=== PATIENT | male | born 1955 | race Caucasian/White ===

== ENCOUNTER 2020-09-02 14:02 | Inpatient (IN) | payer MEDICAID, SELFPAY ==
[2020-09-02] VITALS (15 sets, daily range): BP systolic 118–162; BP diastolic 76–95; PULSE 82–151; RESP 12–31; TEMP 36.9–43; O2SAT 93–97; BMI 33.3; BMI 33.5
--- NOTE | 2020-09-02 14:14 | ECG_ITS ---
APPROVED REPORT Exam: Resting ECG HR:151 bpm ECG Measurements Heart Rate 151 AXES QRSd 88 QRS 42 QT 288 T -1 QTc 456 Conclusion Atrial fibrillation with rapid ventricular response Abnormal ECG Electronically signed by : Saad Barraza, 09/02/2020 21:01:09
--- NOTE | 2020-09-02 14:19 | CT_ITS ---
Procedure: CT ANGIO ABDOMEN PELVIS CLINICAL HISTORY: abdominal pain, new afib COMPARISON: No exams were available for comparison TECHNIQUE: IV Contrast: 100ml Isovue 370 Axial images obtained with sagittal and coronal reformats. All CT scans at the facility use one or more dose reduction, viz: automated exposure control, ma/kV adjustment per patient size (including targeted exams where dose is matched to indication, i.e. head), or iterative reconstruction technique. FINDINGS: No evidence of aortic aneurysm. There is a single renal artery to each kidney. No evidence of renal artery stenosis. There is mild narrowing of the proximal aspect of the celiac artery of approximately 40-50 percent. The SMA has an unremarkable appearance. The WONG is patent. The iliacs have an unremarkable appearance. The liver, gallbladder, and adrenal glands and pancreas have an unremarkable appearance. There is mild splenomegaly at 14 cm. No renal or ureteral calculi. There is a small umbilical hernia containing fat. Degenerative changes are present in the lumbar spine. No evidence of appendicitis. There is a moderate amount of gas density present within the right upper quadrant. This is within the mesenteric fat in the epigastric region and in the right upper quadrant at the region of the hepatic flexure. There is a somewhat irregular area of enhancement involving the hepatic flexure of the colon which could represent a neoplastic process. Fluid is present within nondistended large and small bowel. Small amount of gas is noted anterior to the right anterior pararenal fascia. There is some thickening of the transverse portion of the duodenum with some stranding of the Alondra duodenal fat.. There are fluid-filled loops of large and small bowel suspicious for an ileus There are few colonic diverticula but no convincing evidence of diverticulitis. No portal venous gas. IMPRESSION: 1. There is free air within the mesenteric fat centrally and in the right upper quadrant. This is greatest in the hepatic flexure region consistent with ruptured viscus.. There is some irregular enhancement of the wall of the colon at this area. Neoplasm is a consideration. This does not appear to represent an apple-core lesion. This is not a typical appearance for diverticulitis although that etiology is not completely excluded. 2. There is mild focal thickening of the transverse portion of the duodenum suggesting underlying inflammatory changes. A penetrating ulcer in the transverse portion of the duodenum with perforation would also be included in the differential diagnosis. The duodenal bulb and descending portion of the duodenum are unremarkable.. 3. Suspect ileus 4. Dr. Arteaga was notified of these findings by telephone 09/02/2020 at 3:15 p.m. Dictated by: Luisito Nolan MD 09/02/2020 15:32 Luisito Nolan MD in [place] 09/02/2020 15:32
[2020-09-02 14:33] LABS: Basophils % 0.2 % (0.1-2.0); Eosinophils # 0.1 K/mm3 (0.0-0.4); Eosinophils % 0.4 % (0.1-12.0); Hematocrit 41.2 % (42.0-52.0); Lymphocytes # 0.9 K/mm3 (0.7-4.5); Mean Corpuscular Hemoglobin 29.9 pg (27.0-31.2); Mean Corpuscular Volume 87.8 fl (80-94); Mean Platelet Volume 10.1 fl (7.4-10.4); Monocytes # 0.5 K/mm3 (0.1-1.0); Monocytes % 2.7 % (1.7-9.3); Neutrophils % 91.8 % (37.0-80.0); Platelet Count 198 K/mm3 (142-424); Red Blood Count 4.68 M/mm3 (4.60-6.20); Red Cell Distribution Width 14.3 % (11.5-17.5); White Blood Count 17.4 K/mm3 (4.8-10.8)
[2020-09-02 14:36] LABS: MANUAL DIFFERENTIAL MANUAL DIFFERENTIAL (MANUAL DIFF)
[2020-09-02 14:37] LABS: Chloride 98 mmol/L (98-107); Sodium 137 mmol/L (136-145)
--- NOTE | 2020-09-02 14:37 | HMH.EDGENADL ---
ED Disposition Clinical Impression: Acute abdomen, Intra-abdominal free air of unknown etiology, Atrial fibrillation with RVR Disposition: Still a Patient Condition on Discharge: Serious Time of Disposition: 15:40 - Critical Care Critical Care Time: No Attestation: On 09/02/20, the high probability of a clinically significant, sudden or life threatening deterioration of the following system(s) required my full and direct attention, intervention and personal management. The time I documented below is in addition to time spent performing reported procedures but includes the following listed in this critical care notation. Medical Decision Making - Medical Records Medical records reviewed: Yes: I reviewed the patient's medical records. - Rene Inquiry Pt receiving controlled substance: No Vital Signs: 09/02/20 14:03 09/02/20 14:20 09/02/20 16:57 Temperature 99.4 F Temperature Source Oral Pulse Rate 145 H 149 H Pulse Rate [Left Radial] 151 H Respiratory Rate 20 20 20 Blood Pressure 118/76 135/90 Blood Pressure [Right Arm] 121/77 Blood Pressure Mean [Right Arm] 91 Blood Pressure Source Automatic Cuff Automatic Cuff Blood Pressure Source [Right Arm] Automatic Cuff Blood Pressure Position Sitting Sitting Blood Pressure Position [Right Arm] Sitting 02 Sat by Pulse Oximetry 97 93 L 97 Oxygen Delivery Method Room Air Room Air 09/02/20 18:36 Temperature 99.4 F Temperature Source Oral Pulse Rate 82 Pulse Rate [Left Radial] Respiratory Rate 20 Blood Pressure 129/82 Blood Pressure [Right Arm] Blood Pressure Mean [Right Arm] Blood Pressure Source Automatic Cuff Blood Pressure Source [Right Arm] Blood Pressure Position Sitting Blood Pressure Position [Right Arm] 02 Sat by Pulse Oximetry Oxygen Delivery Method Room Air - Lab Data Lab Results 09/02/20 14:20: WBC 17.4 H, RBC 4.68, Hgb 14.0 L, Hct 41.2 L, MCV 87.8, MCH 29.9, MCHC 34.0, RDW 14.3, Plt Count 198, MPV 10.1, Neut % (Auto) 91.8 H, Lymph % (Auto) 5.0 L, [place] % (Auto) 2.7, Eos % (Auto) 0.4, Baso % (Auto) 0.2, Neut # (Auto) 16.0 H, Lymph # (Auto) 0.9, [place] # (Auto) 0.5, Eos # (Auto) 0.1, Baso # (Auto) 0.0, Total Counted 100, Neutrophils % (Manual) 89 H, Lymphocytes % (Manual) 7 L, Monocytes % (Manual) 4, Platelet Estimate Normal 09/02/20 14:20: Sodium 137, Potassium 4.0, Chloride 98, Carbon Dioxide 28, Anion Gap 15.0, BUN 34 H, Creatinine 1.50 H, Estimated Creat Clear 72, Estimated GFR 47 L, Est GFR ( Amer) 57 L, Glucose 132 H, Calcium 9.0, Total Bilirubin 1.2, AST 32, ALT 28, Alkaline Phosphatase 62, Troponin I < 0.01, Total Protein 8.2, Albumin 4.5, Globulin 3.7 H, Albumin/Globulin Ratio 1.2, Lipase 49 09/02/20 14:20: Magnesium 1.7 09/02/20 14:20: Phosphorus 2.5, TSH 1.92 09/02/20 14:40: Lactate 1.6 09/02/20 16:55: SARS-CoV-2 (PCR) Not detected, Influenza A Untype (PCR) Not detected, Influenza Type B (PCR) Not detected Result diagrams: 09/02/20 14:20 09/02/20 14:20 Orders (Tests/Meds): ED MEDICATIONS Generic Name Dose Route Start Last Admin Trade Name Freq PRN Reason Stop Dose Admin Piperacillin Sod/Tazobactam 100 mls @ 200 mls/hr 09/02/20 15:15 09/02/20 16:18 Sod 4.5 gm/ Sodium Chloride IV 09/16/20 15:14 200 mls/hr Q8H BRIANNA Administration Protocol Ertapenem 1 gm/ Sodium 50 mls @ 100 mls/hr 09/03/20 17:00 Chloride IV 09/16/20 16:59 Q24H BRIANNA Protocol Discontinued Medications Generic Name Dose Route Start Last Admin Trade Name Freq PRN Reason Stop Dose Admin Sodium Chloride 1,000 mls @ 999 mls/hr 09/02/20 14:15 09/02/20 14:27 Sod Chlor 0.9% 1000ml Bag IV 09/02/20 15:15 999 mls/hr .Q1H1M BRIANNA Administration Sodium Chloride 1,000 mls @ 999 mls/hr 09/02/20 15:45 09/02/20 16:22 Sod Chlor 0.9% 1000ml Bag IV 09/02/20 16:45 999 mls/hr .Q1H1M BRIANNA Administration Ertapenem 1 gm/ Sodium 50 mls @ 100 mls/hr 09/02/20 17:00 Chloride IV 09/16/20 16:59 Q24H BRIANNA
[2020-09-02 14:40] LABS: Alanine Aminotransferase 28 U/L (12-78); Alkaline Phosphatase 62 U/L (38-126); Aspartate Amino Transferase 32 U/L (17-59); Bilirubin,Total 1.2 mg/dl (0.2-1.3); Blood Urea Nitrogen 34 mg/dl (9-20); Carbon Dioxide 28 mmol/L (22.0-30.0); Creatinine Clearance Estimated 72 mL/min (50-200); Estimated Glomerular Filt Rate 47 ml/min (>60); GFR (African American) 57 ML/MIN (>60); Glucose 132 mg/dl (74-100); Lipase 49 U/L (23-300); Phosphorous 2.5 mg/dl (2.5-4.5)
[2020-09-02 14:41] LABS: Albumin Level 4.5 g/dl (3.5-5.0); Albumin/Globulin Ratio 1.2 (1.1-1.8); Globulin 3.7 g/dL (1.3-3.2); Magnesium 1.7 mg/dl (1.6-2.3); Total Protein,Serum 8.2 g/dl (6.3-8.2)
[2020-09-02 14:57] LABS: Lactic Acid 1.6 mmol/L (0.7-2.1)
[2020-09-02 14:59] LABS: Troponin I < 0.01 ng/ml (0.00-0.034)
[2020-09-02 15:12] LABS: Thyroid Stimulating Hormone 1.92 uIU/mL (0.465-4.68)
[2020-09-02 15:19] LABS: Lymphocytes % 7 % (10-50); Monocytes % 4 % (2-9); Neutrophils % 89 % (42-76); Platelet Estimate Normal; Total Cells Counted 100
--- NOTE | 2020-09-02 15:32 | PC.NURSE ---
DR JAMES PAGED
--- NOTE | 2020-09-02 16:33 | PC.NURSE ---
DR JAMES HERE AND WANTS TO TAKE PT TO SURGERY
--- NOTE | 2020-09-02 16:47 | HMH.GSHP ---
HPI HPI: Contacted by the emergency department to evaluate patient with free air and abdominal pain. Patient is a 64-year-old male from [place] with reportedly no chronic medical conditions. He does state that for about 2 months he has had some occasional abdominal pain and looser stools with relief of abdominal pain with passage of gas. However, for the past 2 days he has had progressively quite severe abdominal pain with it becoming quite severe yesterday. He presented to his primary care provider's office today and was sent to the emergency department where he was seen and evaluated. Upon presentation patient was noted to be tachycardic. Work-up was initiated. EKG revealed evidence of atrial fibrillation with rapid ventricular response. He was found to have a leukocytosis. He describes the pain as in the mid upper abdomen characterized as intense and sharp. He has no prior history of similar symptoms. He has never had previous colonoscopy. No history of ulcer disease. He underwent CT scan of the abdomen and pelvis in the emergency department which revealed findings most notable for free air within the mesenteric fat near the hepatic flexure with some irregular enhancement of the colon wall. This is consistent with perforated colon possibly secondary to neoplasm or inflammatory process. [facility] History I have reviewed the patient's past medical history: Yes *Have you ever received a pneumonia vaccine?: No *Have you received a flu vaccine this season?: No - *Social History Smoking Status: Never smoker Alcohol Intake: never *Occupational Status:: other *Travel in the last 8 weeks: None Family Hx:: No significant family history Review of Systems - Review of Systems Review of systems:: pertinent systems reviewed and negative unless documented below - *Neurologic Denies headache(s), Denies numbness Meds Home Medications Medication Instructions Recorded Confirmed Type No Known Home Medications 09/02/20 09/02/20 History Allergies Allergy/AdvReac Type Severity Reaction Status Date / Time No Known Allergies Allergy Unverified 01/24/17 15:06 Exam Vital signs and Labs for Last 24 Hours: Temp Pulse Resp BP Pulse Ox 99.4 F 151 H 20 121/77 97 09/02/20 14:03 09/02/20 14:03 09/02/20 14:03 09/02/20 14:03 09/02/20 14:03 Laboratory Results - last 24 hr 09/02/20 14:20: WBC 17.4 H, RBC 4.68, Hgb 14.0 L, Hct 41.2 L, MCV 87.8, MCH 29.9, MCHC 34.0, RDW 14.3, Plt Count 198, MPV 10.1, Neut % (Auto) 91.8 H, Lymph % (Auto) 5.0 L, [place] % (Auto) 2.7, Eos % (Auto) 0.4, Baso % (Auto) 0.2, Neut # (Auto) 16.0 H, Lymph # (Auto) 0.9, [place] # (Auto) 0.5, Eos # (Auto) 0.1, Baso # (Auto) 0.0, Total Counted 100, Neutrophils % (Manual) 89 H, Lymphocytes % (Manual) 7 L, Monocytes % (Manual) 4, Platelet Estimate Normal 09/02/20 14:20: Sodium 137, Potassium 4.0, Chloride 98, Carbon Dioxide 28, Anion Gap 15.0, BUN 34 H, Creatinine 1.50 H, Estimated Creat Clear 72, Estimated GFR 47 L, Est GFR ( Amer) 57 L, Glucose 132 H, Calcium 9.0, Total Bilirubin 1.2, AST 32, ALT 28, Alkaline Phosphatase 62, Troponin I < 0.01, Total Protein 8.2, Albumin 4.5, Globulin 3.7 H, Albumin/Globulin Ratio 1.2, Lipase 49 09/02/20 14:20: Magnesium 1.7 09/02/20 14:20: Phosphorus 2.5, TSH 1.92 09/02/20 14:40: Lactate 1.6 I & O for Last 24 hours: Intake & Output 08/31/20 09/01/20 09/02/20 09/03/20 11:59 11:59 11:59 11:59 Weight 226 lb - Constitutional no acute distress - *Routine HEENT Exam Head: Present: normocephalic Eye: Present: EOMI, PERRL ENT: Present: mucous membranes moist - *Routine Neck Exam Present: supple. Absent: lymphadenopathy - *Routine Respiratory Exam Present: CTA bilaterally - *Routine Cardiovascular Exam Present: RRR - *Routine Abdominal Exam Present: soft, normoactive bowel sounds, tenderness, distended, guarding Comments: Abdomen is slightly distended. He has diffuse tenderness. There is guar
[2020-09-02 17:04] LABS: Coronavirus 19, PCR Not Detected (NotDetected); Influenza A, PCR Not Detected (NotDetected); Influenza B, PCR Not Detected (NotDetected)
--- NOTE | 2020-09-02 20:08 | P.PN_ITS ---
[facility] Anesthesia Checklist - Structural Data Admitted From: Emergency Dept Planned Operative Procedure/s: expl laparotomy Consent for Planned Operative Procedure(s) Verified: Yes - Airway Assessment C-Spine Mobility Assessed: Yes TMJ Mobility Assessed: Yes Dentition: Dentures-good fit - Neurological Assessment Level of Consciousness: Awake, Alert, Appropriate - Anesthesia Plan Anesthesia Risk discussed: Yes Anesthesia Plan: Verified ASA Class: III Anesthesia Type: General [facility] History I have reviewed the patient's past medical history: Yes *Have you ever received a pneumonia vaccine?: No *Have you received a flu vaccine this season?: No Anesthesia experience/problems:: none - *Social History Smoking Status: Never smoker Alcohol Intake: never Substance Use Type: denies use *Occupational Status:: other *Travel in the last 8 weeks: None Family Hx:: No significant family history
--- NOTE | 2020-09-02 21:38 | HMH.OPNOTE ---
Date of procedure: 09/02/20 Pre-op Diagnosis:: Acute abdomen, free air Post-op Diagnosis:: Same Procedure performed:: Laparotomy, right hemicolectomy with ileocolic anastomosis Surgeon:: Jacky Cr MD SPECIALTY DEPARTMENT SUPERVISOR:: Volodymyr Dominguez Anesthesia: GETA Estimated blood loss (mL): 50 Clinical Note:: Patient is a 64-year-old male from [place] with reportedly no chronic medical conditions. He does state that for about 2 months he has had some occasional abdominal pain and looser stools with relief of abdominal pain with passage of gas. However, for the past 2 days he has had progressively quite severe abdominal pain with it becoming quite severe yesterday. He presented to his primary care provider's office today and was sent to the emergency department where he was seen and evaluated. Upon presentation patient was noted to be tachycardic. Work-up was initiated. EKG revealed evidence of atrial fibrillation with rapid ventricular response. He was found to have a leukocytosis. He describes the pain as in the mid upper abdomen characterized as intense and sharp. He has no prior history of similar symptoms. He has never had previous colonoscopy. No history of ulcer disease. He underwent CT scan of the abdomen and pelvis in the emergency department which revealed findings most notable for free air within the mesenteric fat near the hepatic flexure with some irregular enhancement of the colon wall. This is consistent with perforated colon possibly secondary to neoplasm or inflammatory process. Surgical consultation was obtained. Patient was seen and examined in the emergency department. Given the findings and clinical presentation plan was made for emergent laparotomy. Operative findings:: Patient had large perforation of the colon near the hepatic flexure with walled off feculent abscess. There was no obvious mass noted. There was some significant inflammatory changes lateral to the duodenum and the retroperitoneum but no evidence of any perforation of the duodenum. Operative note:: Patient was taken to the operating room. He was positioned in a supine position. General anesthesia was induced via endotracheal tube. Madrigal catheter was placed. Please note the patient had findings of significant phimosis which made Madrigal catheter placement difficult. Minor hemostat dilatation Madrigal catheter was placed. His abdomen was prepped and draped in the standard surgical fashion. Midline laparotomy was performed. Dissection was carried down through subcutaneous tissues and fascia using electrocautery. Peritoneum was entered. Please note that patient did have a small umbilical hernia and extraneous peritoneum at the hernia sac was excised and sent off as hernia sac . Exposure was achieved. Exploration revealed indurated inflammatory change in the right upper abdomen. Omentum was adherent and this was able to be dissected free. This appeared to be a significant perforation with large feculent abscess of the hepatic flexure. Decision was made to perform performance of right hemicolectomy. The peritoneum was incised lateral to the colon along the white line of Toldt. The colon was mobilized. Careful inspection was performed of the retroperitoneum. There was inflammatory changes of the duodenum but it appeared viable. Most inflammatory changes from the walled off retroperitoneal abscess was lateral to the duodenum. There was some minor oozing from pancreaticoduodenal vessel branch. Hemostasis was temporarily achieved with Surgicel and Gelfoam. Ultimately a couple hemoclips were placed for good hemostasis. There is a very large perforation in the colon at the hepatic flexure. Transverse colon was divided distal to this with MICKEY linear cutting stapling device. Terminal ileum was divided just proximal to the ileocecal valve with MICKEY linear cutting stapling device. Colonic mesentery was then scored with electrocautery. Colonic mesentery was divided with the
--- NOTE | 2020-09-02 21:51 | P.PN_ITS ---
[facility] Anesthesia Record Part I Intake, IV Amount: 2,500 Estimated blood loss (mL): 250 Urine output (mL): 300 Blood Pressure: 155/95 SaO2: 93 Pulse Rate: 120 Respiratory Rate: 12 Temperature: 99.9 F Patient is:: Awake, Stable Stable to PACU at:: 21:45
[2020-09-02 23:47] LABS: Microscopic,Cath URINE MICROSCOPIC (MICROSCOPIC)
[2020-09-02 23:48] LABS: Appearance,Urine/Cath SL CLOUDY (Clear); Bilirubin,Cath Negative (Negative); Blood, Urine/Cath 1+ (Negative); Color,Urine/Cath YELLOW (Yellow); Glucose,Urine/Cath (UA) Negative (Negative); Ketones,Urine/Cath Negative (Negative); Leukocyte Esterase,Cath Negative (Negative); Nitrate,Cath Negative (Negative); Protein,Urine/Cath 1+ (Negative); Specific Gravity, Urine/Cath 1.025 (1.005-1.030); Urobilinogen,Cath 0.2 EU/dl (0.2)
[2020-09-02 23:54] LABS: Bacteria,Urine/Cath 4+ /lpf; Squamous Epithelial Ur./Cath Occasional #/hpf (0-5)
[2020-09-03] VITALS (24 sets, daily range): BP systolic 116–157; BP diastolic 68–90; PULSE 64–127; RESP 14–21; TEMP 36.4–37.7; O2SAT 88–98
--- NOTE | 2020-09-03 00:29 | PC.NURSE ---
Addendum entered by Samaria Sears RN 09/03/20 00:36: 0012: SPOKE WITH [facility], AND VERIFIED THAT INVANZ IS COMPATIBLE WITH MORPHINE. Original Note: 2330: SPOKE WITH DR. JAMES AND INFORMED HIM THAT PATIENT'S PAIN WASN'T BEING CONTROLLED. DR. JAMES STATED TO START PARTS SALESMAN. 1MG Q10MIN WITH A LOCKOUT OF 20MG IN 4 HOURS. ORDER REPEATED AND VERIFIED. INFORMED Ernie MEYER RN OF NEW ORDER. MORPHINE PARTS SALESMAN SET UP AND STARTED AT 2350. PARTS SALESMAN VERIFIED BY MYSELF AND Ernie MEYER RN. ZOSYN NOTED TO BE COMPATIBLE WITH MORPHINE PARTS SALESMAN PER COMPATIBILITY CHART. 1212: SPOKE WITH [facility], AND VERIFIED THAT INVANZ IS COMPATIBLE WITH MORPHINE.
--- NOTE | 2020-09-03 02:13 | PC.NURSE ---
0200 patietn converted to sr with rate 60s to 70s dr. powell notified, order received to continue drip since patientnpo
--- NOTE | 2020-09-03 02:46 | PC.NURSE ---
0001 cardizem drip decreased to 5
[2020-09-03 04:59] LABS: Chloride 103 mmol/L (98-107); Potassium 4.3 mmoL/L (3.5-5.1); Sodium 137 mmol/L (136-145)
[2020-09-03 05:02] LABS: Basophils % 0.1 % (0.1-2.0); Blood Urea Nitrogen 23 mg/dl (9-20); Creatinine Clearance Estimated 90 mL/min (50-200); Eosinophils # 0.1 K/mm3 (0.0-0.4); Eosinophils % 0.5 % (0.1-12.0); Estimated Glomerular Filt Rate 61 ml/min (>60); GFR (African American) 74 ML/MIN (>60); Hematocrit 37.9 % (42.0-52.0); Hemoglobin 12.8 g/dL (14.1-18.0); Lymphocytes # 0.4 K/mm3 (0.7-4.5); Lymphocytes % 2.6 % (10-50); Mean Corpuscular HGB Conc 33.7 g/dL (31.8-35.4); Mean Corpuscular Hemoglobin 30.1 pg (27.0-31.2); Mean Corpuscular Volume 89.4 fl (80-94); Mean Platelet Volume 9.8 fl (7.4-10.4); Monocytes # 0.4 K/mm3 (0.1-1.0); Monocytes % 2.8 % (1.7-9.3); Neutrophils # 13.2 K/mm3 (1.8-7.8); Platelet Count 176 K/mm3 (142-424); Red Blood Count 4.25 M/mm3 (4.60-6.20); Red Cell Distribution Width 14.3 % (11.5-17.5)
[2020-09-03 05:03] LABS: Anion Gap 9.3 mEq/L (5-15); Carbon Dioxide 29 mmol/L (22.0-30.0); Glucose 185 mg/dl (74-100)
[2020-09-03 05:04] LABS: MANUAL DIFFERENTIAL MANUAL DIFFERENTIAL (MANUAL DIFF)
[2020-09-03 05:24] LABS: Calcium 7.9 mg/dl (8.4-10.2)
[2020-09-03 05:28] LABS: Lymphocytes % 3 % (10-50); Neutrophils % 97 % (42-76); Total Cells Counted 100
[2020-09-03 05:29] LABS: Platelet Estimate Normal; RBC Morphology Normal
--- NOTE | 2020-09-03 05:52 | PC.NURSE ---
supervising editor trailer 25 doses administered. 1 partial dose administered and 62 doses denied. 25.8 mg total dose given
--- NOTE | 2020-09-03 07:00 | XR_ITS ---
PROCEDURE INFORMATION: Exam: XR Chest Exam date and time: 09/03/2020 7:00 AM Age: 64 years old Clinical indication: Other: Post op; Additional info: Post-op TECHNIQUE: Imaging protocol: XR of the chest. Views: 1 view. COMPARISON: CT ANGIO ABDOMEN PELVIS 09/02/2020 2:52 PM FINDINGS: Lungs: There is crowding of the bronchovascular bundles and mild atelectasis. Pleural spaces: No pleural effusion or pneumothorax is seen. Heart/Mediastinum: There is hypoinflation with crowding of the mediastinal structures and bronchovascular bundles. There is mild multichamber cardiomegaly but no overt failure. Bones/joints: The bones are demineralized. IMPRESSION: Hypoinflation with mild cardiomegaly and bilateral atelectasis.
--- NOTE | 2020-09-03 07:26 | HMH.GSPN ---
Subjective Narrative: This patient responds well to questions this morning and states that he feels okay . Progress Note: A&P (1) Colon perforation Status: Acute Assessment and plan: Overall, doing well status post exploratory laparotomy with ileocolic anastomosis. Continue nasogastric decompression Await return of bowel function Ambulate (2) Atrial fibrillation with RVR Status: Acute Assessment and plan: Cardiology consultation pending (3) Phimosis Status: Acute Assessment and plan: Keep Madrigal catheter in place for now. May require urologic evaluation. Exam Vital signs and Labs for Last 24 Hours: Temp Pulse Resp BP Pulse Ox 98.6 F 70 14 120/72 96 09/03/20 05:31 09/03/20 05:31 09/03/20 05:31 09/03/20 05:09/03/20 05:31 Laboratory Results - last 24 hr 09/02/20 14:20: WBC 17.4 H, RBC 4.68, Hgb 14.0 L, Hct 41.2 L, MCV 87.8, MCH 29.9, MCHC 34.0, RDW 14.3, Plt Count 198, MPV 10.1, Neut % (Auto) 91.8 H, Lymph % (Auto) 5.0 L, [place] % (Auto) 2.7, Eos % (Auto) 0.4, Baso % (Auto) 0.2, Neut # (Auto) 16.0 H, Lymph # (Auto) 0.9, [place] # (Auto) 0.5, Eos # (Auto) 0.1, Baso # (Auto) 0.0, Total Counted 100, Neutrophils % (Manual) 89 H, Lymphocytes % (Manual) 7 L, Monocytes % (Manual) 4, Platelet Estimate Normal 09/02/20 14:20: Sodium 137, Potassium 4.0, Chloride 98, Carbon Dioxide 28, Anion Gap 15.0, BUN 34 H, Creatinine 1.50 H, Estimated Creat Clear 72, Estimated GFR 47 L, Est GFR ( Amer) 57 L, Glucose 132 H, Calcium 9.0, Total Bilirubin 1.2, AST 32, ALT 28, Alkaline Phosphatase 62, Troponin I < 0.01, Total Protein 8.2, Albumin 4.5, Globulin 3.7 H, Albumin/Globulin Ratio 1.2, Lipase 49 09/02/20 14:20: Magnesium 1.7 09/02/20 14:20: Phosphorus 2.5, TSH 1.92 09/02/20 14:40: Lactate 1.6 09/02/20 16:55: SARS-CoV-2 (PCR) Not detected, Influenza A Untype (PCR) Not detected, Influenza Type B (PCR) Not detected 09/02/20 19:48: Urine Color Yellow, Urine Appearance Sl cloudy, Urine pH 5.0, Ur Specific [place] 1.025, Urine Protein 1+, Urine Glucose (UA) Negative, Urine Ketones Negative, Urine Blood 1+, Urine Nitrate Negative, Urine Bilirubin Negative, Urine Urobilinogen 0.2, Ur Leukocyte Esterase Negative, Urine RBC 5-10, Urine WBC 3-5, Ur Squamous Epith Cells Occasional, Urine Bacteria 4+ A 09/03/20 04:45: WBC 14.0 H, RBC 4.25 L, Hgb 12.8 L, Hct 37.9 L, MCV 89.4, MCH 30.1, MCHC 33.7, RDW 14.3, Plt Count 176, MPV 9.8, Neut % (Auto) 94.0 H, Lymph % (Auto) 2.6 L, [place] % (Auto) 2.8, Eos % (Auto) 0.5, Baso % (Auto) 0.1, Neut # (Auto) 13.2 H, Lymph # (Auto) 0.4 L, [place] # (Auto) 0.4, Eos # (Auto) 0.1, Baso # (Auto) 0.0, Total Counted 100, Neutrophils % (Manual) 97 H, Lymphocytes % (Manual) 3 L, Platelet Estimate Normal, RBC Morphology Normal 09/03/20 04:45: Sodium 137, Potassium 4.3, Chloride 103, Carbon Dioxide 29, Anion Gap 9.3, BUN 23 H D, Creatinine 1.20, Estimated Creat Clear 90, Estimated GFR 61, Est GFR ( Amer) 74 D, Glucose 185 H D, Calcium 7.9 L D I & O for Last 24 hours: Intake & Output 08/31/20 09/01/20 09/02/20 09/03/20 11:59 11:59 11:59 11:59 Intake Total 3724 / 3724 Output Total 1100 / 1100 Balance 2624 / 2624 Weight 225 lb 15.581 oz - Constitutional no acute distress - *Routine Respiratory Exam Absent: respiratory distress - *Routine Cardiovascular Exam Absent: tachycardia - *Routine Abdominal Exam Comments: Dressings intact.
--- NOTE | 2020-09-03 08:01 | HMH.PHAVTE ---
[facility] Pharmacy VTE Monitoring - Patient Demographics Admission date: 09/03/20 Report Date: 09/03/20 Time: 08:01 Allergies/Adverse Reactions: Patient Allergies No Known Allergies Allergy (Unverified 01/24/17 15:06) Height: 1.75 m Weight: 102.5 kg Patient Problems: Current Active Problems Acute abdomen (Acute) Intra-abdominal free air of unknown etiology (Acute) Atrial fibrillation with RVR (Acute) Colon perforation (Acute) Phimosis (Acute) - VTE Risk Labs: VTE Related Lab Results Hgb 12.8 g/dL (14.1-18.0) L 09/03/20 04:45 Hct 37.9 % (42.0-52.0) L 09/03/20 04:45 Plt Count 176 K/mm3 (142-424) 09/03/20 04:45 BUN 23 mg/dl (9-20) H D 09/03/20 04:45 Creatinine 1.20 mg/dl (0.66-1.25) 09/03/20 04:45 Estimated Creat Clear 90 mL/min (50-200) 09/03/20 04:45 Was VTE Risk Assessment Performed: Yes VTE Score: 3 VTE Risk Level: Low Risk Clinical Trial Participant: No - Prophylaxis VTE Prophylaxis Ordered?: Yes Types of VTE Prophylaxis: TEDS Knee High
--- NOTE | 2020-09-03 08:23 | CA_ITS ---
APPROVED REPORT EXAM: Comprehensive 2D, Doppler, and color-flow Echocardiogram Generation Engineer: Soraida Rick RT(R) Ht: 6 ft 9 in Wt: 225lbs BSA: 2.44 BP: 120/72 mmHg Indications: AFIB with RVR, abdominal pain with nausea, possible perforated colon 2D Dimensions LVOT 2.08 cm (M/F) 1.5-2.5 LA Volume 42.10 mL LA Volume Index 17.25 mL/m2 (M/F) 16-34 M-Mode Dimensions RVDd 3.17 cm (0.9-2.6) LA Diam 4.13 cm (1.9-4.0) LVDd 5.45 cm (3.5-5.7) Ao Diam 2.91 cm (2.0-3.7) LVDs 4.02 cm (3.5-5.7) IVSd 0.76 cm (0.6-1.1) PWd 0.76 cm (0.6-1.1) EF (Teich) 51.00% FS 26.20% EDV (Teich) 144.40 mL ESV (Teich) 70.80 mL LV Diastology E Decel Time 197.00 (160-240 msec) E/A Ratio 0.9 MED E' 11.60 (< 7 cm/sec) E'/MED E' Ratio 5.73 (>14) LAT E' 7.90 (<10 cm/sec) E/LAT E' Ratio 8.42 (>14) Mitral Valve MV E Max Yaya. 66.00 (40-130 cm/s) MV A Velocity 75.00 (40-130 cm/s) E/A Ratio 0.89 MV Decel. Time 197.00 (160-240 ms) MV PHT 58.00 ms Left Ventricle Atrium is mildly enlarged, left ventricle is normal size, visually estimated ejection fraction 55% with no regional wall motion abnormality, diastolic parameters are inconclusive. Right Ventricle Right atrium and right ventricle are mildly enlarged with normal contractility. Aortic Valve Aortic valve is minimally thickened and fibrosed, there is no aortic stenosis or aortic insufficiency. Mitral Valve Mitral valve is minimally thickened, there is mild mitral regurgitation. Tricuspid Valve Tricuspid valve is grossly normal, there is mild tricuspid regurgitation, tricuspid regurgitation jet velocity is inadequate for calculation of the right ventricular systolic pressure. Pulmonic Valve Pulmonic valve is poorly visualized. Great Vessels Aortic root is normal size. Pericardium No significant pericardial effusion noted. Conclusion 1. Biatrial enlargement, normal left ventricular size, visually estimated ejection fraction 55% with no regional wall motion abnormality, diastolic parameters are inconclusive. 2. Mildly enlarged right ventricle with normal contractility. 3. Mild mitral and tricuspid regurgitation. 4. No significant pericardial effusion noted. Electronically signed by : Dwayne Raya, 09/03/2020 16:03:25
--- NOTE | 2020-09-03 08:36 | HMH.CNCARD ---
<Saima Powell - Last Filed: 09/03/20 10:00> History of Present Illness Consult date: 09/03/20 Requesting physician: Gurmeet Lopez Consult reason: atrial fibrillation Chief complaint: Atrial fibrillation with RVR, abdominal pain History of present illness: 64-year-old male admitted to facility due to abdominal pain yesterday afternoon.. Patient is alert and oriented x3. Patient stated he had been having increased lower abdominal pain for the past few days prior to arrival to the ED. Patient stated he felt nauseated but no vomiting. Abdominal CT was performed which suspected an ileus. Patient did undergo exploratory laboratory with ileocolic anastomosis early this a.m. During surgery, patient went into atrial fibrillation with RVR. Dr. Jones was notified and patient was placed on a Cardizem drip. Patient did convert into sinus rhythm around 2 AM this morning. Patient remains in sinus rhythm at this time with a heart rate of 68 bpm. Patient continues to be on Cardizem drip at 5 mg/h. Blood pressure is stable. Patient currently does have NG to wall suction for nasogastric decompression. Patient noted to be on a morphine TEA PLANTATION WORKER pump. Patient does have bilateral stents placed. Patient does have abdominal dressing dry and intact. Patient denies chest pain, tightness or pressure. Patient states no known history of atrial fibrillation. Patient denies any history of coronary artery disease. Patient denies history of hypertension or hyperlipidemia. Patient states he rarely goes to the doctor. Patient states unsure last time he was seen by family doctor. No swelling noted of the lower extremities. Abd CT:IMPRESSION: 1. There is free air within the mesenteric fat centrally and in the right upper quadrant. This is greatest in the hepatic flexure region consistent with ruptured viscus.. There is some irregular enhancement of the wall of the colon at this area. Neoplasm is a consideration. This does not appear to represent an apple-core lesion. This is not a typical appearance for diverticulitis although that etiology is not completely excluded. 2. There is mild focal thickening of the transverse portion of the duodenum suggesting underlying inflammatory changes. A penetrating ulcer in the transverse portion of the duodenum with perforation would also be included in the differential diagnosis. The duodenal bulb and descending portion of the duodenum are unremarkable.. 3. Suspect ileus 4. Dr. Arteaga was notified of these findings by telephone 09/02/2020 at 3:15 p.m. Discussed plan of care with Dr. Jones. Orders were received from Dr. Jones. Patient is postop surgery for exploratory laboratory with ileocolic anastomsis yesterday. Patient is noted to have NG to wall suction for nasogastric impression. This is being managed by surgery. Patient remains n.p.o. at this time. During surgery, patient did go into atrial fibrillation with RVR. Patient was started on a Cardizem drip at that time. Patient remains on Cardizem drip at 5 mg/h. Patient will remain the Cardizem drip until he is able to tolerate p.o. Once patient is able to tolerate p.o. medications, we will stop the Cardizem drip and put him on Cardizem CD 180 mg once daily. Echocardiogram was ordered to assess LV function and valve status. Preliminary echocardiogram reveals EF 50%. Officially waiting echo results. Vital signs are stable. Patient is currently in sinus rhythm with no ectopy with a heart rate of 68 bpm. Please notify cardiology of any changes in patient status. Per surgery, patient is to begin ambulation today to help promote bowel function. Thank you for allowing cardiology to participate in the care of this patient. [facility] History I have reviewed the patient's past medical history: Yes Medical History: Denies:: Cancer, Diabetes Mellitus Type 1, Diabetes Mellitus Type 2, MRSA *Have you ever received a pneumonia vaccine?: No
--- NOTE | 2020-09-03 09:26 | PC.NURSE ---
Per cardiology, pt is to remain on Cardizem gtt while he is NPO status. Cardizem gtt currently @ 5mg/hr.
--- NOTE | 2020-09-03 11:05 | PC.NURSE ---
pt ambulated 3 laps around the unit. He did well without experiencing any issues. RA O2 sat 85%. Reapplied 2L NC and O2 sat increased to 92%.
--- NOTE | 2020-09-03 11:09 | P.PN_ITS ---
[facility] Anesthesia Record Part II Discharge Time: 22:30 Destination: Medical Surgical Department PACU nurse assessment reviewed?: Yes Patient Condition:: Good Anesthesia Complications:: None Swallowing reflex intact?: Yes Cyanosis?: No Blood Pressure: 157/87 Pulse Rate: 117 Temperature: 99.9 F Mental Status: Alert & Oriented Pain level:: 0 Nausea and/or vomitting:: None Intake, IV Amount: 0
--- NOTE | 2020-09-03 11:36 | PC.NURSE ---
Dr. Lopez gave the order for chewing gum prn.
--- NOTE | 2020-09-03 13:45 | HMH.CONS ---
*Admission Date: 09/03/20 *Reason for consult:: Medical management *History of present illness: Contacted by the emergency department to evaluate patient with free air and abdominal pain. Patient is a 64-year-old male from [place] with reportedly no chronic medical conditions. He does state that for about 2 months he has had some occasional abdominal pain and looser stools with relief of abdominal pain with passage of gas. However, for the past 2 days he has had progressively quite severe abdominal pain with it becoming quite severe yesterday. He presented to his primary care provider's office today and was sent to the emergency department where he was seen and evaluated. Upon presentation patient was noted to be tachycardic. Work-up was initiated. EKG revealed evidence of atrial fibrillation with rapid ventricular response. He was found to have a leukocytosis. He describes the pain as in the mid upper abdomen characterized as intense and sharp. He has no prior history of similar symptoms. He has never had previous colonoscopy. No history of ulcer disease. He underwent CT scan of the abdomen and pelvis in the emergency department which revealed findings most notable for free air within the mesenteric fat near the hepatic flexure with some irregular enhancement of the colon wall. This is consistent with perforated colon possibly secondary to neoplasm or inflammatory process. Above note per surgery H&P. Patient has undergone exploratory laparotomy and ileocolonic anastomosis and evacuation of retroperitoneal feculent feculent abscess. He has been in the stepdown unit. Cardiology has seen him for atrial fibrillation with RVR, he is currently in sinus rhythm and cardiology is following. We are asked to follow patient for general medical issues. Patient notes that he has had on and off abdominal pain for a couple of months but otherwise denies medical problems. 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 Denies cardiac or pulmonary problems, denies previous history of abdominal complaints. Lives alone, has never been , has no children, has sisters in [place] with whom he is close. Never smoker, denies significant alcohol use. [facility] History I have reviewed the patient's past medical history: Yes Medical History: Denies:: Cancer, Diabetes Mellitus Type 1, Diabetes Mellitus Type 2, MRSA *Have you ever received a pneumonia vaccine?: No *Have you received a flu vaccine this season?: No Anesthesia experience/problems:: none Amputation: No - *Social History Smoking Status: Never smoker Alcohol Intake: never Substance Use Type: denies use *Occupational Status:: retired Housing: house Household Members: spouse *Travel in the last 8 weeks: None Family Hx:: No significant family history Review of Systems - Review of Systems Review of systems:: pertinent systems reviewed and negative unless documented below Minimal pain in his abdomen. States is controlled with current analgesia. Denies respiratory or cardiac issues. Otherwise review of systems negative except for GI issues recently. - *Neurologic Reports weakness, Denies headache(s), Denies numbness Meds Home Medications Medication Instructions Recorded Confirmed Type No Known Home Medications 09/02/20 09/02/20 History Allergies Allergy/AdvReac Type Severity Reaction Status Date / Time No Known Allergies Allergy Unverified 01/24/17 15:06 Exam Vital signs and Labs for Last 24 Hours: Temp Pulse Resp BP Pulse Ox 97.9 F 67 18 125/83 92 L 09/03/20 11:32 09/03/20 12:00 09/03/20 12:00 09/03/20 12:00 09/03/20 12:00 Laboratory Results - last 24 hr 09/02/20 14:20: WBC 17.4 H, RBC 4.68, Hgb 14.0 L, Hct 41.2 L, MCV 87.8, MCH 29.9, MCHC 34.0, RDW 14.3, Plt Count 198, MPV 10.1, Neut % (Auto) 91.8 H, Lymph % (Auto) 5.0 L, Dillon % (Auto) 2.7, Eos % (Auto) 0.4, Baso % (Auto) 0.2, Neut # (Auto) 16.0 H, Lymph # (Auto) 0.9, Dillon # (Auto) 0
--- NOTE | 2020-09-03 18:38 | PC.NURSE ---
pt ambulated 2 laps around unit
--- NOTE | 2020-09-03 22:53 | PC.NURSE ---
His sats have decreased to the low 80s frequently. He occasionally rebounds to the mid to higher 80s. Continues on vapotherm at 40LPM 100% FiO2. He reports a productive cough. He continues in uncontrolled afib. He has received PRN medications for pain and nausea.
--- NOTE | 2020-09-03 23:08 | PC.NURSE ---
He is A&Ox3. He has ambulated twice on this shift. He continues with NG to CLWS with drainage. DSG on midline incision is intact with no new drainage. EVERARDO drain with serosanguineous drainage. He continues on 2LPM n/c. F/ C patent with cloudy, yellow urine with sediment. He continues with TECHNICAL INSTRUCTOR COURSE DEVELOPER for pain.
[2020-09-04] VITALS (14 sets, daily range): BP systolic 109–147; BP diastolic 62–82; PULSE 50–75; RESP 17–18; TEMP 36.6–36.9; O2SAT 83–97; BMI 33.7
--- NOTE | 2020-09-04 07:12 | HMH.GSPN ---
Subjective Patient reports: feels better Narrative: Patient without complaints. Not passing appreciable flatus. NG in place functioning. EVERARDO serosanguineous. Progress Note: A&P (1) Colon perforation Status: Acute (2) Atrial fibrillation with RVR Status: Acute (3) Phimosis Status: Acute Assessment and Plan for All Diagnoses:: DC NG. DC Madrigal. Exam Vital signs and Labs for Last 24 Hours: Temp Pulse Resp BP Pulse Ox 97.9 F 52 L 17 124/76 93 L 09/03/20 19:59 09/04/20 05:58 09/04/20 04:00 09/04/20 05:58 09/04/20 05:58 I & O for Last 24 hours: Intake & Output 09/01/20 09/02/20 09/03/20 09/04/20 11:59 11:59 11:59 11:59 Intake Total 3724 / 3724 3630 / 3630 Output Total 1100 / 1100 2770 / 2770 Balance 2624 / 2624 860 / 860 Weight 225 lb 15.581 oz 228 lb Microbiology Reports for the Last 24 Hours: Microbiology 09/02/20 19:48 Urine,Catheterized Urine Culture - Preliminary NO GROWTH AFTER 24 HOURS - *Routine Abdominal Exam Comments: Incision clean and dry. EVERARDO serosanguineous.
--- NOTE | 2020-09-04 09:25 | HMH.PNCARD ---
Subjective Date: 08/28/20 Time: 09:00 Principal diagnosis: Exploratory and atrial fib Interval history: 64-year-old male admitted to facility due to abdominal pain and underwent exploratory laparoscopic surgery due to Patient did undergo exploratory with ileocolic anastomosis yesterday. During surgery, patient went into atrial fibrillation with RVR. Dr. Jones was notified and patient was placed on a Cardizem drip. Patient did convert into sinus rhythm and remains in sinus rhythm at this time. Patient continues to be on Cardizem drip due to not being able to take oral medications. Now the patient is tolerating ice chips and p.o. medications, Cardizem drip can be stopped and it is recommended that patient start on oral dose of Cardizem CD. NG has been removed per surgery. Patient noted to be on a morphine MANAGEMENT LEAD pump. Patient does have Scud boots on for DVT prophylaxis. Patient does have abdominal dressing dry and intact. This is managed by surgery. Patient denies chest pain, tightness or pressure. Denies shortness of breath. Patient is on supplemental oxygen at this time. Physical therapy is working with patient on ambulation. Vital signs are stable. Patient denies dizziness or palpitations. No swelling noted of the lower extremities. Echocardiogram was obtained which revealed EF 55% with no regional wall motion abnormality, mild mitral and tricuspid valve regurgitation. Overall patient states he is doing well and is feeling much better. Echo:Conclusion 1. Biatrial enlargement, normal left ventricular size, visually estimated ejection fraction 55% with no regional wall motion abnormality, diastolic parameters are inconclusive. 2. Mildly enlarged right ventricle with normal contractility. 3. Mild mitral and tricuspid regurgitation. 4. No significant pericardial effusion noted. Discussed plan of care with Dr. Jones. Orders were received from Dr. Jones. Overall patient is doing much better. NG has been removed. Patient is able to tolerate ice chips and p.o. medications at this time. It has been recommended Cardizem drip be stopped and and started on oral Cardizem CD per PCP. From a cardiac standpoint, no further cardiac testing is needed at this time. Please notify cardiology of any changes in patient status. Thank you for allowing cardiology to participate in the care of this patient. Exam Vital signs and Labs for Last 24 Hours: Temp Pulse Resp BP Pulse Ox 97.9 F 57 L 18 109/77 L 95 09/03/20 19:59 09/04/20 08:10 09/04/20 08:10 09/04/20 08:10 09/04/20 08:10 I & O for Last 24 hours: Intake & Output 09/01/20 09/02/20 09/03/20 09/04/20 23:59 23:59 23:59 23:59 Intake Total 2500 / 2500 3014 / 3014 1840 / 1840 Output Total 2840 / 2840 1430 / 1430 Balance 2500 / 2500 174 / 174 410 / 410 Weight 225 lb 15.581 oz 228 lb Microbiology Reports for the Last 24 Hours: Microbiology 09/02/20 19:48 Urine,Catheterized Urine Culture - Preliminary NO GROWTH AFTER 24 HOURS - Constitutional mild distress, obese, cooperative - *Routine HEENT Exam Head: Present: normocephalic ENT: Present: mucous membranes moist - *Routine Neck Exam Present: supple, full ROM, normal carotid upstroke. Absent: JVD, carotid bruit, lymphadenopathy - *Routine Respiratory Exam Present: accessory muscle use, CTA bilaterally. Absent: wheezes - *Routine Cardiovascular Exam Present: RRR, Normal S1, Normal S2, bradycardia. Absent: murmur, click, irregular rhythm, JVD - *Routine Abdominal Exam Present: soft, normoactive bowel sounds, distended, wound Comments: Dressing dry and intact. Postop exploratory surgery - *Routine Extremities Exam Present: full ROM, pulses intact, normal capillary refill. Absent: edema - *Routine Skin Exam Present: intact, dry, warm - *Routine Neurological Exam Present: alert, oriented X3, CN II-XII intact, moving all extremities, n
--- NOTE | 2020-09-04 09:58 | HMH.ACPN2 ---
Internal Medicine - PN: Subj *Date: 09/04/20 *Time: 09:58 Interval history: 64-year-old male status post exploratory laparotomy and partial bowel resection. Overall doing well. A. fib well controlled on diltiazem drip, is in sinus rhythm overnight. Heart rate in the 50s to 60s. Complains of some mild abdominal discomfort but overall doing well. No fevers overnight. Advance to ice chips this morning. Denies nausea or vomiting. Exam Vital signs and Labs for Last 24 Hours: Temp Pulse Resp BP Pulse Ox 97.9 F 57 L 18 109/77 L 95 09/03/20 19:59 09/04/20 08:10 09/04/20 08:10 09/04/20 08:10 09/04/20 08:10 I & O for Last 24 hours: Intake & Output 09/01/20 09/02/20 09/03/20 09/04/20 23:59 23:59 23:59 23:59 Intake Total 2500 / 2500 3014 / 3014 1840 / 1840 Output Total 2840 / 2840 1430 / 1430 Balance 2500 / 2500 174 / 174 410 / 410 Weight 102.5 kg 103.419 kg Microbiology Reports for the Last 24 Hours: Microbiology 09/02/20 19:48 Urine,Catheterized Urine Culture - Preliminary NO GROWTH AFTER 24 HOURS Narrative: - Constitutional no acute distress - *Routine HEENT Exam Head: Present: normocephalic Eye: Present: EOMI, PERRL ENT: Present: mucous membranes moist - *Routine Neck Exam Present: supple. Absent: lymphadenopathy - *Routine Respiratory Exam Present: CTA bilaterally - *Routine Cardiovascular Exam Present: RRR - *Routine Abdominal Exam Absent: tenderness; Soft abdomen, surgical sites look good. Expected tenderness, slow but present bowel sounds - *Routine Extremities Exam Absent: cyanosis, clubbing, edema - *Routine Skin Exam Present: warm. Absent: rash - *Routine Neurological Exam Present: alert, oriented X3 Assessment and Plan (1) Colon perforation Status: Acute Category: Medical Code(s): K63.1 - Perforation of intestine (nontraumatic) (2) Atrial fibrillation with RVR Status: Acute Category: Medical Code(s): I48.91 - Unspecified atrial fibrillation (3) Phimosis Status: Acute Category: Medical Code(s): N47.1 - Phimosis - Assessment and plan all Dx Assessment and Plan for all problems:: 64-year-old male on no previous medications who presented with bowel perforation. Status post bowel resection with development of A. fib with RVR due to stress of surgery. Continue with antibiotics at this time, defer to surgery for this choice, agree with choice. Has converted to sinus rhythm. Will transition to oral diltiazem today. Stop diltiazem drip Anticoagulation contraindicated given abdominal surgery and conversion to sinus rhythm. Wearing Scud boots for DVT prophylaxis. PPI for peptic ulcer prophylaxis. Otherwise will follow along during stepdown stay.
--- NOTE | 2020-09-04 14:40 | PC.NURSE ---
report given to david asher at [id number]
--- NOTE | 2020-09-04 18:26 | PC.NURSE ---
verbal order from Dr Rutledge, ok to take pt out of sd
--- NOTE | 2020-09-04 18:53 | PC.NURSE ---
20 mg cleared from cnc operator programmer pump
[2020-09-05] VITALS (13 sets, daily range): BP systolic 127–173; BP diastolic 70–83; PULSE 54–69; RESP 17–20; TEMP 36.6–37.2; O2SAT 92–98
--- NOTE | 2020-09-05 06:38 | PC.NURSE ---
cleared 7.5mg from licensed social worker pump verified with Alexx Isaacs RN
--- NOTE | 2020-09-05 07:49 | HMH.ACPN2 ---
Internal Medicine - PN: Subj *Date: 09/05/20 *Time: 07:49 Interval history: Patient slept well overnight, has some abdominal pain but seems to be dealing well with this with his ACUTE DIALYSIS REGISTERED NURSE pump. No vomiting, tolerated ice chips. No complaints of chest pain or shortness of air. Has had regular pulse rates through the night. Exam Vital signs and Labs for Last 24 Hours: Temp Pulse Resp BP Pulse Ox 98.3 F 63 20 127/83 96 09/05/20 03:24 09/05/20 03:24 09/05/20 03:24 09/05/20 03:24 09/05/20 03:24 I & O for Last 24 hours: Intake & Output 09/02/20 09/03/20 09/04/20 09/05/20 11:59 11:59 11:59 11:59 Intake Total 3724 / 3724 3630 / 3630 0 / 0 Output Total 1100 / 1100 3170 / 3170 Balance 2624 / 2624 460 / 460 0 / 0 Weight 225 lb 15.581 oz 228 lb Microbiology Reports for the Last 24 Hours: Microbiology 09/02/20 19:48 Urine,Catheterized Urine Culture - Final NO GROWTH AFTER 48 HOURS Narrative: Alert, pleasant. Oriented. Lungs have good air movement, heart rate regular. Abdomen is soft, tender. Minimal bowel sounds. No extremity clubbing or edema. ENT exam clear, no JVD Assessment and Plan (1) Colon perforation Status: Acute Category: Medical Code(s): K63.1 - Perforation of intestine (nontraumatic) (2) Atrial fibrillation with RVR Status: Acute Category: Medical Code(s): I48.91 - Unspecified atrial fibrillation (3) Phimosis Status: Acute Category: Medical Code(s): N47.1 - Phimosis - Assessment and plan all Dx Assessment and Plan for all problems:: Atrial fibrillation has not occurred since OR. Continue Cardizem. Blood pressure and pulse under good control.
--- NOTE | 2020-09-05 09:31 | HMH.GSPN ---
Subjective Narrative: No nausea. Past liquid bowel movement this morning. Progress Note: A&P (1) Colon perforation Status: Acute (2) Atrial fibrillation with RVR Status: Acute (3) Phimosis Status: Acute Assessment and Plan for All Diagnoses:: Clear liquid diet. DC EVERARDO drain Exam Vital signs and Labs for Last 24 Hours: Temp Pulse Resp BP Pulse Ox 98.6 F 54 L 17 173/70 H 95 09/05/20 08:00 09/05/20 08:00 09/05/20 08:00 09/05/20 08:00 09/05/20 08:00 I & O for Last 24 hours: Intake & Output 09/02/20 09/03/20 09/04/20 09/05/20 11:59 11:59 11:59 11:59 Intake Total 3724 / 3724 3630 / 3630 0 / 0 Output Total 1100 / 1100 3170 / 3170 Balance 2624 / 2624 460 / 460 0 / 0 Weight 225 lb 15.581 oz 228 lb Microbiology Reports for the Last 24 Hours: Microbiology 09/02/20 19:48 Urine,Catheterized Urine Culture - Final NO GROWTH AFTER 48 HOURS - *Routine Abdominal Exam Present: soft
--- NOTE | 2020-09-05 17:32 | PC.NURSE ---
1 mg cleared from camouflage specialist
--- NOTE | 2020-09-05 18:32 | PC.NURSE ---
NO ACUTE CHANGES. HE IS AOX4, ABLE TO MAKE NEEDS KNOWN TO STAFF, HE HAS BEEN UP TO CHAIR AND AMBULATES IN ROOM. HE HAS NOT C/O PAIN THIS SHIFT, STILL REQUIRES 2LNC FOR O2 SUPPORT, PT HAS PASSED GAS THIS SHIFT, VSS T/O SHIFT, NO NEEDS VOICED.
[2020-09-06] VITALS (12 sets, daily range): BP systolic 113–147; BP diastolic 70–87; PULSE 52–64; RESP 16–20; TEMP 36.6–37.2; O2SAT 95–99; BMI 34.0
--- NOTE | 2020-09-06 06:51 | PC.NURSE ---
pt used 0mg out of his rn dialysis pump.
[2020-09-06 07:10] LABS: Basophils # 0.1 K/mm3 (0-0.2); Basophils % 0.9 % (0.1-2.0); Eosinophils # 0.1 K/mm3 (0.0-0.4); Eosinophils % 0.9 % (0.1-12.0); Hematocrit 35.8 % (42.0-52.0); Hemoglobin 11.7 g/dL (14.1-18.0); Lymphocytes # 1.2 K/mm3 (0.7-4.5); Mean Corpuscular HGB Conc 32.7 g/dL (31.8-35.4); Mean Corpuscular Hemoglobin 30.1 pg (27.0-31.2); Mean Corpuscular Volume 92.1 fl (80-94); Mean Platelet Volume 9.8 fl (7.4-10.4); Monocytes # 0.7 K/mm3 (0.1-1.0); Monocytes % 5.9 % (1.7-9.3); Neutrophils % 81.3 % (37.0-80.0); Platelet Count 192 K/mm3 (142-424); Red Blood Count 3.89 M/mm3 (4.60-6.20); Red Cell Distribution Width 14.2 % (11.5-17.5)
[2020-09-06 07:17] LABS: Chloride 108 mmol/L (98-107); Potassium 3.7 mmoL/L (3.5-5.1); Sodium 142 mmol/L (136-145)
[2020-09-06 07:20] LABS: Blood Urea Nitrogen 19 mg/dl (9-20); Creatinine Clearance Estimated 100 mL/min (50-200); Estimated Glomerular Filt Rate 67 ml/min (>60); GFR (African American) 82 ML/MIN (>60)
[2020-09-06 07:21] LABS: Anion Gap 8.7 mEq/L (5-15); Calcium 7.7 mg/dl (8.4-10.2); Carbon Dioxide 29 mmol/L (22.0-30.0); Glucose 106 mg/dl (74-100)
--- NOTE | 2020-09-06 08:07 | P.PN_ITS ---
Internal Medicine - PN: Subj *Date: 09/06/20 *Time: 08:07 Interval history: Internal medicine follow-up consult note: Patient feels well, surgery has advanced him to clear liquids. He denies chest pain, palpitations, edema or dyspnea. Exam Vital signs and Labs for Last 24 Hours: Temp Pulse Resp BP Pulse Ox 98 F 62 20 140/74 97 09/06/20 06:00 09/06/20 06:00 09/06/20 06:00 09/06/20 06:00 09/06/20 06:00 Laboratory Results - last 24 hr 09/06/20 06:49: WBC 11.0 H, RBC 3.89 L, Hgb 11.7 L, Hct 35.8 L, MCV 92.1, MCH 30.1, MCHC 32.7, RDW 14.2, Plt Count 192, MPV 9.8, Neut % (Auto) 81.3 H, Lymph % (Auto) 11.0, [place] % (Auto) 5.9, Eos % (Auto) 0.9, Baso % (Auto) 0.9, Neut # (Auto) 9.0 H, Lymph # (Auto) 1.2, [place] # (Auto) 0.7, Eos # (Auto) 0.1, Baso # (Auto) 0.1 09/06/20 06:49: Sodium 142, Potassium 3.7, Chloride 108 H, Carbon Dioxide 29, Anion Gap 8.7, BUN 19, Creatinine 1.10, Estimated Creat Clear 100, Estimated GFR 67, Est GFR ( Amer) 82, Glucose 106 H, Calcium 7.7 L I & O for Last 24 hours: Intake & Output 09/03/20 09/04/20 09/05/20 09/06/20 11:59 11:59 11:59 11:59 Intake Total 3724 / 3724 3630 / 3630 0 / 0 1905 / 1905 Output Total 1100 / 1100 3170 / 3170 450 / 450 Balance 2624 / 2624 460 / 460 0 / 0 1455 / 1455 Weight 225 lb 15.581 oz 228 lb 230 lb 1 oz - Constitutional no acute distress, obese - *Routine HEENT Exam Head: Present: normocephalic Eye: Present: EOMI, PERRL ENT: Present: mucous membranes moist - *Routine Neck Exam Present: supple. Absent: lymphadenopathy - *Routine Respiratory Exam Present: CTA bilaterally - *Routine Cardiovascular Exam Present: RRR - *Routine Abdominal Exam Present: soft. Absent: tenderness - *Routine Extremities Exam Absent: cyanosis, clubbing, edema - *Routine Skin Exam Present: warm. Absent: rash - *Routine Neurological Exam Present: alert, oriented X3 Assessment and Plan (1) Colon perforation Status: Acute Category: Medical Code(s): K63.1 - Perforation of intestine (nontraumatic) (2) Atrial fibrillation with RVR Status: Acute Category: Medical Code(s): I48.91 - Unspecified atrial fibrillation (3) Phimosis Status: Acute Category: Medical Code(s): N47.1 - Phimosis - Assessment and plan all Dx Assessment and Plan for all problems:: Atrial fibrillation has been under control. No indication for blood thinning at this point. Continue diltiazem, will continue to follow.
--- NOTE | 2020-09-06 09:43 | HMH.GSPN ---
Subjective Narrative: Patient has tolerated clear liquids without issue. He has had multiple bowel movements. No nausea. No complaints of pain. Progress Note: A&P (1) Colon perforation Status: Acute (2) Atrial fibrillation with RVR Status: Acute (3) Phimosis Status: Acute Assessment and Plan for All Diagnoses:: Advance to full liquid diet. Decrease IV fluids. DC SEWING LINE BALER. Oral pain medication as needed. Continue Invanz for now. Exam Vital signs and Labs for Last 24 Hours: Temp Pulse Resp BP Pulse Ox 98.7 F 54 L 18 147/73 H 97 09/06/20 08:00 09/06/20 08:00 09/06/20 08:00 09/06/20 08:00 09/06/20 08:00 Laboratory Results - last 24 hr 09/06/20 06:49: WBC 11.0 H, RBC 3.89 L, Hgb 11.7 L, Hct 35.8 L, MCV 92.1, MCH 30.1, MCHC 32.7, RDW 14.2, Plt Count 192, MPV 9.8, Neut % (Auto) 81.3 H, Lymph % (Auto) 11.0, [place] % (Auto) 5.9, Eos % (Auto) 0.9, Baso % (Auto) 0.9, Neut # (Auto) 9.0 H, Lymph # (Auto) 1.2, [place] # (Auto) 0.7, Eos # (Auto) 0.1, Baso # (Auto) 0.1 09/06/20 06:49: Sodium 142, Potassium 3.7, Chloride 108 H, Carbon Dioxide 29, Anion Gap 8.7, BUN 19, Creatinine 1.10, Estimated Creat Clear 100, Estimated GFR 67, Est GFR ( Amer) 82, Glucose 106 H, Calcium 7.7 L I & O for Last 24 hours: Intake & Output 09/03/20 09/04/20 09/05/20 09/06/20 11:59 11:59 11:59 11:59 Intake Total 3724 / 3724 3630 / 3630 0 / 0 2625 / 2625 Output Total 1100 / 1100 3170 / 3170 450 / 450 Balance 2624 / 2624 460 / 460 0 / 0 2175 / 2175 Weight 225 lb 15.581 oz 228 lb 230 lb 1 oz - *Routine Abdominal Exam Present: soft
--- NOTE | 2020-09-06 12:01 | P.PN_ITS ---
Internal Medicine - PN: Subj *Date: 09/06/20 *Time: 12:01 Exam Vital signs and Labs for Last 24 Hours: Temp Pulse Resp BP Pulse Ox 98.0 F 57 L 20 126/73 97 09/06/20 10:00 09/06/20 10:00 09/06/20 10:00 09/06/20 10:00 09/06/20 10:00 Laboratory Results - last 24 hr 09/06/20 06:49: WBC 11.0 H, RBC 3.89 L, Hgb 11.7 L, Hct 35.8 L, MCV 92.1, MCH 30.1, MCHC 32.7, RDW 14.2, Plt Count 192, MPV 9.8, Neut % (Auto) 81.3 H, Lymph % (Auto) 11.0, [place] % (Auto) 5.9, Eos % (Auto) 0.9, Baso % (Auto) 0.9, Neut # (Auto) 9.0 H, Lymph # (Auto) 1.2, [place] # (Auto) 0.7, Eos # (Auto) 0.1, Baso # (Auto) 0.1 09/06/20 06:49: Sodium 142, Potassium 3.7, Chloride 108 H, Carbon Dioxide 29, Anion Gap 8.7, BUN 19, Creatinine 1.10, Estimated Creat Clear 100, Estimated GFR 67, Est GFR ( Amer) 82, Glucose 106 H, Calcium 7.7 L I & O for Last 24 hours: Intake & Output 09/03/20 09/04/20 09/05/20 09/06/20 23:59 23:59 23:59 23:59 Intake Total 3014 / 3014 1840 / 1840 190 / 1905 720 / 720 Output Total 2840 / 2840 1430 / 1430 450 / 450 Balance 174 / 174 410 / 410 190 / 190 270 / 270 Weight 103.419 kg 104.355 kg Assessment and Plan (1) Colon perforation Status: Acute Category: Medical Code(s): K63.1 - Perforation of intestine (nontraumatic) (2) Atrial fibrillation with RVR Status: Acute Category: Medical Code(s): I48.91 - Unspecified atrial fibrillation (3) Phimosis Status: Acute Category: Medical Code(s): N47.1 - Phimosis The patient's infection will respond to the chosen ABx?: Yes Is the patient receiving the right drug, dose, and route?: Yes Could a more targeted ABx be ordered?: No
--- NOTE | 2020-09-06 19:41 | PC.NURSE ---
he is aox4, able to make needs known to staff, he has been up t chair this shift and is able to ambulate with minimal assistance, director toxicology in place but pt has not used this shift, shower and linen change this shift, vss, no needs voiced.
[2020-09-07] VITALS: BP 139/84; PULSE 57; RESP 18; TEMP 36.7; O2SAT 96
[2020-09-07 02:00] VITALS: BP 135/77; PULSE 53; RESP 18; TEMP 36.6; O2SAT 97
--- NOTE | 2020-09-07 03:10 | PC.NURSE ---
Patient is A&Ox4. No complaints of pain voiced to RN. VSS. Patient had good urine output throughout shift. Patient voiced no further concerns to RN.
[2020-09-07 04:00] VITALS: BP 144/79; PULSE 53; RESP 20; TEMP 36.6; O2SAT 98
[2020-09-07 05:00] VITALS: BMI 34.0
[2020-09-07 06:00] VITALS: BP 134/72; PULSE 56; RESP 18; TEMP 36.9; O2SAT 95
[2020-09-07 06:20] LABS: Basophils # 0.1 K/mm3 (0-0.2); Basophils % 0.5 % (0.1-2.0); Eosinophils # 0.3 K/mm3 (0.0-0.4); Eosinophils % 2.5 % (0.1-12.0); Hematocrit 35.2 % (42.0-52.0); Hemoglobin 11.7 g/dL (14.1-18.0); Lymphocytes # 1.3 K/mm3 (0.7-4.5); Lymphocytes % 12.7 % (10-50); Mean Corpuscular HGB Conc 33.2 g/dL (31.8-35.4); Mean Corpuscular Volume 90.2 fl (80-94); Mean Platelet Volume 9.8 fl (7.4-10.4); Monocytes # 0.6 K/mm3 (0.1-1.0); Monocytes % 5.9 % (1.7-9.3); Neutrophils # 7.8 K/mm3 (1.8-7.8); Neutrophils % 78.4 % (37.0-80.0); Platelet Count 191 K/mm3 (142-424); Red Cell Distribution Width 14.3 % (11.5-17.5)
--- NOTE | 2020-09-07 07:07 | PC.NURSE ---
Patient used 0mg out of his DYE BLENDER pump.
[2020-09-07 08:00] VITALS: BP 128/50; PULSE 55; RESP 18; TEMP 37.2; O2SAT 96
--- NOTE | 2020-09-07 08:40 | HMH.ACPN2 ---
Internal Medicine - PN: Subj *Date: 09/07/20 *Time: 08:40 Interval history: Internal medicine consult follow-up note: Patient overall feels good, tolerated liquid diet yesterday. Has had several bowel movements. No dizziness or orthostasis symptoms when he sits up in bed or on the chair. Exam Vital signs and Labs for Last 24 Hours: Temp Pulse Resp BP Pulse Ox 99.0 F 55 L 18 128/50 L 96 09/07/20 08:00 09/07/20 08:00 09/07/20 08:00 09/07/20 08:00 09/07/20 08:00 Laboratory Results - last 24 hr 09/07/20 06:05: WBC 10.0, RBC 3.90 L, Hgb 11.7 L, Hct 35.2 L, MCV 90.2, MCH 30.0, MCHC 33.2, RDW 14.3, Plt Count 191, MPV 9.8, Neut % (Auto) 78.4, Lymph % (Auto) 12.7, [place] % (Auto) 5.9, Eos % (Auto) 2.5, Baso % (Auto) 0.5, Neut # (Auto) 7.8, Lymph # (Auto) 1.3, [place] # (Auto) 0.6, Eos # (Auto) 0.3, Baso # (Auto) 0.1 I & O for Last 24 hours: Intake & Output 09/04/20 09/05/20 09/06/20 09/07/20 11:59 11:59 11:59 11:59 Intake Total 3630 / 3630 0 / 0 2625 / 2625 5876 / 5876 Output Total 3170 / 3170 450 / 450 850 / 850 Balance 460 / 460 0 / 0 2175 / 2175 5026 / 5026 Weight 228 lb 230 lb 1 oz 230 lb 1 oz Narrative: Heart rate regular in the 60s. Good air movement, apical pulse also regular. Abdominal scar looks great. No distal edema. Assessment and Plan (1) Colon perforation Status: Acute Category: Medical Code(s): K63.1 - Perforation of intestine (nontraumatic) (2) Atrial fibrillation with RVR Status: Acute Category: Medical Code(s): I48.91 - Unspecified atrial fibrillation (3) Phimosis Status: Acute Category: Medical Code(s): N47.1 - Phimosis - Assessment and plan all Dx Assessment and Plan for all problems:: Patient progressing well, no recurrence of A. fib, continue calcium channel julieth. We will follow in our office for blood pressure and heart rate issues once patient is discharged.
--- NOTE | 2020-09-07 08:54 | P.PN_ITS ---
Subjective Narrative: Tolerating full liquids with bowel movements. Progress Note: A&P (1) Colon perforation Status: Acute (2) Atrial fibrillation with RVR Status: Acute (3) Phimosis Status: Acute Assessment and Plan for All Diagnoses:: Possible discharge home later today Exam Vital signs and Labs for Last 24 Hours: Temp Pulse Resp BP Pulse Ox 99.0 F 55 L 18 128/50 L 96 09/07/20 08:00 09/07/20 08:00 09/07/20 08:00 09/07/20 08:00 09/07/20 08:00 Laboratory Results - last 24 hr 09/07/20 06:05: WBC 10.0, RBC 3.90 L, Hgb 11.7 L, Hct 35.2 L, MCV 90.2, MCH 30.0, MCHC 33.2, RDW 14.3, Plt Count 191, MPV 9.8, Neut % (Auto) 78.4, Lymph % (Auto) 12.7, [place] % (Auto) 5.9, Eos % (Auto) 2.5, Baso % (Auto) 0.5, Neut # (Auto) 7.8, Lymph # (Auto) 1.3, [place] # (Auto) 0.6, Eos # (Auto) 0.3, Baso # (Auto) 0.1 I & O for Last 24 hours: Intake & Output 09/04/20 09/05/20 09/06/20 09/07/20 11:59 11:59 11:59 11:59 Intake Total 3630 / 3630 0 / 0 2625 / 2625 5876 / 5876 Output Total 3170 / 3170 450 / 450 850 / 850 Balance 460 / 460 0 / 0 2175 / 2175 5026 / 5026 Weight 228 lb 230 lb 1 oz 230 lb 1 oz - *Routine Abdominal Exam Present: soft - *Routine Rectal Exam Comments: Incision clean
--- NOTE | 2020-09-07 11:18 | HMH.DCSUM ---
General - General Admission date:: 09/02/20 Discharge date: 09/07/20 HPI HPI: Patient is a 64-year-old male from [place] with reportedly no chronic medical conditions. He does state that for about 2 months he has had some occasional abdominal pain and looser stools with relief of abdominal pain with passage of gas. However, for the past 2 days he has had progressively quite severe abdominal pain with it becoming quite severe yesterday. He presented to his primary care provider's office today and was sent to the emergency department where he was seen and evaluated. Upon presentation patient was noted to be tachycardic. Work-up was initiated. EKG revealed evidence of atrial fibrillation with rapid ventricular response. He was found to have a leukocytosis. He describes the pain as in the mid upper abdomen characterized as intense and sharp. He has no prior history of similar symptoms. He has never had previous colonoscopy. No history of ulcer disease. He underwent CT scan of the abdomen and pelvis in the emergency department which revealed findings most notable for free air within the mesenteric fat near the hepatic flexure with some irregular enhancement of the colon wall. This is consistent with perforated colon possibly secondary to neoplasm or inflammatory process. Hospital Course Hospital Course: Patient was seen and evaluated in the emergency department. He was taken relatively emergently to the operating room for laparotomy. He was found to have necrotic perforated colon with established peritonitis and feculent abscess near the hepatic flexure. He underwent right hemicolectomy. He was admitted for inpatient management. Patient was started on Zosyn to the emergency department and this was actually continued. He had Invanz continued postoperatively from surgery as well. Please note that in the preoperative time patient had developed rapid atrial fibrillation. Patient was noted to have significant phimosis which made placement of Madrigal catheter difficult at the time of surgery. Nasogastric tube and Madrigal catheter were continued until postoperative day #2 at which time they were removed. He did have a EVERARDO drain placed intraoperatively in the right upper quadrant. This continued to drain merely serosanguineous drainage. Patient began moving his bowels. Due to the patient's perioperative atrial fibrillation he was started on Cardizem drip and was ultimately switched to oral diltiazem. He remained in sinus rhythm. EVERARDO drain was removed. Diet was advanced from clear liquids to full liquids which she continues to tolerate well and was having bowel movements. Arrangements were made for discharge home. He will be discharged on oral pain medication, diltiazem, and several additional days of Augmentin. Objective Vital signs: Temp Pulse Resp BP Pulse Ox 99.0 F 55 L 18 128/50 L 96 09/07/20 08:00 09/07/20 08:00 09/07/20 08:00 09/07/20 08:00 09/07/20 08:00 Results Labs on day of discharge: Labs from last 24 hours 09/07/20 06:05 WBC 10.0 RBC 3.90 L Hgb 11.7 L Hct 35.2 L MCV 90.2 MCH 30.0 MCHC 33.2 RDW 14.3 Plt Count 191 MPV 9.8 Neut % (Auto) 78.4 Lymph % (Auto) 12.7 [place] % (Auto) 5.9 Eos % (Auto) 2.5 Baso % (Auto) 0.5 Neut # (Auto) 7.8 Lymph # (Auto) 1.3 [place] # (Auto) 0.6 Eos # (Auto) 0.3 Baso # (Auto) 0.1 DS: Diagnosis - Discharge Diagnosis (1) Colon perforation Status: Acute (2) Atrial fibrillation with RVR Status: Acute (3) Phimosis Status: Acute Discharge Plan - Patient Discharge Instructions ACTIVITY: No heavy lifting DIET: advance to your usual diet Patient Instructions: Atrial Fibrillation, DI for Atrial Fibrillation, DI for Surgical Site Infection, Surgical Site Infection, DI for Colon Perforation - Follow up Plan Follow up with: Jacky Cr MD [Staff Physician] - Saad Barraza MD [Staff Physician] - 1 week Dispos
== END 2020-09-07 13:39 | disposition home or self-care (01) | DRG 329 ==
LOC: ER 18:41 → OR 19:31 → ICU 21:59 → 2ND 09-04 14:45
PROVIDERS: Internal Medicine Adolescent Medicine; Admitting Provider Surgery; Emergency Provider Emergency Medicine; PCP Nurse Practitioner Family; Visit Provider Surgery
PROC: 0DTF0ZZ Resection of Right Large Intestine, Open Approach (ICD-10-PCS; principal; 2020-09-02 16:30)
DX: C18.2 Malignant neoplasm of ascending colon (principal); K63.1 Perforation of intestine (nontraumatic); K65.9 Peritonitis, unspecified; K63.0 Abscess of intestine; C77.2 Secondary and unspecified malignant neoplasm of intra-abdominal lymph nodes; I48.91 Unspecified atrial fibrillation; Z20.822 Contact with and (suspected) exposure to COVID-19; N47.1 Phimosis
CPT/HCPCS: 44140; 36415; 71045; 74174; 80048; 80053; 81001; 83605; 83690; 83735; 84100; 84443; 84484; 85007; 85025; 87086; 88309; 88342; 93005; 93306; 96365; 96366; 96367; 96375; 99284; J1335; J2405; J2543; J2710; Q9967; U0003

== ENCOUNTER → 2020-10-03 09:09 | Outpatient (CLI) | payer MEDICAID, SELFPAY ==
[2020-10-03 10:46] LABS: Basophils # 0.1 K/mm3 (0-0.2); Basophils % 0.7 % (0.1-2.0); Eosinophils # 0.1 K/mm3 (0.0-0.4); Eosinophils % 1.4 % (0.1-12.0); Hematocrit 41.9 % (42.0-52.0); Hemoglobin 12.9 g/dL (14.1-18.0); Lymphocytes # 1.4 K/mm3 (0.7-4.5); Lymphocytes % 19.7 % (10-50); Mean Corpuscular HGB Conc 30.9 g/dL (31.8-35.4); Mean Corpuscular Hemoglobin 29.2 pg (27.0-31.2); Mean Corpuscular Volume 94.5 fl (80-94); Monocytes # 0.5 K/mm3 (0.1-1.0); Monocytes % 6.9 % (1.7-9.3); Neutrophils % 71.4 % (37.0-80.0); Platelet Count 247 K/mm3 (142-424); Red Blood Count 4.43 M/mm3 (4.60-6.20); Red Cell Distribution Width 14.2 % (11.5-17.5); White Blood Count 6.9 K/mm3 (4.8-10.8)
[2020-10-03 11:58] LABS: Chloride 105 mmol/L (98-107); Potassium 5.2 mmoL/L (3.5-5.1); Sodium 142 mmol/L (136-145)
[2020-10-03 12:01] LABS: Blood Urea Nitrogen 12 mg/dl (9-20); Estimated Glomerular Filt Rate 75 ml/min (>60); GFR (African American) 91 ML/MIN (>60)
[2020-10-03 12:02] LABS: Anion Gap 14.2 mEq/L (5-15); Carbon Dioxide 28 mmol/L (22.0-30.0); Glucose 98 mg/dl (74-100)
== END ==
PROVIDERS: Visit Provider Surgery
DX: Z01.812 Encounter for preprocedural laboratory examination (principal); Z11.52 Encounter for screening for COVID-19; K63.1 Perforation of intestine (nontraumatic)
CPT/HCPCS: 36415; 80048; 85025; U0003

== ENCOUNTER 2020-10-06 08:24 | Day surgery (SDC) | payer MEDICAID, SELFPAY ==
[2020-09-30 12:28] VITALS: BMI 32.8
[2020-10-06] VITALS (11 sets, daily range): BP systolic 110–146; BP diastolic 66–80; PULSE 54–63; RESP 14–18; TEMP 36.2–37.1; O2SAT 95–99
--- NOTE | 2020-10-06 08:50 | HMH.ANESCL ---
[facility] Anesthesia Checklist - Patient Identification Patient Identification: Arm Band, Verbal (Name & ) - Structural Data Admitted From: Home Planned Operative Procedure/s: pac Consent for Planned Operative Procedure(s) Verified: Yes Verified Documents: History and Physical - NPO Status Verified Time NPO: 00:00 - Chart Verification Results Verified: CBC - Additional verifications Patient : No Anesthesia Reactions: No Hx Blood Transfusions: No Blood Transfusion Reaction: No Cephalosporin Allergy: No Previous Colonoscopy: No - Cardiovascular Assessment Heart Sounds: S1 & S2 Pulse Strength: Baseline Pulse Rhythm: Regular Peripheral Edema: No - Airway Assessment C-Spine Mobility Assessed: Yes TMJ Mobility Assessed: Yes Dentition: Edentulous - Neurological Assessment Level of Consciousness: Awake, Alert, Appropriate Hx Seizures: No Numbness or tingling in extremities: No - Anesthesia Plan Anesthesia Risk discussed: Yes Anesthesia Plan: Verified ASA Class: III Anesthesia Type: General [facility] History I have reviewed the patient's past medical history: Yes Medical History: Reports:: Cancer Denies:: Diabetes Mellitus Type 1, Diabetes Mellitus Type 2, Internal Pacemaker, MRSA, Seizures *Have you ever received a pneumonia vaccine?: No *Have you received a flu vaccine this season?: No Other Medical History: Denies: Blood Transfusion Reaction Anesthesia experience/problems:: none Other Surgeries: Yes: Colonoscopy. No: Pacemaker Amputation: No Fractures: No - *Social History Smoking Status: Former smoker Alcohol Intake: never Substance Use Type: denies use *Occupational Status:: employed Housing: house Household Members: spouse *Travel in the last 8 weeks: None Family Hx:: No significant family history
--- NOTE | 2020-10-06 10:14 | XR_ITS ---
PROCEDURE: XR CHEST AP CLINICAL HISTORY: PORT A CATH IN OR COMPARISON: CR XR CHEST PORTABLE from 09/03/2020 FINDINGS: Fluoroscopy time: 38 seconds Single image submitted with the C-arm shows Port-A-Cath present from left subclavian approach with the tip in the region of the SVC. No acute bony abnormalities. IMPRESSION: Status post fluoroscopic assisted Port-A-Cath placement. Dictated by: Luisito Nolan MD 10/06/2020 12:35 Luisito Nolan MD in [place] 10/06/2020 12:35
--- NOTE | 2020-10-06 10:51 | HMH.ANESI ---
[facility] Anesthesia Record Part I Intake, IV Amount: 800 Estimated blood loss (mL): 2 Urine output (mL): 0 Blood Pressure: 110/77 SaO2: 97 Pulse Rate: 59 Respiratory Rate: 15 Temperature: 98.2 F Patient is:: Drowsy, Oral/Nasal airway Stable to PACU at:: 10:45
--- NOTE | 2020-10-06 11:00 | XR_ITS ---
PROCEDURE: XR CHEST PORTABLE CLINICAL HISTORY: s/p port a cath placement COMPARISON: CR XR CHEST PORTABLE from 09/03/2020 CR XR CHEST AP from 10/06/2020 FINDINGS: Left subclavian Port-A-Cath has been placed. The tip is in the region the SVC. No evidence of pneumothorax. Unremarkable heart size. The lungs are clear without infiltrates, suspicious nodules, or pleural effusions. No acute bony abnormalities. IMPRESSION: Status post left subclavian Port-A-Cath placement with good position and no evidence of pneumothorax Dictated by: Luisito Nolan MD 10/06/2020 11:16 Luisito Nolan MD in [facility] 10/06/2020 11:16
--- NOTE | 2020-10-06 11:16 | PC.NURSE ---
1052-radiology at bedside at this time
--- NOTE | 2020-10-06 11:36 | PC.NURSE ---
1124-detailed report called to JAZMIN Salmeron 1126-pt transported to post op via stretcher w/delisa rails up and left in care of JAZMIN Salmeron with bed locked in lowest position, vss, pt stable
--- NOTE | 2020-10-06 11:45 | P.PN_ITS ---
[facility] Anesthesia Record Part II Discharge Time: 11:25 Destination: Surgical Day Care (OP Surgery) PACU nurse assessment reviewed?: Yes Patient Condition:: Good Anesthesia Complications:: None Swallowing reflex intact?: Yes Cyanosis?: No Blood Pressure: 113/71 Pulse Rate: 60 Temperature: 97.9 F Mental Status: Alert & Oriented Pain level:: 0 Nausea and/or vomitting:: None Intake, IV Amount: 0
--- NOTE | 2020-10-06 12:02 | P.OP_ITS ---
Date of procedure: 10/06/20 Pre-op Diagnosis:: Colon cancer Post-op Diagnosis:: Same Procedure performed:: Placement of 8 [place] open-ended single-lumen catheter and left subclavian vein (PowerPort) Surgeon:: Jacky Cr MD HAT BLOCKING MACHINE OPERATOR:: Bob Rivera Anesthesia: LMA Estimated blood loss (mL): 10 Clinical Note:: Patient presents for venous access port placement for chemotherapy. He presented to the emergency department with free air and regional peritonitis on 09/02/2020.. He was taken emergently to the operating room at which time he was found to have perforated colon near the hepatic flexure. He was found to have full-thickness liquefied necrosis with retroperitoneal abscess. He underwent right hemicolectomy with anastomosis. Pathology finally returned as invasive moderately differentiated adenocarcinoma with a discontinuous tumor nodule. Distal margin was 2.8 cm. He had 4 out of 27 lymph nodes positive. This makes this a stage T4N2a (at least a IIIC). He had seen oncology and plan is for 6 months of chemotherapy. He was referred back for port placement. Operative findings:: Normal anatomy Operative note:: Patient was taken to the operating room. He was given preoperative intravenous antibiotics. In the operating room he was placed in a supine position. General anesthesia was induced via LMA. Upper chest and neck were prepped and draped in the standard surgical fashion. Patient was positioned in Trendelenburg position. Local anesthetic was infiltrated inferior to the left clavicle near the deltopectoral groove. 18-gauge catheter was inserted and the left subclavian vein was cannulated. There was good return of venous blood. Guidewire was inserted. Fluoroscopy was used to confirm position of the guidewire. The guidewire was actually traversing into the internal jugular vein. Using fluoroscopy it was able to be withdrawn and manipulated into the appropriate location in the superior vena cava. Small incision was made at the insertion site. Dilator with breakaway sheath was inserted over the guidewire using Seldinger technique. Guidewire and dilator were removed. Single-lumen open-ended catheter was threaded through the breakaway sheath. Breakaway sheath was then removed. Fluoroscopy was used to position the tip of the catheter near the atriocaval junction. Skin was marked with a skin marker for planned subcutaneous tunneling and subcutaneous pocket creation. Local anesthetic was infiltrated. Incision was made at the site of subcutaneous pocket. Dissection was carried out inferiorly using electrocautery to dissect out the subcutaneous pocket. Catheter was then tunneled subcutaneously. Once again fluoroscopy was used to confirm appropriate positioning. Catheter was cut to the appropriate length. It was secured to the reservoir port. Michie port was secured into the subcutaneous pocket with 2-0 PDS suture. Port was aspirated with saline and flushed. It was then aspirated with heparinized saline and flushed. There appeared to be good hemostasis. The incision was closed with running 2-0 Vicryl subdermal suture. Skin incision was closed with 3-0 Stratafix in a subcuticular fashion. Steri-Strips and dressing were applied. Port was then accessed with the Garcia needle infusion tubing. It was flushed and aspirated with additional saline followed by heparinized saline. Dressing was applied and the port remained accessed for chemotherapy tomorrow. Condition: stable Disposition: PACU Complications:: None immediately apparent
== END 2020-10-06 12:00 | disposition home or self-care (01) ==
LOC: OR 08:25
PROVIDERS: PCP Nurse Practitioner Family; Visit Provider Surgery
PROC: (CPT 36561; principal; 2020-10-06 10:00)
DX: C18.9 Malignant neoplasm of colon, unspecified (principal); Z79.899 Other long term (current) drug therapy; I48.91 Unspecified atrial fibrillation
CPT/HCPCS: 36561; 77001; 71045; 76000; 96374; C1788; J1642

== ENCOUNTER 2020-10-07 08:27 | Outpatient (CLI) | payer MEDICAID, SELFPAY ==
[2020-10-07] VITALS (23 sets, daily range): BP systolic 124–155; BP diastolic 66–92; PULSE 56–67; RESP 17; TEMP 36.6–36.7; O2SAT 97–98
--- NOTE | 2020-10-09 15:54 | DIET.NUTRFU ---
Pt contacted for nutrition counseling dt receiving first dose chemotherapy. Pt states he is eating adequately but does have nausea. He states his nausea medication is helping but he is limiting how much he takes, encouraged taking this as needed and educated on importance managing nausea for adequate nutrition. Diet edu/counseling provided for nausea management and pt encouraged to reach out via telehealth and/or ask to speak to RD at infusion appt at any time.
== END 2020-10-07 15:33 | disposition home or self-care (01) ==
LOC: INF 08:28
PROVIDERS: PCP Nurse Practitioner Family; Visit Provider Internal Medicine Hematology & Oncology
DX: Z51.11 Encounter for antineoplastic chemotherapy (principal)
CPT/HCPCS: 96411; 96413; 96415; 96417; J0640; J2469; J7060; J9190; J9263; Q0166

== ENCOUNTER 2020-10-21 08:21 | Outpatient (CLI) | payer MEDICAID, SELFPAY ==
[2020-10-21] VITALS (9 sets, daily range): BP systolic 129–147; BP diastolic 71–83; PULSE 45–63; RESP 18; TEMP 36.4; O2SAT 97–98; BMI 73.5
[2020-10-21 08:56] LABS: Basophils % 0.8 % (0.1-2.0); Eosinophils # 0.1 K/mm3 (0.0-0.4); Eosinophils % 2.1 % (0.1-12.0); Hematocrit 38.7 % (42.0-52.0); Hemoglobin 12.7 g/dL (14.1-18.0); Lymphocytes # 0.9 K/mm3 (0.7-4.5); Lymphocytes % 21.4 % (10-50); Mean Corpuscular HGB Conc 32.9 g/dL (31.8-35.4); Mean Corpuscular Hemoglobin 30.5 pg (27.0-31.2); Mean Corpuscular Volume 92.8 fl (80-94); Mean Platelet Volume 10.2 fl (7.4-10.4); Monocytes # 0.3 K/mm3 (0.1-1.0); Monocytes % 6.7 % (1.7-9.3); Neutrophils # 2.9 K/mm3 (1.8-7.8); Neutrophils % 69.1 % (37.0-80.0); Platelet Count 176 K/mm3 (142-424); Red Blood Count 4.17 M/mm3 (4.60-6.20); Red Cell Distribution Width 14.2 % (11.5-17.5); White Blood Count 4.2 K/mm3 (4.8-10.8)
[2020-10-21 08:57] LABS: Alanine Aminotransferase 29 U/L (12-78); Albumin Level 3.9 g/dl (3.5-5.0); Albumin/Globulin Ratio 1.1 (1.1-1.8); Alkaline Phosphatase 59 U/L (38-126); Aspartate Amino Transferase 28 U/L (17-59); Bilirubin,Total 0.2 mg/dl (0.2-1.3); Blood Urea Nitrogen 15 mg/dl (9-20); Calcium 8.6 mg/dl (8.4-10.2); Carbon Dioxide 26 mmol/L (22.0-30.0); Chloride 104 mmol/L (98-107); Creatinine Clearance Estimated 75 mL/min (50-200); Estimated Glomerular Filt Rate 85 ml/min (>60); GFR (African American) 103 ML/MIN (>60); Globulin 3.4 g/dL (1.3-3.2); Glucose 169 mg/dl (74-100); Sodium 142 mmol/L (136-145); Total Protein,Serum 7.3 g/dl (6.3-8.2)
== END 2020-10-21 13:10 | disposition home or self-care (01) ==
LOC: INF 08:22
PROVIDERS: PCP Nurse Practitioner Family; Visit Provider Internal Medicine Medical Oncology
DX: Z51.11 Encounter for antineoplastic chemotherapy (principal); C18.9 Malignant neoplasm of colon, unspecified
CPT/HCPCS: 80053; 85025; 96411; 96413; 96415; 96417; J0640; J1642; J2469; J7060; J9190; J9263; Q0166

== ENCOUNTER 2020-11-04 08:18 | Outpatient (CLI) | payer MEDICAID, SELFPAY ==
[2020-11-04] VITALS (15 sets, daily range): BP systolic 128–167; BP diastolic 66–88; PULSE 49–62; RESP 16–18; TEMP 36.3; O2SAT 97–98; BMI 34.1
[2020-11-04 08:45] LABS: Basophils % 0.6 % (0.1-2.0); Eosinophils # 0.1 K/mm3 (0.0-0.4); Eosinophils % 1.3 % (0.1-12.0); Hematocrit 39.8 % (42.0-52.0); Hemoglobin 13.3 g/dL (14.1-18.0); Lymphocytes % 22.3 % (10-50); Mean Corpuscular HGB Conc 33.3 g/dL (31.8-35.4); Mean Corpuscular Hemoglobin 31.2 pg (27.0-31.2); Mean Corpuscular Volume 93.6 fl (80-94); Mean Platelet Volume 9.8 fl (7.4-10.4); Monocytes # 0.4 K/mm3 (0.1-1.0); Monocytes % 8.7 % (1.7-9.3); Neutrophils # 2.9 K/mm3 (1.8-7.8); Neutrophils % 67.1 % (37.0-80.0); Platelet Count 142 K/mm3 (142-424); Red Blood Count 4.25 M/mm3 (4.60-6.20); Red Cell Distribution Width 15.4 % (11.5-17.5); White Blood Count 4.3 K/mm3 (4.8-10.8)
[2020-11-04 08:55] LABS: Alanine Aminotransferase 42 U/L (12-78); Albumin/Globulin Ratio 1.1 (1.1-1.8); Alkaline Phosphatase 56 U/L (38-126); Anion Gap 9.2 mEq/L (5-15); Aspartate Amino Transferase 41 U/L (17-59); Bilirubin,Total 0.6 mg/dl (0.2-1.3); Blood Urea Nitrogen 13 mg/dl (9-20); Carbon Dioxide 30 mmol/L (22.0-30.0); Chloride 108 mmol/L (98-107); Creatinine Clearance Estimated 111 mL/min (50-200); Estimated Glomerular Filt Rate 75 ml/min (>60); GFR (African American) 91 ML/MIN (>60); Globulin 3.6 g/dL (1.3-3.2); Glucose 117 mg/dl (74-100); Potassium 4.2 mmoL/L (3.5-5.1); Sodium 143 mmol/L (136-145); Total Protein,Serum 7.6 g/dl (6.3-8.2)
--- NOTE | 2020-11-04 15:52 | PC.NURSE ---
1345 - 5FU 3900MG DELIVERED FROM [facility]. DOSE VERIFIED WITH PENNY FLORSE RN AND HOOKED TO PT VIA PORT A CATH FOR 46 HR CONTINUOUS INFUSION AT HOME.
== END 2020-11-04 13:48 | disposition home or self-care (01) ==
LOC: INF 08:19
PROVIDERS: PCP Nurse Practitioner Family; Visit Provider Internal Medicine Medical Oncology
DX: Z51.11 Encounter for antineoplastic chemotherapy (principal); C18.9 Malignant neoplasm of colon, unspecified
CPT/HCPCS: 80053; 85025; 96413; 96415; 96417; J0640; J2469; J7060; J9190; J9263; Q0166

== ENCOUNTER 2020-11-18 08:23 | Outpatient (CLI) | payer MEDICAID, SELFPAY ==
[2020-11-18] VITALS (11 sets, daily range): BP systolic 144–171; BP diastolic 72–94; PULSE 53–59; RESP 18; O2SAT 100; BMI 33.7
[2020-11-18 08:51] LABS: Eosinophils # 0.1 K/mm3 (0.0-0.4); Eosinophils % 1.7 % (0.1-12.0); Hematocrit 40.3 % (42.0-52.0); Hemoglobin 13.3 g/dL (14.1-18.0); Lymphocytes # 0.9 K/mm3 (0.7-4.5); Lymphocytes % 21.8 % (10-50); Mean Corpuscular HGB Conc 32.9 g/dL (31.8-35.4); Mean Corpuscular Hemoglobin 30.7 pg (27.0-31.2); Mean Corpuscular Volume 93.3 fl (80-94); Mean Platelet Volume 11.4 fl (7.4-10.4); Monocytes # 0.3 K/mm3 (0.1-1.0); Monocytes % 7.5 % (1.7-9.3); Neutrophils # 2.8 K/mm3 (1.8-7.8); Platelet Count 142 K/mm3 (142-424); Red Blood Count 4.32 M/mm3 (4.60-6.20); Red Cell Distribution Width 16.6 % (11.5-17.5); White Blood Count 4.1 K/mm3 (4.8-10.8)
[2020-11-18 09:05] LABS: Chloride 105 mmol/L (98-107); Potassium 4.1 mmoL/L (3.5-5.1); Sodium 140 mmol/L (136-145)
[2020-11-18 09:07] LABS: Blood Urea Nitrogen 13 mg/dl (9-20); Creatinine Clearance Estimated 110 mL/min (50-200); Estimated Glomerular Filt Rate 75 ml/min (>60); GFR (African American) 91 ML/MIN (>60)
[2020-11-18 09:08] LABS: Alanine Aminotransferase 37 U/L (12-78); Albumin/Globulin Ratio 1.2 (1.1-1.8); Alkaline Phosphatase 70 U/L (38-126); Anion Gap 11.1 mEq/L (5-15); Aspartate Amino Transferase 39 U/L (17-59); Bilirubin,Total 0.4 mg/dl (0.2-1.3); Calcium 8.7 mg/dl (8.4-10.2); Carbon Dioxide 28 mmol/L (22.0-30.0); Globulin 3.3 g/dL (1.3-3.2); Glucose 132 mg/dl (74-100); Total Protein,Serum 7.3 g/dl (6.3-8.2)
== END 2020-11-18 13:22 | disposition home or self-care (01) ==
LOC: INF 08:24
PROVIDERS: PCP Nurse Practitioner Family; Visit Provider Internal Medicine Medical Oncology
DX: Z51.11 Encounter for antineoplastic chemotherapy (principal); C18.9 Malignant neoplasm of colon, unspecified
CPT/HCPCS: 80053; 85025; 96375; 96413; 96415; 96417; J0640; J2469; J7060; J9190; J9263; Q0166

== ENCOUNTER 2020-12-02 08:22 | Outpatient (CLI) | payer MEDICAID, SELFPAY ==
[2020-12-02] VITALS (12 sets, daily range): BP systolic 141–169; BP diastolic 73–105; PULSE 51–72; RESP 18; O2SAT 98; BMI 34.1
[2020-12-02 08:46] LABS: Basophils % 0.9 % (0.1-2.0); Eosinophils # 0.1 K/mm3 (0.0-0.4); Eosinophils % 1.4 % (0.1-12.0); Hematocrit 41.7 % (42.0-52.0); Hemoglobin 13.7 g/dL (14.1-18.0); Lymphocytes # 0.9 K/mm3 (0.7-4.5); Lymphocytes % 21.5 % (10-50); Mean Corpuscular HGB Conc 32.8 g/dL (31.8-35.4); Mean Corpuscular Volume 94.4 fl (80-94); Mean Platelet Volume 11.3 fl (7.4-10.4); Monocytes # 0.3 K/mm3 (0.1-1.0); Neutrophils # 2.9 K/mm3 (1.8-7.8); Neutrophils % 69.2 % (37.0-80.0); Platelet Count 153 K/mm3 (142-424); Red Blood Count 4.41 M/mm3 (4.60-6.20); Red Cell Distribution Width 17.2 % (11.5-17.5); White Blood Count 4.2 K/mm3 (4.8-10.8)
[2020-12-02 08:59] LABS: Chloride 103 mmol/L (98-107)
[2020-12-02 09:00] LABS: Potassium 4.3 mmoL/L (3.5-5.1); Sodium 138 mmol/L (136-145)
[2020-12-02 09:02] LABS: Alanine Aminotransferase 35 U/L (12-78); Alkaline Phosphatase 69 U/L (38-126); Aspartate Amino Transferase 37 U/L (17-59); Bilirubin,Total 0.4 mg/dl (0.2-1.3); Blood Urea Nitrogen 12 mg/dl (9-20); Creatinine Clearance Estimated 111 mL/min (50-200); Estimated Glomerular Filt Rate 85 ml/min (>60); GFR (African American) 103 ML/MIN (>60)
[2020-12-02 09:03] LABS: Albumin Level 3.8 g/dl (3.5-5.0); Albumin/Globulin Ratio 1.1 (1.1-1.8); Anion Gap 12.3 mEq/L (5-15); Calcium 8.9 mg/dl (8.4-10.2); Carbon Dioxide 27 mmol/L (22.0-30.0); Globulin 3.5 g/dL (1.3-3.2); Glucose 182 mg/dl (74-100); Total Protein,Serum 7.3 g/dl (6.3-8.2)
== END 2020-12-02 13:49 | disposition home or self-care (01) ==
LOC: INF 08:23
PROVIDERS: PCP Nurse Practitioner Family; Visit Provider Internal Medicine Medical Oncology
DX: Z51.11 Encounter for antineoplastic chemotherapy (principal); C18.9 Malignant neoplasm of colon, unspecified
CPT/HCPCS: 80053; 85025; 96411; 96413; 96415; 96417; J0640; J2469; J7060; J9190; J9263; Q0166

== ENCOUNTER 2020-12-16 08:27 | Outpatient (CLI) | payer MEDICARE, MEDICAID, SELFPAY ==
[2020-12-16] VITALS (14 sets, daily range): BP systolic 121–166; BP diastolic 69–81; PULSE 51–59; RESP 16–18; TEMP 36.3; O2SAT 96; BMI 35.0
[2020-12-16 08:52] LABS: Basophils # 0.1 K/mm3 (0-0.2); Basophils % 1.3 % (0.1-2.0); Eosinophils # 0.1 K/mm3 (0.0-0.4); Eosinophils % 1.1 % (0.1-12.0); Hematocrit 41.6 % (42.0-52.0); Hemoglobin 13.8 g/dL (14.1-18.0); Lymphocytes # 1.3 K/mm3 (0.7-4.5); Lymphocytes % 25.3 % (10-50); Mean Corpuscular HGB Conc 33.2 g/dL (31.8-35.4); Mean Corpuscular Hemoglobin 31.3 pg (27.0-31.2); Mean Corpuscular Volume 94.2 fl (80-94); Mean Platelet Volume 10.1 fl (7.4-10.4); Monocytes # 0.4 K/mm3 (0.1-1.0); Monocytes % 8.3 % (1.7-9.3); Neutrophils # 3.4 K/mm3 (1.8-7.8); Neutrophils % 63.9 % (37.0-80.0); Platelet Count 163 K/mm3 (142-424); Red Blood Count 4.41 M/mm3 (4.60-6.20); Red Cell Distribution Width 17.7 % (11.5-17.5); White Blood Count 5.3 K/mm3 (4.8-10.8)
[2020-12-16 09:12] LABS: Alanine Aminotransferase 34 U/L (12-78); Albumin/Globulin Ratio 1.2 (1.1-1.8); Alkaline Phosphatase 68 U/L (38-126); Anion Gap 11.3 mEq/L (5-15); Aspartate Amino Transferase 39 U/L (17-59); Bilirubin,Total 0.6 mg/dl (0.2-1.3); Blood Urea Nitrogen 14 mg/dl (9-20); Calcium 9.2 mg/dl (8.4-10.2); Carbon Dioxide 29 mmol/L (22.0-30.0); Chloride 105 mmol/L (98-107); Creatinine Clearance Estimated 114 mL/min (50-200); Estimated Glomerular Filt Rate 75 ml/min (>60); GFR (African American) 91 ML/MIN (>60); Globulin 3.3 g/dL (1.3-3.2); Glucose 117 mg/dl (74-100); Potassium 4.3 mmoL/L (3.5-5.1); Sodium 141 mmol/L (136-145); Total Protein,Serum 7.3 g/dl (6.3-8.2)
== END 2020-12-16 13:45 | disposition home or self-care (01) ==
LOC: INF 08:27
PROVIDERS: PCP Internal Medicine Adolescent Medicine; Visit Provider Internal Medicine Medical Oncology
DX: Z51.11 Encounter for antineoplastic chemotherapy (principal); C18.9 Malignant neoplasm of colon, unspecified
CPT/HCPCS: 80053; 85025; 96411; 96413; 96415; 96417; J0640; J2469; J7060; J9190; J9263; Q0166

== ENCOUNTER 2020-12-28 08:19 | Outpatient (CLI) | payer MEDICARE, MEDICAID, SELFPAY ==
[2020-12-28] VITALS (16 sets, daily range): BP systolic 129–164; BP diastolic 71–86; PULSE 56–69; RESP 16; TEMP 36.6; O2SAT 95; BMI 34.9
[2020-12-28 08:50] LABS: Basophils % 0.7 % (0.1-2.0); Eosinophils # 0.1 K/mm3 (0.0-0.4); Eosinophils % 1.1 % (0.1-12.0); Hematocrit 40.4 % (42.0-52.0); Hemoglobin 13.4 g/dL (14.1-18.0); Lymphocytes % 16.8 % (10-50); Mean Corpuscular HGB Conc 33.1 g/dL (31.8-35.4); Mean Corpuscular Hemoglobin 30.6 pg (27.0-31.2); Mean Corpuscular Volume 92.5 fl (80-94); Monocytes # 0.4 K/mm3 (0.1-1.0); Monocytes % 6.8 % (1.7-9.3); Neutrophils # 4.6 K/mm3 (1.8-7.8); Neutrophils % 74.7 % (37.0-80.0); Platelet Count 159 K/mm3 (142-424); Red Blood Count 4.37 M/mm3 (4.60-6.20); Red Cell Distribution Width 17.6 % (11.5-17.5); White Blood Count 6.1 K/mm3 (4.8-10.8)
[2020-12-28 08:51] LABS: Chloride 106 mmol/L (98-107); Sodium 141 mmol/L (136-145)
[2020-12-28 08:52] LABS: Potassium 4.1 mmoL/L (3.5-5.1)
[2020-12-28 08:54] LABS: Alanine Aminotransferase 36 U/L (12-78); Albumin/Globulin Ratio 1.3 (1.1-1.8); Alkaline Phosphatase 76 U/L (38-126); Anion Gap 11.1 mEq/L (5-15); Aspartate Amino Transferase 40 U/L (17-59); Bilirubin,Total 0.3 mg/dl (0.2-1.3); Blood Urea Nitrogen 12 mg/dl (9-20); Calcium 8.9 mg/dl (8.4-10.2); Carbon Dioxide 28 mmol/L (22.0-30.0); Creatinine Clearance Estimated 112 mL/min (50-200); Estimated Glomerular Filt Rate 75 ml/min (>60); GFR (African American) 91 ML/MIN (>60); Glucose 158 mg/dl (74-100)
--- NOTE | 2020-12-28 14:38 | PC.NURSE ---
1400 - [facility] DELIVERED 5 FU FOR HOME INFUSION X46HRS. MED AND DOSE VERIFIED WITH KEMAL DAVIES RN. ATTACHED TO PORT TO INFUSE OVER 46 HRS. HOME HEALTH TO BE NOTIFIED TO STOP AND DEACCESS PORT ON 12/30/20 AT 1200.
== END 2020-12-28 14:10 | disposition home or self-care (01) ==
LOC: INF 08:19
PROVIDERS: PCP Internal Medicine Adolescent Medicine; Visit Provider Internal Medicine Medical Oncology
DX: Z51.11 Encounter for antineoplastic chemotherapy (principal); C18.9 Malignant neoplasm of colon, unspecified
CPT/HCPCS: 80053; 85025; 96411; 96413; 96415; 96417; J0640; J2469; J7060; J9190; J9263; Q0166

== ENCOUNTER → 2021-01-06 09:49 | Outpatient (CLI) | payer MEDICARE, MEDICAID, SELFPAY ==
--- NOTE | 2021-01-06 09:53 | CT_ITS ---
PROCEDURE: CT ABDOMEN PELVIS W CON CLINICAL INDICATION: COLON CANCER COMPARISON: CT CT ANGIO ABDOMEN PELVIS from 09/02/2020 TECHNIQUE: IV Contrast: 75ML Isovue 370 Oral Contrast 450ml Redicat Axial images obtained with sagittal and coronal reformats. All CT scans at the facility use one or more dose reduction, viz: automated exposure control, ma/kV adjustment per patient size (including targeted exams where dose is matched to indication, i.e. head), or iterative reconstruction technique. FINDINGS: LOWER THORAX: 3 mm nodule right lower upper lobe inferiorly not significantly changed. ABDOMEN & PELVIS: No focal liver lesion apparent. Continue splenomegaly at 15 cm. The adrenal glands and pancreas are unremarkable. No renal mass or renal calculi. There are a few small perigastric and periportal nodes. One particular node is present along the lesser curvature of the stomach measuring approximately 1.5 x 1 cm slightly more prominent from the previous exam. There are postsurgical changes of the anterior abdominal wall. There has been an interval right hemicolectomy. No intestinal obstruction or free air. There is mild thickening of the right lateral conal fascia. No pelvic mass or abnormal fluid collection. Degenerative changes of the thoracic and lumbar spine. IMPRESSION: Status post right hemicolectomy. Patent ileocolic anastomosis. There are few small perigastric and periportal nodes which may be slightly more prominent in the perigastric region. Continued follow-up suggested. No evidence of hepatic metastasis Dictated by: Luisito Nolan MD 01/07/2021 09:29 Luisito Nolan MD in [facility] 01/07/2021 09:29
== END ==
PROVIDERS: PCP Internal Medicine Adolescent Medicine; Visit Provider Internal Medicine Medical Oncology
DX: C18.9 Malignant neoplasm of colon, unspecified (principal)
CPT/HCPCS: 74177; Q9967

== ENCOUNTER 2021-01-13 08:20 | Outpatient (CLI) | payer MEDICARE, MEDICAID, SELFPAY ==
[2021-01-13] VITALS (14 sets, daily range): BP systolic 125–161; BP diastolic 68–86; PULSE 55–66; RESP 16–18; O2SAT 97; BMI 35.5
[2021-01-13 08:53] LABS: Basophils % 0.9 % (0.1-2.0); Eosinophils # 0.1 K/mm3 (0.0-0.4); Eosinophils % 1.9 % (0.1-12.0); Hematocrit 38.8 % (42.0-52.0); Hemoglobin 13.1 g/dL (14.1-18.0); Lymphocytes # 1.2 K/mm3 (0.7-4.5); Lymphocytes % 33.1 % (10-50); Mean Corpuscular HGB Conc 33.7 g/dL (31.8-35.4); Mean Corpuscular Hemoglobin 31.5 pg (27.0-31.2); Mean Corpuscular Volume 93.4 fl (80-94); Mean Platelet Volume 9.6 fl (7.4-10.4); Monocytes # 0.4 K/mm3 (0.1-1.0); Monocytes % 10.9 % (1.7-9.3); Neutrophils # 1.9 K/mm3 (1.8-7.8); Neutrophils % 53.2 % (37.0-80.0); Platelet Count 142 K/mm3 (142-424); Red Blood Count 4.16 M/mm3 (4.60-6.20); Red Cell Distribution Width 17.6 % (11.5-17.5); White Blood Count 3.6 K/mm3 (4.8-10.8)
[2021-01-13 09:08] LABS: Alanine Aminotransferase 40 U/L (12-78); Albumin Level 4.1 g/dl (3.5-5.0); Albumin/Globulin Ratio 1.3 (1.1-1.8); Alkaline Phosphatase 66 U/L (38-126); Aspartate Amino Transferase 48 U/L (17-59); Bilirubin,Total 0.4 mg/dl (0.2-1.3); Blood Urea Nitrogen 14 mg/dl (9-20); Calcium 9.1 mg/dl (8.4-10.2); Carbon Dioxide 28 mmol/L (22.0-30.0); Chloride 106 mmol/L (98-107); Creatinine Clearance Estimated 114 mL/min (50-200); Estimated Glomerular Filt Rate 75 ml/min (>60); GFR (African American) 91 ML/MIN (>60); Globulin 3.1 g/dL (1.3-3.2); Glucose 168 mg/dl (74-100); Sodium 138 mmol/L (136-145); Total Protein,Serum 7.2 g/dl (6.3-8.2)
--- NOTE | 2021-01-13 13:56 | PC.NURSE ---
1322 - 5FU 650MG GIVEN IVP AT THIS TIME FOLLOWED BY 10 ML NS FLUSH. 1330 - 5FU 3900MG DELIVERED BY [facility]. RN HOOKED TO PT'S PORT FOR INFUSION OVER NEXT 46 HRS. VERIFIED PT, DOSE, AND MEDICINE WITH KEMAL DAVIES RN. [facility] NOTIFIED OF TIME TO DISCONTINUE AND DEACCESS PORT ON 01/15/21.
== END 2021-01-13 13:35 | disposition home or self-care (01) ==
LOC: INF 08:21
PROVIDERS: PCP Internal Medicine Adolescent Medicine; Visit Provider Internal Medicine Medical Oncology
DX: Z51.11 Encounter for antineoplastic chemotherapy (principal); C18.9 Malignant neoplasm of colon, unspecified
CPT/HCPCS: 80053; 85025; 96411; 96413; 96415; 96417; J0640; J2469; J7060; J9190; J9263; Q0166

== ENCOUNTER 2021-01-25 08:19 | Outpatient (CLI) | payer MEDICARE, MEDICAID, SELFPAY ==
[2021-01-25] VITALS (9 sets, daily range): BP systolic 129–169; BP diastolic 72–86; PULSE 61–72; RESP 18; TEMP 36.4; O2SAT 95–96; BMI 34.9
[2021-01-25 08:51] LABS: Basophils % 0.8 % (0.1-2.0); Eosinophils # 0.1 K/mm3 (0.0-0.4); Eosinophils % 1.5 % (0.1-12.0); Hematocrit 39.2 % (42.0-52.0); Hemoglobin 13.4 g/dL (14.1-18.0); Lymphocytes # 1.1 K/mm3 (0.7-4.5); Lymphocytes % 20.7 % (10-50); Mean Corpuscular HGB Conc 34.3 g/dL (31.8-35.4); Mean Corpuscular Hemoglobin 31.9 pg (27.0-31.2); Mean Corpuscular Volume 93.1 fl (80-94); Monocytes # 0.4 K/mm3 (0.1-1.0); Neutrophils # 3.5 K/mm3 (1.8-7.8); Platelet Count 145 K/mm3 (142-424); Red Blood Count 4.21 M/mm3 (4.60-6.20); Red Cell Distribution Width 17.6 % (11.5-17.5); White Blood Count 5.1 K/mm3 (4.8-10.8)
[2021-01-25 08:54] LABS: Chloride 105 mmol/L (98-107); Potassium 4.1 mmoL/L (3.5-5.1); Sodium 139 mmol/L (136-145)
[2021-01-25 08:57] LABS: Alanine Aminotransferase 49 U/L (12-78); Albumin Level 4.1 g/dl (3.5-5.0); Albumin/Globulin Ratio 1.2 (1.1-1.8); Alkaline Phosphatase 70 U/L (38-126); Anion Gap 9.1 mEq/L (5-15); Aspartate Amino Transferase 50 U/L (17-59); Bilirubin,Total 0.6 mg/dl (0.2-1.3); Blood Urea Nitrogen 13 mg/dl (9-20); Carbon Dioxide 29 mmol/L (22.0-30.0); Creatinine Clearance Estimated 102 mL/min (50-200); Estimated Glomerular Filt Rate 67 ml/min (>60); GFR (African American) 81 ML/MIN (>60); Globulin 3.4 g/dL (1.3-3.2); Total Protein,Serum 7.5 g/dl (6.3-8.2)
[2021-01-25 08:58] LABS: Calcium 8.8 mg/dl (8.4-10.2); Glucose 152 mg/dl (74-100)
== END 2021-01-25 13:50 | disposition home or self-care (01) ==
LOC: INF 08:20
PROVIDERS: PCP Internal Medicine Adolescent Medicine; Visit Provider Internal Medicine Medical Oncology
DX: C18.9 Malignant neoplasm of colon, unspecified (principal); Z51.11 Encounter for antineoplastic chemotherapy
CPT/HCPCS: 80053; 85025; 96411; 96413; 96415; 96417; J0640; J2469; J7060; J9190; J9263; Q0166

== ENCOUNTER 2021-02-08 08:19 | Outpatient (CLI) | payer MEDICARE, MEDICAID, SELFPAY ==
[2021-02-08 08:27] VITALS: BMI 34.9
[2021-02-08 08:46] LABS: Basophils # 0.1 K/mm3 (0-0.2); Basophils % 0.8 % (0.1-2.0); Eosinophils # 0.1 K/mm3 (0.0-0.4); Hemoglobin 11.3 g/dL (14.1-18.0); Lymphocytes # 0.6 K/mm3 (0.7-4.5); Mean Corpuscular HGB Conc 32.2 g/dL (31.8-35.4); Mean Corpuscular Hemoglobin 32.5 pg (27.0-31.2); Mean Corpuscular Volume 100.9 fl (80-94); Mean Platelet Volume 9.3 fl (7.4-10.4); Monocytes # 0.4 K/mm3 (0.1-1.0); Monocytes % 6.4 % (1.7-9.3); Neutrophils # 5.1 K/mm3 (1.8-7.8); Neutrophils % 82.7 % (37.0-80.0); Platelet Count 125 K/mm3 (142-424); Red Blood Count 3.47 M/mm3 (4.60-6.20); Red Cell Distribution Width 17.7 % (11.5-17.5); White Blood Count 6.1 K/mm3 (4.8-10.8)
[2021-02-08 08:56] LABS: Alanine Aminotransferase 49 U/L (12-78); Albumin Level 4.1 g/dl (3.5-5.0); Albumin/Globulin Ratio 1.2 (1.1-1.8); Alkaline Phosphatase 74 U/L (38-126); Aspartate Amino Transferase 49 U/L (17-59); Bilirubin,Total 0.6 mg/dl (0.2-1.3); Blood Urea Nitrogen 16 mg/dl (9-20); Carbon Dioxide 27 mmol/L (22.0-30.0); Chloride 104 mmol/L (98-107); Creatinine Clearance Estimated 102 mL/min (50-200); Estimated Glomerular Filt Rate 67 ml/min (>60); GFR (African American) 81 ML/MIN (>60); Globulin 3.4 g/dL (1.3-3.2); Glucose 212 mg/dl (74-100); Sodium 137 mmol/L (136-145); Total Protein,Serum 7.5 g/dl (6.3-8.2)
--- NOTE | 2021-02-08 11:47 | PC.NURSE ---
02/08/21 1118 called in prescription for medrol dose pk to [facility] pharmacy. contacted pt and informed him of md order to hold tx this week and take medrol dose pk. instructed pt to come back to [facility] for pac deaccess when he picks up prescription at the pharmacy.
== END 2021-02-08 10:25 | disposition home or self-care (01) ==
LOC: INF 08:22
PROVIDERS: PCP Internal Medicine Adolescent Medicine; Visit Provider Internal Medicine Medical Oncology
DX: C18.9 Malignant neoplasm of colon, unspecified (principal)
CPT/HCPCS: 80053; 85025; J1642

== ENCOUNTER 2021-02-15 08:14 | Outpatient (CLI) | payer MEDICARE, MEDICAID, SELFPAY ==
[2021-02-15] VITALS (9 sets, daily range): BP systolic 125–163; BP diastolic 56–87; PULSE 66–85; RESP 18–20; TEMP 36.6; O2SAT 95–96
== END 2021-02-15 13:01 | disposition home or self-care (01) ==
LOC: INF 08:15
PROVIDERS: PCP Internal Medicine Adolescent Medicine; Visit Provider Internal Medicine Medical Oncology
DX: Z51.11 Encounter for antineoplastic chemotherapy (principal); C18.9 Malignant neoplasm of colon, unspecified
CPT/HCPCS: 96411; 96413; 96415; 96417; J0640; J2469; J7060; J9190; J9263; Q0166

== ENCOUNTER 2021-03-01 07:51 | Outpatient (CLI) | payer MEDICARE, MEDICAID, SELFPAY ==
[2021-03-01] VITALS (8 sets, daily range): BP systolic 127–171; BP diastolic 50–79; PULSE 60–84; RESP 18; TEMP 35.9; O2SAT 96; BMI 36.0
[2021-03-01 08:31] LABS: Basophils # 0.1 K/mm3 (0-0.2); Eosinophils # 0.1 K/mm3 (0.0-0.4); Eosinophils % 1.7 % (0.1-12.0); Hematocrit 39.8 % (42.0-52.0); Lymphocytes # 0.7 K/mm3 (0.7-4.5); Lymphocytes % 13.8 % (10-50); Mean Corpuscular HGB Conc 32.7 g/dL (31.8-35.4); Mean Corpuscular Hemoglobin 32.8 pg (27.0-31.2); Mean Corpuscular Volume 100.2 fl (80-94); Monocytes # 0.3 K/mm3 (0.1-1.0); Monocytes % 5.9 % (1.7-9.3); Neutrophils % 76.7 % (37.0-80.0); Platelet Count 137 K/mm3 (142-424); Red Blood Count 3.97 M/mm3 (4.60-6.20); Red Cell Distribution Width 16.7 % (11.5-17.5); White Blood Count 5.2 K/mm3 (4.8-10.8)
[2021-03-01 08:37] LABS: Chloride 106 mmol/L (98-107); Sodium 141 mmol/L (136-145)
[2021-03-01 08:40] LABS: Alanine Aminotransferase 57 U/L (12-78); Alkaline Phosphatase 65 U/L (38-126); Aspartate Amino Transferase 48 U/L (17-59); Bilirubin,Total 0.6 mg/dl (0.2-1.3); Blood Urea Nitrogen 14 mg/dl (9-20); Carbon Dioxide 28 mmol/L (22.0-30.0); Creatinine Clearance Estimated 105 mL/min (50-200); Estimated Glomerular Filt Rate 67 ml/min (>60); GFR (African American) 81 ML/MIN (>60); Glucose 175 mg/dl (74-100)
[2021-03-01 08:42] LABS: Albumin Level 4.2 g/dl (3.5-5.0); Albumin/Globulin Ratio 1.3 (1.1-1.8); Globulin 3.2 g/dL (1.3-3.2); Total Protein,Serum 7.4 g/dl (6.3-8.2)
== END 2021-03-01 13:50 | disposition home or self-care (01) ==
LOC: INF 07:52
PROVIDERS: PCP Internal Medicine Adolescent Medicine; Visit Provider Internal Medicine Medical Oncology
DX: Z51.11 Encounter for antineoplastic chemotherapy (principal); C18.9 Malignant neoplasm of colon, unspecified
CPT/HCPCS: 80053; 85025; 96411; 96413; 96415; 96417; J0640; J2469; J7060; J9190; J9263; Q0166

== ENCOUNTER 2021-03-18 08:38 | Outpatient (CLI) | payer MEDICARE, MEDICAID, SELFPAY ==
[2021-03-18 08:44] VITALS: BMI 36.6
[2021-03-18 09:09] LABS: Basophils # 0.1 K/mm3 (0-0.2); Basophils % 3.1 % (0.1-2.0); Eosinophils # 0.1 K/mm3 (0.0-0.4); Eosinophils % 1.8 % (0.1-12.0); Hematocrit 39.7 % (42.0-52.0); Hemoglobin 13.2 g/dL (14.1-18.0); Lymphocytes # 1.1 K/mm3 (0.7-4.5); Mean Corpuscular HGB Conc 33.3 g/dL (31.8-35.4); Mean Corpuscular Hemoglobin 33.5 pg (27.0-31.2); Mean Corpuscular Volume 100.6 fl (80-94); Mean Platelet Volume 10.1 fl (7.4-10.4); Monocytes # 0.4 K/mm3 (0.1-1.0); Monocytes % 11.4 % (1.7-9.3); Neutrophils # 2.1 K/mm3 (1.8-7.8); Neutrophils % 55.6 % (37.0-80.0); Platelet Count 152 K/mm3 (142-424); Red Blood Count 3.95 M/mm3 (4.60-6.20); Red Cell Distribution Width 16.8 % (11.5-17.5); White Blood Count 3.8 K/mm3 (4.8-10.8)
[2021-03-18 09:12] LABS: Chloride 106 mmol/L (98-107); Potassium 3.8 mmoL/L (3.5-5.1); Sodium 137 mmol/L (136-145)
[2021-03-18 09:15] LABS: Alanine Aminotransferase 51 U/L (12-78); Albumin Level 4.3 g/dl (3.5-5.0); Albumin/Globulin Ratio 1.3 (1.1-1.8); Alkaline Phosphatase 74 U/L (38-126); Anion Gap 7.8 mEq/L (5-15); Aspartate Amino Transferase 53 U/L (17-59); Bilirubin,Total 0.8 mg/dl (0.2-1.3); Blood Urea Nitrogen 12 mg/dl (9-20); Carbon Dioxide 27 mmol/L (22.0-30.0); Creatinine Clearance Estimated 117 mL/min (50-200); Estimated Glomerular Filt Rate 75 ml/min (>60); GFR (African American) 91 ML/MIN (>60); Globulin 3.3 g/dL (1.3-3.2); Total Protein,Serum 7.6 g/dl (6.3-8.2)
[2021-03-18 09:16] LABS: Calcium 8.3 mg/dl (8.4-10.2); Glucose 144 mg/dl (74-100)
[2021-03-18 10:55] VITALS: BP 145/76; PULSE 60; RESP 18; TEMP 36.3; O2SAT 95
[2021-03-18 11:30] VITALS: BP 134/65; PULSE 63; RESP 18
[2021-03-18 12:00] VITALS: BP 148/73; PULSE 66; RESP 18
[2021-03-18 12:30] VITALS: BP 149/72; PULSE 71; RESP 18
[2021-03-18 13:00] VITALS: BP 133/78; PULSE 69; RESP 18
[2021-03-18 13:25] VITALS: BP 149/76; PULSE 74; RESP 18
== END 2021-03-18 13:25 | disposition home or self-care (01) ==
LOC: INF 08:39
PROVIDERS: PCP Internal Medicine Adolescent Medicine; Visit Provider Internal Medicine Medical Oncology
DX: Z51.11 Encounter for antineoplastic chemotherapy (principal); C18.9 Malignant neoplasm of colon, unspecified
CPT/HCPCS: 80053; 85025; 96411; 96413; 96415; J0640; J2469; J9190; Q0166

== ENCOUNTER 2021-04-13 07:38 | Outpatient (CLI) | payer MEDICARE, MEDICAID, SELFPAY ==
[2021-04-13 08:10] VITALS: BMI 36.6
[2021-04-13 08:47] LABS: Blood Urea Nitrogen 12 mg/dl (9-20); Creatinine Clearance Estimated 117 mL/min (50-200); Estimated Glomerular Filt Rate 75 ml/min (>60); GFR (African American) 91 ML/MIN (>60)
--- NOTE | 2021-04-13 09:11 | CT_ITS ---
FINAL REPORT CLINICAL HISTORY: COLON CA COMPARISON: January 06, 2021 FINDINGS: CT OF THE ABDOMEN AND PELVIS WITH CONTRAST Axial CT images of the abdomen and pelvis were obtained after the administration of oral and iv contrast. Coronal reformatted images were also obtained and reviewed.This study was performed with techniques to keep radiation doses as low as reasonably achievable (ALARA). Individualized dose reduction techniques using automated exposure control or adjustment of mA and/or kV according to the patient's size were employed. Abdomen: The heart is normal in size. There are postoperative changes from partial colonic resection. There is a 14 mm gastrohepatic ligament lymph node that previously measured 15 mm and is reactive or neoplastic. There also several other mildly enlarged upper abdomen lymph nodes which are stable. There is no new mass or adenopathy. The liver has an unremarkable appearance, without evidence of mass or biliary ductal dilatation. The gallbladder is present. The spleen is unremarkable. No adrenal mass is present. The pancreas has an unremarkable appearance. The kidneys are normal, without evidence of mass or hydronephrosis. The aorta is normal in caliber. Pelvis: The appendix is absent. The urinary bladder is unremarkable. There is no evidence of mass or adenopathy. There is no evidence of bowel obstruction. There is chronic deformity of the right pubic bone which is stable. There are degenerative changes in the spine and SI joints. There is a right L5 pars defect. IMPRESSION: Stable, mildly enlarged upper abdomen lymph nodes may be reactive or neoplastic. No new mass or adenopathy. Reviewed, Interpreted and Dictated by Jacky Farr III, MD Transcribed by Jess Wolfe Authenticated by Jacky Farr III, MD on 04/13/2021 12:59:21 PM [facility]
--- NOTE | 2021-04-13 09:11 | CT_ITS ---
FINAL REPORT CLINICAL HISTORY: COLON CA FINDINGS: Axial CT images of the chest were obtained with contrast. Coronal reformatted images were also obtained. This study was performed with techniques to keep radiation doses as low as reasonably achievable, (ALARA). Individualized dose reduction techniques using automated exposure control or adjustment of mA and/or KV according to the patient's size were employed. There is no evidence of mediastinal or hilar mass or adenopathy.No axillary mass or adenopathy is identified. No localized pulmonary inflammatory process is identified. The lung window images reveal multiple small noncalcified pulmonary nodules. A 5 mm nodule in the lateral right upper lobe is seen on image 22. There are other smaller bilateral nodules, nonspecific. There is a calcified granuloma in the right lower lobe. IMPRESSION: Granulomas versus mets. Recommend follow-up CT in 3-6 months. Reviewed, Interpreted and Dictated by Jacky Farr III, MD Transcribed by Jess Wolfe Authenticated by Jacky Farr III, MD on 04/13/2021 12:48:[address] [facility]
== END 2021-04-13 09:45 | disposition home or self-care (01) ==
LOC: RAD 07:38 → INF 08:08
PROVIDERS: PCP Internal Medicine Adolescent Medicine; Visit Provider Internal Medicine Medical Oncology
DX: C18.2 Malignant neoplasm of ascending colon (principal); Z45.2 Encounter for adjustment and management of vascular access device
CPT/HCPCS: 71260; 74177; 82565; 84520; J1642; Q9967

== ENCOUNTER 2021-04-29 10:36 | Outpatient (CLI) | payer MEDICARE, MEDICAID, SELFPAY ==
[2021-04-29 10:42] VITALS: BMI 36.6
[2021-04-29 11:16] LABS: Basophils # 0.1 K/mm3 (0-0.2); Basophils % 1.4 % (0.1-2.0); Chloride 107 mmol/L (98-107); Eosinophils # 0.1 K/mm3 (0.0-0.4); Hematocrit 42.7 % (42.0-52.0); Hemoglobin 14.1 g/dL (14.1-18.0); Lymphocytes # 1.2 K/mm3 (0.7-4.5); Lymphocytes % 19.1 % (10-50); Mean Corpuscular HGB Conc 33.1 g/dL (31.8-35.4); Mean Corpuscular Hemoglobin 33.4 pg (27.0-31.2); Mean Corpuscular Volume 100.9 fl (80-94); Mean Platelet Volume 10.2 fl (7.4-10.4); Monocytes # 0.5 K/mm3 (0.1-1.0); Monocytes % 6.9 % (1.7-9.3); Neutrophils # 4.6 K/mm3 (1.8-7.8); Neutrophils % 70.7 % (37.0-80.0); Platelet Count 173 K/mm3 (142-424); Potassium 4.2 mmoL/L (3.5-5.1); Red Blood Count 4.23 M/mm3 (4.60-6.20); Red Cell Distribution Width 14.6 % (11.5-17.5); Sodium 142 mmol/L (136-145); White Blood Count 6.5 K/mm3 (4.8-10.8)
[2021-04-29 11:18] LABS: Blood Urea Nitrogen 17 mg/dl (9-20); Creatinine Clearance Estimated 117 mL/min (50-200); Estimated Glomerular Filt Rate 75 ml/min (>60); GFR (African American) 91 ML/MIN (>60)
[2021-04-29 11:19] LABS: Alanine Aminotransferase 66 U/L (12-78); Albumin Level 4.2 g/dl (3.5-5.0); Albumin/Globulin Ratio 1.3 (1.1-1.8); Alkaline Phosphatase 74 U/L (38-126); Anion Gap 9.2 mEq/L (5-15); Aspartate Amino Transferase 64 U/L (17-59); Bilirubin,Total 0.6 mg/dl (0.2-1.3); Calcium 8.6 mg/dl (8.4-10.2); Carbon Dioxide 30 mmol/L (22.0-30.0); Globulin 3.2 g/dL (1.3-3.2); Glucose 106 mg/dl (74-100); Total Protein,Serum 7.4 g/dl (6.3-8.2)
[2021-04-30 08:35] LABS: CEA 3.3 ng/mL (0.0-4.7)
== END 2021-04-29 12:46 | disposition home or self-care (01) ==
LOC: INF 10:38
PROVIDERS: PCP Internal Medicine Adolescent Medicine; Visit Provider Internal Medicine Medical Oncology
DX: C18.9 Malignant neoplasm of colon, unspecified (principal)
CPT/HCPCS: 80053; 82378; 85025; J1642

== ENCOUNTER → 2021-05-19 10:04 | Outpatient (CLI) | payer MEDICARE, MEDICAID, SELFPAY | PROVIDERS: Visit Provider Surgery | DX: Z01.812 Encounter for preprocedural laboratory examination (principal); Z11.52 Encounter for screening for COVID-19; Z12.11 Encounter for screening for malignant neoplasm of colon; Z85.038 Personal history of other malignant neoplasm of large intestine | CPT/HCPCS: C9803; U0003; U0005 ==

== ENCOUNTER 2021-05-21 11:15 | Day surgery (SDC) | payer MEDICARE, MEDICAID, SELFPAY ==
[2021-05-19 09:46] VITALS: BMI 36.3
[2021-05-21 11:28] VITALS: BP 156/84; PULSE 66; RESP 18; TEMP 36.3; O2SAT 98
--- NOTE | 2021-05-21 12:36 | HMH.GSHP ---
HPI HPI: Patient presents for initial colonoscopy after he had emergent colon resection.. He is a 65-year-old male who had presented to the emergency department on 09/02/2020 with somewhat loculated intra-abdominal air and regional peritonitis. He was taken emergently to the operating room at which time he was found to have perforated colon near the hepatic flexure with full-thickness liquefied necrosis and retroperitoneal abscess. He did undergo right hemicolectomy with anastomosis. 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 He had 4 of 27 positive lymph nodes. He had a PowerPort placed. He has now completed chemotherapy. He has been followed by Dr. Murphy. Patient has never had prior colonoscopy. [facility] History Medical History: Reports:: Arrhythmia, Atrial Fibrillation, Cancer (colon) Denies:: Diabetes Mellitus Type 1, Diabetes Mellitus Type 2, Internal Pacemaker, MRSA, Seizures *Have you ever received a pneumonia vaccine?: Yes *Have you received a flu vaccine this season?: Yes Other Medical History: Reports: Arthritis, Chemotherapy. Denies: Blood Transfusion Reaction Other Surgeries: Yes: Cancer Surgery (colon resection with right hemicolectomy w/ anastamosis), Colonoscopy, Colon Resection (hemicoloectomy with anastamosis), Other (pac). No: Pacemaker Amputation: No Fractures: No - *Social History Last grade of school completed: High school graduate Smoking Status: Never smoker Alcohol Intake: never Substance Use Type: denies use *Occupational Status:: retired Housing: house Household Members: none *Travel in the last 8 weeks: None Family Hx:: No significant family history Review of Systems - Review of Systems Review of systems:: pertinent systems reviewed and negative unless documented below Meds Home Medications Medication Instructions Recorded Confirmed Type diltiazem HCl 180 mg 180 mg PO DAILY #30 cap 11/04/20 05/21/21 Rx capsule,extended release 24 hr Allergies Allergy/AdvReac Type Severity Reaction Status Date / Time No Known Allergies Allergy Verified 05/21/21 11:24 Exam Vital signs and Labs for Last 24 Hours: Temp Pulse Resp BP Pulse Ox 97.4 F L 66 18 156/84 H 98 05/21/21 11:28 05/21/21 11:28 05/21/21 11:28 05/21/21 11:28 05/21/21 11:28 I & O for Last 24 hours: Intake & Output 05/19/21 05/20/21 05/21/21 05/22/21 11:59 11:59 11:59 11:59 Weight 246 lb - Constitutional no acute distress - *Routine HEENT Exam Head: Present: normocephalic Eye: Present: EOMI, PERRL ENT: Present: mucous membranes moist - *Routine Neck Exam Present: supple. Absent: lymphadenopathy - *Routine Respiratory Exam Present: CTA bilaterally - *Routine Cardiovascular Exam Present: RRR - *Routine Abdominal Exam Present: soft, normoactive bowel sounds. Absent: tenderness - *Routine Rectal Exam Rectal:: deferred - *Routine Genitalia Exam Genitalia:: deferred - *Routine Extremities Exam Absent: cyanosis, clubbing, edema - *Routine Skin Exam Present: warm. Absent: rash - *Routine Neurological Exam Present: alert, oriented X3 Assessment and Plan - Assessment and plan all Dx Assessment and Plan for all problems:: Colonoscopy
[2021-05-21 12:44] VITALS: O2SAT 98
--- NOTE | 2021-05-21 13:22 | P.PCN_ITS ---
- Procedure: Date: 05/21/21 Patient Date of :: 1955 Procedure Performed:: Total colonoscopy to ileocolic anastomosis with biopsies and polypectomy using snare and biopsy forceps Indications:: Patient presents for initial colonoscopy after he had emergent colon resection.. He is a 65-year-old male from [facility] who had presented to the emergency department on 09/02/2020 with somewhat loculated intra-abdominal air and regional peritonitis. He was taken emergently to the operating room at which time he was found to have perforated colon near the hepatic flexure with full-thickness liquefied necrosis and retroperitoneal abscess. He did undergo right hemicolectomy with anastomosis. 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 He had 4 of 27 positive lymph nodes. He had a PowerPort placed. He has now completed chemotherapy. He has been followed by Dr. Murphy. Patient has never had prior colonoscopy. Performing Provider:: Jacky Cr MD Referring Provider:: Saad Barraza MD Sedation:: MAC sedation Procedure:: Patient was taken to endoscopy procedure room. He was positioned in lateral decubitus position. Adequate intravenous sedation was achieved with anesthesia titration of propofol. Variable stiffness Olympus colonoscope was inserted via the anus. It was advanced to the ileocolic anastomosis without difficulty. A couple of biopsies were obtained at the ileocolic anastomosis. There was no evidence of any local recurrence. Colonoscope was slowly withdrawn through the colon with careful surveillance. Polyps were encountered in the descending colon which was removed with cold snare, sigmoid colon removed with cold snare, proximal sigmoid colon removed with cold snare, rectosigmoid colon removed with cold snare, distal rectal polyp x2 removed with cold snare. Was some minimal left-sided diverticulosis. Retroflexion within the rectum revealed the distal rectal polyps which were removed at that time. There was no evidence of any pathologic hemorrhoids. Colonoscope was withdrawn. Findings:: Polyps as noted above. Total of 6 small polyps removed with cold snare Minimal diverticulosis Recommendations:: Repeat colonoscopy pending pathology. Likely 1 or 2 years given his history. Complications:: None immediately apparent Estimated blood obtained (mL): 3
[2021-05-21 13:25] VITALS: BP 105/62; PULSE 67; RESP 16; TEMP 36.1; O2SAT 92
--- NOTE | 2021-05-21 13:26 | HMH.ANESCL ---
[facility] Anesthesia Checklist - Structural Data Admitted From: Home Planned Operative Procedure/s: colonoscopy Consent for Planned Operative Procedure(s) Verified: Yes - Additional verifications Anesthesia Reactions: No Hx Blood Transfusions: No Blood Transfusion Reaction: No - Airway Assessment C-Spine Mobility Assessed: Yes TMJ Mobility Assessed: Yes Dentition: Poor Dentition - Neurological Assessment Level of Consciousness: Awake, Alert, Appropriate - Anesthesia Plan Anesthesia Risk discussed: Yes Anesthesia Plan: Patient unable to respond/answer ASA Class: III Anesthesia Type: MAC [facility] History I have reviewed the patient's past medical history: Yes Medical History: Reports:: Arrhythmia, Atrial Fibrillation, Cancer (colon) Denies:: Diabetes Mellitus Type 1, Diabetes Mellitus Type 2, Internal Pacemaker, MRSA, Seizures *Have you ever received a pneumonia vaccine?: Yes *Have you received a flu vaccine this season?: Yes Other Medical History: Reports: Arthritis, Chemotherapy. Denies: Blood Transfusion Reaction Anesthesia experience/problems:: none Other Surgeries: Yes: Cancer Surgery (colon resection with right hemicolectomy w/ anastamosis), Colonoscopy, Colon Resection (hemicoloectomy with anastamosis), Other (pac). No: Pacemaker Amputation: No Fractures: No - *Social History Last grade of school completed: High school graduate Smoking Status: Never smoker Alcohol Intake: never Substance Use Type: denies use *Occupational Status:: retired Housing: house Household Members: none *Travel in the last 8 weeks: None Family Hx:: No significant family history
[2021-05-21 13:35] VITALS: BP 112/70; PULSE 51; RESP 18; TEMP 36.1; O2SAT 98
[2021-05-21 13:45] VITALS: BP 131/68; PULSE 55; RESP 16; TEMP 36.1; O2SAT 97
[2021-05-21 13:55] VITALS: BP 133/88; PULSE 51; RESP 18; TEMP 36.1; O2SAT 98
== END 2021-05-21 13:55 | disposition home or self-care (01) ==
LOC: OUTP 11:16
PROVIDERS: PCP Internal Medicine Adolescent Medicine; Visit Provider Surgery
PROC: 0DJD8ZZ Inspection of Lower Intestinal Tract, Via Natural or Artificial Opening Endoscopic (ICD-10-PCS; principal; 2021-05-21 11:30)
DX: Z12.11 Encounter for screening for malignant neoplasm of colon (principal); K63.5 Polyp of colon; K57.30 Diverticulosis of large intestine without perforation or abscess without bleeding; K62.1 Rectal polyp; Z85.030 Personal history of malignant carcinoid tumor of large intestine; Z90.49 Acquired absence of other specified parts of digestive tract; I49.9 Cardiac arrhythmia, unspecified; I48.91 Unspecified atrial fibrillation; M19.90 Unspecified osteoarthritis, unspecified site; Z79.899 Other long term (current) drug therapy
CPT/HCPCS: 45385; 88305

== ENCOUNTER 2021-06-01 11:33 | Outpatient (CLI) | payer MEDICARE, MEDICAID, SELFPAY | END 2021-06-01 12:15 | disposition home or self-care (01) | LOC: INF 11:34 | PROVIDERS: PCP Internal Medicine Adolescent Medicine; Visit Provider Internal Medicine Medical Oncology | DX: Z45.2 Encounter for adjustment and management of vascular access device (principal) | CPT/HCPCS: 96523; J1642 ==

== ENCOUNTER 2021-06-30 08:56 | Outpatient (CLI) | payer MEDICARE, MEDICAID, SELFPAY | END 2021-06-30 09:10 | disposition home or self-care (01) | LOC: INF 08:57 | PROVIDERS: PCP Internal Medicine Adolescent Medicine; Visit Provider Internal Medicine Medical Oncology | DX: Z45.2 Encounter for adjustment and management of vascular access device (principal) | CPT/HCPCS: 96523; J1642 ==

== ENCOUNTER → 2021-07-13 08:38 | Outpatient (CLI) | payer MEDICARE, MEDICAID, SELFPAY ==
--- NOTE | 2021-07-13 08:43 | CT_ITS ---
FINAL REPORT CLINICAL HISTORY: COLON CANCER, followup COMPARISON: April 13, 2021 FINDINGS: Axial CT images of the chest were obtained with contrast. Coronal reformatted images were also obtained. This study was performed with techniques to keep radiation doses as low as reasonably achievable, (ALARA). Individualized dose reduction techniques using automated exposure control or adjustment of mA and/or KV according to the patient''''s size were employed. A left subclavian chest port is noted. There is no evidence of mediastinal or hilar mass or adenopathy.No axillary mass or adenopathy is identified. Multiple bilateral pulmonary nodules are present, more numerous than on the prior exam. There is a 6 mm right upper lobe nodule, was 3 mm. There is a medial left lower lobe nodule which measures 8 mm, was 5 mm. There are multiple other nodules which are larger than prior. No localized pulmonary inflammatory process is identified. IMPRESSION: Worsening pulmonary nodularity, consistent with worsening pulmonary metastatic disease. Reviewed, Interpreted and Dictated by Jacky Farr III, MD Transcribed by Michelle Rose Authenticated and [facility]
--- NOTE | 2021-07-13 08:43 | CT_ITS ---
FINAL REPORT CLINICAL HISTORY: Colon cancer followup COMPARISON: April 13, 2021 FINDINGS: CT OF THE ABDOMEN AND PELVIS WITH CONTRAST Axial CT images of the abdomen and pelvis were obtained after the administration of oral and iv contrast. Coronal reformatted images were also obtained and reviewed.This study was performed with techniques to keep radiation doses as low as reasonably achievable (ALARA). Individualized dose reduction techniques using automated exposure control or adjustment of mA and/or kV according to the patient's size were employed. Abdomen: The heart is normal in size. The liver has an unremarkable appearance, without evidence of mass or biliary ductal dilatation. The spleen is unremarkable. No adrenal mass is present. The pancreas has an unremarkable appearance. The kidneys are normal, without evidence of mass or hydronephrosis. The aorta is normal in caliber. There is a 14 mm gastrohepatic lymph node which is stable from the prior exam. Other smaller lymph nodes in this region are stable. There is a small umbilical hernia containing fat. There is increased stranding of the mesentery of uncertain significance, may be inflammatory. There are several enlarged right mesenteric lymph nodes, largest measuring 14 mm and was 10 mm. Pelvis: The appendix is not well-visualized. The urinary bladder is unremarkable.There is no evidence of bowel obstruction. There is a right L5 pars defect. IMPRESSION: Enlarged right mesenteric lymph nodes could be reactive or neoplastic. If indicated, PET-CT or follow-up CT may be helpful. Stable gastrohepatic lymph nodes. Mesenteric stranding of uncertain significance may be inflammatory. Reviewed, Interpreted and Dictated by Jacky Farr III, MD Transcribed by Michelle Rose Authenticated and [facility]
[2021-07-13 09:12] LABS: Blood Urea Nitrogen 17 mg/dl (9-20); Estimated Glomerular Filt Rate 67 ml/min (>60); GFR (African American) 81 ML/MIN (>60)
== END ==
PROVIDERS: PCP Internal Medicine Adolescent Medicine; Visit Provider Internal Medicine Medical Oncology
DX: C18.2 Malignant neoplasm of ascending colon (principal)
CPT/HCPCS: 36415; 71260; 74177; 82565; 84520; Q9967

== ENCOUNTER 2021-07-29 10:16 | Outpatient (CLI) | payer MEDICARE, MEDICAID, SELFPAY ==
[2021-07-29 10:20] VITALS: BMI 36.3
[2021-07-29 10:46] LABS: Basophils # 0.1 K/mm3 (0-0.2); Basophils % 0.9 % (0.1-2.0); Eosinophils # 0.2 K/mm3 (0.0-0.4); Eosinophils % 2.9 % (0.1-12.0); Hematocrit 40.6 % (42.0-52.0); Hemoglobin 14.4 g/dL (14.1-18.0); Lymphocytes # 1.2 K/mm3 (0.7-4.5); Lymphocytes % 21.9 % (10-50); Mean Corpuscular HGB Conc 35.6 g/dL (31.8-35.4); Mean Corpuscular Hemoglobin 32.2 pg (27.0-31.2); Mean Corpuscular Volume 90.4 fl (80-94); Mean Platelet Volume 8.9 fl (7.4-10.4); Monocytes # 0.3 K/mm3 (0.1-1.0); Monocytes % 5.8 % (1.7-9.3); Neutrophils # 3.8 K/mm3 (1.8-7.8); Neutrophils % 68.5 % (37.0-80.0); Platelet Count 182 K/mm3 (142-424); Red Blood Count 4.49 M/mm3 (4.60-6.20); Red Cell Distribution Width 12.8 % (11.5-17.5); White Blood Count 5.6 K/mm3 (4.8-10.8)
[2021-07-29 10:53] LABS: Alanine Aminotransferase 40 U/L (12-78); Albumin Level 4.1 g/dl (3.5-5.0); Albumin/Globulin Ratio 1.3 (1.1-1.8); Alkaline Phosphatase 64 U/L (38-126); Anion Gap 9.2 mEq/L (5-15); Aspartate Amino Transferase 36 U/L (17-59); Bilirubin,Total 0.3 mg/dl (0.2-1.3); Blood Urea Nitrogen 16 mg/dl (9-20); Calcium 8.7 mg/dl (8.4-10.2); Carbon Dioxide 29 mmol/L (22.0-30.0); Chloride 106 mmol/L (98-107); Creatinine Clearance Estimated 116 mL/min (50-200); Estimated Glomerular Filt Rate 75 ml/min (>60); GFR (African American) 91 ML/MIN (>60); Globulin 3.1 g/dL (1.3-3.2); Glucose 115 mg/dl (74-100); Potassium 4.2 mmoL/L (3.5-5.1); Sodium 140 mmol/L (136-145); Total Protein,Serum 7.2 g/dl (6.3-8.2)
== END 2021-07-29 10:30 | disposition home or self-care (01) ==
LOC: INF 10:17
PROVIDERS: PCP Internal Medicine Adolescent Medicine; Visit Provider Internal Medicine Medical Oncology
DX: C18.9 Malignant neoplasm of colon, unspecified (principal); Z45.2 Encounter for adjustment and management of vascular access device
CPT/HCPCS: 36591; 80053; 85025; J1642

== ENCOUNTER 2021-08-27 08:47 | Outpatient (CLI) | payer MEDICARE, MEDICAID, SELFPAY | END 2021-08-27 09:00 | disposition home or self-care (01) | LOC: INF 08:48 | PROVIDERS: PCP Internal Medicine Adolescent Medicine; Visit Provider Internal Medicine Medical Oncology | DX: Z45.2 Encounter for adjustment and management of vascular access device (principal); C18.9 Malignant neoplasm of colon, unspecified | CPT/HCPCS: 96523; J1642 ==

== ENCOUNTER 2021-09-24 08:50 | Outpatient (CLI) | payer MEDICARE, MEDICAID, SELFPAY | END 2021-09-24 09:05 | disposition home or self-care (01) | LOC: INF 08:51 | PROVIDERS: PCP Internal Medicine Adolescent Medicine; Visit Provider Internal Medicine Medical Oncology | DX: C18.9 Malignant neoplasm of colon, unspecified (principal); Z45.2 Encounter for adjustment and management of vascular access device | CPT/HCPCS: 96523; J1642 ==

== ENCOUNTER → 2021-10-07 08:01 | Outpatient (CLI) | payer MEDICARE, MEDICAID, SELFPAY ==
[2021-10-07 08:10] VITALS: BMI 34.9
--- NOTE | 2021-10-07 08:24 | MR_ITS ---
FINAL REPORT CLINICAL HISTORY: COLON CANCER IN 2020. ABNORMAL PET SCAN. 21ML PROHANCE GIVEN. COMPARISON: PET CT dated 08/30/2021 FINDINGS: Multiplanar MR imaging of the abdomen was performed without and with contrast. There is a mass in the lateral segment of the left hepatic lobe measuring 2.7 x 2.2 cm which shows peripheral contrast enhancement and corresponds to the abnormality seen on PET scan. Findings consistent with hepatic metastases. No other hepatic mass is identified. There is a gallstone in the gallbladder. There is no biliary ductal dilatation. No abnormal fluid collection is seen. There are mildly enlarged gastrohepatic ligament lymph nodes which have a nonspecific appearance, may be reactive. IMPRESSION: Findings consistent with hepatic metastases. Reviewed, Interpreted and Dictated by Jacky Farr III, MD Transcribed by Suki Butts Authenticated and [facility]
[2021-10-07 08:28] LABS: Basophils # 0.1 K/mm3 (0-0.2); Eosinophils # 0.1 K/mm3 (0.0-0.4); Eosinophils % 1.7 % (0.1-12.0); Hematocrit 45.1 % (42.0-52.0); Hemoglobin 14.3 g/dL (14.1-18.0); Lymphocytes # 1.1 K/mm3 (0.7-4.5); Lymphocytes % 18.9 % (10-50); Mean Corpuscular HGB Conc 31.8 g/dL (31.8-35.4); Mean Corpuscular Hemoglobin 31.7 pg (27.0-31.2); Mean Corpuscular Volume 99.7 fl (80-94); Mean Platelet Volume 9.6 fl (7.4-10.4); Monocytes # 0.3 K/mm3 (0.1-1.0); Monocytes % 6.1 % (1.7-9.3); Neutrophils # 4.1 K/mm3 (1.8-7.8); Neutrophils % 72.2 % (37.0-80.0); Platelet Count 196 K/mm3 (142-424); Red Blood Count 4.52 M/mm3 (4.60-6.20); Red Cell Distribution Width 13.5 % (11.5-17.5); White Blood Count 5.6 K/mm3 (4.8-10.8)
[2021-10-07 08:35] LABS: Chloride 105 mmol/L (98-107); Potassium 4.3 mmoL/L (3.5-5.1); Sodium 143 mmol/L (136-145)
[2021-10-07 08:37] LABS: Alanine Aminotransferase 64 U/L (12-78); Alkaline Phosphatase 74 U/L (38-126); Aspartate Amino Transferase 50 U/L (17-59); Bilirubin,Total 0.5 mg/dl (0.2-1.3); Blood Urea Nitrogen 17 mg/dl (9-20); Creatinine Clearance Estimated 102 mL/min (50-200); Estimated Glomerular Filt Rate 67 ml/min (>60); GFR (African American) 81 ML/MIN (>60)
[2021-10-07 08:38] LABS: Albumin Level 4.5 g/dl (3.5-5.0); Albumin/Globulin Ratio 1.4 (1.1-1.8); Anion Gap 12.3 mEq/L (5-15); Calcium 9.1 mg/dl (8.4-10.2); Carbon Dioxide 30 mmol/L (22.0-30.0); Globulin 3.3 g/dL (1.3-3.2); Glucose 120 mg/dl (74-100); Total Protein,Serum 7.8 g/dl (6.3-8.2)
--- NOTE | 2021-10-07 08:38 | XR_ITS ---
FINAL REPORT CLINICAL HISTORY: RULE OUT METAL FOREIGN BODY FOR MRI. PRIOR HISTORY OF METAL IN RIGHT EYE. FINDINGS: ORBITS Look up and look down views were obtained. No fracture is identified. The sinuses are clear. No foreign body is identified. IMPRESSION: No acute process. Reviewed, Interpreted and Dictated by Jacky Farr III, MD Transcribed by Sean Frausto Authenticated and [facility]
--- NOTE | 2021-10-07 09:59 | CT_ITS ---
FINAL REPORT CLINICAL HISTORY: COLON CANCER FINDINGS: CT CHEST W/CONTRAST Axial CT images of the chest were obtained with contrast. Coronal reformatted images were also obtained. This study was performed with techniques to keep radiation doses as low as reasonably achievable, (ALARA). Individualized dose reduction techniques using automated exposure control or adjustment of mA and/or KV according to the patient's size were employed. A left subclavian chest port is present. There is no evidence of mediastinal or hilar mass or adenopathy.No axillary mass or adenopathy is identified. On lung window images, there are numerous bilateral noncalcified pulmonary nodules which are most worrisome for pulmonary metastatic disease. One of the largest nodules measures 10 mm and is located in the superior right lower lobe. This nodule is well seen on image 41. There are also several calcified granulomas. Limited images of the upper abdomen reveal a 28 mm mass in the lateral segment of the left hepatic lobe which is consistent with hepatic metastasis. There are multiple mildly enlarged gastrohepatic ligament lymph nodes of uncertain significance, reactive or neoplastic. IMPRESSION: Numerous bilateral noncalcified pulmonary nodules, most worrisome for pulmonary metastatic disease. Left hepatic lobe mass consistent with hepatic metastasis. Multiple mildly enlarged gastrohepatic ligament lymph nodes of uncertain significance, reactive or neoplastic. Reviewed, Interpreted and Dictated by Jacky Farr III, MD Transcribed by Jess Wolfe Authenticated and [facility]
== END ==
LOC: RAD 08:01 → INF 08:09
PROVIDERS: PCP Internal Medicine Adolescent Medicine; Visit Provider Internal Medicine Medical Oncology
DX: C18.9 Malignant neoplasm of colon, unspecified (principal); H05.53 Retained (old) foreign body following penetrating wound of bilateral orbits
CPT/HCPCS: 36591; 70200; 71260; 74183; 80053; 85025; A9576; J1642; Q9967

== ENCOUNTER 2021-10-21 08:13 | Outpatient (CLI) | payer MEDICARE, MEDICAID, SELFPAY ==
[2021-10-21] VITALS (7 sets, daily range): BP systolic 125–140; BP diastolic 64–79; PULSE 51–61; RESP 16–18; TEMP 36.6; O2SAT 97; BMI 35.1
[2021-10-21 08:34] LABS: Basophils # 0.1 K/mm3 (0-0.2); Basophils % 1.4 % (0.1-2.0); Eosinophils # 0.2 K/mm3 (0.0-0.4); Eosinophils % 2.5 % (0.1-12.0); Hematocrit 43.8 % (42.0-52.0); Hemoglobin 14.3 g/dL (14.1-18.0); Lymphocytes # 0.9 K/mm3 (0.7-4.5); Mean Corpuscular HGB Conc 32.6 g/dL (31.8-35.4); Mean Corpuscular Hemoglobin 31.7 pg (27.0-31.2); Mean Corpuscular Volume 97.1 fl (80-94); Mean Platelet Volume 10.4 fl (7.4-10.4); Monocytes # 0.4 K/mm3 (0.1-1.0); Monocytes % 5.3 % (1.7-9.3); Neutrophils # 5.5 K/mm3 (1.8-7.8); Neutrophils % 77.8 % (37.0-80.0); Platelet Count 182 K/mm3 (142-424); Red Blood Count 4.51 M/mm3 (4.60-6.20); Red Cell Distribution Width 13.5 % (11.5-17.5)
[2021-10-21 08:38] LABS: Alanine Aminotransferase 61 U/L (12-78); Albumin Level 4.3 g/dl (3.5-5.0); Albumin/Globulin Ratio 1.4 (1.1-1.8); Alkaline Phosphatase 70 U/L (38-126); Aspartate Amino Transferase 42 U/L (17-59); Blood Urea Nitrogen 18 mg/dl (9-20); Calcium 8.4 mg/dl (8.4-10.2); Carbon Dioxide 28 mmol/L (22.0-30.0); Chloride 104 mmol/L (98-107); Creatinine Clearance Estimated 102 mL/min (50-200); Estimated Glomerular Filt Rate 67 ml/min (>60); GFR (African American) 81 ML/MIN (>60); Glucose 130 mg/dl (74-100); Sodium 143 mmol/L (136-145); Total Protein,Serum 7.3 g/dl (6.3-8.2)
[2021-10-21 08:39] LABS: Bilirubin,Total 0.1 mg/dl (0.2-1.3)
[2021-10-21 09:32] LABS: Magnesium 1.9 mg/dl (1.6-2.3)
== END 2021-10-21 11:55 | disposition home or self-care (01) ==
LOC: INF 08:14
PROVIDERS: PCP Internal Medicine Adolescent Medicine; Visit Provider Internal Medicine Medical Oncology
DX: Z51.11 Encounter for antineoplastic chemotherapy (principal); C18.9 Malignant neoplasm of colon, unspecified
CPT/HCPCS: 80053; 83735; 85025; 96413; 96415; J1642; J2469; J9206

== ENCOUNTER 2021-11-11 08:25 | Outpatient (CLI) | payer MEDICARE, MEDICAID, SELFPAY ==
[2021-11-11 08:30] VITALS: BMI 35.2
[2021-11-11 08:48] LABS: Basophils # 0.1 K/mm3 (0-0.2); Basophils % 1.2 % (0.1-2.0); Eosinophils # 0.1 K/mm3 (0.0-0.4); Eosinophils % 1.4 % (0.1-12.0); Hematocrit 42.1 % (42.0-52.0); Hemoglobin 14.1 g/dL (14.1-18.0); Lymphocytes % 21.2 % (10-50); Mean Corpuscular HGB Conc 33.4 g/dL (31.8-35.4); Mean Corpuscular Hemoglobin 32.2 pg (27.0-31.2); Mean Corpuscular Volume 96.6 fl (80-94); Mean Platelet Volume 9.7 fl (7.4-10.4); Monocytes # 0.3 K/mm3 (0.1-1.0); Neutrophils # 3.3 K/mm3 (1.8-7.8); Neutrophils % 70.2 % (37.0-80.0); Platelet Count 189 K/mm3 (142-424); Red Blood Count 4.36 M/mm3 (4.60-6.20); Red Cell Distribution Width 15.2 % (11.5-17.5); White Blood Count 4.8 K/mm3 (4.8-10.8)
[2021-11-11 09:01] LABS: Chloride 104 mmol/L (98-107); Potassium 4.4 mmoL/L (3.5-5.1); Sodium 141 mmol/L (136-145)
[2021-11-11 09:03] LABS: Blood Urea Nitrogen 23 mg/dl (9-20); Creatinine Clearance Estimated 103 mL/min (50-200); Estimated Glomerular Filt Rate 67 ml/min (>60); GFR (African American) 81 ML/MIN (>60)
[2021-11-11 09:04] LABS: Alanine Aminotransferase 52 U/L (12-78); Albumin Level 4.4 g/dl (3.5-5.0); Albumin/Globulin Ratio 1.5 (1.1-1.8); Alkaline Phosphatase 67 U/L (38-126); Anion Gap 13.4 mEq/L (5-15); Aspartate Amino Transferase 45 U/L (17-59); Bilirubin,Total 0.3 mg/dl (0.2-1.3); Calcium 8.4 mg/dl (8.4-10.2); Carbon Dioxide 28 mmol/L (22.0-30.0); Globulin 2.9 g/dL (1.3-3.2); Glucose 199 mg/dl (74-100); Total Protein,Serum 7.3 g/dl (6.3-8.2)
[2021-11-11 09:53] VITALS: BP 125/58; PULSE 59; RESP 18; O2SAT 99
[2021-11-11 10:31] VITALS: BP 132/72; PULSE 52; RESP 18; O2SAT 98
[2021-11-11 11:01] VITALS: BP 129/78; PULSE 56; RESP 18; O2SAT 98
[2021-11-11 11:31] VITALS: BP 122/74; PULSE 52; RESP 18; O2SAT 99
[2021-11-11 12:01] VITALS: BP 127/69; PULSE 57; RESP 18; O2SAT 98
[2021-11-11 12:20] VITALS: BP 128/75; PULSE 59; RESP 18; O2SAT 98
== END 2021-11-11 12:20 | disposition home or self-care (01) ==
LOC: INF 08:26
PROVIDERS: PCP Internal Medicine Adolescent Medicine; Visit Provider Internal Medicine Medical Oncology
DX: Z51.11 Encounter for antineoplastic chemotherapy (principal); C18.9 Malignant neoplasm of colon, unspecified
CPT/HCPCS: 80053; 83735; 85025; 96413; 96415; J1642; J2469; J9206

== ENCOUNTER 2021-12-02 08:55 | Outpatient (CLI) | payer MEDICARE, MEDICAID, SELFPAY ==
[2021-12-02] VITALS (7 sets, daily range): BP systolic 121–149; BP diastolic 69–83; PULSE 55–71; RESP 16–18; O2SAT 96; BMI 34.8
[2021-12-02 09:36] LABS: Basophils # 0.1 K/mm3 (0-0.2); Basophils % 1.4 % (0.1-2.0); Eosinophils # 0.1 K/mm3 (0.0-0.4); Eosinophils % 2.2 % (0.1-12.0); Hematocrit 40.8 % (42.0-52.0); Hemoglobin 13.4 g/dL (14.1-18.0); Lymphocytes # 1.1 K/mm3 (0.7-4.5); Lymphocytes % 19.8 % (10-50); Mean Corpuscular HGB Conc 32.9 g/dL (31.8-35.4); Mean Corpuscular Hemoglobin 33.1 pg (27.0-31.2); Mean Corpuscular Volume 100.8 fl (80-94); Mean Platelet Volume 9.5 fl (7.4-10.4); Monocytes # 0.4 K/mm3 (0.1-1.0); Monocytes % 6.6 % (1.7-9.3); Neutrophils # 3.7 K/mm3 (1.8-7.8); Platelet Count 169 K/mm3 (142-424); Red Blood Count 4.05 M/mm3 (4.60-6.20); White Blood Count 5.3 K/mm3 (4.8-10.8)
[2021-12-02 09:44] LABS: Chloride 104 mmol/L (98-107); Potassium 4.2 mmoL/L (3.5-5.1); Sodium 142 mmol/L (136-145)
[2021-12-02 09:47] LABS: Alanine Aminotransferase 51 U/L (12-78); Albumin Level 4.1 g/dl (3.5-5.0); Albumin/Globulin Ratio 1.5 (1.1-1.8); Alkaline Phosphatase 68 U/L (38-126); Anion Gap 12.2 mEq/L (5-15); Aspartate Amino Transferase 50 U/L (17-59); Bilirubin,Total 0.6 mg/dl (0.2-1.3); Blood Urea Nitrogen 17 mg/dl (9-20); Calcium 8.5 mg/dl (8.4-10.2); Carbon Dioxide 30 mmol/L (22.0-30.0); Creatinine Clearance Estimated 101 mL/min (50-200); Estimated Glomerular Filt Rate 67 ml/min (>60); GFR (African American) 81 ML/MIN (>60); Globulin 2.8 g/dL (1.3-3.2); Glucose 128 mg/dl (74-100); Total Protein,Serum 6.9 g/dl (6.3-8.2)
[2021-12-02 11:25] LABS: Magnesium 2.1 mg/dl (1.6-2.3)
== END 2021-12-02 12:40 | disposition home or self-care (01) ==
LOC: INF 08:56
PROVIDERS: PCP Internal Medicine Adolescent Medicine; Visit Provider Internal Medicine Medical Oncology
DX: Z51.11 Encounter for antineoplastic chemotherapy (principal); C18.9 Malignant neoplasm of colon, unspecified
CPT/HCPCS: 80053; 83735; 85025; 96413; 96415; J1642; J2469; J9206

== ENCOUNTER 2021-12-20 08:09 | Outpatient (CLI) | payer MEDICARE, MEDICAID, SELFPAY ==
[2021-12-20 08:16] VITALS: BMI 35.4
--- NOTE | 2021-12-20 08:29 | CT_ITS ---
FINAL REPORT TECHNIQUE: After the administration of oral and intravenous contrast, axial images were obtained through the abdomen and pelvis by computed tomography. The study was performed with techniques to keep radiation dose as low as reasonably achievable, (ALARA). Individual dose reduction techniques using automated exposure control or adjustment of mA and/or kV according to the patient's size were employed. CLINICAL HISTORY: COLON CANCER COMPARISON: July 2021 FINDINGS: Abdomen: The liver parenchyma is fatty infiltrated. The gallbladder is present. The spleen, pancreas, adrenals and kidneys appear unremarkable. The aorta is normal in caliber. There is mild stranding in the mesentery similar to the prior exam. Several scattered mesenteric lymph nodes are similar to the prior exam. Pelvis: The appendix is not identified. The urinary bladder is unremarkable. There is no free fluid or adenopathy. There are bilateral L5 pars defects. There appears to be old healed fracture deformity of the right symphysis pubis. IMPRESSION: No acute intra-abdominal process. No change from prior. Reviewed, Interpreted and Dictated by Aguilar Dunlap MD Transcribed by Sean Frausto Authenticated and [facility]
--- NOTE | 2021-12-20 08:29 | CT_ITS ---
FINAL REPORT TECHNIQUE: After the administration of intravenous contrast, axial images through the chest were performed by computed tomography.This study was performed with techniques to keep radiation doses as low as reasonably achievable, (ALARA). Individualized dose reduction techniques using automated exposure control or adjustment of mA and/or kV according to the patient''s size were employed. CLINICAL HISTORY: COLON CANCER. yearly check up COMPARISON: July 2021 FINDINGS: An upper left chest wall port terminates in the upper SVC. There is no axillary adenopathy. There is a calcified subcarinal lymph node. There is no hilar or mediastinal adenopathy. The heart size is normal. There is no pericardial or pleural effusion. There are a multitude of pulmonary nodules which have generally progressed in size since the prior exam. There are some new nodules. A right perihilar 8 mm nodule on image 39 previously measured 6 mm. A left perihilar nodule on image 39 measures 7 mm and previously measured 6 mm. IMPRESSION: Increase in size and number of multiple pulmonary nodules consistent with progressive metastatic disease. Reviewed, Interpreted and Dictated by Aguilar Dunlap MD Transcribed by Sean Frausto Authenticated and [facility]
[2021-12-20 08:46] LABS: Basophils # 0.1 K/mm3 (0-0.2); Basophils % 1.7 % (0.1-2.0); Eosinophils # 0.1 K/mm3 (0.0-0.4); Eosinophils % 3.2 % (0.1-12.0); Hematocrit 38.9 % (42.0-52.0); Lymphocytes % 24.3 % (10-50); Mean Corpuscular HGB Conc 33.6 g/dL (31.8-35.4); Mean Corpuscular Hemoglobin 33.8 pg (27.0-31.2); Mean Corpuscular Volume 100.6 fl (80-94); Monocytes # 0.4 K/mm3 (0.1-1.0); Neutrophils # 2.6 K/mm3 (1.8-7.8); Neutrophils % 60.8 % (37.0-80.0); Platelet Count 202 K/mm3 (142-424); Red Blood Count 3.86 M/mm3 (4.60-6.20); Red Cell Distribution Width 17.9 % (11.5-17.5); White Blood Count 4.3 K/mm3 (4.8-10.8)
[2021-12-20 08:51] LABS: Alanine Aminotransferase 58 U/L (12-78); Albumin Level 4.4 g/dl (3.5-5.0); Albumin/Globulin Ratio 1.6 (1.1-1.8); Alkaline Phosphatase 72 U/L (38-126); Anion Gap 14.2 mEq/L (5-15); Aspartate Amino Transferase 46 U/L (17-59); Bilirubin,Total 0.6 mg/dl (0.2-1.3); Blood Urea Nitrogen 17 mg/dl (9-20); Calcium 9.2 mg/dl (8.4-10.2); Carbon Dioxide 26 mmol/L (22.0-30.0); Chloride 104 mmol/L (98-107); Creatinine Clearance Estimated 102 mL/min (50-200); Estimated Glomerular Filt Rate 67 ml/min (>60); GFR (African American) 81 ML/MIN (>60); Globulin 2.7 g/dL (1.3-3.2); Glucose 112 mg/dl (74-100); Potassium 4.2 mmoL/L (3.5-5.1); Sodium 140 mmol/L (136-145); Total Protein,Serum 7.1 g/dl (6.3-8.2)
== END 2021-12-20 09:25 | disposition home or self-care (01) ==
PROVIDERS: PCP Internal Medicine Adolescent Medicine; Visit Provider Internal Medicine Medical Oncology
DX: C18.9 Malignant neoplasm of colon, unspecified (principal)
CPT/HCPCS: 36591; 71270; 74178; 80053; 85025; J1642; Q9967

== ENCOUNTER 2021-12-27 09:06 | Outpatient (CLI) | payer MEDICARE, MEDICAID, SELFPAY ==
[2021-12-27 10:08] VITALS: BMI 35.4
[2021-12-27 10:34] VITALS: BP 134/72; PULSE 78; RESP 18; TEMP 36.4; O2SAT 97
[2021-12-27 10:43] LABS: Magnesium 1.9 mg/dl (1.6-2.3)
[2021-12-27 11:05] VITALS: BP 141/68; PULSE 72; RESP 18; O2SAT 97
[2021-12-27 11:35] VITALS: BP 138/79; PULSE 76; RESP 18; O2SAT 96
[2021-12-27 12:05] VITALS: BP 142/69; PULSE 75; RESP 18; O2SAT 97
[2021-12-27 12:50] VITALS: BP 153/77; PULSE 72; RESP 18; O2SAT 97
== END 2021-12-27 13:00 | disposition home or self-care (01) ==
LOC: INF 09:07
PROVIDERS: PCP Internal Medicine Adolescent Medicine; Visit Provider Internal Medicine Medical Oncology
DX: Z51.11 Encounter for antineoplastic chemotherapy (principal); C18.9 Malignant neoplasm of colon, unspecified; Z45.2 Encounter for adjustment and management of vascular access device
CPT/HCPCS: 83735; 96413; 96415; J1642; J2469; J9206

== ENCOUNTER 2022-01-20 09:14 | Outpatient (CLI) | payer MEDICARE, MEDICAID, SELFPAY ==
[2022-01-20] VITALS (7 sets, daily range): BP systolic 128–158; BP diastolic 71–90; PULSE 64–77; RESP 18; TEMP 36.6; O2SAT 95; BMI 36.0
[2022-01-20 09:36] LABS: Basophils # 0.1 K/mm3 (0-0.2); Basophils % 2.1 % (0.1-2.0); Eosinophils # 0.1 K/mm3 (0.0-0.4); Eosinophils % 2.4 % (0.1-12.0); Hematocrit 41.5 % (42.0-52.0); Hemoglobin 13.6 g/dL (14.1-18.0); Lymphocytes % 20.6 % (10-50); Mean Corpuscular HGB Conc 32.8 g/dL (31.8-35.4); Mean Corpuscular Hemoglobin 34.7 pg (27.0-31.2); Mean Corpuscular Volume 105.6 fl (80-94); Mean Platelet Volume 9.6 fl (7.4-10.4); Monocytes # 0.3 K/mm3 (0.1-1.0); Monocytes % 5.9 % (1.7-9.3); Neutrophils # 3.5 K/mm3 (1.8-7.8); Platelet Count 179 K/mm3 (142-424); Red Blood Count 3.93 M/mm3 (4.60-6.20); Red Cell Distribution Width 17.2 % (11.5-17.5)
[2022-01-20 09:44] LABS: Chloride 106 mmol/L (98-107); Sodium 142 mmol/L (136-145)
[2022-01-20 09:45] LABS: Potassium 4.2 mmoL/L (3.5-5.1)
[2022-01-20 09:47] LABS: Alanine Aminotransferase 75 U/L (12-78); Albumin Level 4.4 g/dl (3.5-5.0); Albumin/Globulin Ratio 1.6 (1.1-1.8); Alkaline Phosphatase 65 U/L (38-126); Anion Gap 12.2 mEq/L (5-15); Aspartate Amino Transferase 61 U/L (17-59); Bilirubin,Total 0.5 mg/dl (0.2-1.3); Blood Urea Nitrogen 19 mg/dl (9-20); Calcium 9.4 mg/dl (8.4-10.2); Carbon Dioxide 28 mmol/L (22.0-30.0); Creatinine Clearance Estimated 95 mL/min (50-200); Estimated Glomerular Filt Rate 61 ml/min (>60); GFR (African American) 73 ML/MIN (>60); Globulin 2.7 g/dL (1.3-3.2); Glucose 165 mg/dl (74-100); Magnesium 1.9 mg/dl (1.6-2.3); Total Protein,Serum 7.1 g/dl (6.3-8.2)
== END 2022-01-20 12:30 | disposition home or self-care (01) ==
LOC: INF 09:15
PROVIDERS: PCP Internal Medicine Adolescent Medicine; Visit Provider Internal Medicine Medical Oncology
DX: Z51.11 Encounter for antineoplastic chemotherapy (principal); C18.9 Malignant neoplasm of colon, unspecified; Z45.2 Encounter for adjustment and management of vascular access device
CPT/HCPCS: 80053; 83735; 85025; 96413; 96415; J1642; J2469; J9206

== ENCOUNTER 2022-02-10 09:00 | Outpatient (CLI) | payer MEDICARE, MEDICAID, SELFPAY ==
[2022-02-10 09:04] VITALS: BMI 36.6
[2022-02-10 09:35] LABS: Basophils # 0.1 K/mm3 (0-0.2); Eosinophils # 0.1 K/mm3 (0.0-0.4); Eosinophils % 2.1 % (0.1-12.0); Hematocrit 38.5 % (42.0-52.0); Hemoglobin 12.8 g/dL (14.1-18.0); Lymphocytes # 0.8 K/mm3 (0.7-4.5); Lymphocytes % 17.2 % (10-50); Mean Corpuscular HGB Conc 33.3 g/dL (31.8-35.4); Mean Corpuscular Hemoglobin 34.7 pg (27.0-31.2); Mean Corpuscular Volume 104.1 fl (80-94); Mean Platelet Volume 8.7 fl (7.4-10.4); Monocytes # 0.4 K/mm3 (0.1-1.0); Monocytes % 7.2 % (1.7-9.3); Neutrophils # 3.5 K/mm3 (1.8-7.8); Neutrophils % 72.4 % (37.0-80.0); Platelet Count 197 K/mm3 (142-424); Red Cell Distribution Width 15.9 % (11.5-17.5); White Blood Count 4.8 K/mm3 (4.8-10.8)
[2022-02-10 09:39] LABS: Chloride 105 mmol/L (98-107)
[2022-02-10 09:40] LABS: Sodium 142 mmol/L (136-145)
[2022-02-10 09:42] LABS: Alanine Aminotransferase 68 U/L (12-78); Aspartate Amino Transferase 51 U/L (17-59); Blood Urea Nitrogen 16 mg/dl (9-20); Creatinine Clearance Estimated 105 mL/min (50-200); Estimated Glomerular Filt Rate 67 ml/min (>60); GFR (African American) 81 ML/MIN (>60)
[2022-02-10 09:43] LABS: Albumin Level 4.2 g/dl (3.5-5.0); Albumin/Globulin Ratio 1.5 (1.1-1.8); Alkaline Phosphatase 59 U/L (38-126); Bilirubin,Total 0.6 mg/dl (0.2-1.3); Calcium 8.6 mg/dl (8.4-10.2); Carbon Dioxide 28 mmol/L (22.0-30.0); Globulin 2.8 g/dL (1.3-3.2); Glucose 183 mg/dl (74-100)
[2022-02-10 10:45] VITALS: BP 142/80; PULSE 68; RESP 18; TEMP 36.3; O2SAT 96
[2022-02-10 10:52] LABS: Magnesium 1.9 mg/dl (1.6-2.3)
[2022-02-10 11:26] VITALS: BP 131/81; PULSE 62; RESP 18; O2SAT 97
[2022-02-10 11:56] VITALS: BP 136/76; PULSE 66; RESP 18; O2SAT 97
[2022-02-10 12:26] VITALS: BP 140/78; PULSE 67; RESP 18; O2SAT 97
[2022-02-10 13:05] VITALS: BP 142/69; PULSE 65; RESP 18; O2SAT 96
== END 2022-02-10 13:15 | disposition home or self-care (01) ==
LOC: INF 09:01
PROVIDERS: PCP Internal Medicine Adolescent Medicine; Visit Provider Internal Medicine Medical Oncology
DX: Z51.11 Encounter for antineoplastic chemotherapy (principal); C18.9 Malignant neoplasm of colon, unspecified; Z45.2 Encounter for adjustment and management of vascular access device
CPT/HCPCS: 80053; 83735; 85025; 96413; 96415; J1642; J2469; J9206

== ENCOUNTER 2022-03-03 08:03 | Outpatient (CLI) | payer MEDICARE, MEDICAID, SELFPAY ==
[2022-03-03 08:10] VITALS: BMI 37.0
[2022-03-03 08:34] LABS: Basophils # 0.1 K/mm3 (0-0.2); Basophils % 1.3 % (0.1-2.0); Eosinophils # 0.1 K/mm3 (0.0-0.4); Eosinophils % 2.4 % (0.1-12.0); Hematocrit 38.2 % (42.0-52.0); Hemoglobin 12.9 g/dL (14.1-18.0); Mean Corpuscular HGB Conc 33.9 g/dL (31.8-35.4); Mean Corpuscular Hemoglobin 35.4 pg (27.0-31.2); Mean Corpuscular Volume 104.4 fl (80-94); Mean Platelet Volume 9.1 fl (7.4-10.4); Monocytes # 0.3 K/mm3 (0.1-1.0); Monocytes % 7.6 % (1.7-9.3); Neutrophils % 65.7 % (37.0-80.0); Platelet Count 207 K/mm3 (142-424); Red Blood Count 3.66 M/mm3 (4.60-6.20); Red Cell Distribution Width 15.8 % (11.5-17.5); White Blood Count 4.5 K/mm3 (4.8-10.8)
[2022-03-03 08:39] LABS: Chloride 109 mmol/L (98-107); Potassium 4.2 mmoL/L (3.5-5.1); Sodium 143 mmol/L (136-145)
[2022-03-03 08:41] LABS: Blood Urea Nitrogen 17 mg/dl (9-20); Creatinine Clearance Estimated 98 mL/min (50-200); Estimated Glomerular Filt Rate 61 ml/min (>60); GFR (African American) 73 ML/MIN (>60)
[2022-03-03 08:42] LABS: Alanine Aminotransferase 79 U/L (12-78); Albumin Level 4.3 g/dl (3.5-5.0); Albumin/Globulin Ratio 1.5 (1.1-1.8); Alkaline Phosphatase 57 U/L (38-126); Anion Gap 9.2 mEq/L (5-15); Aspartate Amino Transferase 56 U/L (17-59); Bilirubin,Total 0.7 mg/dl (0.2-1.3); Calcium 9.1 mg/dl (8.4-10.2); Carbon Dioxide 29 mmol/L (22.0-30.0); Globulin 2.9 g/dL (1.3-3.2); Glucose 172 mg/dl (74-100); Total Protein,Serum 7.2 g/dl (6.3-8.2)
[2022-03-03 10:05] VITALS: BP 144/81; PULSE 63; RESP 18; TEMP 36.6; O2SAT 96
[2022-03-03 10:35] VITALS: BP 136/75; PULSE 58; RESP 18
[2022-03-03 11:05] VITALS: BP 142/69; PULSE 61; RESP 18
[2022-03-03 11:43] VITALS: RESP 18
[2022-03-03 11:50] VITALS: BP 141/77; PULSE 66; RESP 18
== END 2022-03-03 11:50 | disposition home or self-care (01) ==
LOC: INF 08:04
PROVIDERS: PCP Internal Medicine Adolescent Medicine; Visit Provider Internal Medicine Medical Oncology
DX: Z51.11 Encounter for antineoplastic chemotherapy (principal); C18.9 Malignant neoplasm of colon, unspecified
CPT/HCPCS: 80053; 83735; 85025; 96413; 96415; J1642; J2469; J9206

== ENCOUNTER 2022-03-21 09:21 | Outpatient (CLI) | payer MEDICARE, MEDICAID, SELFPAY ==
--- NOTE | 2022-03-21 09:39 | CT_ITS ---
FINAL REPORT TECHNIQUE: Thin section axial images were obtained through the abdomen after intravenous contrast. Reconstruction images were obtained from the axial data. Exam was performed using dose reduction techniques. CLINICAL HISTORY: Hx colon cancer, 0 abdominal complaints. COMPARISON: 12/20/2021 FINDINGS: The liver is diffusely fatty infiltrated. No focal liver lesion is seen. The gallbladder is present. The spleen, adrenal glands, and pancreas are unremarkable. There is no hydronephrosis or solid renal mass. Abdominal GI tract is without acute abnormality. There is no evidence of small-bowel obstruction. Multiple small lymph nodes are seen in the gastrohepatic ligament, unchanged from prior exam. Abnormal attenuation in the mesentery is stable. The pelvic solid organs are unremarkable. There are postoperative changes of partial colectomy. Prostate is mildly enlarged, unchanged from prior exam. The pelvic portions of the GI tract, including the appendix, are without acute abnormality. There is no pelvic lymphadenopathy or ascites. No acute osseous abnormalities identified. There is stable appearance of the pubic symphysis. IMPRESSION: No CT evidence of acute intra-abdominal or intrapelvic abnormality. No change from prior exam. Reviewed, Interpreted and Dictated by Nikole Santamaria MD Transcribed by Sherin Cortez Authenticated and [facility]
--- NOTE | 2022-03-21 09:39 | CT_ITS ---
FINAL REPORT TECHNIQUE: Thin section axial images were obtained from the thoracic inlet through the upper abdomen after intravenous contrast injection. This study was performed with techniques to keep radiation doses as low as reasonably achievable (ALARA). Individualized dose reduction techniques using automated exposure control or adjustment of mA and/or kV according to the patient's size were employed. CLINICAL HISTORY: HX COLON CANCER, F/U COMPARISON: 12/20/2021 FINDINGS: There is no mediastinal, hilar, or axillary lymphadenopathy. There is no pleural or pericardial effusion. Again seen are pulmonary nodules, too numerous to count. There is a nodule in the posterior left upper lobe on image 28 measuring 7 mm, previously measured 5 mm. There is a cavitary nodule in the superior segment of the right lower lobe measuring 7 mm, previously measured 8 mm. There is a right middle lobe nodule measuring 11 mm, previously measured 5 mm. There is no acute osseous abnormality. IMPRESSION: Multiple pulmonary metastasis, some of which have progressed. Reviewed, Interpreted and Dictated by Nikole Santamaria MD Transcribed by Sherin Cortez Authenticated and [facility]
== END 2022-03-21 10:10 | disposition home or self-care (01) ==
LOC: RAD 09:22
PROVIDERS: PCP Internal Medicine Adolescent Medicine; Visit Provider Internal Medicine Medical Oncology
DX: C18.9 Malignant neoplasm of colon, unspecified (principal); C34.90 Malignant neoplasm of unspecified part of unspecified bronchus or lung
CPT/HCPCS: 71260; 74177; J1642; Q9967

== ENCOUNTER 2022-05-12 10:09 | Outpatient (CLI) | payer MEDICARE, MEDICAID, SELFPAY ==
[2022-05-12 10:15] VITALS: BMI 36.9
[2022-05-12 10:34] LABS: Basophils # 0.1 K/mm3 (0-0.2); Basophils % 0.8 % (0.1-2.0); Eosinophils # 0.1 K/mm3 (0.0-0.4); Hematocrit 41.8 % (42.0-52.0); Hemoglobin 13.4 g/dL (14.1-18.0); Lymphocytes # 1.4 K/mm3 (0.7-4.5); Lymphocytes % 21.7 % (10-50); Mean Corpuscular Volume 106.2 fl (80-94); Mean Platelet Volume 9.2 fl (7.4-10.4); Monocytes # 0.4 K/mm3 (0.1-1.0); Monocytes % 6.5 % (1.7-9.3); Neutrophils # 4.4 K/mm3 (1.8-7.8); Neutrophils % 69.2 % (37.0-80.0); Platelet Count 167 K/mm3 (142-424); Red Blood Count 3.94 M/mm3 (4.60-6.20); Red Cell Distribution Width 15.4 % (11.5-17.5); White Blood Count 6.3 K/mm3 (4.8-10.8)
[2022-05-12 10:39] LABS: Chloride 106 mmol/L (98-107); Potassium 4.2 mmoL/L (3.5-5.1); Sodium 141 mmol/L (136-145)
[2022-05-12 10:42] LABS: Alanine Aminotransferase 50 U/L (12-78); Albumin Level 4.5 g/dl (3.5-5.0); Albumin/Globulin Ratio 1.6 (1.1-1.8); Alkaline Phosphatase 60 U/L (38-126); Anion Gap 12.2 mEq/L (5-15); Aspartate Amino Transferase 47 U/L (17-59); Bilirubin,Total 0.8 mg/dl (0.2-1.3); Blood Urea Nitrogen 26 mg/dl (9-20); Carbon Dioxide 27 mmol/L (22.0-30.0); Creatinine Clearance Estimated 97 mL/min (50-200); Estimated Glomerular Filt Rate 61 ml/min (>60); GFR (African American) 73 ML/MIN (>60); Globulin 2.8 g/dL (1.3-3.2); Total Protein,Serum 7.3 g/dl (6.3-8.2)
[2022-05-12 10:43] LABS: Calcium 8.8 mg/dl (8.4-10.2); Glucose 126 mg/dl (74-100); Magnesium 2.1 mg/dl (1.6-2.3)
== END 2022-05-12 10:24 | disposition home or self-care (01) ==
PROVIDERS: PCP Internal Medicine Adolescent Medicine; Visit Provider Internal Medicine Medical Oncology
DX: C18.9 Malignant neoplasm of colon, unspecified (principal); C78.7 Secondary malignant neoplasm of liver and intrahepatic bile duct
CPT/HCPCS: 36591; 80053; 83735; 85025; J1642

== ENCOUNTER → 2022-06-02 08:08 | Outpatient (CLI) | payer MEDICARE, MEDICAID, SELFPAY ==
--- NOTE | 2022-06-02 08:26 | CT_ITS ---
FINAL REPORT CLINICAL HISTORY: Colon cancer, follow-up COMPARISON: 03/21/2022 FINDINGS: CT OF THE ABDOMEN AND PELVIS WITH CONTRAST Axial CT images of the abdomen and pelvis were obtained after the administration of oral and iv contrast. Coronal reformatted images were also obtained and reviewed.This study was performed with techniques to keep radiation doses as low as reasonably achievable (ALARA). Individualized dose reduction techniques using automated exposure control or adjustment of mA and/or kV according to the patient's size were employed. Abdomen: There is mild fatty infiltration of the liver. There is a poorly defined mass in the lateral segment of the left hepatic lobe measuring 32 mm. This was not well seen on the previous exam but likely measured approximately 16 mm. This is worrisome for a hepatic metastasis. Multiple mildly enlarged gastrohepatic lymph nodes are visually stable. The spleen is unremarkable. No adrenal mass is present. The pancreas has an unremarkable appearance. The kidneys are normal, without evidence of mass or hydronephrosis. The aorta is normal in caliber. Stranding in the small bowel mesentery is stable. Pelvis: There is presumed postoperative change from partial ascending colectomy. The appendix is not well-visualized. The urinary bladder is unremarkable.There are multiple, stable periumbilical and supraumbilical hernias containing fat. There is no evidence of bowel obstruction. A right L5 pars defect is noted. IMPRESSION: Mass in the lateral segment of the left hepatic lobe is worrisome for hepatic metastasis. Stable mildly enlarged gastrohepatic lymph nodes. Reviewed, Interpreted and Dictated by Jacky Farr III, MD Transcribed by Uma Norris Authenticated and [facility]
--- NOTE | 2022-06-02 08:26 | CT_ITS ---
FINAL REPORT CLINICAL HISTORY: Colon cancer, follow-up COMPARISON: 03/21/2022 FINDINGS: Axial CT images of the chest were obtained with contrast. Coronal reformatted images were also obtained. This study was performed with techniques to keep radiation doses as low as reasonably achievable, (ALARA). Individualized dose reduction techniques using automated exposure control or adjustment of mA and/or KV according to the patient's size were employed. A left subclavian chest port is present. There are small mediastinal nodes. No axillary mass or adenopathy is identified. On lung window images, there are numerous pulmonary nodules consistent with widespread pulmonary metastatic disease. Many of these nodules are visually stable but some are somewhat larger. For example, in the medial left lung base, a nodule, on image 71, measures 13 mm and previously measured 8 mm. IMPRESSION: Multiple pulmonary metastases, some are stable while others have progressed. Reviewed, Interpreted and Dictated by Jacky Farr III, MD Transcribed by Uma Norris Authenticated and [facility]
== END ==
PROVIDERS: PCP Internal Medicine Adolescent Medicine; Visit Provider Internal Medicine Medical Oncology
DX: C18.9 Malignant neoplasm of colon, unspecified (principal); C78.7 Secondary malignant neoplasm of liver and intrahepatic bile duct
CPT/HCPCS: 71260; 74177; J1642; Q9967

== ENCOUNTER 2022-06-03 09:12 | Day surgery (SDC) | payer MEDICARE, MEDICAID, SELFPAY ==
[2022-06-02 10:14] VITALS: BMI 36.9
[2022-06-03 09:28] VITALS: BP 131/75; PULSE 61; RESP 16; TEMP 36.4; O2SAT 97
--- NOTE | 2022-06-03 11:13 | P.PN_ITS ---
[facility] Disclaimer: The information contained in this section may have been updated after the patient was seen, as this information can be updated by other users. Medical History Arrhythmia Arthritis Atrial fibrillation with RVR Cancer colon cancer History of chemotherapy Port-A-Cath in place Surgical History History of colon resection and anastamosis Hx of colonoscopy Family History Other Cancer Social History (Updated 06/03/22 @ 09:28 by Andie Harris RN) Smoking Status: Former smoker alcohol intake: never substance use type: denies use current occupational status: retired Travel in the last 8 weeks: None household members: none housing: house current occupation: SELF EMPLOYED-[employer] current occupational exposures/hazards: No caffeine: Yes [facility] Anesthesia Checklist Patient Identification Patient Identification: Arm Band Structural Data Admitted From: Home Planned Operative Procedure/s: Colonoscopy Consent for Planned Operative Procedure(s) Verified: Yes Verified Documents: Surgical Consent and History and Physical NPO Status Verified Time NPO: 00:00 Additional verifications Anesthesia Reactions: No Hx Blood Transfusions: No Blood Transfusion Reaction: No Airway Assessment C-Spine Mobility Assessed: Yes TMJ Mobility Assessed: Yes Dentition: Edentulous (1 lower tooth) Neurological Assessment Level of Consciousness: Awake and Alert Anesthesia Plan Anesthesia Risk discussed: Yes Anesthesia Plan: Verified ASA Class: III Anesthesia Type: MAC
--- NOTE | 2022-06-03 11:14 | P.PN_ITS ---
[facility] Disclaimer: The information contained in this section may have been updated after the patient was seen, as this information can be updated by other users. Medical History Arrhythmia Arthritis Atrial fibrillation with RVR Cancer colon cancer History of chemotherapy Port-A-Cath in place Surgical History History of colon resection and anastamosis Hx of colonoscopy Family History Other Cancer Social History (Updated 06/03/22 @ 09:28 by Andie Harris RN) Smoking Status: Former smoker alcohol intake: never substance use type: denies use current occupational status: retired Travel in the last 8 weeks: None household members: none housing: house current occupation: SELF EMPLOYED[employer] current occupational exposures/hazards: No caffeine: Yes [facility] Anesthesia Checklist Patient Identification Patient Identification: Arm Band and Verbal (Name & ) Structural Data Admitted From: Home Planned Operative Procedure/s: Colonoscopy Consent for Planned Operative Procedure(s) Verified: Yes Verified Documents: Surgical Consent NPO Status Verified Time NPO: 06:00 Additional verifications Anesthesia Reactions: No Hx Blood Transfusions: No Blood Transfusion Reaction: No Airway Assessment C-Spine Mobility Assessed: Yes TMJ Mobility Assessed: Yes Neurological Assessment Level of Consciousness: Awake, Alert and Appropriate Anesthesia Plan Anesthesia Risk discussed: Yes ASA Class: III Anesthesia Type: MAC
[2022-06-03 11:33] VITALS: O2SAT 97
--- NOTE | 2022-06-03 12:05 | HMH.SCOPE ---
Procedure: Date: 06/03/22 Patient Date of :: 1955 Procedure Performed:: Colonoscopy to ileocolonic anastomosis Indications:: Patient is a 66-year-old male from [place] who had presented to the emergency department with regional peritonitis and retroperitoneal abscess who underwent emergent laparotomy with right hemicolectomy for perforated colon on 09/02/2020. Pathology was consistent with perforated colon cancer as a T4N2 lesion. He underwent a colonoscopy on 05/21/2021 which revealed 4 sessile serrated adenomas and a tubular adenoma. He has been followed by oncology and there has been concern for hepatic and pulmonary metastases advancing this to a stage IV cancer. Patient seems unaware of the degree of his cancer spread or staging. Patient did undergo CT scan of the chest abdomen pelvis yesterday as ordered by oncology. Performing Provider:: Jacky Cr MD Referring Provider:: MD Claritza Marquez MD Sedation:: MAC sedation Procedure:: Patient history was obtained and appropriate physical examination was performed. Patient's medications and allergies were reviewed. Informed consent was obtained after explaining the benefits, alternatives, and risks of the procedure including, but not limited to, bleeding, perforation, missed lesions, and adverse reaction to anesthesia medications. Patient was transported to endoscopy procedure room. Patient was connected to monitoring devices. Throughout the procedure the patient's blood pressure, pulse, and oxygen saturations were monitored continuously. Patient identification and planned procedure were verified by the staff. Patient was positioned in lateral decubitus position. Digital anorectal exam was performed. Variable stiffness Olympus colonoscope was inserted and advanced under direct visualization to the ileocolonic anastomosis. Adequacy of the colonic preparation was noted. The colonoscope was then slowly withdrawn while carefully examining the color, texture, anatomy, and integrity of the mucosoa circumferentially. Within the rectum retroflexion was performed. Colonoscope was then withdrawn. Colonic preparation was good. In the descending colon there was a tiny diminutive very subtle possible polyp removed with biopsy forceps. In the sigmoid colon there was a polyp removed with cold snare. Retroflexion within the rectum revealed nonpathologic internal hemorrhoids. Colonoscope was withdrawn. Findings:: The main due to possible polyp descending colon Tiny diminutive polyp in the sigmoid colon Recommendations:: Any follow-up colonoscopy would be pending his overall cancer prognosis Complications:: None immediate Estimated blood obtained (mL): 1
[2022-06-03 12:10] VITALS: BP 113/75; PULSE 61; RESP 18; TEMP 36.2; O2SAT 92
[2022-06-03 12:20] VITALS: BP 131/75; PULSE 62; RESP 17; O2SAT 92
[2022-06-03 12:30] VITALS: BP 135/63; PULSE 66; RESP 18; O2SAT 94
[2022-06-03 12:40] VITALS: BP 128/78; PULSE 57; RESP 16; TEMP 37.1; O2SAT 94
== END 2022-06-03 12:40 | disposition home or self-care (01) ==
PROVIDERS: PCP Internal Medicine Adolescent Medicine; Visit Provider Surgery
PROC: 0DJD8ZZ Inspection of Lower Intestinal Tract, Via Natural or Artificial Opening Endoscopic (ICD-10-PCS; principal; 2022-06-03 10:30)
DX: Z12.11 Encounter for screening for malignant neoplasm of colon (principal); K63.5 Polyp of colon; Z85.038 Personal history of other malignant neoplasm of large intestine; Z79.899 Other long term (current) drug therapy
CPT/HCPCS: 45380; 45385; 88305

== ENCOUNTER 2022-06-29 08:38 | Outpatient (CLI) | payer MEDICARE, MEDICAID, SELFPAY ==
[2022-06-29 08:45] VITALS: BMI 36.3
[2022-06-29 09:02] LABS: Basophils % 0.6 % (0.1-2.0); Eosinophils # 0.1 K/mm3 (0.0-0.4); Eosinophils % 2.3 % (0.1-12.0); Hemoglobin 14.2 g/dL (14.1-18.0); Lymphocytes # 0.9 K/mm3 (0.7-4.5); Lymphocytes % 15.5 % (10-50); Mean Corpuscular HGB Conc 32.4 g/dL (31.8-35.4); Mean Corpuscular Hemoglobin 33.6 pg (27.0-31.2); Mean Corpuscular Volume 103.7 fl (80-94); Mean Platelet Volume 9.7 fl (7.4-10.4); Monocytes # 0.4 K/mm3 (0.1-1.0); Monocytes % 6.1 % (1.7-9.3); Neutrophils # 4.5 K/mm3 (1.8-7.8); Neutrophils % 75.6 % (37.0-80.0); Platelet Count 181 K/mm3 (142-424); Red Blood Count 4.24 M/mm3 (4.60-6.20); Red Cell Distribution Width 15.2 % (11.5-17.5); White Blood Count 5.9 K/mm3 (4.8-10.8)
[2022-06-29 09:10] LABS: Alanine Aminotransferase 47 U/L (12-78); Albumin Level 4.2 g/dl (3.5-5.0); Albumin/Globulin Ratio 1.4 (1.1-1.8); Alkaline Phosphatase 70 U/L (38-126); Anion Gap 15.1 mEq/L (5-15); Aspartate Amino Transferase 49 U/L (17-59); Bilirubin,Total 0.5 mg/dl (0.2-1.3); Blood Urea Nitrogen 17 mg/dl (9-20); Calcium 8.7 mg/dl (8.4-10.2); Carbon Dioxide 29 mmol/L (22.0-30.0); Chloride 99 mmol/L (98-107); Creatinine Clearance Estimated 104 mL/min (50-200); Estimated Glomerular Filt Rate 67 ml/min (>60); GFR (African American) 81 ML/MIN (>60); Glucose 163 mg/dl (74-100); Potassium 4.1 mmoL/L (3.5-5.1); Sodium 139 mmol/L (136-145); Total Protein,Serum 7.2 g/dl (6.3-8.2)
[2022-06-29 09:18] VITALS: BP 127/74; PULSE 63; RESP 18; TEMP 37.1; O2SAT 97
[2022-06-29 09:51] VITALS: BP 130/72; PULSE 60; RESP 18; O2SAT 97
[2022-06-29 10:21] VITALS: BP 128/71; PULSE 64; RESP 18; O2SAT 97
[2022-06-29 10:51] VITALS: BP 135/70; PULSE 67; RESP 18; O2SAT 96
[2022-06-29 11:21] VITALS: BP 137/69; PULSE 61; RESP 18; O2SAT 97
[2022-06-29 11:42] VITALS: BP 141/75; PULSE 67; RESP 18; O2SAT 97
== END 2022-06-29 11:44 | disposition home or self-care (01) ==
LOC: INF 08:38
PROVIDERS: PCP Internal Medicine Adolescent Medicine; Visit Provider Internal Medicine Medical Oncology
DX: Z51.11 Encounter for antineoplastic chemotherapy (principal); C18.9 Malignant neoplasm of colon, unspecified; Z45.2 Encounter for adjustment and management of vascular access device
CPT/HCPCS: 80053; 83735; 85025; 96413; 96415; J1642; J2469; J9206

== ENCOUNTER 2022-07-22 09:49 | Outpatient (CLI) | payer MEDICARE, MEDICAID, SELFPAY ==
[2022-07-22] VITALS (7 sets, daily range): BP systolic 121–133; BP diastolic 63–71; PULSE 57–64; RESP 16; TEMP 36.6; O2SAT 94; BMI 36.3
[2022-07-22 10:24] LABS: Basophils % 0.5 % (0.1-2.0); Eosinophils # 0.3 K/mm3 (0.0-0.4); Eosinophils % 4.4 % (0.1-12.0); Hematocrit 41.8 % (42.0-52.0); Hemoglobin 13.8 g/dL (14.1-18.0); Lymphocytes # 1.2 K/mm3 (0.7-4.5); Lymphocytes % 20.4 % (10-50); Mean Corpuscular Hemoglobin 33.5 pg (27.0-31.2); Mean Corpuscular Volume 101.4 fl (80-94); Mean Platelet Volume 9.6 fl (7.4-10.4); Monocytes # 0.4 K/mm3 (0.1-1.0); Monocytes % 6.6 % (1.7-9.3); Neutrophils # 4.1 K/mm3 (1.8-7.8); Neutrophils % 68.1 % (37.0-80.0); Platelet Count 183 K/mm3 (142-424); Red Blood Count 4.12 M/mm3 (4.60-6.20); Red Cell Distribution Width 15.2 % (11.5-17.5)
[2022-07-22 10:29] LABS: Alanine Aminotransferase 48 U/L (12-78); Albumin Level 4.2 g/dl (3.5-5.0); Albumin/Globulin Ratio 1.4 (1.1-1.8); Alkaline Phosphatase 67 U/L (38-126); Aspartate Amino Transferase 49 U/L (17-59); Bilirubin,Total 0.7 mg/dl (0.2-1.3); Blood Urea Nitrogen 16 mg/dl (9-20); Calcium 8.5 mg/dl (8.4-10.2); Carbon Dioxide 29 mmol/L (22.0-30.0); Chloride 103 mmol/L (98-107); Creatinine Clearance Estimated 104 mL/min (50-200); Estimated Glomerular Filt Rate 67 ml/min (>60); GFR (African American) 81 ML/MIN (>60); Glucose 156 mg/dl (74-100); Sodium 142 mmol/L (136-145); Total Protein,Serum 7.2 g/dl (6.3-8.2)
== END 2022-07-22 14:00 | disposition home or self-care (01) ==
LOC: INF 09:52
PROVIDERS: PCP Internal Medicine Adolescent Medicine; Visit Provider Internal Medicine Medical Oncology
DX: C18.9 Malignant neoplasm of colon, unspecified (principal); Z45.2 Encounter for adjustment and management of vascular access device
CPT/HCPCS: 80053; 83735; 85025; 96413; 96415; J1642; J2469; J9206

== ENCOUNTER 2022-08-11 09:04 | Outpatient (CLI) | payer MEDICARE, MEDICAID, SELFPAY ==
[2022-08-11 09:08] VITALS: BMI 36.3
[2022-08-11 09:32] LABS: Basophils % 0.7 % (0.1-2.0); Eosinophils # 0.2 K/mm3 (0.0-0.4); Eosinophils % 4.9 % (0.1-12.0); Hematocrit 37.9 % (42.0-52.0); Hemoglobin 12.6 g/dL (14.1-18.0); Lymphocytes # 1.1 K/mm3 (0.7-4.5); Lymphocytes % 24.3 % (10-50); Mean Corpuscular HGB Conc 33.3 g/dL (31.8-35.4); Mean Corpuscular Hemoglobin 33.4 pg (27.0-31.2); Mean Corpuscular Volume 100.2 fl (80-94); Mean Platelet Volume 9.7 fl (7.4-10.4); Monocytes # 0.4 K/mm3 (0.1-1.0); Monocytes % 8.3 % (1.7-9.3); Neutrophils # 2.8 K/mm3 (1.8-7.8); Neutrophils % 61.8 % (37.0-80.0); Platelet Count 171 K/mm3 (142-424); Red Blood Count 3.78 M/mm3 (4.60-6.20); Red Cell Distribution Width 15.6 % (11.5-17.5); White Blood Count 4.5 K/mm3 (4.8-10.8)
[2022-08-11 09:39] LABS: Alanine Aminotransferase 48 U/L (12-78); Albumin Level 4.1 g/dl (3.5-5.0); Albumin/Globulin Ratio 1.4 (1.1-1.8); Alkaline Phosphatase 61 U/L (38-126); Aspartate Amino Transferase 45 U/L (17-59); Bilirubin,Total 0.7 mg/dl (0.2-1.3); Blood Urea Nitrogen 17 mg/dl (9-20); Calcium 8.6 mg/dl (8.4-10.2); Carbon Dioxide 29 mmol/L (22.0-30.0); Chloride 108 mmol/L (98-107); Creatinine Clearance Estimated 96 mL/min (50-200); Estimated Glomerular Filt Rate 61 ml/min (>60); GFR (African American) 73 ML/MIN (>60); Globulin 2.9 g/dL (1.3-3.2); Glucose 142 mg/dl (74-100); Sodium 143 mmol/L (136-145)
[2022-08-11 10:17] VITALS: BP 122/67; PULSE 65; RESP 18; TEMP 36.7; O2SAT 97
[2022-08-11 10:50] VITALS: BP 106/60; PULSE 60; RESP 18; O2SAT 97
[2022-08-11 11:20] VITALS: BP 111/62; PULSE 62; RESP 18; O2SAT 97
[2022-08-11 11:50] VITALS: BP 118/67; PULSE 64; RESP 18; O2SAT 98
[2022-08-11 12:30] VITALS: BP 131/65; PULSE 65; RESP 18; O2SAT 98
== END 2022-08-11 12:36 | disposition home or self-care (01) ==
LOC: INF 09:04
PROVIDERS: PCP Internal Medicine Adolescent Medicine; Visit Provider Internal Medicine Medical Oncology
DX: C18.9 Malignant neoplasm of colon, unspecified (principal); Z45.2 Encounter for adjustment and management of vascular access device
CPT/HCPCS: 80053; 83735; 85025; 96413; 96415; J1642; J2469; J9206

== ENCOUNTER 2022-09-01 09:01 | Outpatient (CLI) | payer MEDICARE, MEDICAID, SELFPAY ==
[2022-09-01 09:06] VITALS: BMI 36.6
[2022-09-01 09:19] LABS: Basophils % 0.9 % (0.1-2.0); Eosinophils # 0.1 K/mm3 (0.0-0.4); Hematocrit 38.5 % (42.0-52.0); Hemoglobin 12.6 g/dL (14.1-18.0); Lymphocytes % 23.3 % (10-50); Mean Corpuscular HGB Conc 32.7 g/dL (31.8-35.4); Mean Corpuscular Hemoglobin 34.1 pg (27.0-31.2); Mean Corpuscular Volume 104.2 fl (80-94); Mean Platelet Volume 9.6 fl (7.4-10.4); Monocytes # 0.5 K/mm3 (0.1-1.0); Monocytes % 10.6 % (1.7-9.3); Neutrophils # 2.8 K/mm3 (1.8-7.8); Neutrophils % 62.1 % (37.0-80.0); Platelet Count 167 K/mm3 (142-424); Red Cell Distribution Width 16.2 % (11.5-17.5); White Blood Count 4.4 K/mm3 (4.8-10.8)
[2022-09-01 09:27] LABS: Chloride 105 mmol/L (98-107); Potassium 4.1 mmoL/L (3.5-5.1); Sodium 142 mmol/L (136-145)
[2022-09-01 09:29] LABS: Albumin Level 4.1 g/dl (3.5-5.0); Anion Gap 11.1 mEq/L (5-15); Blood Urea Nitrogen 20 mg/dl (9-20); Carbon Dioxide 30 mmol/L (22.0-30.0); Creatinine Clearance Estimated 105 mL/min (50-200); Estimated Glomerular Filt Rate 67 ml/min (>60); GFR (African American) 81 ML/MIN (>60); Globulin 2.9 g/dL (1.3-3.2)
[2022-09-01 09:30] LABS: Albumin/Globulin Ratio 1.4 (1.1-1.8); Calcium 9.1 mg/dl (8.4-10.2); Glucose 168 mg/dl (74-100)
[2022-09-01 09:31] LABS: Alanine Aminotransferase 54 U/L (12-78); Alkaline Phosphatase 66 U/L (38-126); Aspartate Amino Transferase 46 U/L (17-59); Bilirubin,Total 0.7 mg/dl (0.2-1.3)
== END 2022-09-01 09:18 ==
LOC: INF 09:02
PROVIDERS: PCP Internal Medicine Adolescent Medicine; Visit Provider Internal Medicine Medical Oncology
DX: C18.9 Malignant neoplasm of colon, unspecified (principal); Z45.2 Encounter for adjustment and management of vascular access device
CPT/HCPCS: 36591; 80053; 83735; 85025; J1642

== ENCOUNTER → 2022-09-09 09:11 | Outpatient (CLI) | payer MEDICARE, MEDICAID, SELFPAY ==
--- NOTE | 2022-09-09 09:21 | CT_ITS ---
FINAL REPORT CLINICAL HISTORY: COLON CANCER COMPARISON: 06/02/2022 FINDINGS: Axial CT images of the chest were obtained with contrast. Coronal reformatted images were also obtained. This study was performed with techniques to keep radiation doses as low as reasonably achievable, (ALARA). Individualized dose reduction techniques using automated exposure control or adjustment of mA and/or KV according to the patient''''s size were employed. Left subclavian chest port is present. There is no evidence of mediastinal mass or adenopathy. No axillary mass is identified. The heart is normal in size. There is no pleural or pericardial effusion. There are numerous bilateral pulmonary nodules consistent with widespread pulmonary metastatic disease. Nodule in the right lung base measures 17 mm, was 13 mm. Nodule in the medial left lung base measures 20 mm, was 13 mm. Other nodules are visually somewhat worse. IMPRESSION: Widespread pulmonary metastatic disease, worse than previous. Reviewed, Interpreted and Dictated by Jacky Farr III, MD Transcribed by Suki Butts Authenticated and . [facility]
--- NOTE | 2022-09-09 09:21 | CT_ITS ---
FINAL REPORT TECHNIQUE: After the administration of oral and intravenous contrast, axial images were obtained through the abdomen and pelvis by computed tomography. The study was performed with techniques to keep radiation dose as low as reasonably achievable, (ALARA). Individual dose reduction techniques using automated exposure control or adjustment of mA and/or kV according to the patient's size were employed. CLINICAL HISTORY: COLON CANCER COMPARISON: 06/02/2022 FINDINGS: Abdomen: There is a poorly defined mass in the lateral segment left hepatic lobe measuring 38 mm, was 27 mm consistent with worsening hepatic metastases. There are multiple enlarging gastrohepatic ligament nodes measuring up to 19 mm, were 16 mm worsening for metastatic adenopathy. The spleen is unremarkable. The adrenals are normal. The pancreas is unremarkable. The kidneys enhance appropriately. The aorta is normal in caliber. There is a small supraumbilical midline ventral hernia, stable. Pelvis: The appendix is not identified. The urinary bladder is unremarkable. Right L5 pars defect is identified. IMPRESSION: Worsening hepatic metastases. Likely worsening metastatic adenopathy. Reviewed, Interpreted and Dictated by Jacky Farr III, MD Transcribed by Suki Butts Authenticated and [facility]
== END ==
PROVIDERS: PCP Internal Medicine Adolescent Medicine; Visit Provider Internal Medicine Medical Oncology
DX: C18.9 Malignant neoplasm of colon, unspecified (principal)
CPT/HCPCS: 71260; 74177; J1642; Q9967

== ENCOUNTER 2022-10-12 08:32 | Outpatient (CLI) | payer MEDICARE, MEDICAID, SELFPAY ==
[2022-10-12] VITALS (26 sets, daily range): BP systolic 113–149; BP diastolic 54–84; PULSE 53–66; RESP 15–18; TEMP 36.9–37.3; O2SAT 95; BMI 36.9
[2022-10-12 08:55] LABS: Microscopic, Urine URINE MICROSCOPIC (MICROSCOPIC)
[2022-10-12 08:59] LABS: Appearance,Urine CLEAR (Clear); Basophils % 0.6 % (0.1-2.0); Bilirubin,Urine Negative (Negative); Blood, Urine Negative (Negative); Color,Urine YELLOW (Yellow); Eosinophils # 0.1 K/mm3 (0.0-0.4); Eosinophils % 2.3 % (0.1-12.0); Glucose,Urine (UA) Negative (Negative); Hematocrit 43.1 % (42.0-52.0); Hemoglobin 13.9 g/dL (14.1-18.0); Ketones,Urine Negative (Negative); Leukocyte Esterase,Urine 1+ (Negative); Lymphocytes % 15.6 % (10-50); Mean Corpuscular HGB Conc 32.2 g/dL (31.8-35.4); Mean Corpuscular Hemoglobin 34.4 pg (27.0-31.2); Mean Corpuscular Volume 106.7 fl (80-94); Mean Platelet Volume 9.6 fl (7.4-10.4); Monocytes # 0.4 K/mm3 (0.1-1.0); Neutrophils # 4.7 K/mm3 (1.8-7.8); Neutrophils % 75.6 % (37.0-80.0); Nitrate,Urine Negative (Negative); PH,Urine 6.5 (5.0-8.5); Platelet Count 185 K/mm3 (142-424); Protein,Urine Negative (Negative); Red Blood Count 4.04 M/mm3 (4.60-6.20); Red Cell Distribution Width 15.2 % (11.5-17.5); White Blood Count 6.3 K/mm3 (4.8-10.8)
[2022-10-12 09:11] LABS: Alanine Aminotransferase 51 U/L (12-78); Albumin Level 4.3 g/dl (3.5-5.0); Albumin/Globulin Ratio 1.3 (1.1-1.8); Alkaline Phosphatase 70 U/L (38-126); Aspartate Amino Transferase 49 U/L (17-59); Bilirubin,Total 0.8 mg/dl (0.2-1.3); Blood Urea Nitrogen 17 mg/dl (9-20); Calcium 8.9 mg/dl (8.4-10.2); Carbon Dioxide 30 mmol/L (22.0-30.0); Chloride 103 mmol/L (98-107); Creatinine Clearance Estimated 106 mL/min (50-200); Estimated Glomerular Filt Rate 67 ml/min (>60); GFR (African American) 81 ML/MIN (>60); Globulin 3.2 g/dL (1.3-3.2); Glucose 158 mg/dl (74-100); Sodium 140 mmol/L (136-145); Total Protein,Serum 7.5 g/dl (6.3-8.2)
[2022-10-12 09:20] LABS: Squamous Epithelial Cell,Urine Occasional #/hpf (0-5); WBC,Urine 20-50 #/hpf (0-3)
== END 2022-10-12 16:45 | disposition home or self-care (01) ==
LOC: INF 08:33
PROVIDERS: PCP Internal Medicine Adolescent Medicine; Visit Provider Internal Medicine Medical Oncology
DX: C18.9 Malignant neoplasm of colon, unspecified (principal); Z51.11 Encounter for antineoplastic chemotherapy; N39.0 Urinary tract infection, site not specified; R73.09 Other abnormal glucose; Z79.899 Other long term (current) drug therapy
CPT/HCPCS: 80053; 81001; 85025; 87086; 96411; 96413; 96415; 96417; J0640; J2469; J9190; J9206; Q5107

== ENCOUNTER → 2022-10-20 10:34 | Outpatient (CLI) | payer MEDICARE, MEDICAID, SELFPAY ==
[2022-10-20 10:37] VITALS: BMI 36.9
[2022-10-20 11:01] LABS: Basophils % 0.3 % (0.1-2.0); Eosinophils # 0.1 K/mm3 (0.0-0.4); Eosinophils % 2.4 % (0.1-12.0); Hematocrit 41.9 % (42.0-52.0); Hemoglobin 13.7 g/dL (14.1-18.0); Lymphocytes % 27.3 % (10-50); Mean Corpuscular HGB Conc 32.8 g/dL (31.8-35.4); Mean Corpuscular Hemoglobin 33.7 pg (27.0-31.2); Mean Corpuscular Volume 102.9 fl (80-94); Mean Platelet Volume 9.7 fl (7.4-10.4); Monocytes # 0.2 K/mm3 (0.1-1.0); Monocytes % 5.3 % (1.7-9.3); Neutrophils # 2.4 K/mm3 (1.8-7.8); Neutrophils % 64.6 % (37.0-80.0); Platelet Count 181 K/mm3 (142-424); Red Blood Count 4.07 M/mm3 (4.60-6.20); Red Cell Distribution Width 14.4 % (11.5-17.5); White Blood Count 3.8 K/mm3 (4.8-10.8)
[2022-10-20 11:19] LABS: Alanine Aminotransferase 50 U/L (12-78); Albumin Level 4.1 g/dl (3.5-5.0); Albumin/Globulin Ratio 1.3 (1.1-1.8); Alkaline Phosphatase 70 U/L (38-126); Aspartate Amino Transferase 40 U/L (17-59); Bilirubin,Total 0.5 mg/dl (0.2-1.3); Blood Urea Nitrogen 18 mg/dl (9-20); Calcium 8.6 mg/dl (8.4-10.2); Carbon Dioxide 30 mmol/L (22.0-30.0); Chloride 103 mmol/L (98-107); Creatinine Clearance Estimated 117 mL/min (50-200); Estimated Glomerular Filt Rate 75 ml/min (>60); GFR (African American) 90 ML/MIN (>60); Globulin 3.1 g/dL (1.3-3.2); Glucose 151 mg/dl (74-100); Sodium 141 mmol/L (136-145); Total Protein,Serum 7.2 g/dl (6.3-8.2)
== END ==
PROVIDERS: PCP Internal Medicine Adolescent Medicine; Visit Provider Internal Medicine Medical Oncology
DX: C18.9 Malignant neoplasm of colon, unspecified (principal); C78.7 Secondary malignant neoplasm of liver and intrahepatic bile duct; Z45.2 Encounter for adjustment and management of vascular access device
CPT/HCPCS: 36591; 80053; 85025; J1642

== ENCOUNTER 2022-10-26 08:06 | Outpatient (CLI) | payer MEDICARE, MEDICAID, SELFPAY ==
[2022-10-26] VITALS (24 sets, daily range): BP systolic 113–134; BP diastolic 50–72; PULSE 52–58; RESP 17–18; TEMP 36.7; O2SAT 98–99; BMI 36.9
[2022-10-26 08:29] LABS: Basophils % 0.8 % (0.1-2.0); Eosinophils # 0.1 K/mm3 (0.0-0.4); Eosinophils % 2.9 % (0.1-12.0); Hematocrit 42.2 % (42.0-52.0); Hemoglobin 13.4 g/dL (14.1-18.0); Lymphocytes # 0.9 K/mm3 (0.7-4.5); Lymphocytes % 30.5 % (10-50); Mean Corpuscular HGB Conc 31.7 g/dL (31.8-35.4); Mean Corpuscular Hemoglobin 32.7 pg (27.0-31.2); Mean Corpuscular Volume 103.3 fl (80-94); Mean Platelet Volume 9.1 fl (7.4-10.4); Monocytes # 0.3 K/mm3 (0.1-1.0); Monocytes % 9.1 % (1.7-9.3); Neutrophils # 1.7 K/mm3 (1.8-7.8); Neutrophils % 56.7 % (37.0-80.0); Platelet Count 192 K/mm3 (142-424); Red Blood Count 4.09 M/mm3 (4.60-6.20); Red Cell Distribution Width 14.3 % (11.5-17.5)
[2022-10-26 08:37] LABS: Alanine Aminotransferase 56 U/L (12-78); Albumin/Globulin Ratio 1.3 (1.1-1.8); Alkaline Phosphatase 75 U/L (38-126); Anion Gap 12.3 mEq/L (5-15); Aspartate Amino Transferase 44 U/L (17-59); Bilirubin,Total 0.5 mg/dl (0.2-1.3); Blood Urea Nitrogen 17 mg/dl (9-20); Calcium 8.5 mg/dl (8.4-10.2); Carbon Dioxide 25 mmol/L (22.0-30.0); Chloride 108 mmol/L (98-107); Creatinine Clearance Estimated 106 mL/min (50-200); Estimated Glomerular Filt Rate 67 ml/min (>60); GFR (African American) 81 ML/MIN (>60); Globulin 3.2 g/dL (1.3-3.2); Glucose 164 mg/dl (74-100); Potassium 4.3 mmoL/L (3.5-5.1); Sodium 141 mmol/L (136-145); Total Protein,Serum 7.2 g/dl (6.3-8.2)
[2022-10-26 08:39] LABS: Microscopic, Urine URINE MICROSCOPIC (MICROSCOPIC)
[2022-10-26 08:42] LABS: Appearance,Urine CLEAR (Clear); Bilirubin,Urine Negative (Negative); Blood, Urine Negative (Negative); Color,Urine YELLOW (Yellow); Glucose,Urine (UA) Negative (Negative); Ketones,Urine Negative (Negative); Leukocyte Esterase,Urine Negative (Negative); Nitrate,Urine Negative (Negative); PH,Urine 5.5 (5.0-8.5); Protein,Urine Negative (Negative); Specific Gravity, Urine >= 1.030 (1.005-1.030); Urobilinogen,Urine 0.2 EU/dl (0.2)
[2022-10-26 08:58] LABS: Bacteria,Urine Trace /lpf; Squamous Epithelial Cell,Urine Occasional #/hpf (0-5)
[2022-10-26] MEDS: DEXTROSE 5 % IN WATER 250 ML 100 ML IV (09:30)
[2022-10-26] MEDS: APREPITANT 125MG/80MG TRIFOLD PACK 1 PACKET PO (10:00)
[2022-10-26] MEDS: DEXAMETHASONE 4MG/ML 5ML MDV 12 MG IV (10:05)
[2022-10-26] MEDS: ATROPINE SULFATE 0.4MG/ML VIAL 0.400000000000000022 MG IV (10:05)
[2022-10-26] MEDS: PALONOSETRON HCL 0.25 MG/5 ML IV (10:05)
[2022-10-26] MEDS: WATER IV (12:27)
[2022-10-26] MEDS: DEXTROSE 5% IV (12:27)
[2022-10-26] MEDS: LEUCOVORIN CALCIUM IV (12:27)
[2022-10-26] MEDS: FLUOROURACIL 500MG/10ML VIAL 900 MG IV (14:46)
== END 2022-10-26 14:57 | disposition home or self-care (01) ==
LOC: INF 08:07
PROVIDERS: PCP Internal Medicine Adolescent Medicine; Visit Provider Internal Medicine Medical Oncology
DX: C17.2 Malignant neoplasm of ileum (principal); C18.9 Malignant neoplasm of colon, unspecified; Z79.899 Other long term (current) drug therapy
CPT/HCPCS: 80053; 81001; 83735; 85025; 96411; 96413; 96415; 96417; J0640; J2469; J9190; J9206; Q5107

== ENCOUNTER 2022-11-04 08:17 | Outpatient (CLI) | payer MEDICARE, MEDICAID, SELFPAY ==
[2022-11-04 08:22] VITALS: BMI 36.9
[2022-11-04 08:51] LABS: Basophils % 0.3 % (0.1-2.0); Eosinophils % 1.2 % (0.1-12.0); Hematocrit 41.2 % (42.0-52.0); Hemoglobin 13.3 g/dL (14.1-18.0); Lymphocytes # 0.8 K/mm3 (0.7-4.5); Lymphocytes % 24.2 % (10-50); Mean Corpuscular HGB Conc 32.3 g/dL (31.8-35.4); Mean Corpuscular Hemoglobin 32.6 pg (27.0-31.2); Mean Corpuscular Volume 100.8 fl (80-94); Mean Platelet Volume 9.4 fl (7.4-10.4); Monocytes # 0.2 K/mm3 (0.1-1.0); Monocytes % 5.5 % (1.7-9.3); Neutrophils # 2.4 K/mm3 (1.8-7.8); Neutrophils % 68.8 % (37.0-80.0); Platelet Count 212 K/mm3 (142-424); Red Blood Count 4.09 M/mm3 (4.60-6.20); Red Cell Distribution Width 14.2 % (11.5-17.5); White Blood Count 3.5 K/mm3 (4.8-10.8)
[2022-11-04 08:53] LABS: Alanine Aminotransferase 52 U/L (12-78); Albumin/Globulin Ratio 1.3 (1.1-1.8); Alkaline Phosphatase 66 U/L (38-126); Anion Gap 11.3 mEq/L (5-15); Aspartate Amino Transferase 44 U/L (17-59); Bilirubin,Total 0.3 mg/dl (0.2-1.3); Blood Urea Nitrogen 16 mg/dl (9-20); Calcium 8.5 mg/dl (8.4-10.2); Carbon Dioxide 26 mmol/L (22.0-30.0); Chloride 107 mmol/L (98-107); Creatinine Clearance Estimated 117 mL/min (50-200); Estimated Glomerular Filt Rate 75 ml/min (>60); GFR (African American) 90 ML/MIN (>60); Globulin 3.2 g/dL (1.3-3.2); Glucose 177 mg/dl (74-100); Potassium 4.3 mmoL/L (3.5-5.1); Sodium 140 mmol/L (136-145); Total Protein,Serum 7.2 g/dl (6.3-8.2)
[2022-11-04 12:13] LABS: Magnesium 1.8 mg/dl (1.6-2.3)
== END 2022-11-04 08:42 | disposition home or self-care (01) ==
LOC: INF 08:19
PROVIDERS: PCP Internal Medicine Adolescent Medicine; Visit Provider Internal Medicine Medical Oncology
DX: C18.9 Malignant neoplasm of colon, unspecified (principal); Z45.2 Encounter for adjustment and management of vascular access device
CPT/HCPCS: 36591; 80053; 83735; 85025; J1642

== ENCOUNTER 2022-11-09 08:14 | Outpatient (CLI) | payer MEDICARE, MEDICAID, SELFPAY ==
[2022-11-09] VITALS (9 sets, daily range): BP systolic 122–152; BP diastolic 63–83; PULSE 59–67; RESP 18; TEMP 36.8; O2SAT 97–98; BMI 36.7
[2022-11-09 08:30] LABS: Microscopic, Urine URINE MICROSCOPIC (MICROSCOPIC)
[2022-11-09 08:31] LABS: Appearance,Urine CLEAR (Clear); Bilirubin,Urine Negative (Negative); Blood, Urine Negative (Negative); Color,Urine YELLOW (Yellow); Glucose,Urine (UA) Negative (Negative); Ketones,Urine Negative (Negative); Leukocyte Esterase,Urine TRACE (Negative); Nitrate,Urine Negative (Negative); PH,Urine 5.5 (5.0-8.5); Protein,Urine Negative (Negative); Specific Gravity, Urine >= 1.030 (1.005-1.030); Urobilinogen,Urine 0.2 EU/dl (0.2)
== END 2022-11-09 13:50 | disposition home or self-care (01) ==
LOC: INF 08:16
PROVIDERS: PCP Internal Medicine Adolescent Medicine; Visit Provider Internal Medicine Medical Oncology
DX: Z51.11 Encounter for antineoplastic chemotherapy (principal); C18.9 Malignant neoplasm of colon, unspecified
CPT/HCPCS: 81001; 96368; 96411; 96413; 96415; 96417; J0640; J2469; J9190; J9206; Q5107

== ENCOUNTER 2022-11-17 14:01 | Outpatient (CLI) | payer MEDICARE, MEDICAID, SELFPAY ==
[2022-11-17 14:05] VITALS: BMI 36.7
[2022-11-17 14:31] LABS: Basophils % 0.6 % (0.1-2.0); Eosinophils # 0.1 K/mm3 (0.0-0.4); Eosinophils % 2.1 % (0.1-12.0); Hematocrit 37.6 % (42.0-52.0); Hemoglobin 13.3 g/dL (14.1-18.0); Lymphocytes # 1.2 K/mm3 (0.7-4.5); Lymphocytes % 23.9 % (10-50); Mean Corpuscular HGB Conc 35.4 g/dL (31.8-35.4); Monocytes # 0.3 K/mm3 (0.1-1.0); Monocytes % 5.9 % (1.7-9.3); Neutrophils # 3.3 K/mm3 (1.8-7.8); Neutrophils % 67.5 % (37.0-80.0); Platelet Count 201 K/mm3 (142-424); Red Blood Count 3.79 M/mm3 (4.60-6.20); Red Cell Distribution Width 14.6 % (11.5-17.5); White Blood Count 4.9 K/mm3 (4.8-10.8)
[2022-11-17 14:38] LABS: Alanine Aminotransferase 55 U/L (12-78); Albumin Level 4.1 g/dl (3.5-5.0); Albumin/Globulin Ratio 1.3 (1.1-1.8); Alkaline Phosphatase 64 U/L (38-126); Anion Gap 11.9 mEq/L (5-15); Aspartate Amino Transferase 51 U/L (17-59); Bilirubin,Total 0.3 mg/dl (0.2-1.3); Blood Urea Nitrogen 17 mg/dl (9-20); Calcium 8.7 mg/dl (8.4-10.2); Carbon Dioxide 28 mmol/L (22.0-30.0); Chloride 102 mmol/L (98-107); Creatinine Clearance Estimated 116 mL/min (50-200); Estimated Glomerular Filt Rate 75 ml/min (>60); GFR (African American) 90 ML/MIN (>60); Globulin 3.2 g/dL (1.3-3.2); Glucose 111 mg/dl (74-100); Potassium 3.9 mmoL/L (3.5-5.1); Sodium 138 mmol/L (136-145); Total Protein,Serum 7.3 g/dl (6.3-8.2)
== END 2022-11-17 14:43 | disposition home or self-care (01) ==
LOC: INF 14:03
PROVIDERS: PCP Internal Medicine Adolescent Medicine; Visit Provider Internal Medicine Medical Oncology
DX: C18.9 Malignant neoplasm of colon, unspecified (principal); Z45.2 Encounter for adjustment and management of vascular access device
CPT/HCPCS: 36591; 80053; 85025; J1642

== ENCOUNTER 2022-11-23 08:14 | Outpatient (CLI) | payer MEDICARE, MEDICAID, SELFPAY ==
[2022-11-23] VITALS (15 sets, daily range): BP systolic 117–153; BP diastolic 68–106; PULSE 56–75; RESP 15–17; TEMP 36.5–36.6; O2SAT 95–97; BMI 36.4
[2022-11-23 08:36] LABS: Microscopic, Urine URINE MICROSCOPIC (MICROSCOPIC)
[2022-11-23 08:38] LABS: Appearance,Urine CLEAR (Clear); Bilirubin,Urine Negative (Negative); Blood, Urine Negative (Negative); Color,Urine YELLOW (Yellow); Glucose,Urine (UA) Negative (Negative); Ketones,Urine Negative (Negative); Leukocyte Esterase,Urine Negative (Negative); Nitrate,Urine Negative (Negative); PH,Urine 5.5 (5.0-8.5); Protein,Urine TRACE (Negative); Specific Gravity, Urine >= 1.030 (1.005-1.030); Urobilinogen,Urine 0.2 EU/dl (0.2)
[2022-11-23 08:58] LABS: Hyaline Casts,Urine Occasional #/lpf (0); Mucus,Urine Trace /lpf
--- NOTE | 2022-11-23 10:29 | PC.NURSE ---
0925 - PREMEDICATED WITH ORDERED MEDS AT THIS TIME.
--- NOTE | 2022-11-23 16:57 | PC.NURSE ---
1640 - [facility] DELIVERED 5FU 5448MG FOR CONTINUOUS INFUSION AT HOME OVER NEXT 46 HRS. VERIFIED MED AND DOSE WITH KEMAL DAVIES RN AND HOOKED UP VIA PORT PORT A CATH.
== END 2022-11-23 16:45 | disposition home or self-care (01) ==
LOC: INF 08:16
PROVIDERS: PCP Internal Medicine Adolescent Medicine; Visit Provider Internal Medicine Medical Oncology
DX: Z51.11 Encounter for antineoplastic chemotherapy (principal); C18.9 Malignant neoplasm of colon, unspecified
CPT/HCPCS: 81001; 96368; 96411; 96413; 96415; 96417; J0640; J2469; J8501; J9190; J9206; Q5107

== ENCOUNTER 2022-12-07 08:19 | Outpatient (CLI) | payer MEDICARE, MEDICAID, SELFPAY ==
[2022-12-07] VITALS (9 sets, daily range): BP systolic 120–133; BP diastolic 60–83; PULSE 59–68; RESP 16–18; TEMP 36.7; O2SAT 97–98; BMI 36.4
[2022-12-07 08:46] LABS: Microscopic, Urine URINE MICROSCOPIC (MICROSCOPIC)
[2022-12-07 08:48] LABS: Basophils # 0.1 K/mm3 (0-0.2); Basophils % 1.8 % (0.1-2.0); Eosinophils # 0.1 K/mm3 (0.0-0.4); Eosinophils % 2.7 % (0.1-12.0); Hematocrit 39.8 % (42.0-52.0); Hemoglobin 13.8 g/dL (14.1-18.0); Lymphocytes # 0.7 K/mm3 (0.7-4.5); Mean Corpuscular HGB Conc 34.7 g/dL (31.8-35.4); Mean Corpuscular Hemoglobin 33.7 pg (27.0-31.2); Mean Corpuscular Volume 97.1 fl (80-94); Monocytes # 0.3 K/mm3 (0.1-1.0); Monocytes % 7.6 % (1.7-9.3); Neutrophils # 2.2 K/mm3 (1.8-7.8); Neutrophils % 65.9 % (37.0-80.0); Platelet Count 174 K/mm3 (142-424); Red Cell Distribution Width 15.4 % (11.5-17.5); White Blood Count 3.4 K/mm3 (4.8-10.8)
[2022-12-07 09:08] LABS: Alanine Aminotransferase 57 U/L (12-78); Albumin Level 4.2 g/dl (3.5-5.0); Albumin/Globulin Ratio 1.3 (1.1-1.8); Alkaline Phosphatase 66 U/L (38-126); Aspartate Amino Transferase 48 U/L (17-59); Bilirubin,Total 0.6 mg/dl (0.2-1.3); Blood Urea Nitrogen 20 mg/dl (9-20); Calcium 8.9 mg/dl (8.4-10.2); Carbon Dioxide 26 mmol/L (22.0-30.0); Chloride 104 mmol/L (98-107); Creatinine Clearance Estimated 96 mL/min (50-200); Estimated Glomerular Filt Rate 61 ml/min (>60); GFR (African American) 73 ML/MIN (>60); Globulin 3.2 g/dL (1.3-3.2); Glucose 196 mg/dl (74-100); Sodium 139 mmol/L (136-145); Total Protein,Serum 7.4 g/dl (6.3-8.2)
[2022-12-07 11:24] LABS: Appearance,Urine CLEAR (Clear); Blood, Urine 2+ (Negative); Color,Urine YELLOW (Yellow); Glucose,Urine (UA) Negative (Negative); Ketones,Urine Negative (Negative); Leukocyte Esterase,Urine Negative (Negative); Nitrate,Urine Negative (Negative); PH,Urine 5.5 (5.0-8.5); Protein,Urine TRACE (Negative); Specific Gravity, Urine >= 1.030 (1.005-1.030); Urobilinogen,Urine 0.2 EU/dl (0.2)
[2022-12-07 11:33] LABS: Bilirubin,Urine Negative (Negative)
[2022-12-07 11:38] LABS: Bacteria,Urine 1+ /lpf; Squamous Epithelial Cell,Urine Occasional #/hpf (0-5); WBC,Urine Occasional #/hpf (0-3)
--- NOTE | 2022-12-07 11:45 | PC.NURSE ---
12/07/22 1130 Report received from Radha Gaines RN, assuming care of the pt at this time. Mvasi infusion complete and saline flushing. Pt in stable condition, vss-no c/o noted.
== END 2022-12-07 14:05 | disposition home or self-care (01) ==
LOC: INF 08:20
PROVIDERS: PCP Internal Medicine Adolescent Medicine; Visit Provider Internal Medicine Medical Oncology
DX: C18.9 Malignant neoplasm of colon, unspecified (principal); C78.7 Secondary malignant neoplasm of liver and intrahepatic bile duct; Z51.11 Encounter for antineoplastic chemotherapy
CPT/HCPCS: 80053; 81001; 85025; 96368; 96411; 96413; 96415; 96417; J0640; J2469; J9190; J9206; Q5107

== ENCOUNTER 2022-12-16 08:37 | Outpatient (CLI) | payer MEDICARE, MEDICAID, SELFPAY ==
[2022-12-16 08:44] VITALS: BMI 36.4
--- NOTE | 2022-12-16 09:03 | CT_ITS ---
FINAL REPORT TECHNIQUE: Axial images through the chest was performed with and without contrast by computed tomography. Sagittal and coronal reformatted images were obtained and reviewed. This study was performed with techniques to keep radiation doses as low as reasonably achievable (ALARA). Individualized dose reduction techniques using automated exposure control or adjustment of mA and/or kV according to the patient's size were employed. CLINICAL HISTORY: .COLON CANCER COMPARISON: 09/09/2022 FINDINGS: There is no axillary lymphadenopathy. There is no mediastinal or hilar lymphadenopathy. Left Port-A-Cath is present. There is no pleural or pericardial effusion. There are too numerous to count bilateral pulmonary nodules consistent with metastases. Nodules have not significantly changed in size although the majority are now cavitary. Index lesion in the left lower lobe measures 19 mm, previously measured 20 mm. No new nodules are identified. There is no acute osseous abnormality. IMPRESSION: No change in size or number in the pulmonary metastases although the majority are now cavitary. Reviewed, Interpreted and Dictated by Nikole Santamaria MD Transcribed by Suki Butts Authenticated and [facility]
--- NOTE | 2022-12-16 09:03 | CT_ITS ---
FINAL REPORT TECHNIQUE: Pre-and postcontrast axial imaging of the abdomen and pelvis was obtained. Oral contrast was also given. This study was performed with techniques to keep radiation doses as low as reasonably achievable, (ALARA). Individualized dose reduction technique using automated exposure control or adjustment of mA and/or kV according to the patient's size were employed. CLINICAL HISTORY: COLON CANCER COMPARISON: 09/09/2022 FINDINGS: There is diffuse fatty infiltration of the liver with a hypodense lesion in the left lobe of the liver, unchanged measuring 38 mm. There is probably a 2nd lesion adjacent to the right hepatic vein which is stable. The gallbladder is present. The spleen, adrenal glands, and pancreas are unremarkable. There is no hydronephrosis or solid renal mass. On precontrast imaging, no renal stones are identified. Abdominal GI tract is unremarkable. Upper abdomen lymphadenopathy is stable measuring 18 mm, was 19 mm. No new lymphadenopathy is identified. There is no free fluid. The pelvic organs and GI tract are without acute abnormality. There are changes from partial right colectomy. There is no lymphadenopathy or ascites. No acute osseous abnormalities identified. IMPRESSION: Stable hepatic and lymph node metastases. Reviewed, Interpreted and Dictated by Nikole Santamaria MD Transcribed by Suki Butts Authenticated and . [facility]
[2022-12-16 09:12] LABS: Basophils % 0.5 % (0.1-2.0); Eosinophils # 0.1 K/mm3 (0.0-0.4); Eosinophils % 1.2 % (0.1-12.0); Hematocrit 36.3 % (42.0-52.0); Hemoglobin 12.9 g/dL (14.1-18.0); Lymphocytes % 16.8 % (10-50); Mean Corpuscular HGB Conc 35.5 g/dL (31.8-35.4); Mean Corpuscular Hemoglobin 34.3 pg (27.0-31.2); Mean Corpuscular Volume 96.5 fl (80-94); Mean Platelet Volume 9.2 fl (7.4-10.4); Monocytes # 0.4 K/mm3 (0.1-1.0); Monocytes % 6.9 % (1.7-9.3); Neutrophils # 4.5 K/mm3 (1.8-7.8); Neutrophils % 74.6 % (37.0-80.0); Platelet Count 183 K/mm3 (142-424); Red Blood Count 3.76 M/mm3 (4.60-6.20); Red Cell Distribution Width 15.4 % (11.5-17.5); White Blood Count 6.1 K/mm3 (4.8-10.8)
[2022-12-16 09:32] LABS: Alanine Aminotransferase 42 U/L (12-78); Albumin Level 4.2 g/dl (3.5-5.0); Albumin/Globulin Ratio 1.2 (1.1-1.8); Alkaline Phosphatase 67 U/L (38-126); Aspartate Amino Transferase 39 U/L (17-59); Bilirubin,Total 0.8 mg/dl (0.2-1.3); Blood Urea Nitrogen 17 mg/dl (9-20); Calcium 8.4 mg/dl (8.4-10.2); Carbon Dioxide 24 mmol/L (22.0-30.0); Chloride 101 mmol/L (98-107); Creatinine Clearance Estimated 96 mL/min (50-200); Estimated Glomerular Filt Rate 61 ml/min (>60); GFR (African American) 73 ML/MIN (>60); Globulin 3.4 g/dL (1.3-3.2); Glucose 151 mg/dl (74-100); Sodium 135 mmol/L (136-145); Total Protein,Serum 7.6 g/dl (6.3-8.2)
[2022-12-16 10:16] LABS: Microscopic, Urine URINE MICROSCOPIC (MICROSCOPIC)
[2022-12-16 10:30] LABS: Appearance,Urine CLEAR (Clear); Bilirubin,Urine Negative (Negative); Blood, Urine TRACE-I (Negative); Color,Urine YELLOW (Yellow); Glucose,Urine (UA) Negative (Negative); Ketones,Urine Negative (Negative); Leukocyte Esterase,Urine TRACE (Negative); Nitrate,Urine Negative (Negative); PH,Urine 5.5 (5.0-8.5); Protein,Urine Negative (Negative); Specific Gravity, Urine 1.015 (1.005-1.030); Urobilinogen,Urine 0.2 EU/dl (0.2)
[2022-12-16 11:21] LABS: Bacteria,Urine Trace /lpf; RBC,Urine Occasional #/hpf (0-3); WBC,Urine Occasional #/hpf (0-3)
== END 2022-12-16 10:10 | disposition home or self-care (01) ==
PROVIDERS: PCP Internal Medicine Adolescent Medicine; Visit Provider Internal Medicine Medical Oncology
DX: C18.9 Malignant neoplasm of colon, unspecified (principal)
CPT/HCPCS: 36591; 71270; 74178; 80053; 81001; 85025; J1642; Q9967

== ENCOUNTER 2022-12-21 08:22 | Outpatient (CLI) | payer MEDICARE, MEDICAID, SELFPAY ==
[2022-12-21] VITALS (10 sets, daily range): BP systolic 125–136; BP diastolic 72–82; PULSE 74–81; RESP 18; TEMP 36.6; O2SAT 97–98
--- NOTE | 2022-12-21 13:32 | PC.NURSE ---
12/21/22 1015 pt returned from oncology clinic appt. Medication request for delivery faxed at this time. Awaiting pharmacy dosing on chemo medication and final care management approval.
== END 2022-12-21 15:53 | disposition home or self-care (01) ==
LOC: INF 08:23
PROVIDERS: PCP Internal Medicine Adolescent Medicine; Visit Provider Internal Medicine Medical Oncology
DX: Z51.11 Encounter for antineoplastic chemotherapy (principal); C18.9 Malignant neoplasm of colon, unspecified; C78.7 Secondary malignant neoplasm of liver and intrahepatic bile duct; Z45.2 Encounter for adjustment and management of vascular access device
CPT/HCPCS: 96368; 96411; 96413; 96415; 96417; J0640; J2469; J9190; J9206; Q5107

== ENCOUNTER 2023-01-03 08:18 | Outpatient (CLI) | payer MEDICARE, MEDICAID, SELFPAY ==
[2023-01-03] VITALS (11 sets, daily range): BP systolic 118–144; BP diastolic 67–78; PULSE 62–78; RESP 18; TEMP 36.8–36.9; O2SAT 95–96; BMI 36.6
[2023-01-03 08:48] LABS: Basophils % 0.8 % (0.1-2.0); Eosinophils # 0.1 K/mm3 (0.0-0.4); Eosinophils % 2.2 % (0.1-12.0); Hematocrit 39.5 % (42.0-52.0); Hemoglobin 13.4 g/dL (14.1-18.0); Lymphocytes # 0.9 K/mm3 (0.7-4.5); Mean Corpuscular HGB Conc 33.9 g/dL (31.8-35.4); Mean Corpuscular Hemoglobin 33.2 pg (27.0-31.2); Mean Corpuscular Volume 97.7 fl (80-94); Mean Platelet Volume 9.3 fl (7.4-10.4); Monocytes # 0.3 K/mm3 (0.1-1.0); Monocytes % 8.1 % (1.7-9.3); Neutrophils # 2.4 K/mm3 (1.8-7.8); Neutrophils % 65.9 % (37.0-80.0); Platelet Count 173 K/mm3 (142-424); Red Blood Count 4.04 M/mm3 (4.60-6.20); Red Cell Distribution Width 16.4 % (11.5-17.5); White Blood Count 3.7 K/mm3 (4.8-10.8)
[2023-01-03 08:54] LABS: Chloride 104 mmol/L (98-107); Potassium 4.1 mmoL/L (3.5-5.1); Sodium 140 mmol/L (136-145)
[2023-01-03 08:57] LABS: Alanine Aminotransferase 71 U/L (12-78); Albumin Level 4.4 g/dl (3.5-5.0); Albumin/Globulin Ratio 1.4 (1.1-1.8); Alkaline Phosphatase 66 U/L (38-126); Anion Gap 11.1 mEq/L (5-15); Aspartate Amino Transferase 53 U/L (17-59); Bilirubin,Total 0.7 mg/dl (0.2-1.3); Blood Urea Nitrogen 15 mg/dl (9-20); Carbon Dioxide 29 mmol/L (22.0-30.0); Creatinine Clearance Estimated 95 mL/min (50-200); Estimated Glomerular Filt Rate 60 ml/min (>60); GFR (African American) 73 ML/MIN (>60); Globulin 3.2 g/dL (1.3-3.2); Total Protein,Serum 7.6 g/dl (6.3-8.2)
[2023-01-03 08:58] LABS: Calcium 8.7 mg/dl (8.4-10.2); Glucose 205 mg/dl (74-100)
[2023-01-03 09:22] LABS: Microscopic, Urine URINE MICROSCOPIC (MICROSCOPIC)
[2023-01-03 09:23] LABS: Appearance,Urine CLEAR (Clear); Bilirubin,Urine Negative (Negative); Blood, Urine 1+ (Negative); Color,Urine YELLOW (Yellow); Glucose,Urine (UA) Negative (Negative); Ketones,Urine Negative (Negative); Leukocyte Esterase,Urine TRACE (Negative); Nitrate,Urine Negative (Negative); Protein,Urine TRACE (Negative); Specific Gravity, Urine >= 1.030 (1.005-1.030); Urobilinogen,Urine 0.2 EU/dl (0.2)
[2023-01-03 09:41] LABS: Bacteria,Urine Trace /lpf
[2023-01-03] MEDS: ONDANSETRON 4MG ODT 16 MG SL (10:47)
[2023-01-03] MEDS: DEXAMETHASONE 4MG TABLET 12 MG PO (10:49)
[2023-01-03] MEDS: SODIUM CHLORIDE 0.9% IV (10:58)
[2023-01-03] MEDS: BEVACIZUMAB AWWB IV (10:58)
[2023-01-03] MEDS: DEX 5% IN WATER 100ML IVPB 100 ML IV (11:00)
[2023-01-03] MEDS: LEUCOVORIN CALCIUM IV (12:08)
[2023-01-03] MEDS: WATER IV ×2 (12:08)
[2023-01-03] MEDS: DEXTROSE 5% IV ×2 (12:08)
[2023-01-03] MEDS: IRINOTECAN HCL IV (12:08)
[2023-01-03] MEDS: FLUOROURACIL 500MG/10ML VIAL 900 MG IV (14:03)
== END 2023-01-03 14:18 | disposition home or self-care (01) ==
LOC: INF 08:20
PROVIDERS: PCP Internal Medicine Adolescent Medicine; Visit Provider Internal Medicine Medical Oncology
DX: C19 Malignant neoplasm of rectosigmoid junction (principal); C78.7 Secondary malignant neoplasm of liver and intrahepatic bile duct; Z79.899 Other long term (current) drug therapy
CPT/HCPCS: 80053; 81001; 85025; 96368; 96411; 96413; 96415; 96417; J0640; J9190; J9206; Q5107

== ENCOUNTER 2023-01-16 13:04 | Observation (INO) | payer MEDICARE, MEDICAID, SELFPAY ==
[2023-01-16 13:04] VITALS: BP 143/90; PULSE 89; RESP 26; TEMP 36.5; O2SAT 95; BMI 36.4
--- NOTE | 2023-01-16 13:13 | ECG_ITS ---
APPROVED REPORT Exam: Resting ECG HR:81 bpm ECG Measurements Heart Rate 81 AXES WI 175 P 48 QRSd 94 QRS 122 QT 361 T 35 QTc 398 Conclusion SINUS RHYTHM POSSIBLE RIGHT VENTRICULAR HYPERTROPHY [SOME/ALL OF: PROMINENT R IN V1, LATE TRANSITION, RAD, CHRISTOPHER, SSS] ABNORMAL ECG UNCONFIRMED REPORT Electronically signed by : Saad Barraza MD 01/16/2023 19:15:08
--- NOTE | 2023-01-16 13:17 | XR_ITS ---
FINAL REPORT TECHNIQUE: Chest PA & Lateral CLINICAL HISTORY: soa COMPARISON: 09/03/2020 FINDINGS: 2 views of the chest were performed. The heart size is normal. The mediastinum is within normal limits. A left subclavian port is present. There are multiple nodules in the lungs bilaterally, that are new since the prior chest x-ray of August 2020. These correspond to multiple nodular opacities seen on chest CT most recently dated 12/16/2022. There are no pleural effusions. There is no pneumothorax. The bony thorax appears intact. IMPRESSION: Multiple nodular opacities in the bilateral lungs, consistent with the patient's clinical diagnosis of metastatic disease. Reviewed, Interpreted and Dictated by Aguilar Dunlap MD Transcribed by Rachael Pantoja Authenticated and [facility]
--- NOTE | 2023-01-16 13:27 | CT_ITS ---
FINAL REPORT TECHNIQUE: The patient was injected with IV contrast. Axial images were obtained through the chest in a PE protocol. 3-D reconstruction images were also performed. Individualized dose reduction techniques using automated exposure control or adjustment of the MA and/or KV according to patient's size were employed. CLINICAL HISTORY: Hx of cancer with sudden onset SOB COMPARISON: CT chest 12/16/2022 FINDINGS: There are large bilateral pulmonary emboli, more evident on the right than left. Filling defects extend into the right main pulmonary artery. There is a left upper anterior chest wall port. There is no aortic dissection. There is no axillary adenopathy. There is no hilar or mediastinal adenopathy. The heart size is normal. There is no pericardial or pleural effusion. There are multiple cavitary nodules throughout both lungs, probably related to diffuse metastases. Findings are similar to the prior study. Limited images of the upper abdomen demonstrate fatty infiltration of the liver. IMPRESSION: Large bilateral pulmonary emboli as above. Similar appearance of multiple cavitary nodules throughout both lungs, probably related to diffuse metastases. Fatty liver. Reviewed, Interpreted and Dictated by Aguilar Dunlap MD Transcribed by Michelle Rose Authenticated and [facility]
--- NOTE | 2023-01-16 13:54 | PC.NURSE ---
Pt gone to RAD via wheelchair
[2023-01-16 13:55] LABS: Chloride 103 mmol/L (98-107); Potassium 4.7 mmoL/L (3.5-5.1); Sodium 135 mmol/L (136-145)
[2023-01-16 13:57] LABS: Blood Urea Nitrogen 17 mg/dl (9-20)
[2023-01-16 13:58] LABS: Alanine Aminotransferase 50 U/L (12-78); Albumin Level 4.4 g/dl (3.5-5.0); Albumin/Globulin Ratio 1.2 (1.1-1.8); Alkaline Phosphatase 58 U/L (38-126); Anion Gap 11.7 mEq/L (5-15); Aspartate Amino Transferase 51 U/L (17-59); Carbon Dioxide 25 mmol/L (22.0-30.0); Creatinine Clearance Estimated 114 mL/min (50-200); Estimated Glomerular Filt Rate 75 ml/min (>60); GFR (African American) 90 ML/MIN (>60); Globulin 3.7 g/dL (1.3-3.2); Total Protein,Serum 8.1 g/dl (6.3-8.2)
[2023-01-16 13:59] LABS: Calcium 8.5 mg/dl (8.4-10.2); Glucose 167 mg/dl (74-100)
--- NOTE | 2023-01-16 14:00 | PC.NURSE ---
Pt returned from RAD
--- NOTE | 2023-01-16 14:01 | PC.NURSE ---
respiratory aware of vbg blood in lab
[2023-01-16 14:07] LABS: NT Pro Brain Natriuretic Pep. 163 pg/mL (0-125)
[2023-01-16 14:11] LABS: Troponin I < 0.01 ng/ml (0.00-0.034)
[2023-01-16 14:12] LABS: Basophils % 0.6 % (0.1-2.0); Eosinophils # 0.1 K/mm3 (0.0-0.4); Eosinophils % 1.4 % (0.1-12.0); Hematocrit 38.3 % (42.0-52.0); Hemoglobin 12.7 g/dL (14.1-18.0); Lymphocytes # 0.8 K/mm3 (0.7-4.5); Lymphocytes % 20.7 % (10-50); Mean Corpuscular HGB Conc 33.2 g/dL (31.8-35.4); Mean Corpuscular Volume 96.2 fl (80-94); Mean Platelet Volume 9.5 fl (7.4-10.4); Monocytes # 0.4 K/mm3 (0.1-1.0); Monocytes % 10.3 % (1.7-9.3); Neutrophils # 2.7 K/mm3 (1.8-7.8); Platelet Count 174 K/mm3 (142-424); Red Blood Count 3.99 M/mm3 (4.60-6.20); Red Cell Distribution Width 16.9 % (11.5-17.5); White Blood Count 4.1 K/mm3 (4.8-10.8)
--- NOTE | 2023-01-16 14:13 | PC.NURSE ---
PT TO CT
--- NOTE | 2023-01-16 14:25 | PC.NURSE ---
Pt returned from CT
[2023-01-16 14:30] LABS: VBG Base Excess -1.5 mmol/L (-2.4-2.3); VBG HCO3 23.5 mmol/L (23-30); VBG Oxygen Saturation 87.9 % (50-70); VBG PH 7.37 mmol/L (7.31-7.41); VBG PO2 55.2 mmol/L (28-40); VBG Total CO2 24.8 mmol/L (23-27)
--- NOTE | 2023-01-16 14:35 | PC.NURSE ---
CARDIOLOGY NOTIFIED AT THIS TIME
[2023-01-16 14:47] LABS: Lactic Acid 1.5 mmol/L (0.7-2.1)
[2023-01-16 15:00] VITALS: BP 137/84; PULSE 83; O2SAT 97
--- NOTE | 2023-01-16 15:24 | PC.NURSE ---
DR HERNANDEZ PAGED
--- NOTE | 2023-01-16 15:29 | PC.NURSE ---
DR MEEHAN SPEAKING WITH DR HERNANDEZ
[2023-01-16 15:30] VITALS: BP 138/84; PULSE 85; O2SAT 96
--- NOTE | 2023-01-16 15:33 | HMH.EDGENADL ---
Discharge Plan Disposition Patient Disposition: Admitted Condition: Fair Clinical Impressions Clinical Impression: Pulmonary embolism on right Discharge ED Provider: Cody Ray I General Adult HPI General Chief complaint: Shortness of Breath/Dyspnea Stated complaint: SOA Time Seen by Provider: 01/16/23 13:11 Mode of Arrival: Ambulatory Source of Information: Patient Limitations: No Limitations Description of Symptoms (Recalled from ER Triage Doc. by RN): c/o soa with walking at home in the house, states he has had it for about 3 days. History of Present Illness HPI narrative: Patient is a 67-year-old male with history of A-fib, not currently on blood thinners, colon cancer for which he is currently receiving chemotherapy who is presenting to the emergency department with a 3-day history of shortness of breath as well as right-sided chest pain. History was conducted with the patient at bedside. Patient states that for the past 3 days he has had worsening shortness of breath. He states that his shortness of breath is worse when he is up and walking around. He denies any swelling in his legs. This has been progressively associated with right-sided chest wall pain. He denies any cough, congestion, runny nose, fever, chills, diarrhea, constipation. Patient states that he has not had a history of DVT, PE. Denies any swelling in 1 leg. He does have a port, but does not receive any systemic anticoagulation. Related Data Home Medications Medication Instructions Recorded Confirmed diltiazem HCl 180 mg capsule,24 180 mg PO DAILY blood pressure 06/09/22 12/21/22 hr,extended release Allergies Allergy/AdvReac Type Severity Reaction Status Date / Time No Known Allergies Allergy Verified 12/21/22 09:10 [facility] Disclaimer: The information contained in this section may have been updated after the patient was seen, as this information can be updated by other users. Medical History Arrhythmia Arthritis Atrial fibrillation with RVR Cancer colon cancer History of chemotherapy Port-A-Cath in place Surgical History History of colon resection and anastamosis Hx of colonoscopy Family History Other Cancer Social History Smoking Status: Former smoker alcohol intake: never substance use type: denies use current occupational status: retired Travel in the last 8 weeks: None household members: none housing: house current occupation: SELF EMPLOYED-[employer] current occupational exposures/hazards: No caffeine: Yes ROS Obtained: Yes All systems reviewed & no additional complaints except as documented Physical Exam General General appearance: alert Comment: Patient is tachypneic, appears to be uncomfortable Head Head exam: atraumatic and normocephalic ENT ENT exam: Present normal exam Neck Neck exam: Present full ROM Chest Chest inspection: Present normal inspection and symmetric chest wall rise Respiratory Respiratory exam: Present normal lung sounds bilaterally and respiratory distress (Tachypnea); Absent accessory muscle use Cardiovascular Cardiovascular exam: Present regular rate and normal rhythm Abdominal Exam Abdominal exam: Present soft; Absent distention, tenderness, guarding or rebound Extremities Exam Extremities exam: Present normal inspection and full ROM Neurological Exam Neurological exam: Present alert and oriented X3 Psychiatric Psychiatric exam: Present normal affect Skin Skin exam: Present warm, dry and intact Medical Decision Making Medical Records Medical records reviewed: Yes I reviewed the patient's medical records. Rene Inquiry Pt receiving controlled substance: No Vital Signs: 01/16/23 13:04 01/16/23 15:00 01/16/23 15:30
--- NOTE | 2023-01-16 15:37 | PC.NURSE ---
[facility] IN PHARMACY NOTIFIED OF HEPARIN ORDER
--- NOTE | 2023-01-16 15:44 | PC.NURSE ---
PER ER MD patient has been accepted by hospitalist for admission
--- NOTE | 2023-01-16 15:45 | HMH.PHAHEP ---
[facility] Pharmacy Heparin Dosing Demographic Data Admission date:: 01/16/23 Date: 01/16/23 Time: 15:45 Allergies Allergy/AdvReac Type Severity Reaction Status Date / Time No Known Allergies Allergy Verified 12/21/22 09:10 Height: 1.75 m Weight: 112.037 kg Indication Medication therapy:: Heparin Current Indications:: PULMONARY EMBOLISM - HIGH DOSE PROTOCOL Current Active Problems (Updated 01/17/23 @ 08:17 by MAMIE Argueta) History of atrial fibrillation (Acute) Colon cancer metastasized to lung (Acute) Pulmonary embolism, bilateral (Acute) Pulmonary embolism on right (Acute) Colon perforation (Acute) Metastatic colon cancer to liver (Acute) Atrial fibrillation with RVR (Acute) CVA?: No Bleeding problem?: No Kidney disease?: No IA?: No Additional History:: ATRIAL FIBRILLATION WITH RVR, METASTATIC COLON CANCER TO THE LIVER Desired PTT range:: 50-75 seconds Labs Anticoagulation Lab Results:: 01/16/23 13:34 Hgb 12.7 L Hct 38.3 L Plt Count 174 Monitoring Dose Monitor 1: Date: 01/16/23 Time: 15:47 PTT Result:: BASELINE PTT: 26.0 SECONDS Infusion Rate:: INITIATE HEPARIN DRIP AT 2000 UNITS/HOUR = 40 ML/HOUR AND BOLUS 9000 UNITS HEPARIN IV ONCE. Dose Monitor 2: Date: 01/16/23 Time: 17:00 PTT Result:: 85.0 SECONDS Infusion Rate:: CONTINUED CURRENT RATE OF 2000 UNITS/HOUR = 40 ML/HOUR. Dose Monitor 3: Date: 01/16/23 Time: 19:30 PTT Result:: 74.1 SECONDS Infusion Rate:: CONTINUED CURRENT RATE OF 2000 UNITS/HOUR = 40 ML/HOUR. Dose Monitor 4: Date: 01/16/23 Time: 21:30 PTT Result:: 64.6 SECONDS Infusion Rate:: CONTINUED CURRENT RATE OF 2000 UNITS/HOUR = 40 ML/HOUR. Dose Monitor 5: Date: 01/17/23 Time: 04:00 PTT Result:: 64.5 SECONDS Infusion Rate:: CONTINUED CURRENT RATE OF 2000 UNITS/HOUR = 40 ML/HOUR. Dose Monitor 6: Date: 01/17/23 Time: 10:00 PTT Result:: 57.2 SECONDS Infusion Rate:: CONTINUED CURRENT RATE OF 2000 UNITS/HOUR = 40 ML/HOUR. Dose Monitor 7: Date: 01/17/23 Time: 14:00 PTT Result:: 51.5 SECONDS Infusion Rate:: INCREASED HEPARIN DRIP TO 2100 UNITS/HOUR = 42 ML/HOUR Dose Monitor 8: Date: 01/17/23 Time: 19:16 PTT Result:: 47.8 SECONDS Infusion Rate:: INCREASED HEPARIN DRIP TO 2300 UNITS/HOUR = 46 ML/HOUR AND BOLUSED 3000 UNITS HEPARIN IV ONCE. Dose Monitor 9: Date: 01/18/23 Time: 02:00 PTT Result:: 93.1 SECONDS Infusion Rate:: DECREASED HEPARIN DRIP TO 2100 UNITS/HOUR = 42 ML/HOUR Dose Monitor 10: Date: 01/18/23 Time: 09:00 PTT Result:: 77.8 SECONDS Infusion Rate:: CONTINUED CURRENT HEPARIN DRIP RATE OF 2100 UNITS/HOUR = 42 ML/HOUR Comment:: PATIENT STARTED ON XARELTO 15 MG TWICE DAILY AT 11:00. Core Measures Is INR > or = 2 at discharge?: No Most Recent Labs:: Laboratory Results - last 24 hr 01/16/23 13:34: WBC 4.1 L, RBC 3.99 L, Hgb 12.7 L, Hct 38.3 L, MCV 96.2 H, MCH 32.0 H, MCHC 33.2, RDW 16.9, Plt Count 174, MPV 9.5, Neut % (Auto) 67.0, Lymph % (Auto) 20.7, [place] % (Auto) 10.3 H, Eos % (Auto) 1.4, Baso % (Auto) 0.6, Neut # (Auto) 2.7, Lymph # (Auto) 0.8, [place] # (Auto) 0.4, Eos # (Auto) 0.1, Baso # (Auto) 0.0, Sodium 135 L, Potassium 4.7, Chloride 103, Carbon Dioxide 25, Anion Gap 11.7, BUN 17, Creatinine 1.00, Estimated Creat Clear 114, Estimated GFR 75, Est GFR ( Amer) 90, Glucose 167 H, Calcium 8.5, Total Bilirubin 1.0, AST 51, ALT 50, Alkaline Phosphatase 58, Troponin I < 0.01, NT-Pro-B Natriuret Pep 163 H, Total Protein 8.1, Albumin 4.4, Globulin 3.7 H, Albumin/Globulin Ratio 1.2 01/16/23 14:16: VBG pH 7.37, VBG pCO2 41.0, VBG pO2 55.2 H, VBG HCO3 23.5, VBG Total CO2 24.8, VBG O2 Saturation 87.9 H, VBG Base Excess -1.5 01/16/23 14:25: Lactate 1.5 If INR was < than 2.0 why was therapy stopp
--- NOTE | 2023-01-16 15:49 | PC.NURSE ---
Dr. Ray at BS to update pt on results and POC
--- NOTE | 2023-01-16 15:49 | PC.NURSE ---
spoke with warehouse distribution specialist regarding bed assignment
[2023-01-16 15:57] LABS: INR 1.02 (0.9-1.1)
--- NOTE | 2023-01-16 16:04 | HMH.PHAINT1 ---
Pharmacy Intervention Comments: Med reconciliation completed using external fill history and and office visit notes.
--- NOTE | 2023-01-16 16:15 | PC.NURSE ---
called report to frank WU on 2nd floor and answered all questions
[2023-01-16 16:26] VITALS: BP 134/84; PULSE 84; RESP 22; TEMP 36.7; O2SAT 97
[2023-01-16 16:32] VITALS: BP 142/89; PULSE 84; RESP 19; TEMP 36.8; O2SAT 97; BMI 35.4
--- NOTE | 2023-01-16 16:32 | PC.NURSE ---
arrived by w/c from ED
[2023-01-16 18:03] LABS: Troponin I < 0.01 ng/ml (0.00-0.034)
--- NOTE | 2023-01-16 18:32 | PC.NURSE ---
Spoke with Pharmacy deputy sheriff civil [employer]. Will repeat pTT in an hour. No change to Heparin gtt at this time.
--- NOTE | 2023-01-16 19:07 | EXP.HP ---
History of Present Illness *Admission Date: 01/16/23 *Reason for visit:: SOB *History of present illness: Patient is a 67-year-old male with past medical history of atrial fibrillation, colon cancer who presents to the hospital due to shortness of breath, right shoulder pain, right chest pain. According to patient it hurts when he takes deep breath . Patient also mentions he has known history of colon cancer he is currently on chemotherapy, he denies active tobacco use, He denies cough, fever chills diarrhea constipation dysuria. [facility] Disclaimer: The information contained in this section may have been updated after the patient was seen, as this information can be updated by other users. Medical History Arrhythmia Arthritis Atrial fibrillation with RVR Cancer colon cancer History of chemotherapy Port-A-Cath in place Surgical History History of colon resection and anastamosis Hx of colonoscopy Family History Other Cancer Social History (Updated 01/16/23 @ 16:44 by Opal Ferrell RN) Smoking Status: Former smoker alcohol intake: never substance use type: denies use current occupational status: retired Travel in the last 8 weeks: None household members: none housing: house current occupation: SELF EMPLOYED-[employer] current occupational exposures/hazards: No caffeine: Yes Review of Systems Review of Systems Review of systems (narrative): as per HPI Meds Home Medications and Allergies Home Medications Medication Instructions Recorded Confirmed Type diltiazem HCl 180 mg capsule,24 180 mg PO DAILY blood pressure 06/09/22 01/16/23 History hr,extended release New Prescriptions to Start Prescriptions: Allergies Allergy/AdvReac Type Severity Reaction Status Date / Time No Known Allergies Allergy Verified 12/21/22 09:10 Exam Data for Last 24 hours Vital signs and Labs for Last 24 Hours: Temp Pulse Resp BP Pulse Ox O2 Del Method O2 Flow Rate 98.2 F 84 19 142/89 H 97 Nasal Cannula 3 01/16/23 16:32 01/16/23 16:32 01/16/23 16:32 01/16/23 16:32 01/16/23 16:32 01/16/23 18:36 01/16/23 18:36 Laboratory Results - last 24 hr 01/16/23 13:34: WBC 4.1 L, RBC 3.99 L, Hgb 12.7 L, Hct 38.3 L, MCV 96.2 H, MCH 32.0 H, MCHC 33.2, RDW 16.9, Plt Count 174, MPV 9.5, Neut % (Auto) 67.0, Lymph % (Auto) 20.7, [place] % (Auto) 10.3 H, Eos % (Auto) 1.4, Baso % (Auto) 0.6, Neut # (Auto) 2.7, Lymph # (Auto) 0.8, [place] # (Auto) 0.4, Eos # (Auto) 0.1, Baso # (Auto) 0.0, Sodium 135 L, Potassium 4.7, Chloride 103, Carbon Dioxide 25, Anion Gap 11.7, BUN 17, Creatinine 1.00, Estimated Creat Clear 114, Estimated GFR 75, Est GFR ( Amer) 90, Glucose 167 H, Calcium 8.5, Total Bilirubin 1.0, AST 51, ALT 50, Alkaline Phosphatase 58, Troponin I < 0.01, NT-Pro-B Natriuret Pep 163 H, Total Protein 8.1, Albumin 4.4, Globulin 3.7 H, Albumin/Globulin Ratio 1.2 01/16/23 14:16: VBG pH 7.37, VBG pCO2 41.0, VBG pO2 55.2 H, VBG HCO3 23.5, VBG Total CO2 24.8, VBG O2 Saturation 87.9 H, VBG Base Excess -1.5 01/16/23 14:25: Lactate 1.5 01/16/23 14:34: PT 11.0, INR 1.02, APTT 26.0 01/16/23 17:25: APTT 85.0 H*, Troponin I < 0.01 I & O for Last 24 hours: Intake & Output 01/13/23 01/14/23 01/15/23 01/16/23 23:59 23:59 23:59 23:59 Intake Total 540 / 540 Balance 540 / 540 Weight 108.919 kg Constitutional Constitutional: no acute distress *Routine HEENT Exam Head: Present normocephalic Eye: Present EOMI and PERRL ENT: Present mucous membranes moist *Routine Neck Exam Neck: Present supple; Absent lymphadenopathy *Routine Respiratory Exam Respiratory: Present CTA bilaterally *Routine Cardiovascular Exam Cardiovascular: Present RRR *Routine Abdominal Exam Abdominal: Present soft and normoactive bowel sounds; Absent
[2023-01-16 20:00] VITALS: BP 149/86; PULSE 88; RESP 18; TEMP 37.3; O2SAT 97
[2023-01-16 20:22] LABS: PTT Heparin (inpatient only) 74.1 Seconds (23.6-34.0)
[2023-01-16 20:24] LABS: Troponin I < 0.01 ng/ml (0.00-0.034)
[2023-01-16 21:56] LABS: PTT Heparin (inpatient only) 64.6 Seconds (23.6-34.0)
[2023-01-17] VITALS: BP 146/77; PULSE 74; RESP 20; TEMP 37.3; O2SAT 96
[2023-01-17 04:00] VITALS: BP 130/67; PULSE 76; RESP 18; TEMP 36.8; O2SAT 97; BMI 36.3
[2023-01-17 04:18] LABS: Eosinophils # 0.1 K/mm3 (0.0-0.4); Eosinophils % 2.6 % (0.1-12.0); Hematocrit 33.9 % (42.0-52.0); Hemoglobin 11.6 g/dL (14.1-18.0); Lymphocytes % 29.5 % (10-50); Mean Corpuscular HGB Conc 34.1 g/dL (31.8-35.4); Mean Corpuscular Hemoglobin 32.3 pg (27.0-31.2); Mean Corpuscular Volume 94.7 fl (80-94); Mean Platelet Volume 9.7 fl (7.4-10.4); Monocytes # 0.5 K/mm3 (0.1-1.0); Monocytes % 14.9 % (1.7-9.3); Neutrophils # 1.8 K/mm3 (1.8-7.8); Neutrophils % 52.1 % (37.0-80.0); Platelet Count 165 K/mm3 (142-424); Red Blood Count 3.59 M/mm3 (4.60-6.20); Red Cell Distribution Width 17.1 % (11.5-17.5); White Blood Count 3.5 K/mm3 (4.8-10.8)
[2023-01-17 04:26] LABS: Anion Gap 11.6 mEq/L (5-15); Blood Urea Nitrogen 14 mg/dl (9-20); Calcium 8.1 mg/dl (8.4-10.2); Carbon Dioxide 29 mmol/L (22.0-30.0); Chloride 98 mmol/L (98-107); Creatinine Clearance Estimated 110 mL/min (50-200); Estimated Glomerular Filt Rate 75 ml/min (>60); GFR (African American) 90 ML/MIN (>60); Glucose 145 mg/dl (74-100); PTT Heparin (inpatient only) 64.5 Seconds (23.6-34.0); Potassium 4.6 mmoL/L (3.5-5.1); Sodium 134 mmol/L (136-145)
--- NOTE | 2023-01-17 05:26 | PC.NURSE ---
Patient has had a decent shift. Has been NPO since midnight in preparation of a procedure today. Patient has been up to the bathroom independently multiple times this shift and done well. Remains on 3L NC and stating appropriately. Remains on a heparin drip at 20ml/hr. Next PTT according to Ismael from [facility] is 10am. Orders have been placed. No other issues noted
[2023-01-17 08:00] VITALS: BP 139/97; PULSE 87; RESP 22; TEMP 36.3; O2SAT 97
--- NOTE | 2023-01-17 08:05 | EXP.CARD.CON ---
History of Present Illness History of Present Illness Consult date: 01/17/23 Requesting physician: Ara Garvin Consult reason: shortness of breath Chief complaint: Shortness of breath, bilateral pulmonary emboli on CTA of the chest Additional Medical History:: 1. History of perioperative atrial fibrillation during abdominal surgery, 2020 A. [id number] score 1 (age) B. Echocardiogram 09/03/2020, biatrial enlargement, normal LV size, EF 55% with no regional WMA. Mild RV enlargement with normal contractility. Mild MR and TR. 2. History of metastatic colon cancer A. Status post partial colectomy with reanastomosis in 2020 B. On chemotherapy, followed by oncology (Dr. Raman) 3. Ex-smoker with approximately [id number] history discontinued about 20 years ago A. Numerous pulmonary nodules bilaterally consistent with metastasis. Chest CT, 12/16/2022 4. Bilateral large pulmonary emboli, 01/16/2023, right greater than left with filling defects extending into the right main pulmonary artery. History of present illness: 67-year-old white male presented to the emergency department for evaluation of 3-day history of increasing shortness of breath and pain with taking a deep breath. Patient has known metastatic colon cancer with mets to the liver and lungs. CTA of the chest confirmed that the patient has bilateral pulmonary emboli. Patient was admitted for IV heparin drip with consideration of pulmonary thrombectomy today. Patient is sitting at bedside wearing oxygen by nasal cannula in no acute distress. He states his breathing has improved since admission. He still has discomfort with taking a deep breath. Echocardiogram performed this morning will be reviewed prior to making decision on taking the patient to the Platform [facility] Manager. [facility] Disclaimer: The information contained in this section may have been updated after the patient was seen, as this information can be updated by other users. Medical History Arrhythmia Arthritis Atrial fibrillation with RVR Cancer colon cancer History of chemotherapy Port-A-Cath in place Surgical History History of colon resection and anastamosis Hx of colonoscopy Family History Other Cancer Social History (Updated 01/16/23 @ 16:44 by Opal Ferrell RN) Smoking Status: Former smoker alcohol intake: never substance use type: denies use current occupational status: retired Travel in the last 8 weeks: None household members: none housing: house current occupation: SELF EMPLOYED[employer] current occupational exposures/hazards: No caffeine: Yes Review of Systems Review of Systems Review of systems:: pertinent systems reviewed and negative unless documented below *Cardiovascular Cardiovascular: Reports chest pain, Reports dyspnea and Reports dyspnea on exertion *Respiratory Respiratory: Reports dyspnea and Reports dyspnea on exertion *Gastrointestinal Gastrointestinal: Denies loose stools and Denies vomiting Exam Data for Last 24 hours Vital signs and Labs for Last 24 Hours: Temp Pulse Resp BP Pulse Ox O2 Del Method O2 Flow Rate 98.3 F 76 18 130/67 97 Nasal Cannula 3 01/17/23 04:00 01/17/23 04:00 01/17/23 04:00 01/17/23 04:00 01/17/23 04:00 01/17/23 06:57 01/17/23 06:57 Laboratory Results - last 24 hr 01/16/23 13:34: WBC 4.1 L, RBC 3.99 L, Hgb 12.7 L, Hct 38.3 L, MCV 96.2 H, MCH 32.0 H, MCHC 33.2, RDW 16.9, Plt Count 174, MPV 9.5, Neut % (Auto) 67.0, Lymph % (Auto) 20.7, [place] % (Auto) 10.3 H, Eos % (Auto) 1.4, Baso % (Auto) 0.6, Neut # (Auto) 2.7, Lymph # (Auto) 0.8, [place] # (Auto) 0.4, Eos # (Auto) 0.1, Baso # (Auto) 0.0, Sodium 135 L, Potassium 4.7, Chloride 103, Carbon Dioxide 25, Anion Gap 11.7, BUN 17, Creatinine 1.00, Estimated Creat Clear 114, Estimated GFR 75, Est GFR ( Meagan
--- NOTE | 2023-01-17 08:17 | PC.NURSE ---
COURTESY NOTE: morning round completed on pt. pt denies needing assistance at this time. call pinky within reach. Jaison SRNA
[2023-01-17 10:43] LABS: PTT Heparin (inpatient only) 57.2 Seconds (23.6-34.0)
--- NOTE | 2023-01-17 11:05 | PC.NURSE ---
Talked to pharmacy about new PTT level, keep orders the same.
[2023-01-17 12:00] VITALS: BP 134/87; PULSE 86; RESP 22; TEMP 36.3; O2SAT 98
--- NOTE | 2023-01-17 12:04 | PC.NURSE ---
COURTESY NOTE: afternoon round completed on pt. pt denies needing assistance at this time. call pinky within reach. Elizabeth SRNA
--- NOTE | 2023-01-17 12:45 | EXP.ACUTE.PN ---
Subjective *Date: 01/17/23 *Time: 12:45 Interval history: Patient is afebrile tonight. Still complaining of dyspnea this morning. Also complaining of some right shoulder pain and upper back. No nausea or vomiting. No cathy chest pain. No confusion, dizziness, syncope. Cough not productive Medical Exam Vital signs and Labs for Last 24 Hours: Vital Signs Temp Pulse Pulse Resp BP BP Pulse Ox 01/17/23 11:00 01/17/23 08:00 01/17/23 09:00 01/17/23 08:00 97.4 F L 87 22 139/97 H 97 01/17/23 06:57 01/17/23 05:00 01/17/23 04:00 98.3 F 76 18 130/67 97 01/17/23 03:00 01/17/23 00:00 99.1 F 74 20 146/77 H 96 01/17/23 01:00 01/16/23 23:00 01/16/23 21:00 01/16/23 20:00 01/16/23 20:00 99.1 F 88 18 149/86 H 97 01/16/23 18:36 01/16/23 17:00 01/16/23 16:32 98.2 F 84 19 142/89 H 97 01/16/23 16:26 98.0 F 84 22 134/84 01/16/23 15:30 85 138/84 96 01/16/23 15:00 83 137/84 97 01/16/23 13:04 97.7 F 89 26 H 143/90 H 95 O2 Del Method O2 Flow Rate 01/17/23 11:00 Nasal Cannula 3 01/17/23 08:00 Nasal Cannula 3 01/17/23 09:00 Nasal Cannula 3 01/17/23 08:00 Nasal Cannula 3 01/17/23 06:57 Nasal Cannula 3 01/17/23 05:00 Nasal Cannula 3 01/17/23 04:00 Nasal Cannula 3 01/17/23 03:00 Nasal Cannula 3 01/17/23 00:00 Nasal Cannula 3 01/17/23 01:00 Nasal Cannula 3 01/16/23 23:00 Nasal Cannula 4 01/16/23 21:00 Room Air 01/16/23 20:00 Nasal Cannula 3 01/16/23 20:00 Nasal Cannula 3 01/16/23 18:36 Nasal Cannula 3 01/16/23 17:00 Nasal Cannula 3 01/16/23 16:32 Nasal Cannula 3 01/16/23 16:26 Room Air 01/16/23 15:30 Nasal Cannula 2 01/16/23 15:00 Nasal Cannula 2 01/16/23 13:04 Room Air Intake and Output 01/16/23 01/17/23 01/17/23 23:59 07:59 15:59 Intake Total 540 / 640 100 / 100 Output Total 0 / 0 Balance 540 / 640 100 / 100 Intake: Intake, Oral Amount 540 / 640 100 / 100 Output: Output, Urine Amount 0 / 0 Other: Number of Unmeasured Voids 1 Weight 108.919 kg 111.13 kg Patient Weight 01/17/23 23:59 Weight 111.13 kg Laboratory Results - last 24 hr 01/16/23 13:34: WBC 4.1 L, RBC 3.99 L, Hgb 12.7 L, Hct 38.3 L, MCV 96.2 H, MCH 32.0 H, MCHC 33.2, RDW 16.9, Plt Count 174, MPV 9.5, Neut % (Auto) 67.0, Lymph % (Auto) 20.7, [place] % (Auto) 10.3 H, Eos % (Auto) 1.4, Baso % (Auto) 0.6, Neut # (Auto) 2.7, Lymph # (Auto) 0.8, [place] # (Auto) 0.4, Eos # (Auto) 0.1, Baso # (Auto) 0.0, Sodium 135 L, Potassium 4.7, Chloride 103, Carbon Dioxide 25, Anion Gap 11.7, BUN 17, Creatinine 1.00, Estimated Creat Clear 114, Estimated GFR 75, Est GFR ( Amer) 90, Glucose 167 H, Calcium 8.5, Total Bilirubin 1.0, AST 51, ALT 50, Alkaline Phosphatase 58, Troponin I < 0.01, NT-Pro-B Natriuret Pep 163 H, Total Protein 8.1, Albumin 4.4, Globulin 3.7 H, Albumin/Globulin Ratio 1.2 01/16/23 14:16: VBG pH 7.37, VBG pCO2 41.0, VBG pO2 55.2 H, VBG HCO3 23.5, VBG Total CO2 24.8, VBG O2 Saturation 87.9 H, VBG Base Excess -1.5 01/16/23 14:25: Lactate 1.5 01/16/23 14:34: PT 11.0, INR 1.02, APTT 26.0 01/16/23 17:25: APTT 85.0 H*, Troponin I < 0.01 01/16/23 19:30: APTT 74.1 H*, Troponin I < 0.01 01/16/23 21:35: APTT 64.6 H* 01/17/23 04:10: WBC 3.5 L, RBC 3.59 L, Hgb 11.6 L, Hct 33.9 L, MCV 94.7 H, MCH 32.3 H, MCHC 34.1, RDW 17.1, Plt Count 165, MPV 9.7, Neut % (Auto) 52.1, Lymph % (Auto) 29.5, [place] % (Auto) 14.9 H, Eos % (Auto) 2.6, Baso % (Auto) 1.0, Neut # (Auto) 1.8, Lymph # (Auto) 1.0, [place] # (Auto) 0.5, Eos # (Auto) 0.1, Baso # (Auto) 0.0, APTT 64.5 H*, Sodium 134 L, Potassium 4.6, Chloride 98, Carbon Dioxide 29, Anion Gap 11.6, BUN 14, Creatinine 1.00, Estimated Creat Clear 110, Estimated GFR 75, Est GFR ( Amer) 90, Glucose 145 H, Calcium 8.1 L 01/17/23 10:00: APTT 57.2 H* I & O for Labs for Last 24 Hours: Intake & Output 01/14/23 01/15/23
[2023-01-17 14:45] LABS: PTT Heparin (inpatient only) 51.5 Seconds (23.6-34.0)
[2023-01-17 15:59] VITALS: BP 136/74; PULSE 83; RESP 22; TEMP 37; O2SAT 97
--- NOTE | 2023-01-17 16:48 | PC.NURSE ---
Pt is alert and oriented x4. Pt ambulates to the restroom independently. Pt is on 3L NC, O2 sat >90%. Pt left lung sounds clear, right lung sounds diminished throughout. Pt has 1+ edema to the right lower extremity. Pt has complained of pain 1 time this shift, treated per apr. Pt has had no other complaints this shift. Pt remains on heparin drip to his left subclav. port at 42ml/hr. Bed in lowest position, call light in reach.
[2023-01-17 19:56] LABS: PTT Heparin (inpatient only) 47.8 Seconds (23.6-34.0)
[2023-01-17 20:00] VITALS: BP 135/78; PULSE 86; RESP 20; TEMP 36.7; O2SAT 97
--- NOTE | 2023-01-17 21:55 | CA_ITS ---
APPROVED REPORT EXAM: Comprehensive 2D, Doppler, and color-flow Echocardiogram Plumbing Warehouse Helper: Renetta Tipton CRT Ht: 5 ft 8 in Wt: 245lbs BSA: 2.23 BP: 138/84 mmHg Indications: PE, METS liver, lung, colon, afib, chemo, sob, cp 2D Dimensions Left Atrium 3.87 cm LA Volume 38.00 mL LVOT 1.98 cm (M/F) 1.5-2.5 LA Volume Index 17.00 mL/m2 (M/F) 16-34 GL Strain -10.6 % M-Mode Dimensions RVDd 2.55 cm (0.9-2.6) LVDd 5.13 cm (3.5-5.7) Ao Diam 4.21 cm (2.0-3.7) LVDs 3.01 cm (3.5-5.7) IVSd 1.54 cm (0.6-1.1) PWd 1.08 cm (0.6-1.1) EF (Teich) 71.90% FS 41.30% EDV (Teich) 125.50 mL ESV (Teich) 35.30 mL LV Diastology E Decel Time 175 (160-240 msec) E/A Ratio 0.85 MED E' 5.2 (>= 7 cm/sec) MED A' 8.10 cm/s E'/MED E' Ratio 13.60 (<= 14) LAT E' 6.8 (>= 10 cm/sec) LAT A' 9.70 cm/s E/LAT E' Ratio 10.40 (<= 14) Aortic Valve LVOT Max 182.6 (70-110 cm/s) AoV Peak Yaya. 158.0 (50-130 cm/s) AO Peak GR. 10.10 mmHg Mitral Valve MV E Max Yaya. 71.0 (40-130 cm/s) MV A Velocity 84.0 (40-130 cm/s) E/A Ratio 0.85 MV Decel. Time 175 (160-240 ms) Tricuspid Valve TR P. Velocity 287.00 cm/s RAP Estimate 10.00 mmHg RVSP 43.00 mmHg Left Ventricle The left ventricle is normal size. The left ventricular systolic function is normal. The left ventricular ejection fraction is within the normal range. There is increased LV wall thickness. There is normal LV segmental wall motion. The left ventricular diastolic function is normal. LVEF is 55-60%. Right Ventricle The right ventricle is mildly dilated. The right ventricular systolic function is normal. Atria The left atrium size is normal. The right atrium size is normal. There is no Doppler evidence of interatrial shunt. Aortic Valve The aortic valve is mildly thickened. There is no aortic valvular stenosis. No aortic regurgitation is present. Mitral Valve The mitral valve is normal in structure. No evidence of mitral valve stenosis. Trace mitral regurgitation. Tricuspid Valve The tricuspid valve leaflets are thin and pliable. Mild mitral regurgitation. RVSP is 30-35 mmHg. Pulmonic Valve The pulmonary valve is normal in structure. Trace pulmonic regurgitation. Great Vessels The aortic root is normal in size. The ascending aorta is borderline dilated, measuring 3.7 cm in diameter. The IVC is dilated, but collapses > 50% with respirophasic variation. Pericardium There is no pericardial effusion. Other Information Study Quality: Technically Difficult Conclusion Technically difficult study due to poor acoustic windows. Normal biventricular systolic function. Mildly dilated RV. Mild TR. RVSP 30-35 mmHg. Electronically signed by : Nahed Arreguin MD 01/18/2023 00:20:57
[2023-01-18] VITALS: BP 136/83; PULSE 69; RESP 20; TEMP 36.7; O2SAT 98
[2023-01-18 02:45] LABS: PTT Heparin (inpatient only) 93.1 Seconds (23.6-34.0)
[2023-01-18 04:00] VITALS: BP 100/59; PULSE 65; RESP 20; TEMP 36.9; O2SAT 98; BMI 35.5
--- NOTE | 2023-01-18 05:47 | PC.NURSE ---
Patient has had a decent night. Finally got some sleep after administration of pain medication to help with his Right Shoulder pain. After that administration the patient has not complained of it since and has been able to rest. The patient remains on 3L NC and is independently walking to the bathroom. Patient remains on the Hep drip at 42ml/hr per [facility]ma[facility] at [facility]. The next PTT draw is at 9am. No other issues were made known during the shift
[2023-01-18 06:22] LABS: Chloride 99 mmol/L (98-107)
[2023-01-18 06:23] LABS: Potassium 4.6 mmoL/L (3.5-5.1); Sodium 136 mmol/L (136-145)
[2023-01-18 06:25] LABS: Blood Urea Nitrogen 15 mg/dl (9-20); Creatinine Clearance Estimated 110 mL/min (50-200); Estimated Glomerular Filt Rate 75 ml/min (>60); GFR (African American) 90 ML/MIN (>60)
[2023-01-18 06:26] LABS: Anion Gap 8.6 mEq/L (5-15); Calcium 8.2 mg/dl (8.4-10.2); Carbon Dioxide 33 mmol/L (22.0-30.0); Glucose 137 mg/dl (74-100)
[2023-01-18 07:41] LABS: Eosinophils # 0.1 K/mm3 (0.0-0.4); Eosinophils % 2.8 % (0.1-12.0); Hematocrit 33.5 % (42.0-52.0); Hemoglobin 11.1 g/dL (14.1-18.0); Lymphocytes # 1.2 K/mm3 (0.7-4.5); Lymphocytes % 41.3 % (10-50); Mean Corpuscular HGB Conc 33.2 g/dL (31.8-35.4); Mean Corpuscular Hemoglobin 31.7 pg (27.0-31.2); Mean Corpuscular Volume 95.6 fl (80-94); Mean Platelet Volume 9.1 fl (7.4-10.4); Monocytes # 0.4 K/mm3 (0.1-1.0); Monocytes % 13.3 % (1.7-9.3); Neutrophils # 1.2 K/mm3 (1.8-7.8); Neutrophils % 41.6 % (37.0-80.0); Platelet Count 205 K/mm3 (142-424); Red Blood Count 3.51 M/mm3 (4.60-6.20); Red Cell Distribution Width 16.8 % (11.5-17.5); White Blood Count 2.9 K/mm3 (4.8-10.8)
[2023-01-18 07:45] VITALS: BP 147/72; PULSE 70; RESP 18; TEMP 36.7; O2SAT 97
--- NOTE | 2023-01-18 08:31 | P.PN_ITS ---
Subjective Subjective Date: 01/18/23 Time: 08:31 Principal diagnosis: Bilateral pulmonary emboli Interval history: 67-year-old white male in bed in no acute distress. Relates that his breathing continues to improve but he still has lingering shoulder discomfort which has a musculoskeletal component to it. He is not anxious to have procedure for pulmonary embolectomy. Will start Xarelto 15 mg BID tonight and plan for discharge tomorrow if stable. Exam Data for Last 24 hours Vital signs and Labs for Last 24 Hours: Temp Pulse Resp BP Pulse Ox O2 Del Method O2 Flow Rate 98.1 F 70 18 147/72 H 97 Nasal Cannula 3 01/18/23 07:45 01/18/23 07:45 01/18/23 07:45 01/18/23 07:45 01/18/23 07:45 01/18/23 07:45 01/18/23 07:45 Laboratory Results - last 24 hr 01/17/23 10:00: APTT 57.2 H* 01/17/23 14:12: APTT 51.5 H* 01/17/23 19:16: APTT 47.8 H 01/18/23 02:00: APTT 93.1 H* 01/18/23 05:34: WBC 2.9 L, RBC 3.51 L, Hgb 11.1 L, Hct 33.5 L, MCV 95.6 H, MCH 31.7 H, MCHC 33.2, RDW 16.8, Plt Count 205, MPV 9.1, Neut % (Auto) 41.6, Lymph % (Auto) 41.3, [place] % (Auto) 13.3 H, Eos % (Auto) 2.8, Baso % (Auto) 1.0, Neut # (Auto) 1.2 L, Lymph # (Auto) 1.2, [place] # (Auto) 0.4, Eos # (Auto) 0.1, Baso # (Auto) 0.0, Sodium 136, Potassium 4.6, Chloride 99, Carbon Dioxide 33 H, Anion Gap 8.6, BUN 15, Creatinine 1.00, Estimated Creat Clear 110, Estimated GFR 75, Est GFR ( Amer) 90, Glucose 137 H, Calcium 8.2 L I & O for Last 24 hours: Intake & Output 01/15/23 01/16/23 01/17/2323 11:59 11:59 11:59 11:59 Intake Total 640 / 640 1640 / 1640 Output Total 0 / 0 Balance 640 / 640 1640 / 1640 Weight 245 lb 240 lb Constitutional Constitutional: no acute distress *Routine Respiratory Exam Respiratory: Present CTA bilaterally *Routine Cardiovascular Exam Cardiovascular: Present RRR Progress Note: A&P Assessment and plan (1) Pulmonary embolism, bilateral: Status: Acute (2) Colon cancer metastasized to lung: Status: Acute (3) Metastatic colon cancer to liver: Status: Acute (4) Atrial fibrillation with RVR: Status: Acute (5) History of atrial fibrillation: Status: Acute Assessment and Plan Assessment and Plan for All Diagnoses:: 1. Bilateral pulmonary emboli -Continue IV heparin and start Xarelto tonight -No echo or CTA evidence of significant right heart strain -Will need long-term anticoagulation due to increased risk for recurrent pulmonary emboli in setting of cancer 2. Metastatic colon cancer to liver and lung -Followed by oncology -Consider pulmonary consult while inpatient 3. History of atrial fibrillation -Controlled on diltiazem -No history of anticoagulation since chads VASc score is only 1 Echo reviewed. No evidence of RV strain. EF normal. start Xarelto tonight and stop heparin 2 hrs later. Only needing oxygen for comfort now. RA O2sat while ambulating in hallway was 92-93%. Plan discharge home tomorrow if stable. If patient decides he wishes to go home later today then we will see him back early next week. Home medication recommendations Diltiazem 180 mg daily Xarelto 15 mg twice daily for 3 weeks and then switch to 20 mg daily thereafter
[2023-01-18 09:05] VITALS: O2SAT 98
[2023-01-18 09:47] LABS: PTT Heparin (inpatient only) 77.8 Seconds (23.6-34.0)
--- NOTE | 2023-01-18 10:29 | PC.NURSE ---
pt ambulated in the [facility] w/o oxygen. room air saturation 92-93% after ambulating. pt requested to have oxygen back on for comfort.
[2023-01-18 11:29] VITALS: BP 140/80; PULSE 79; RESP 18; TEMP 36.8; O2SAT 95
--- NOTE | 2023-01-18 13:03 | EXP.DC.SUM ---
General Admission date:: 01/16/23 Discharge date: 01/18/23 HPI HPI HPI: Patient is a 67-year-old male with past medical history of atrial fibrillation, colon cancer who presents to the hospital due to shortness of breath, right shoulder pain, right chest pain. According to patient it hurts when he takes deep breath . Patient also mentions he has known history of colon cancer he is currently on chemotherapy, he denies active tobacco use, He denies cough, fever chills diarrhea constipation dysuria. Hospital Course Hospital Course Hospital Course: Patient is a 67-year-old male with past medical history of atrial fibrillation, colon cancer who presents to the hospital due to shortness of breath, right shoulder pain, right chest pain. According to patient it hurts when he takes deep breath . Patient also mentions he has known history of colon cancer he is currently on chemotherapy, he denies active tobacco use, He denies cough, fever chills diarrhea constipation dysuria. Patient initially dyspneic requiring supplemental oxygen. Cardiology was consulted and assisted with care. Patient transition from heparin to Xarelto. Tolerating well with transition to room air. Patient walked on day of discharge with room air saturation remaining in low to mid 90s. Stable for discharge home. Close follow-up with cardiology and PCP as scheduled. Problems addressed as follows: Continues to require inpatient management. Problems addressed as follows: Bilateral pulmonary emboli Acute hypoxemic respiratory failure -Imaging with pulmonary emboli bilaterally. Cardiology consulted and assisting with care. Initiated on heparin drip. Clinically has shown improvement as symptoms have defervesced. Did not require thrombectomy or thrombolysis. Transitioned to oral Xarelto to complete treatment for pulmonary emboli. Patient stable on room air by day of discharge and in no acute respiratory distress. Echo obtained that did not show right heart strain. Given transition to oral anticoagulation, stable for discharge home with close follow-up with cardiology. History of colon cancer with metastases: Complicates all aspects of his care. Defer further management to oncology as an outpatient Atrial fibrillation: Continue home diltiazem 180 mg daily Stable for discharge home. Extensive discussion today about medication adjustments and close follow-up. Continue oral anticoagulation. Close follow-up with cardiology. Spent 30 minutes in discharge counseling, documentation, discussion with patient, discussion with subspecialist, and direct care with patient. Exam Data for Last 24 hours Vital signs and Labs for Last 24 Hours: Temp Pulse Resp BP Pulse Ox O2 Del Method O2 Flow Rate 98.3 F 79 18 140/80 95 Room Air 2 01/18/23 11:29 01/18/23 11:29 01/18/23 11:29 01/18/23 11:29 01/18/23 11:29 01/18/23 11:29 01/18/23 09:05 Laboratory Results - last 24 hr 01/17/23 14:12: APTT 51.5 H* 01/17/23 19:16: APTT 47.8 H 01/18/23 02:00: APTT 93.1 H* 01/18/23 05:34: WBC 2.9 L, RBC 3.51 L, Hgb 11.1 L, Hct 33.5 L, MCV 95.6 H, MCH 31.7 H, MCHC 33.2, RDW 16.8, Plt Count 205, MPV 9.1, Neut % (Auto) 41.6, Lymph % (Auto) 41.3, [place] % (Auto) 13.3 H, Eos % (Auto) 2.8, Baso % (Auto) 1.0, Neut # (Auto) 1.2 L, Lymph # (Auto) 1.2, [place] # (Auto) 0.4, Eos # (Auto) 0.1, Baso # (Auto) 0.0, Sodium 136, Potassium 4.6, Chloride 99, Carbon Dioxide 33 H, Anion Gap 8.6, BUN 15, Creatinine 1.00, Estimated Creat Clear 110, Estimated GFR 75, Est GFR ( Amer) 90, Glucose 137 H, Calcium 8.2 L 01/18/23 09:06: APTT 77.8 H* I & O for Last 24 hours: Intake & Output 01/15/23 01/16/23 01/17/23 01/18/23 23:59 23:59 23:59 23:59 Intake Total 540 / 640 1500 / 1500 480 / 480 Output Total 0 / 0 Balance 540 / 640 1500 / 1500 480 / 480 Weight 108.919 kg 111.13 kg 108.862 kg Constitutional Constitutional: no acute distress, obese and chronically ill appearing *Routine HEENT
--- NOTE | 2023-01-20 07:53 | SW/DCPLANNER ---
Patient information has been faxed to [facility] to resume services.
--- NOTE | 2023-01-20 11:03 | CARE MANAGER ---
Contacted patient related to hospital discharge. He states he is doing well and taking his Xarelto. He denies questions or concerns and is aware of follow up appointments. JAZMIN Calderon
== END 2023-01-18 16:22 | disposition home or self-care (01) ==
LOC: ER 15:33 → 2ND 16:06
PROVIDERS: Internal Medicine; Internal Medicine Adolescent Medicine; Admitting Provider Internal Medicine; Emergency Provider Emergency Medicine; PCP Internal Medicine Adolescent Medicine; Visit Provider Internal Medicine
DX: I26.99 Other pulmonary embolism without acute cor pulmonale (principal); K63.1 Perforation of intestine (nontraumatic); C18.9 Malignant neoplasm of colon, unspecified; C78.7 Secondary malignant neoplasm of liver and intrahepatic bile duct; I48.91 Unspecified atrial fibrillation; C78.00 Secondary malignant neoplasm of unspecified lung; Z86.79 Personal history of other diseases of the circulatory system
CPT/HCPCS: 36415; 71046; 71275; 80048; 80053; 82803; 83605; 83880; 84484; 85025; 85610; 85730; 93005; 93306; 99291; G0378; J1642; Q9967

== ENCOUNTER 2023-02-08 08:32 | Outpatient (CLI) | payer MEDICARE, SELFPAY ==
[2023-02-08] VITALS (13 sets, daily range): BP systolic 136–167; BP diastolic 65–87; PULSE 61–78; RESP 15–17; TEMP 36.4; O2SAT 94–95; BMI 37.5
[2023-02-08 09:09] LABS: Microscopic, Urine URINE MICROSCOPIC (MICROSCOPIC)
[2023-02-08 09:10] LABS: Appearance,Urine CLEAR (Clear); Bilirubin,Urine Negative (Negative); Blood, Urine Negative (Negative); Color,Urine YELLOW (Yellow); Glucose,Urine (UA) Negative (Negative); Ketones,Urine Negative (Negative); Leukocyte Esterase,Urine Negative (Negative); Nitrate,Urine Negative (Negative); PH,Urine 5.5 (5.0-8.5); Protein,Urine Negative (Negative); Specific Gravity, Urine >= 1.030 (1.005-1.030); Urobilinogen,Urine 0.2 EU/dl (0.2)
[2023-02-08 09:17] LABS: Basophils % 0.6 % (0.1-2.0); Eosinophils # 0.2 K/mm3 (0.0-0.4); Eosinophils % 2.8 % (0.1-12.0); Hematocrit 40.4 % (42.0-52.0); Lymphocytes # 0.7 K/mm3 (0.7-4.5); Lymphocytes % 10.6 % (10-50); Mean Corpuscular HGB Conc 32.1 g/dL (31.8-35.4); Mean Corpuscular Hemoglobin 31.5 pg (27.0-31.2); Mean Platelet Volume 9.9 fl (7.4-10.4); Monocytes # 0.3 K/mm3 (0.1-1.0); Monocytes % 4.6 % (1.7-9.3); Neutrophils # 5.4 K/mm3 (1.8-7.8); Neutrophils % 81.4 % (37.0-80.0); Platelet Count 177 K/mm3 (142-424); Red Blood Count 4.12 M/mm3 (4.60-6.20); Red Cell Distribution Width 17.2 % (11.5-17.5); White Blood Count 6.6 K/mm3 (4.8-10.8)
[2023-02-08 09:21] LABS: Alanine Aminotransferase 69 U/L (12-78); Albumin Level 4.2 g/dl (3.5-5.0); Albumin/Globulin Ratio 1.4 (1.1-1.8); Alkaline Phosphatase 53 U/L (38-126); Aspartate Amino Transferase 51 U/L (17-59); Bilirubin,Total 0.4 mg/dl (0.2-1.3); Blood Urea Nitrogen 16 mg/dl (9-20); Calcium 8.5 mg/dl (8.4-10.2); Carbon Dioxide 25 mmol/L (22.0-30.0); Chloride 105 mmol/L (98-107); Creatinine Clearance Estimated 103 mL/min (50-200); Estimated Glomerular Filt Rate 67 ml/min (>60); GFR (African American) 81 ML/MIN (>60); Globulin 3.1 g/dL (1.3-3.2); Glucose 196 mg/dl (74-100); Sodium 137 mmol/L (136-145); Total Protein,Serum 7.3 g/dl (6.3-8.2)
[2023-02-08 09:33] LABS: Bacteria,Urine Trace /lpf
[2023-02-08] MEDS: DEXAMETHASONE 4MG TABLET 12 MG PO (09:57)
[2023-02-08] MEDS: ONDANSETRON 4MG ODT 16 MG SL (09:58)
[2023-02-08] MEDS: IRINOTECAN HCL IV (10:35)
[2023-02-08] MEDS: WATER IV ×2 (10:35)
[2023-02-08] MEDS: DEXTROSE 5% IV ×2 (10:35)
[2023-02-08] MEDS: LEUCOVORIN CALCIUM IV (10:35)
[2023-02-08] MEDS: DEXTROSE 5 % IN WATER 100 ML 200 ML IV (10:40)
[2023-02-08] MEDS: FLUOROURACIL 500MG/10ML VIAL 900 MG IV (15:29)
== END 2023-02-08 15:45 | disposition home or self-care (01) ==
LOC: INF 08:35
PROVIDERS: PCP Internal Medicine Adolescent Medicine; Visit Provider Internal Medicine Medical Oncology
DX: C18.9 Malignant neoplasm of colon, unspecified (principal); Z51.11 Encounter for antineoplastic chemotherapy
CPT/HCPCS: 80053; 81001; 85025; 96368; 96411; 96413; 96415; J0640; J9190; J9206

== ENCOUNTER 2023-02-10 13:30 | Outpatient (CLI) | payer MEDICARE, SELFPAY ==
[2023-02-10] MEDS: SODIUM CHLORIDE 0.9% 10ML FLUSH SYRINGE 10 ML IV (13:40)
== END 2023-02-10 13:45 | disposition home or self-care (01) ==
LOC: INF 13:32
PROVIDERS: PCP Internal Medicine Adolescent Medicine; Visit Provider Internal Medicine Medical Oncology
DX: Z45.2 Encounter for adjustment and management of vascular access device (principal)
CPT/HCPCS: G0463; J1642

== ENCOUNTER 2023-02-22 08:34 | Outpatient (CLI) | payer MEDICARE, SELFPAY ==
[2023-02-22] VITALS (12 sets, daily range): BP systolic 117–152; BP diastolic 65–80; PULSE 58–68; RESP 15–17; TEMP 36.6; O2SAT 96; BMI 36.6
[2023-02-22 09:08] LABS: Microscopic, Urine URINE MICROSCOPIC (MICROSCOPIC)
[2023-02-22 09:19] LABS: Basophils % 0.4 % (0.1-2.0); Eosinophils # 0.1 K/mm3 (0.0-0.4); Hematocrit 37.9 % (42.0-52.0); Hemoglobin 12.6 g/dL (14.1-18.0); Lymphocytes # 0.7 K/mm3 (0.7-4.5); Lymphocytes % 20.5 % (10-50); Mean Corpuscular HGB Conc 33.3 g/dL (31.8-35.4); Mean Corpuscular Hemoglobin 32.2 pg (27.0-31.2); Mean Corpuscular Volume 96.6 fl (80-94); Mean Platelet Volume 8.9 fl (7.4-10.4); Monocytes # 0.3 K/mm3 (0.1-1.0); Monocytes % 7.8 % (1.7-9.3); Neutrophils # 2.3 K/mm3 (1.8-7.8); Neutrophils % 69.4 % (37.0-80.0); Platelet Count 173 K/mm3 (142-424); Red Blood Count 3.92 M/mm3 (4.60-6.20); Red Cell Distribution Width 16.9 % (11.5-17.5); White Blood Count 3.3 K/mm3 (4.8-10.8)
[2023-02-22 09:27] LABS: Alanine Aminotransferase 57 U/L (12-78); Albumin/Globulin Ratio 1.4 (1.1-1.8); Alkaline Phosphatase 54 U/L (38-126); Anion Gap 10.6 mEq/L (5-15); Aspartate Amino Transferase 44 U/L (17-59); Bilirubin,Total 0.5 mg/dl (0.2-1.3); Blood Urea Nitrogen 13 mg/dl (9-20); Calcium 8.6 mg/dl (8.4-10.2); Carbon Dioxide 28 mmol/L (22.0-30.0); Chloride 106 mmol/L (98-107); Creatinine Clearance Estimated 104 mL/min (50-200); Estimated Glomerular Filt Rate 67 ml/min (>60); GFR (African American) 81 ML/MIN (>60); Globulin 2.9 g/dL (1.3-3.2); Glucose 129 mg/dl (74-100); Potassium 3.6 mmoL/L (3.5-5.1); Sodium 141 mmol/L (136-145); Total Protein,Serum 6.9 g/dl (6.3-8.2)
[2023-02-22] MEDS: DEXAMETHASONE 4MG TABLET 12 MG PO (09:49)
[2023-02-22 09:50] LABS: Appearance,Urine CLEAR (Clear); Bilirubin,Urine Negative (Negative); Blood, Urine Negative (Negative); Color,Urine YELLOW (Yellow); Glucose,Urine (UA) Negative (Negative); Ketones,Urine Negative (Negative); Leukocyte Esterase,Urine Negative (Negative); Nitrate,Urine Negative (Negative); PH,Urine 5.5 (5.0-8.5); Protein,Urine Negative (Negative); Specific Gravity, Urine >= 1.030 (1.005-1.030); Urobilinogen,Urine 0.2 EU/dl (0.2)
[2023-02-22] MEDS: ONDANSETRON 4MG ODT 16 MG SL (09:50)
[2023-02-22] MEDS: DEXTROSE 5 % IN WATER 100 ML 200 ML IV (09:51)
[2023-02-22] MEDS: DEXTROSE 5% IV ×2 (10:17→10:18)
[2023-02-22] MEDS: WATER IV ×2 (10:17→10:18)
[2023-02-22] MEDS: LEUCOVORIN CALCIUM IV (10:17)
[2023-02-22] MEDS: IRINOTECAN HCL IV (10:18)
[2023-02-22 10:30] LABS: Bacteria,Urine Trace /lpf; Squamous Epithelial Cell,Urine Occasional #/hpf (0-5)
[2023-02-22] MEDS: FLUOROURACIL 500MG/10ML VIAL 900 MG IV (13:10)
== END 2023-02-22 13:35 | disposition home or self-care (01) ==
LOC: INF 08:35
PROVIDERS: PCP Internal Medicine Adolescent Medicine; Visit Provider Internal Medicine Medical Oncology
DX: C18.9 Malignant neoplasm of colon, unspecified (principal); Z51.11 Encounter for antineoplastic chemotherapy; C78.7 Secondary malignant neoplasm of liver and intrahepatic bile duct; Z45.2 Encounter for adjustment and management of vascular access device
CPT/HCPCS: 80053; 81001; 85025; 96368; 96411; 96413; 96415; J0640; J9190; J9206

== ENCOUNTER 2023-02-24 11:01 | Outpatient (CLI) | payer MEDICARE, MEDICAID, SELFPAY ==
[2023-02-24] MEDS: SODIUM CHLORIDE 0.9% 10ML FLUSH SYRINGE 10 ML IV (11:25)
== END 2023-02-24 11:30 | disposition home or self-care (01) ==
PROVIDERS: PCP Internal Medicine Adolescent Medicine; Visit Provider Internal Medicine Medical Oncology
DX: Z45.2 Encounter for adjustment and management of vascular access device (principal); C18.9 Malignant neoplasm of colon, unspecified
CPT/HCPCS: G0463; J1642

== ENCOUNTER 2023-03-08 08:06 | Outpatient (CLI) | payer MEDICARE, MEDICAID, SELFPAY ==
[2023-03-08 08:10] VITALS: BMI 37.7
[2023-03-08 08:31] LABS: Microscopic, Urine URINE MICROSCOPIC (MICROSCOPIC)
[2023-03-08 08:38] LABS: Basophils % 1.3 % (0.1-2.0); Eosinophils % 1.5 % (0.1-12.0); Hematocrit 37.7 % (42.0-52.0); Hemoglobin 12.7 g/dL (14.1-18.0); Lymphocytes # 0.8 K/mm3 (0.7-4.5); Lymphocytes % 35.1 % (10-50); Mean Corpuscular HGB Conc 33.7 g/dL (31.8-35.4); Mean Corpuscular Volume 95.1 fl (80-94); Mean Platelet Volume 9.3 fl (7.4-10.4); Monocytes # 0.3 K/mm3 (0.1-1.0); Monocytes % 11.6 % (1.7-9.3); Neutrophils # 1.2 K/mm3 (1.8-7.8); Neutrophils % 50.6 % (37.0-80.0); Platelet Count 151 K/mm3 (142-424); Red Blood Count 3.96 M/mm3 (4.60-6.20); Red Cell Distribution Width 17.2 % (11.5-17.5); White Blood Count 2.4 K/mm3 (4.8-10.8)
[2023-03-08 08:47] LABS: Alanine Aminotransferase 57 U/L (12-78); Albumin Level 3.9 g/dl (3.5-5.0); Albumin/Globulin Ratio 1.3 (1.1-1.8); Alkaline Phosphatase 64 U/L (38-126); Anion Gap 9.8 mEq/L (5-15); Aspartate Amino Transferase 45 U/L (17-59); Bilirubin,Total 0.6 mg/dl (0.2-1.3); Blood Urea Nitrogen 12 mg/dl (9-20); Calcium 8.5 mg/dl (8.4-10.2); Carbon Dioxide 25 mmol/L (22.0-30.0); Chloride 105 mmol/L (98-107); Creatinine Clearance Estimated 114 mL/min (50-200); Estimated Glomerular Filt Rate 75 ml/min (>60); GFR (African American) 90 ML/MIN (>60); Glucose 168 mg/dl (74-100); Potassium 3.8 mmoL/L (3.5-5.1); Sodium 136 mmol/L (136-145); Total Protein,Serum 6.9 g/dl (6.3-8.2)
[2023-03-08 08:49] LABS: Appearance,Urine CLEAR (Clear); Bilirubin,Urine Negative (Negative); Blood, Urine Negative (Negative); Color,Urine YELLOW (Yellow); Glucose,Urine (UA) Negative (Negative); Ketones,Urine Negative (Negative); Leukocyte Esterase,Urine Negative (Negative); Nitrate,Urine Negative (Negative); PH,Urine 5.5 (5.0-8.5); Protein,Urine Negative (Negative); Specific Gravity, Urine >= 1.030 (1.005-1.030); Urobilinogen,Urine 0.2 EU/dl (0.2)
[2023-03-08 09:16] LABS: Mucus,Urine Trace /lpf
[2023-03-08 09:17] LABS: Bacteria,Urine Trace /lpf; Squamous Epithelial Cell,Urine Occasional #/hpf (0-5); WBC,Urine Occasional #/hpf (0-3)
[2023-03-08] MEDS: SODIUM CHLORIDE 0.9% 10ML FLUSH SYRINGE 10 ML IV (09:32)
[2023-03-09 08:22] LABS: CEA 77.2 ng/mL (0.0-4.7)
== END 2023-03-08 09:35 | disposition home or self-care (01) ==
LOC: INF 08:07
PROVIDERS: PCP Internal Medicine Adolescent Medicine; Visit Provider Internal Medicine Medical Oncology
DX: C18.9 Malignant neoplasm of colon, unspecified (principal); Z45.2 Encounter for adjustment and management of vascular access device; Z79.899 Other long term (current) drug therapy
CPT/HCPCS: 36591; 80053; 81001; 82378; 85025; J1642

== ENCOUNTER 2023-03-16 10:51 | Outpatient (CLI) | payer MEDICARE, MEDICAID, SELFPAY ==
--- NOTE | 2023-03-16 11:16 | CT_ITS ---
FINAL REPORT TECHNIQUE: After the administration of intravenous contrast, axial images were obtained through the abdomen and pelvis by computed tomography. This study was performed with technique to keep radiation doses as low as reasonably achievable, (ALARA). Individualized dose reduction techniques using automated exposure control or adjustment of the MA and/or KV according to the patient's size were employed. CLINICAL HISTORY: COLON CANCER 75 ml isovue given COMPARISON: 12/16/2022 FINDINGS: Abdomen: Numerous nodules are seen at the lung bases, many of which are cavitary which are overall slightly larger than on prior exam. For example, 1 in the medial left lung base measures 22 mm, previously measured 19 mm. This is best seen on image 22. Mass in the lateral segment of the left hepatic lobe measures 36 x 35 mm, previously measured 36 x 33 mm. The spleen is unremarkable. The adrenals are normal. The pancreas is unremarkable. The kidneys enhance appropriately. The aorta is normal in caliber. There is no free fluid. There are multiple enlarged gastrohepatic lymph nodes which are slightly larger than on prior exam. Multiple enlarged lymph nodes are seen in the small bowel mesentery which are unchanged. There are postoperative changes of the anterior abdominal wall. Pelvis: The appendix is not identified. The urinary bladder is unremarkable. There is no free fluid. Right L5 pars defects are noted. IMPRESSION: Slight worsening metastatic disease as above. Reviewed, Interpreted and Dictated by Jacky Farr III, MD Transcribed by Sherin Cortez Authenticated and [facility]
[2023-03-16] MEDS: SODIUM CHLORIDE 0.9% 10ML SYR (RAD ONLY) 10 ML IV (11:36)
[2023-03-16] MEDS: IOPAMIDOL-370 (76%);100ML BOTTLE 75 ML IV (11:37)
[2023-03-16] MEDS: SODIUM CHLORIDE 0.9% 10ML FLUSH SYRINGE 10 ML IV (11:39)
== END 2023-03-16 11:40 | disposition home or self-care (01) ==
LOC: RAD 10:53
PROVIDERS: PCP Internal Medicine Adolescent Medicine; Visit Provider Internal Medicine Medical Oncology
DX: C18.9 Malignant neoplasm of colon, unspecified (principal); Z45.2 Encounter for adjustment and management of vascular access device
CPT/HCPCS: 74177; J1642; Q9967

== ENCOUNTER 2023-03-22 08:09 | Outpatient (CLI) | payer MEDICARE, MEDICAID, SELFPAY ==
[2023-03-22 08:15] VITALS: BMI 36.5
[2023-03-22 08:37] LABS: Basophils % 0.2 % (0.1-2.0); Eosinophils # 0.1 K/mm3 (0.0-0.4); Eosinophils % 2.1 % (0.1-12.0); Hematocrit 38.6 % (42.0-52.0); Hemoglobin 12.8 g/dL (14.1-18.0); Lymphocytes # 1.1 K/mm3 (0.7-4.5); Lymphocytes % 17.2 % (10-50); Mean Corpuscular HGB Conc 33.1 g/dL (31.8-35.4); Mean Corpuscular Hemoglobin 31.6 pg (27.0-31.2); Mean Corpuscular Volume 95.6 fl (80-94); Mean Platelet Volume 9.4 fl (7.4-10.4); Monocytes # 0.4 K/mm3 (0.1-1.0); Monocytes % 6.1 % (1.7-9.3); Neutrophils # 4.6 K/mm3 (1.8-7.8); Neutrophils % 74.3 % (37.0-80.0); Platelet Count 212 K/mm3 (142-424); Red Blood Count 4.04 M/mm3 (4.60-6.20); Red Cell Distribution Width 17.1 % (11.5-17.5); White Blood Count 6.2 K/mm3 (4.8-10.8)
[2023-03-22 08:42] LABS: Chloride 107 mmol/L (98-107); Sodium 141 mmol/L (136-145)
[2023-03-22 08:45] LABS: Alanine Aminotransferase 51 U/L (12-78); Albumin/Globulin Ratio 1.2 (1.1-1.8); Alkaline Phosphatase 58 U/L (38-126); Aspartate Amino Transferase 46 U/L (17-59); Bilirubin,Total 0.4 mg/dl (0.2-1.3); Blood Urea Nitrogen 13 mg/dl (9-20); Carbon Dioxide 28 mmol/L (22.0-30.0); Creatinine Clearance Estimated 100 mL/min (50-200); Estimated Glomerular Filt Rate 67 ml/min (>60); GFR (African American) 81 ML/MIN (>60); Globulin 3.4 g/dL (1.3-3.2); Total Protein,Serum 7.4 g/dl (6.3-8.2)
[2023-03-22 08:46] LABS: Calcium 8.9 mg/dl (8.4-10.2); Glucose 163 mg/dl (74-100)
[2023-03-22] MEDS: SODIUM CHLORIDE 0.9% 10ML FLUSH SYRINGE 10 ML IV (09:52)
[2023-03-23 09:51] LABS: CEA 76.4 ng/mL (0.0-4.7)
== END 2023-03-22 09:37 | disposition home or self-care (01) ==
LOC: INF 08:09
PROVIDERS: PCP Internal Medicine Adolescent Medicine; Visit Provider Internal Medicine Medical Oncology
DX: C18.9 Malignant neoplasm of colon, unspecified (principal); Z45.2 Encounter for adjustment and management of vascular access device
CPT/HCPCS: 36591; 80053; 82378; 85025; J1642

== ENCOUNTER 2023-03-24 10:31 | Outpatient (CLI) | payer MEDICARE, MEDICAID, SELFPAY ==
--- NOTE | 2023-03-24 10:36 | CT_ITS ---
FINAL REPORT CLINICAL HISTORY: COLON CANCER COMPARISON: 01/16/2023 CTA chest FINDINGS: Axial CT images of the chest were obtained with contrast. Coronal reformatted images were also obtained. This study was performed with techniques to keep radiation doses as low as reasonably achievable, (ALARA). Individualized dose reduction techniques using automated exposure control or adjustment of mA and/or KV according to the patient''''s size were employed. There is suboptimal opacification of the pulmonary arteries but there appears to be interval improvement in the bilateral pulmonary emboli. There are several borderline sized mediastinal nodes. A left chest port is present. No axillary mass or adenopathy is identified. There are numerous nodules throughout both lungs, some are cavitary, but most appear stable. Nodule in the posteromedial left lower lobe on image 59 measures 22 mm, was 19 mm. Several other nodules are slightly larger. Limited images of the upper abdomen reveal mild fatty infiltration of the liver. There is a mass in the lateral segment of the left hepatic lobe measuring 33 mm. There is a questionable mass in the lateral right hepatic lobe measuring 29 mm. Adenopathy in the upper abdomen is visually stable. IMPRESSION: Slightly worse pulmonary metastatic disease. Questionable mass lateral right hepatic lobe. Liver MRI may be helpful. Reviewed, Interpreted and Dictated by Jacky Farr III, MD Transcribed by Michelle Rose Authenticated and [facility]
[2023-03-24] MEDS: SODIUM CHLORIDE 0.9% 10ML SYR (RAD ONLY) 10 ML IV (11:05)
[2023-03-24] MEDS: IOPAMIDOL-370 (76%);100ML BOTTLE 75 ML IV (11:06)
== END 2023-03-24 11:10 | disposition home or self-care (01) ==
PROVIDERS: PCP Internal Medicine Adolescent Medicine; Visit Provider Internal Medicine Medical Oncology
DX: C18.9 Malignant neoplasm of colon, unspecified (principal); Z45.2 Encounter for adjustment and management of vascular access device
CPT/HCPCS: 71260; J1642; Q9967

== ENCOUNTER 2023-04-12 08:16 | Outpatient (CLI) | payer MEDICARE, MEDICAID, SELFPAY ==
[2023-04-12] VITALS (12 sets, daily range): BP systolic 122–140; BP diastolic 66–80; PULSE 63–87; RESP 18; TEMP 36.7; O2SAT 96–97; BMI 36.6
[2023-04-12 08:45] LABS: Basophils # 0.1 K/mm3 (0-0.2); Basophils % 0.8 % (0.1-2.0); Eosinophils # 0.2 K/mm3 (0.0-0.4); Eosinophils % 2.9 % (0.1-12.0); Hematocrit 39.5 % (42.0-52.0); Hemoglobin 12.8 g/dL (14.1-18.0); Lymphocytes # 0.9 K/mm3 (0.7-4.5); Lymphocytes % 13.9 % (10-50); Mean Corpuscular HGB Conc 32.3 g/dL (31.8-35.4); Mean Corpuscular Hemoglobin 31.8 pg (27.0-31.2); Mean Corpuscular Volume 98.5 fl (80-94); Monocytes # 0.4 K/mm3 (0.1-1.0); Monocytes % 5.8 % (1.7-9.3); Neutrophils % 76.7 % (37.0-80.0); Platelet Count 184 K/mm3 (142-424); Red Blood Count 4.02 M/mm3 (4.60-6.20); Red Cell Distribution Width 16.6 % (11.5-17.5); White Blood Count 6.5 K/mm3 (4.8-10.8)
[2023-04-12 08:53] LABS: Alanine Aminotransferase 45 U/L (12-78); Albumin Level 4.1 g/dl (3.5-5.0); Albumin/Globulin Ratio 1.4 (1.1-1.8); Alkaline Phosphatase 58 U/L (38-126); Anion Gap 13.3 mEq/L (5-15); Aspartate Amino Transferase 38 U/L (17-59); Bilirubin,Total 0.5 mg/dl (0.2-1.3); Blood Urea Nitrogen 14 mg/dl (9-20); Calcium 8.8 mg/dl (8.4-10.2); Carbon Dioxide 26 mmol/L (22.0-30.0); Chloride 106 mmol/L (98-107); Creatinine Clearance Estimated 114 mL/min (50-200); Estimated Glomerular Filt Rate 75 ml/min (>60); GFR (African American) 90 ML/MIN (>60); Glucose 212 mg/dl (74-100); Magnesium 1.9 mg/dl (1.6-2.3); Potassium 4.3 mmoL/L (3.5-5.1); Sodium 141 mmol/L (136-145); Total Protein,Serum 7.1 g/dl (6.3-8.2)
[2023-04-12] MEDS: ONDANSETRON 4MG ODT 16 MG (09:10)
[2023-04-12] MEDS: ACETAMINOPHEN 325MG TAB 650 MG (09:10)
[2023-04-12] MEDS: diphenhydrAMINE 25MG CAPSULE 25 MG PO (09:10)
[2023-04-12] MEDS: DEXAMETHASONE 4MG TABLET 12 MG (09:10)
[2023-04-12] MEDS: 0.9 % SODIUM CHLORIDE 50 ML 25 ML IV (09:11)
[2023-04-12] MEDS: SODIUM CHLORIDE 0.9% IV (09:54)
[2023-04-12] MEDS: PANITUMUMAB IV (09:54)
[2023-04-12] MEDS: LEUCOVORIN CALCIUM IV (11:03)
[2023-04-12] MEDS: IRINOTECAN HCL IV (11:03)
[2023-04-12] MEDS: WATER IV ×2 (11:03)
[2023-04-12] MEDS: DEXTROSE 5% IV ×2 (11:03)
[2023-04-12] MEDS: DEX 5% IN WATER 100ML IVPB 100 ML IV (12:56)
[2023-04-12] MEDS: FLUOROURACIL 500MG/10ML VIAL 900 MG IV (13:36)
== END 2023-04-12 13:50 | disposition home or self-care (01) ==
LOC: INF 08:18
PROVIDERS: PCP Internal Medicine Adolescent Medicine; Visit Provider Internal Medicine Medical Oncology
DX: C18.9 Malignant neoplasm of colon, unspecified (principal); C17.2 Malignant neoplasm of ileum; C78.7 Secondary malignant neoplasm of liver and intrahepatic bile duct; Z79.899 Other long term (current) drug therapy
CPT/HCPCS: 80053; 83735; 85025; 96368; 96411; 96413; 96415; 96417; J0640; J9190; J9206; J9303

== ENCOUNTER 2023-04-14 11:49 | Outpatient (CLI) | payer MEDICARE, MEDICAID, SELFPAY ==
[2023-04-14] MEDS: SODIUM CHLORIDE 0.9% 10ML FLUSH SYRINGE 10 ML IV (11:55)
== END 2023-04-14 12:05 | disposition home or self-care (01) ==
LOC: INF 11:49
PROVIDERS: PCP Internal Medicine Adolescent Medicine; Visit Provider Internal Medicine Medical Oncology
DX: C18.9 Malignant neoplasm of colon, unspecified (principal); Z45.2 Encounter for adjustment and management of vascular access device
CPT/HCPCS: 96523; J1642

== ENCOUNTER 2023-05-10 09:23 | Outpatient (CLI) | payer MEDICARE, MEDICAID, SELFPAY ==
[2023-05-10 09:24] VITALS: BMI 36.0
[2023-05-10] MEDS: SODIUM CHLORIDE 0.9% 10ML FLUSH SYRINGE 10 ML IV (09:43)
[2023-05-10 10:02] LABS: Basophils # 0.1 K/mm3 (0-0.2); Basophils % 0.5 % (0.1-2.0); Eosinophils # 0.1 K/mm3 (0.0-0.4); Eosinophils % 0.9 % (0.1-12.0); Hemoglobin 13.4 g/dL (14.1-18.0); Lymphocytes # 0.9 K/mm3 (0.7-4.5); Lymphocytes % 8.4 % (10-50); Mean Corpuscular HGB Conc 31.8 g/dL (31.8-35.4); Mean Corpuscular Hemoglobin 31.3 pg (27.0-31.2); Mean Corpuscular Volume 98.4 fl (80-94); Mean Platelet Volume 9.2 fl (7.4-10.4); Monocytes # 0.5 K/mm3 (0.1-1.0); Monocytes % 4.5 % (1.7-9.3); Neutrophils # 8.7 K/mm3 (1.8-7.8); Neutrophils % 85.8 % (37.0-80.0); Platelet Count 144 K/mm3 (142-424); Red Blood Count 4.27 M/mm3 (4.60-6.20); Red Cell Distribution Width 16.8 % (11.5-17.5); White Blood Count 10.2 K/mm3 (4.8-10.8)
[2023-05-10 10:08] LABS: MANUAL DIFFERENTIAL MANUAL DIFFERENTIAL (MANUAL DIFF)
[2023-05-10 10:14] LABS: Chloride 103 mmol/L (98-107); Sodium 133 mmol/L (136-145)
[2023-05-10 10:15] LABS: Potassium 4.2 mmoL/L (3.5-5.1)
[2023-05-10 10:17] LABS: Alanine Aminotransferase 65 U/L (12-78); Albumin Level 3.6 g/dl (3.5-5.0); Albumin/Globulin Ratio 1.4 (1.1-1.8); Alkaline Phosphatase 68 U/L (38-126); Anion Gap 6.2 mEq/L (5-15); Aspartate Amino Transferase 41 U/L (17-59); Bilirubin,Total 0.6 mg/dl (0.2-1.3); Blood Urea Nitrogen 19 mg/dl (9-20); Carbon Dioxide 28 mmol/L (22.0-30.0); Creatinine Clearance Estimated 112 mL/min (50-200); Estimated Glomerular Filt Rate 75 ml/min (>60); GFR (African American) 90 ML/MIN (>60); Globulin 2.6 g/dL (1.3-3.2); Total Protein,Serum 6.2 g/dl (6.3-8.2)
[2023-05-10 10:18] LABS: Calcium 8.7 mg/dl (8.4-10.2); Glucose 286 mg/dl (74-100)
[2023-05-10 12:24] LABS: Lymphocytes % 8 % (10-50); Monocytes % 7 % (2-9); Neutrophils % 73 % (42-76); Total Cells Counted 100
[2023-05-10 12:27] LABS: Platelet Estimate Normal; RBC Morphology Normal
[2023-05-11 04:46] LABS: CEA 81.3 ng/mL (0.0-4.7)
== END 2023-05-10 09:45 | disposition home or self-care (01) ==
LOC: INF 09:23
PROVIDERS: PCP Internal Medicine Adolescent Medicine; Visit Provider Internal Medicine Medical Oncology
DX: C18.9 Malignant neoplasm of colon, unspecified (principal)
CPT/HCPCS: 36591; 80053; 82378; 85007; 85025; J1642

== ENCOUNTER 2023-06-21 08:30 | Outpatient (CLI) | payer MEDICARE, MEDICAID, SELFPAY ==
[2023-06-21 08:32] VITALS: BMI 36.6
[2023-06-21] MEDS: SODIUM CHLORIDE 0.9% 10ML FLUSH SYRINGE 10 ML IV (08:39)
[2023-06-21 08:54] LABS: Basophils # 0.1 K/mm3 (0-0.2); Basophils % 0.9 % (0.1-2.0); Eosinophils # 0.1 K/mm3 (0.0-0.4); Eosinophils % 2.2 % (0.1-12.0); Hematocrit 39.6 % (42.0-52.0); Hemoglobin 12.8 g/dL (14.1-18.0); Lymphocytes # 0.8 K/mm3 (0.7-4.5); Lymphocytes % 12.8 % (10-50); Mean Corpuscular HGB Conc 32.2 g/dL (31.8-35.4); Mean Corpuscular Hemoglobin 30.7 pg (27.0-31.2); Mean Corpuscular Volume 95.3 fl (80-94); Mean Platelet Volume 9.5 fl (7.4-10.4); Monocytes # 0.3 K/mm3 (0.1-1.0); Monocytes % 4.9 % (1.7-9.3); Neutrophils % 79.1 % (37.0-80.0); Platelet Count 217 K/mm3 (142-424); Red Blood Count 4.15 M/mm3 (4.60-6.20); Red Cell Distribution Width 16.7 % (11.5-17.5); White Blood Count 6.3 K/mm3 (4.8-10.8)
[2023-06-21 09:02] LABS: Alanine Aminotransferase 42 U/L (12-78); Albumin/Globulin Ratio 1.3 (1.1-1.8); Alkaline Phosphatase 57 U/L (38-126); Anion Gap 13.3 mEq/L (5-15); Aspartate Amino Transferase 42 U/L (17-59); Bilirubin,Total 0.7 mg/dl (0.2-1.3); Blood Urea Nitrogen 12 mg/dl (9-20); Carbon Dioxide 27 mmol/L (22.0-30.0); Chloride 101 mmol/L (98-107); Creatinine Clearance Estimated 104 mL/min (50-200); Estimated Glomerular Filt Rate 67 ml/min (>60); GFR (African American) 81 ML/MIN (>60); Globulin 3.2 g/dL (1.3-3.2); Glucose 193 mg/dl (74-100); Potassium 4.3 mmoL/L (3.5-5.1); Sodium 137 mmol/L (136-145); Total Protein,Serum 7.2 g/dl (6.3-8.2)
== END 2023-06-21 23:59 | disposition home or self-care (01) ==
LOC: INF 08:31
PROVIDERS: PCP Internal Medicine Adolescent Medicine; Visit Provider Internal Medicine Medical Oncology
DX: C18.9 Malignant neoplasm of colon, unspecified (principal); Z45.2 Encounter for adjustment and management of vascular access device
CPT/HCPCS: 36591; 80053; 82378; 85025; J1642

== ENCOUNTER 2023-07-04 13:52 | Outpatient (CLI) | payer MEDICARE, MEDICAID, SELFPAY ==
--- NOTE | 2023-07-04 14:10 | CT_ITS ---
FINAL REPORT TECHNIQUE: After the administration of oral and intravenous contrast, axial images were obtained through the abdomen and pelvis by computed tomography. The study was performed with techniques to keep radiation dose as low as reasonably achievable, (ALARA). Individual dose reduction techniques using automated exposure control or adjustment of mA and/or kV according to the patient's size were employed. CLINICAL HISTORY: COLON CANCER COMPARISON: March 16, 2023. FINDINGS: Abdomen: There is diffuse fatty infiltration of the liver. There is a rounded mass in the left lobe of the liver. This measures 4.4 cm in diameter. This previously measured 3.6 cm. This is significantly increased in size. The gallbladder is present. The spleen, pancreas, adrenals and kidneys appear unremarkable. The aorta is normal in caliber. There are several small hernias of the anterior abdominal wall. These contain both fat and bowel. The bowel herniation is new from previous. This is best seen on image 65 of series 5. There is stranding throughout the mesentery with multiple scattered mesenteric lymph nodes. Some of these have increased in size. For example, a dominant node in the mesentery measures 2.1 cm. This previously measured 1.6 cm. This is best seen on image 56 of series 5. Pelvis: The appendix is not identified. The urinary bladder is normal in size. There is no pelvic free fluid. IMPRESSION: Interval enlargement of a liver mass. Worsening mesenteric adenopathy and stranding. Hernias redemonstrated with new herniation of bowel. Reviewed, Interpreted and Dictated by Aguilar Dunlap MD Transcribed by Ronit Cortez PA-C Authenticated and . [facility]
--- NOTE | 2023-07-04 14:10 | CT_ITS ---
FINAL REPORT TECHNIQUE: Routine axial images were obtained from the lung apices to below the diaphragm following IV contrast administration. Individualized dose reduction techniques using automated exposure control or adjustment of the mA and/or kV according to the patient size were employed. CLINICAL HISTORY: COLON CANCER COMPARISON: March 24, 2023. FINDINGS: There is no axillary adenopathy. There are small scattered mediastinal lymph nodes. Left-sided chest port is present. Heart size is normal. There are a multitude of cavitary nodules throughout both lungs. Some nodules are similar to previous and others are slightly worsened. Findings are probably due to worsening pulmonary metastases. No pleural or pericardial effusion is seen. IMPRESSION: Multitude of cavitary nodules throughout both lungs, some are slightly larger compared to previous. Reviewed, Interpreted and Dictated by Aguilar Dunlap MD Transcribed by Ronit Cortez PA-C Authenticated and [facility]
[2023-07-04] MEDS: SODIUM CHLORIDE 0.9% 10ML FLUSH SYRINGE 10 ML IV (14:36)
[2023-07-04] MEDS: IOPAMIDOL-370 (76%);100ML BOTTLE 75 ML IV (14:44)
[2023-07-04] MEDS: SODIUM CHLORIDE 0.9% 10ML SYR (RAD ONLY) 10 ML IV (14:44)
== END 2023-07-04 14:40 | disposition home or self-care (01) ==
LOC: RAD 13:53
PROVIDERS: PCP Internal Medicine Adolescent Medicine; Visit Provider Internal Medicine Medical Oncology
DX: C18.9 Malignant neoplasm of colon, unspecified (principal)
CPT/HCPCS: 71260; 74177; J1642; Q9967

== ENCOUNTER 2023-08-23 09:13 | Outpatient (CLI) | payer MEDICARE, MEDICAID, SELFPAY ==
[2023-08-23] MEDS: SODIUM CHLORIDE 0.9% 10ML FLUSH SYRINGE 10 ML IV (09:20)
== END 2023-08-23 09:25 | disposition home or self-care (01) ==
LOC: INF 09:14
PROVIDERS: PCP Internal Medicine Adolescent Medicine; Visit Provider Surgery
DX: C18.9 Malignant neoplasm of colon, unspecified (principal); C78.7 Secondary malignant neoplasm of liver and intrahepatic bile duct; Z79.52 Long term (current) use of systemic steroids
CPT/HCPCS: 96523; J1642

== ENCOUNTER 2023-09-28 07:54 | Outpatient (CLI) | payer MEDICARE, MEDICAID, SELFPAY ==
[2023-09-28 08:10] VITALS: BMI 35.4
--- NOTE | 2023-09-28 08:24 | CT_ITS ---
FINAL REPORT TECHNIQUE: After the administration of oral and intravenous contrast, axial images were obtained through the abdomen and pelvis by computed tomography. The study was performed with techniques to keep radiation dose as low as reasonably achievable, (ALARA). Individual dose reduction techniques using automated exposure control or adjustment of mA and/or kV according to the patient's size were employed. CLINICAL HISTORY: .CANCER FOLLOW-UP COMPARISON: 07/04/2023 FINDINGS: CT ABDOMEN AND PELVIS WITH CONTRAST: Abdomen: There is a 5.4 cm mass in the left lobe of the liver, which on the prior CT of 07/03 measured 4.6 cm. The gallbladder is contracted, with thickening of the gallbladder wall. There is a new low-attenuation focus in the spleen best seen on image #1.7 cm, best seen on image #27, worrisome for metastasis. The pancreas, adrenals and kidneys appear unremarkable. Multiple lymph nodes are present in the mesentery, the largest measuring 2.1 cm in greatest diameter, increased when compared to the prior exam, when it measured 1.8 cm. This is best seen on image #62. The aorta is normal in caliber. There is no free fluid or adenopathy. There are multiple hernias present in the midline anterior abdominal wall, stable since the prior exam. Pelvis: The appendix is not identified. The urinary bladder is unremarkable. There is no free fluid or adenopathy. IMPRESSION: Increase in size of the mass in the left lobe of the liver when compared to the prior exam. The gallbladder is contracted with a thickened wall. New low-attenuation focus in the spleen measuring 1.7 cm, worrisome for metastasis. Multiple mesenteric nodes are noted, some of which are larger than seen on the prior exam. Reviewed, Interpreted and Dictated by Aguilar Dunlap MD Transcribed by Rachael Pantoja Authenticated and [facility]
[2023-09-28 08:26] LABS: Basophils # 0.1 K/mm3 (0-0.2); Basophils % 0.9 % (0.1-2.0); Eosinophils # 0.2 K/mm3 (0.0-0.4); Eosinophils % 2.7 % (0.1-12.0); Hematocrit 41.9 % (42.0-52.0); Lymphocytes # 0.7 K/mm3 (0.7-4.5); Lymphocytes % 9.1 % (10-50); Mean Corpuscular Hemoglobin 28.8 pg (27.0-31.2); Mean Corpuscular Volume 92.9 fl (80-94); Mean Platelet Volume 10.2 fl (7.4-10.4); Monocytes # 0.5 K/mm3 (0.1-1.0); Monocytes % 6.4 % (1.7-9.3); Neutrophils # 6.1 K/mm3 (1.8-7.8); Platelet Count 246 K/mm3 (142-424); Red Blood Count 4.51 M/mm3 (4.60-6.20); Red Cell Distribution Width 16.7 % (11.5-17.5); White Blood Count 7.6 K/mm3 (4.8-10.8)
[2023-09-28 08:36] LABS: Chloride 105 mmol/L (98-107); Sodium 138 mmol/L (136-145)
[2023-09-28 08:37] LABS: Potassium 4.3 mmoL/L (3.5-5.1)
[2023-09-28 08:39] LABS: Alanine Aminotransferase 219 U/L (12-78); Anion Gap 10.3 mEq/L (5-15); Aspartate Amino Transferase 153 U/L (17-59); Blood Urea Nitrogen 14 mg/dl (9-20); Carbon Dioxide 27 mmol/L (22.0-30.0); Creatinine Clearance Estimated 110 mL/min (50-200); Estimated Glomerular Filt Rate 84 ml/min (>60); GFR (African American) 102 ML/MIN (>60)
[2023-09-28 08:40] LABS: Albumin/Globulin Ratio 1.1 (1.1-1.8); Alkaline Phosphatase 298 U/L (38-126); Bilirubin,Total 1.2 mg/dl (0.2-1.3); Calcium 8.7 mg/dl (8.4-10.2); Globulin 3.6 g/dL (1.3-3.2); Glucose 145 mg/dl (74-100); Total Protein,Serum 7.6 g/dl (6.3-8.2)
--- NOTE | 2023-09-28 08:44 | CT_ITS ---
FINAL REPORT TECHNIQUE: Routine axial images were obtained from the lung apices to below the diaphragm following IV contrast administration. Individualized dose reduction techniques using automated exposure control or adjustment of the mA and/or kV according to the patient size were employed. CLINICAL HISTORY: CANCER FOLLOW-UP COMPARISON: 07/04/2023 FINDINGS: CT CHEST WITH CONTRAST: A Port-A-Cath tip is once again identified in the superior vena cava. There are small scattered mediastinal nodes, with a 2 cm right hilar node. A multitude of nodules are present in the lung ravi bilaterally, many of which appear larger than seen on the prior exam. There is an anterior right middle lobe 3 cm nodule, that was previously 2.7 cm in size, best seen on image #46. There is a medial left base nodule, which measures 3.8 cm, increased from 3.1 cm. No pleural or pericardial fluid is seen. IMPRESSION: There has been progression of metastatic disease in the lung ravi bilaterally, with enlargement of multiple nodules, consistent with worsening metastases. Reviewed, Interpreted and Dictated by Aguilar Dunlap MD Transcribed by Rachael Pantoja Authenticated and [facility]
== END 2023-09-28 09:20 | disposition home or self-care (01) ==
LOC: RAD 07:54 → INF 08:22
PROVIDERS: PCP Internal Medicine Adolescent Medicine; Visit Provider Internal Medicine Medical Oncology
DX: C18.9 Malignant neoplasm of colon, unspecified (principal); C78.7 Secondary malignant neoplasm of liver and intrahepatic bile duct; C78.02 Secondary malignant neoplasm of left lung; Z79.899 Other long term (current) drug therapy; Z87.891 Personal history of nicotine dependence; Z79.01 Long term (current) use of anticoagulants
CPT/HCPCS: 71260; 74177; 80053; 82378; 85025; J1642; Q9967

== ENCOUNTER 2023-11-01 09:19 | Outpatient (CLI) | payer MEDICARE, MEDICAID, SELFPAY ==
[2023-11-01 09:25] VITALS: BMI 34.1
[2023-11-01] MEDS: SODIUM CHLORIDE 0.9% 10ML FLUSH SYRINGE 10 ML IV (09:40)
[2023-11-01 09:48] LABS: Basophils % 0.4 % (0.1-2.0); Eosinophils # 0.1 K/mm3 (0.0-0.4); Eosinophils % 1.5 % (0.1-12.0); Hematocrit 37.2 % (42.0-52.0); Hemoglobin 12.1 g/dL (14.1-18.0); Lymphocytes # 0.6 K/mm3 (0.7-4.5); Lymphocytes % 10.4 % (10-50); Mean Corpuscular HGB Conc 32.5 g/dL (31.8-35.4); Mean Corpuscular Hemoglobin 29.4 pg (27.0-31.2); Mean Corpuscular Volume 90.7 fl (80-94); Mean Platelet Volume 7.6 fl (7.4-10.4); Monocytes # 0.1 K/mm3 (0.1-1.0); Neutrophils # 4.8 K/mm3 (1.8-7.8); Neutrophils % 85.7 % (37.0-80.0); Platelet Count 277 K/mm3 (142-424); Red Cell Distribution Width 15.8 % (11.5-17.5); White Blood Count 5.6 K/mm3 (4.8-10.8)
[2023-11-01 09:49] LABS: MANUAL DIFFERENTIAL MANUAL DIFFERENTIAL (MANUAL DIFF)
[2023-11-01 09:52] LABS: Albumin Level 3.9 g/dl (3.5-5.0); Chloride 105 mmol/L (98-107); Potassium 4.1 mmoL/L (3.5-5.1); Sodium 136 mmol/L (136-145)
[2023-11-01 09:53] LABS: Blood Urea Nitrogen 17 mg/dl (9-20); Creatinine Clearance Estimated 106 mL/min (50-200); Estimated Glomerular Filt Rate 96 ml/min (>60); GFR (African American) 117 ML/MIN (>60)
[2023-11-01 09:54] LABS: Alanine Aminotransferase 62 U/L (12-78); Albumin/Globulin Ratio 1.1 (1.1-1.8); Alkaline Phosphatase 150 U/L (38-126); Anion Gap 10.1 mEq/L (5-15); Aspartate Amino Transferase 52 U/L (17-59); Calcium 8.7 mg/dl (8.4-10.2); Carbon Dioxide 25 mmol/L (22.0-30.0); Globulin 3.6 g/dL (1.3-3.2); Glucose 230 mg/dl (74-100); Total Protein,Serum 7.5 g/dl (6.3-8.2)
[2023-11-01 12:28] LABS: Lymphocytes % 17 % (10-50); Monocytes % 2 % (2-9); Neutrophils % 81 % (42-76); Nucleated Red Blood Cells 2; Platelet Estimate Normal; RBC Morphology Normal; Total Cells Counted 100
== END 2023-11-01 09:41 | disposition home or self-care (01) ==
LOC: INF 09:20
PROVIDERS: PCP Internal Medicine Adolescent Medicine; Visit Provider Internal Medicine Medical Oncology
DX: C18.9 Malignant neoplasm of colon, unspecified (principal)
CPT/HCPCS: 36415; 36591; 80053; 85007; 85025; 85027; J1642

== ENCOUNTER 2023-11-15 09:00 | Outpatient (CLI) | payer MEDICARE, MEDICAID, SELFPAY ==
[2023-11-15 09:07] VITALS: BMI 34.1
[2023-11-15] MEDS: SODIUM CHLORIDE 0.9% 10ML FLUSH SYRINGE 10 ML IV (09:15)
[2023-11-15 09:31] LABS: Basophils # 0.1 K/mm3 (0-0.2); Eosinophils % 0.9 % (0.1-12.0); Hematocrit 35.9 % (42.0-52.0); Hemoglobin 12.2 g/dL (14.1-18.0); Lymphocytes # 0.6 K/mm3 (0.7-4.5); Lymphocytes % 11.4 % (10-50); Mean Corpuscular Hemoglobin 30.1 pg (27.0-31.2); Mean Corpuscular Volume 88.5 fl (80-94); Mean Platelet Volume 8.2 fl (7.4-10.4); Monocytes # 0.4 K/mm3 (0.1-1.0); Monocytes % 7.8 % (1.7-9.3); Neutrophils # 3.8 K/mm3 (1.8-7.8); Platelet Count 249 K/mm3 (142-424); Red Blood Count 4.06 M/mm3 (4.60-6.20); Red Cell Distribution Width 18.6 % (11.5-17.5); White Blood Count 4.8 K/mm3 (4.8-10.8)
[2023-11-15 09:33] LABS: Albumin Level 3.8 g/dl (3.5-5.0); Chloride 100 mmol/L (98-107); Potassium 4.2 mmoL/L (3.5-5.1); Sodium 135 mmol/L (136-145)
[2023-11-15 09:36] LABS: Alanine Aminotransferase 36 U/L (12-78); Albumin/Globulin Ratio 1.1 (1.1-1.8); Alkaline Phosphatase 112 U/L (38-126); Anion Gap 13.2 mEq/L (5-15); Aspartate Amino Transferase 35 U/L (17-59); Bilirubin,Total 0.8 mg/dl (0.2-1.3); Blood Urea Nitrogen 13 mg/dl (9-20); Carbon Dioxide 26 mmol/L (22.0-30.0); Creatinine Clearance Estimated 106 mL/min (50-200); Estimated Glomerular Filt Rate 84 ml/min (>60); GFR (African American) 102 ML/MIN (>60); Globulin 3.6 g/dL (1.3-3.2); Total Protein,Serum 7.4 g/dl (6.3-8.2)
[2023-11-15 09:37] LABS: Calcium 8.8 mg/dl (8.4-10.2); Glucose 186 mg/dl (74-100)
== END 2023-11-15 09:20 | disposition home or self-care (01) ==
LOC: INF 09:01
PROVIDERS: PCP Internal Medicine Adolescent Medicine; Visit Provider Internal Medicine Medical Oncology
DX: C18.9 Malignant neoplasm of colon, unspecified (principal)
CPT/HCPCS: 36591; 80053; 85025; J1642

== ENCOUNTER 2023-11-22 11:44 | Outpatient (CLI) | payer MEDICARE, MEDICAID, SELFPAY | END 2023-11-22 23:59 | disposition home or self-care (01) | LOC: LAB 11:46 | PROVIDERS: PCP Internal Medicine Adolescent Medicine; Visit Provider Internal Medicine Pulmonary Disease | DX: Z02.9 Encounter for administrative examinations, unspecified (principal) ==

== ENCOUNTER 2023-11-23 10:50 | Outpatient (CLI) | payer MEDICARE, MEDICAID, SELFPAY ==
[2023-11-29 17:10] LABS: Aspergillus flavus Negative (Neg:<1:1); Aspergillus fumigatus Negative (Neg:<1:1); Aspergillus niger Negative (Neg:<1:1); Blastomyces Antibody Negative (Neg:<1:1); Histoplasma Antibody Quant Negative (Neg:<1:1)
== END 2023-11-23 23:59 | disposition home or self-care (01) ==
LOC: LAB 10:51
PROVIDERS: PCP Internal Medicine Adolescent Medicine; Visit Provider Internal Medicine Pulmonary Disease
DX: J18.9 Pneumonia, unspecified organism (principal); J98.4 Other disorders of lung; R91.1 Solitary pulmonary nodule; J84.10 Pulmonary fibrosis, unspecified
CPT/HCPCS: 36415; 86606; 86612; 86698; 87070; 87077; 87116; 87186; 87205; 87206; 87220

== ENCOUNTER 2023-12-13 09:11 | Outpatient (CLI) | payer MEDICARE, MEDICAID, SELFPAY ==
[2023-12-13] MEDS: SODIUM CHLORIDE 0.9% 10ML FLUSH SYRINGE 10 ML IV (09:58)
[2023-12-13 10:06] VITALS: BMI 33.3
[2023-12-13 10:13] LABS: Basophils % 0.6 % (0.1-2.0); Hematocrit 34.7 % (42.0-52.0); Hemoglobin 11.5 g/dL (14.1-18.0); Lymphocytes # 0.7 K/mm3 (0.7-4.5); Lymphocytes % 21.6 % (10-50); Mean Corpuscular HGB Conc 33.1 g/dL (31.8-35.4); Mean Corpuscular Hemoglobin 30.6 pg (27.0-31.2); Mean Corpuscular Volume 92.2 fl (80-94); Mean Platelet Volume 8.1 fl (7.4-10.4); Monocytes # 0.4 K/mm3 (0.1-1.0); Monocytes % 11.2 % (1.7-9.3); Neutrophils # 2.1 K/mm3 (1.8-7.8); Neutrophils % 65.6 % (37.0-80.0); Platelet Count 285 K/mm3 (142-424); Red Blood Count 3.77 M/mm3 (4.60-6.20); White Blood Count 3.2 K/mm3 (4.8-10.8)
[2023-12-13 10:18] LABS: Alanine Aminotransferase 24 U/L (12-78); Albumin Level 3.6 g/dl (3.5-5.0); Alkaline Phosphatase 75 U/L (38-126); Anion Gap 10.3 mEq/L (5-15); Aspartate Amino Transferase 33 U/L (17-59); Bilirubin,Total 0.6 mg/dl (0.2-1.3); Blood Urea Nitrogen 14 mg/dl (9-20); Calcium 8.4 mg/dl (8.4-10.2); Carbon Dioxide 29 mmol/L (22.0-30.0); Chloride 106 mmol/L (98-107); Creatinine Clearance Estimated 104 mL/min (50-200); Estimated Glomerular Filt Rate 84 ml/min (>60); GFR (African American) 102 ML/MIN (>60); Globulin 3.5 g/dL (1.3-3.2); Glucose 114 mg/dl (74-100); Potassium 4.3 mmoL/L (3.5-5.1); Sodium 141 mmol/L (136-145); Total Protein,Serum 7.1 g/dl (6.3-8.2)
== END 2023-12-13 09:28 | disposition home or self-care (01) ==
LOC: INF 09:12
PROVIDERS: PCP Internal Medicine Adolescent Medicine; Visit Provider Internal Medicine Medical Oncology
DX: C18.9 Malignant neoplasm of colon, unspecified (principal)
CPT/HCPCS: 36591; 80053; 85025; J1642

== ENCOUNTER 2024-01-05 07:47 | Outpatient (CLI) | payer MEDICARE, MEDICAID, SELFPAY ==
--- NOTE | 2024-01-05 07:48 | CT_ITS ---
FINAL REPORT TECHNIQUE: Thin section axial images were obtained through the abdomen after intravenous contrast. Oral contrast was given. Reconstruction images were obtained from the axial data. Exam was performed using dose reduction techniques. CLINICAL HISTORY: efficacy metastatic colorectal carcinoma COMPARISON: 09/28/2023 FINDINGS: There are hypodense lesions, predominantly in the left lobe of the liver. Largest lesion measures 65 mm, was 54 mm. The more lateral lesion in the left lobe measures 21 mm, was 10 mm. The gallbladder is present. Hypodense lesion has increased in the spleen measuring 38 mm, was 17 mm. Left adrenal nodule has not significantly changed. The pancreas and kidneys are without acute abnormality. There is no evidence of small bowel obstruction. There are postoperative changes from partial right colectomy. There is a ventral hernia containing fat and small bowel. There has been interval increase in size and multiple abdomen lymph nodes. Mesenteric lymph node measures 26 mm, was 20 mm. Precaval node measures 22 mm, was 15 mm. The pelvic solid organs are unremarkable. The prostate is normal. The appendix is normal.. There is no evidence of ascites.. No acute osseous abnormalities identified. IMPRESSION: Progression of disease in the abdomen/pelvis with interval increase in size of hepatic metastases, splenic metastases, and lymph node metastases. Reviewed, Interpreted and Dictated by Nikole Santamaria MD Transcribed by Suki Butts Authenticated and . [facility]
--- NOTE | 2024-01-05 07:48 | CT_ITS ---
FINAL REPORT TECHNIQUE: Thin section axial images were obtained from the thoracic inlet through the upper abdomen after intravenous contrast injection. Reconstruction images were obtained from the axial data. Exam was performed using dose reduction technique. CLINICAL HISTORY: efficacy metastatic colorectal carcinoma COMPARISON: 09/28/2023 FINDINGS: There is no axillary lymphadenopathy. There is stable mediastinal and hilar lymphadenopathy. AP window node measures 20 mm, was 21 mm. Finding is unchanged. There is no pleural or pericardial effusion. There are too numerous to count pulmonary nodules and masses. Previously measured left lower lobe lesion is 31 mm, was 39 mm. Right lower lobe lesion measures 45 mm, was 46 mm. This nodule is unchanged. There are no appreciable changes in any remaining lesions. No acute osseous abnormality. IMPRESSION: Stable pulmonary and thoracic lymph node metastases. Reviewed, Interpreted and Dictated by Nikole Santamaria MD Transcribed by Suki Butts Authenticated and [facility]
[2024-01-05] MEDS: BARIUM SULFATE(READI-CAT2);450ML BOTTLE 450 ML PO (08:38)
[2024-01-05] MEDS: SODIUM CHLORIDE 0.9% 10ML SYR (RAD ONLY) 10 ML IV (08:38)
[2024-01-05] MEDS: IOPAMIDOL-370 (76%);100ML BOTTLE 75 ML IV (08:38)
== END 2024-01-05 23:59 | disposition home or self-care (01) ==
LOC: RAD 07:48
PROVIDERS: PCP Internal Medicine Adolescent Medicine; Visit Provider Internal Medicine Medical Oncology
DX: C18.9 Malignant neoplasm of colon, unspecified (principal); C78.7 Secondary malignant neoplasm of liver and intrahepatic bile duct
CPT/HCPCS: 71260; 74177; J1642; Q9967

== ENCOUNTER 2024-01-10 09:52 | Outpatient (CLI) | payer MEDICARE, MEDICAID, SELFPAY ==
[2024-01-10 11:00] VITALS: PULSE 70; PULSE 71
[2024-01-10] MEDS: ALBUTEROL 0.083% 2.5 MG/3 ML NEB IH (11:00)
[2024-01-10 11:21] VITALS: BMI 33.2
[2024-01-10 11:38] LABS: Microscopic, Urine URINE MICROSCOPIC (MICROSCOPIC)
[2024-01-10 11:42] LABS: Appearance,Urine CLEAR (Clear); Bilirubin,Urine Negative (Negative); Blood, Urine Negative (Negative); Color,Urine YELLOW (Yellow); Glucose,Urine (UA) Negative (Negative); Ketones,Urine Negative (Negative); Leukocyte Esterase,Urine Negative (Negative); Nitrate,Urine Negative (Negative); Protein,Urine Negative (Negative); Specific Gravity, Urine >= 1.030 (1.005-1.030); Urobilinogen,Urine 0.2 EU/dl (0.2)
[2024-01-10 11:44] LABS: Eosinophils % 1.6 % (0.1-12.0); Hemoglobin 11.4 g/dL (14.1-18.0); Lymphocytes # 0.8 K/mm3 (0.7-4.5); Lymphocytes % 32.1 % (10-50); Mean Corpuscular HGB Conc 33.5 g/dL (31.8-35.4); Mean Corpuscular Hemoglobin 31.8 pg (27.0-31.2); Mean Corpuscular Volume 94.9 fl (80-94); Mean Platelet Volume 8.4 fl (7.4-10.4); Monocytes # 0.3 K/mm3 (0.1-1.0); Monocytes % 11.7 % (1.7-9.3); Neutrophils # 1.4 K/mm3 (1.8-7.8); Neutrophils % 53.7 % (37.0-80.0); Platelet Count 240 K/mm3 (142-424); Red Blood Count 3.58 M/mm3 (4.60-6.20); Red Cell Distribution Width 20.2 % (11.5-17.5); White Blood Count 2.6 K/mm3 (4.8-10.8)
[2024-01-10 12:05] LABS: Alanine Aminotransferase 22 U/L (12-78); Albumin/Globulin Ratio 1.1 (1.1-1.8); Alkaline Phosphatase 91 U/L (38-126); Anion Gap 11.9 mEq/L (5-15); Aspartate Amino Transferase 34 U/L (17-59); Bilirubin,Total 0.7 mg/dl (0.2-1.3); Blood Urea Nitrogen 14 mg/dl (9-20); Calcium 8.6 mg/dl (8.4-10.2); Carbon Dioxide 24 mmol/L (22.0-30.0); Chloride 107 mmol/L (98-107); Creatinine Clearance Estimated 102 mL/min (50-200); Estimated Glomerular Filt Rate 84 ml/min (>60); GFR (African American) 102 ML/MIN (>60); Globulin 3.5 g/dL (1.3-3.2); Glucose 115 mg/dl (74-100); Potassium 3.9 mmoL/L (3.5-5.1); Sodium 139 mmol/L (136-145); Total Protein,Serum 7.5 g/dl (6.3-8.2)
[2024-01-10 12:16] LABS: Squamous Epithelial Cell,Urine Occasional #/hpf (0-5)
[2024-01-10] MEDS: SODIUM CHLORIDE 0.9% 10ML FLUSH SYRINGE 10 ML IV (12:29)
== END 2024-01-10 11:40 | disposition home or self-care (01) ==
LOC: INF 09:53
PROVIDERS: PCP Internal Medicine Adolescent Medicine; Visit Provider Internal Medicine Medical Oncology
DX: C18.9 Malignant neoplasm of colon, unspecified (principal); C78.7 Secondary malignant neoplasm of liver and intrahepatic bile duct
CPT/HCPCS: 36591; 80053; 81001; 82378; 85025; 94060; 94618; 94640; 94726; 94729; G0463; J1642; J7613

== ENCOUNTER 2024-02-08 08:44 | Outpatient (CLI) | payer MEDICARE, MEDICAID, SELFPAY ==
[2024-02-08 08:52] VITALS: BMI 33.4
[2024-02-08 09:00] VITALS: BP 142/68; PULSE 78
[2024-02-08] MEDS: SODIUM CHLORIDE 0.9% 10ML FLUSH SYRINGE 10 ML IV (09:00)
[2024-02-08 09:18] LABS: Basophils % 0.4 % (0.1-2.0); Eosinophils # 0.2 K/mm3 (0.0-0.4); Eosinophils % 2.2 % (0.1-12.0); Hematocrit 34.9 % (42.0-52.0); Hemoglobin 11.4 g/dL (14.1-18.0); Lymphocytes # 0.5 K/mm3 (0.7-4.5); Lymphocytes % 6.8 % (10-50); Mean Corpuscular HGB Conc 32.7 g/dL (31.8-35.4); Mean Corpuscular Hemoglobin 30.5 pg (27.0-31.2); Mean Corpuscular Volume 93.3 fl (80-94); Mean Platelet Volume 10.3 fl (7.4-10.4); Monocytes # 0.5 K/mm3 (0.1-1.0); Monocytes % 6.6 % (1.7-9.3); Neutrophils # 6.1 K/mm3 (1.8-7.8); Neutrophils % 83.5 % (37.0-80.0); Platelet Count 270 K/mm3 (142-424); Red Blood Count 3.74 M/mm3 (4.60-6.20); Red Cell Distribution Width 15.8 % (11.5-17.5); White Blood Count 7.3 K/mm3 (4.8-10.8)
[2024-02-08 09:21] LABS: Chloride 104 mmol/L (98-107)
[2024-02-08 09:22] LABS: Albumin Level 3.4 g/dl (3.5-5.0); Potassium 4.1 mmoL/L (3.5-5.1); Sodium 138 mmol/L (136-145)
[2024-02-08 09:24] LABS: Alanine Aminotransferase 45 U/L (12-78); Aspartate Amino Transferase 43 U/L (17-59); Blood Urea Nitrogen 14 mg/dl (9-20); Creatinine Clearance Estimated 103 mL/min (50-200); Estimated Glomerular Filt Rate 84 ml/min (>60); GFR (African American) 102 ML/MIN (>60)
[2024-02-08 09:25] LABS: Albumin/Globulin Ratio 0.9 (1.1-1.8); Alkaline Phosphatase 121 U/L (38-126); Anion Gap 12.1 mEq/L (5-15); Bilirubin,Total 0.5 mg/dl (0.2-1.3); Calcium 8.4 mg/dl (8.4-10.2); Carbon Dioxide 26 mmol/L (22.0-30.0); Globulin 3.9 g/dL (1.3-3.2); Glucose 157 mg/dl (74-100); Total Protein,Serum 7.3 g/dl (6.3-8.2)
== END 2024-02-08 09:10 | disposition home or self-care (01) ==
PROVIDERS: PCP Internal Medicine Adolescent Medicine; Visit Provider Internal Medicine Medical Oncology
DX: C18.9 Malignant neoplasm of colon, unspecified (principal)
CPT/HCPCS: 36591; 80053; 85025; J1642

== ENCOUNTER 2024-02-10 12:42 | Inpatient (IN) | payer MEDICARE, MEDICAID, SELFPAY ==
[2024-02-10] VITALS (17 sets, daily range): BP systolic 113–141; BP diastolic 56–96; PULSE 61–84; RESP 15–35; TEMP 36.4–36.7; O2SAT 90–99; BMI 33.3; BMI 31.8
--- NOTE | 2024-02-10 12:52 | ECG_ITS ---
APPROVED REPORT Exam: Resting ECG HR:82 bpm ECG Measurements Heart Rate 82 AXES OK 180 P 72 QRSd 90 QRS 115 QT 341 T 71 QTc 380 Conclusion SINUS RHYTHM RIGHT AXIS DEVIATION [QRS AXIS > 100] PATTERN CONSISTENT WITH PULMONARY DISEASE ABNORMAL ECG UNCONFIRMED REPORT Electronically signed by : Juan F Dodson, 02/10/2024 16:12:55
--- NOTE | 2024-02-10 12:52 | CT_ITS ---
PROCEDURE INFORMATION: Exam: CTA Chest With Contrast Exam date and time: 02/10/2024 1:46 PM Age: 68 years old Clinical indication: Shortness of breath; Additional info: SOA, metastatic colorectal carcinoma TECHNIQUE: Imaging protocol: Computed tomographic angiography of the chest with contrast. Exam focused on the arteries. 3D rendering (Not supervised by radiologist): MIP and/or 3D reconstructed images were created by the technologist. Radiation optimization: All CT scans at this facility use at least one of these dose optimization techniques: automated exposure control; mA and/or kV adjustment per patient size (includes targeted exams where dose is matched to clinical indication); or iterative reconstruction. Contrast material: ISOVUE 370; Contrast volume: 70 ml; Contrast route: INTRAVENOUS (IV); COMPARISON: CT ANGIO CHEST PE PROTOCOL 01/16/2023 2:13 PM FINDINGS: Pulmonary arteries: Negative for acute pulmonary embolism. Aorta: Unremarkable. No aortic aneurysm. No aortic dissection. Lungs: Extensive solid and cavitary nodules diffusely throughout both lungs, compatible with known history of colorectal metastases. Pleural spaces: Large (approximately 60%) left pneumothorax. Heart: Unremarkable. No cardiomegaly. No pericardial effusion. Mediastinal space: No mediastinal shift. Lymph nodes: Stable mediastinal and hilar lymphadenopathy. Liver: Stable large metastasis in the left hepatic lobe and suspected metastases in the spleen and left adrenal gland. Stable luana hepatis lymphadenopathy. Bones/joints: Unremarkable. No acute fracture. Soft tissues: Unremarkable. IMPRESSION: 1. Negative for acute pulmonary embolism. 2. Large (approximately 60%) left pneumothorax. 3. Extensive solid and cavitary nodules diffusely throughout both lungs, compatible with known history of colorectal metastases. 4. Stable large metastasis in the left hepatic lobe and suspected metastases in the spleen and left adrenal gland. Stable luana hepatis lymphadenopathy. Critical conference call requested, Dr. Dodson advised he's aware of pneumothorax.
--- NOTE | 2024-02-10 12:55 | ED_ITS ---
<Statement entered by Travis Dodson MD - 02/13/24 21:35> I was consulted by the ANGELIC, and we discussed the complexity of the problems being addressed. I approved the treatment and management plan for this patient's care in the emergency department, thus performing a substantive portion of the medical decision making. Travis Dodson MD, SUSANNA, FACEP Discharge Plan Disposition Patient Disposition: Admitted Condition: Fair Clinical Impressions Clinical Impression: Colon cancer metastasized to lung Pneumothorax Qualifiers: Pneumothorax type: other pneumothorax Qualified Code(s): J93.83 - Other pneumothorax Discharge ED Provider: Mike Rodriguez HPI <Mandeep Tirado ([facility]), DUMPER BAILER OPERATOR - Last Filed: 02/10/24 16:10> General Chief Complaint: Chest Pain Stated Complaint: chest pain Time Seen by Provider: 02/10/24 12:52 Mode of Arrival: Ambulatory Source of Information: Patient Limitations: No Limitations History of Present Illness HPI narrative: 68-year-old male presents for increased shortness of breath. Patient states he has been short of breath for over a year but symptoms have increased over the last couple of days. Patient states he has a history of PEs. Patient states he is currently undergoing treatment for colon cancer, takes oral chemo 21 days a month. Patient states he has been receiving treatment for over 3 years. Patient denies any cardiac history Related Data Home Medications ?Medication ?Instructions ?Recorded ?Confirmed diltiazem HCl 180 mg capsule,24 180 mg PO DAILY blood pressure 06/09/22 02/10/24 hr,extended release albuterol sulfate 90 mcg/actuation 2 inh inhalation QIDP PRN 02/11/24 02/11/24 aerosol inhaler shortness of breath or wheezing fruquintinib 5 mg capsule 5 mg PO DAILY 02/11/24 02/11/24 (Fruzaqla) rivaroxaban 15 mg tablet (Xarelto) 15 mg PO QPMWITHMEAL 02/11/24 02/11/24 Allergies Allergy/AdvReac Type Severity Reaction Status Date / Time No Known Allergies Allergy Verified 01/10/24 11:45 PFSH <Mandeep Tirado ([facility]), DUMPER BAILER OPERATOR - Last Filed: 02/10/24 16:10> PFS Disclaimer: The information contained in this section may have been updated after the patient was seen, as this information can be updated by other users. Medical History , DUMPER BAILER OPERATOR) Multiple lung nodules on CT Stopped smoking with greater than 20 pack year history Cavitary lesion of lung Port-A-Cath in place History of chemotherapy Arthritis Cancer Arrhythmia Atrial fibrillation with RVR Surgical History , DUMPER BAILER OPERATOR) Hx of colonoscopy History of colon resection Family History , DUMPER BAILER OPERATOR) Cancer Social History , DUMPER BAILER OPERATOR) Smoking Status: Former smoker alcohol intake: never substance use type: denies use current occupational status: retired Travel in the last 8 weeks: None household members: none housing: house current occupation: SELF EMPLOYED[employer] current occupational exposures/hazards: No caffeine: Yes Have you lived/traveled outside US in past 30 days?: No Contact w/someone who lives/traveled outside US past 30 days?: No Exposure to someone with infectious disease in past 14 days?: No Do you have a fever (greater than 100.4 F or 38 C)?: No Have you tested positive for COVID-19: No Exposed to someone with COVID-19 in past 14 days?: No Do you have a sore throat?: No Do you have a cough?: No Do you have any weakness?: No Do you have any diarrhea?: No Are you experiencing any unusual bleeding?: No Do you have any muscle aches/pain?: Yes Do you have any abdominal pain?: No Are you experiencing loss of taste or smell?: No Other Medical History Have you received the Flu Vaccine for this season: No Have you received the Pneumonia Vaccine: Yes <[facility]), DUMPER BAILER OPERATOR - Last Filed: 02/10/24 16:10> ROS Obtained: Yes Systems reviewed as appropriate & no additional complaints except as documented Physical Exam <Mandeep Nov[facility]UN[facility] DelongN - Last Filed: 02/10/24 16:10> General General appearance: alert and in no apparent distress Head Head exam: atraumatic Eye Eye exam: Present normal appearance ENT ENT exam: Present normal exam Chest Chest inspection: Present normal inspection Respiratory Respiratory exam: Present other Expanded Respiratory Exam Location: Upper: decreased breath sounds and Lower: decreased breath sounds Cardiovascular Cardiovascular exam: Present regular rate and normal rhythm Abdominal Exam Abdominal exam: Present soft and normal bowel sounds Neurological Exam Neurological exam: Present alert and oriented X3 Skin Skin exam: Present warm HEART Score <Mandeep Tirado ([facility]), DUMPER BAILER OPERATOR - Last Filed: 02/10/24 16:10> HEART Score HEART Score assessment performed?: Yes History (anamnesis): Slightly suspicious ECG: Normal Age: >65 years Risk factors: No known risk factors Troponin: </= normal limit HEART Score: 2 <Travis Dodson MD - Last Filed: 02/13/24 21:36> HEART Score HEART Score: 2 Procedures <Travis Dodson MD - Last Filed: 02/13/24 21:36> Chest Tube Chest Tube 1: Chest Tube Location: left Size of Tube (cm): 7 Chest Tube Prep: Yes betadine prep, sterile drapes applied and other Local Anesthetic: lidocaine 1% and with epi Amount of anesthesia used (mL): 10 Incision Made With: #10 blade Post Procedure: sutured to skin and sterile dressing applied Tube Drainage: other (air) Post Procedure CXR?: Yes Patient Tolerated Procedure: Yes Progress: Patient required a second attempt first attempt did not enter the chest wall cavity second attempt was successful. No complications. Of note patient is on Xarelto had a risk-benefit discussion with him regarding bleeding but we need to evacuate this large pneumothorax. He understood the risk and benefits. Also discussed the case with Dr. Fowler who is aware the patient and will follow the patient inpatient. Critical Care <Travis Dodson MD - Last Filed: 02/13/24 21:36> Critical Care Time Critical Care Time: Yes Attestation: On 02/10/24, the high probability of a clinically significant, sudden or life threatening deterioration of the following system(s) required my full and direct attention, intervention and personal management. The time I documented below is in addition to time spent performing reported procedures but includes the following listed in this critical care notation. Total Time Total Critical Care Time: 65 Medical Decision Making <Mandeep Tirado ([facility]), DUMPER BAILER OPERATOR - Last Filed: 02/10/24 16:10> Medical Records Medical records reviewed: Yes I reviewed the patient's medical records. Rene Inquiry Pt receiving controlled substance: No Vital Signs Vital Signs: 02/10/24 12:43 02/10/24 12:56 02/10/24 13:31 Temperature 98.1 F Temperature Source Oral Pulse Rate 84 79 Pulse Rate [Left Radial] 82 Respiratory Rate 19 23 Blood Pressure 125/87 Blood Pressure [Right Arm] 130/94 H Blood Pressure Mean [Right Arm] 106 02 Sat by Pulse Oximetry 95 90 L Oxygen Delivery Method Room Air Nasal Cannula Oxygen Flow Rate (LPM) 2 02/10/24 14:00 02/10/24 14:30 02/10/24 15:04 Temperature Temperature Source Pulse Rate 64 70 75 Pulse Rate [Left Radial] Respiratory Rate 23 22 15 Blood Pressure 129/85 125/88 123/81 Blood Pressure [Right Arm] Blood Pressure Mean [Right Arm] 02 Sat by Pulse Oximetry 94 L 92 L 94 L Oxygen Delivery Method Nasal Cannula Nasal Cannula Oxygen Flow Rate (LPM) 2 2 02/10/24 15:15 02/10/24 15:30 02/10/24 15:40 Temperature Temperature Source Pulse Rate 74 71 69 Pulse Rate [Left Radial] Respiratory Rate 29 H 35 H 20 Blood Pressure 137/84 113/88 116/75 Blood Pressure [Right Arm] Blood Pressure Mean [Right Arm] 02 Sat by Pulse Oximetry 96 95 98 Oxygen Delivery Method Nasal Cannula Nasal Cannula Oxygen Flow Rate (LPM) 2 2 02/10/24 15:45 02/10/24 16:00 02/10/24 16:30 Temperature Temperature Source Pulse Rate 70 61 64 Pulse Rate [Left Radial] Respiratory Rate 24 15 26 H Blood Pressure 120/85 128/84 Blood Pressure [Right Arm] Blood Pressure Mean [Right Arm] 02 Sat by Pulse Oximetry 98 98 99 Oxygen Delivery Method Nasal Cannula Nasal Cannula Nasal Cannula Oxygen Flow Rate (LPM) 2 2 2 02/10/24 17:00 02/10/24 17:30 02/10/24 17:57 Temperature 97.9 F Temperature Source Pulse Rate 61 64 62 Pulse Rate [Left Radial] Respiratory Rate 22 27 H 17 Blood Pressure 121/78 141/96 H 141/56 H Blood Pressure [Right Arm] Blood Pressure Mean [Right Arm] 02 Sat by Pulse Oximetry 98 98 Oxygen Delivery Method Room Air Nasal Cannula Oxygen Flow Rate (LPM) 2 2 Lab Data Lab results reviewed: Yes I reviewed the patient's lab results. Labs: Lab Results 02/10/24 12:52: WBC 9.2 D, RBC 4.23 L, Hgb 12.8 L, Hct 38.8 L, MCV 91.7, MCH 30.3, MCHC 33.0, RDW 15.8, Plt Count 320, MPV 9.8, Neut % (Auto) 83.1 H, Lymph % (Auto) 8.8 L, Wallace % (Auto) 6.0, Eos % (Auto) 1.4, Baso % (Auto) 0.3, Neut # (Auto) 7.6, Lymph # (Auto) 0.8, Wallace # (Auto) 0.6, Eos # (Auto) 0.1, Baso # (Auto) 0.0, Sodium 137, Potassium 4.0, Chloride 102, Carbon Dioxide 28, Anion Gap 11.0, BUN 15, Creatinine 0.90, Estimated Creat Clear 103, Estimated GFR 84, Est GFR ( Amer) 102, Glucose 133 H, Calcium 9.1, Total Bilirubin 0.5, AST 39, ALT 41, Alkaline Phosphatase 126, Troponin I < 0.01, Total Protein 8.6 H, Albumin 4.1, Globulin 4.5 H, Albumin/Globulin Ratio 0.9 L, HIV Ag/Ab Combo Qual Negative 02/12/24 06:35 02/12/24 06:35 Response Orders (Tests/Meds): ED MEDICATIONS Discontinued Medications Generic Name Dose Route Start Last Admin Trade Name Freq PRN Reason Stop Dose Admin Acetaminophen 650 mg 02/10/24 19:48 Acetaminophen 325mg Tab PO 03/11/24 19:47 Q4HP PRN Fever or Mild Pain (1-3) Hydrocodone Bitart/Acetaminophen 1 tab 02/10/24 19:48 Hydrocodone/Apap 5/325 Mg Tablet PO 03/11/24 19:47 Q4HP PRN Mild to Moderate Pain (1-6) Fluticasone Propionate 2 spray 02/12/24 16:45 02/12/24 16:43 Fluticasone Prop 50mcg Nasal Raymond 16gm NS 03/13/24 16:44 2 sprays DAILY BRIANNA Administration Iopamidol 70 ml 02/10/24 13:50 02/10/24 13:52 Iopamidol-370 (76%);100ml Bottle IV 02/10/24 13:51 70 ml ONCE ONE Administration Morphine Sulfate 2 mg 02/10/24 19:48 Morphine 2mg/Ml Syringe IV 03/11/24 19:47 Q2HP PRN Severe Pain (7-10) Pt Own Med *Fruzaqla 5 mg 02/11/24 11:45 02/12/24 09:09 5 Mg Cap* PO 03/12/24 11:44 5 mg DAILY BRIANNA Administration Pt Own Med *Xarelto 1 each 02/11/24 17:30 02/11/24 17:08 15 Mg Tab* PO 03/12/24 17:29 1 each QPMWITHMEAL BRIANNA Administration Pt Own Med * 1 each 02/11/24 12:15 02/12/24 09:09 Diltiazem 180 Mg Er PO 03/12/24 12:14 1 each Cap* DAILY BRIANNA Administration Ondansetron HCl 4 mg 02/10/24 19:48 Ondansetron 4mg/2ml Vial IV 03/11/24 19:47 Q8HP PRN Nausea Sodium Chloride 50 ml 02/10/24 13:50 02/10/24 13:51 0.9 % Sodium Chloride 50 Ml Vial IV 02/10/24 13:51 50 ml ONCE ONE Administration Sodium Chloride 10 ml 02/10/24 13:50 02/10/24 13:52 Sodium Chloride 0.9% 10ml Syr (Rad Only) IV 03/11/24 13:49 10 ml NEEDED PRN Administration Maintain IV Site Sodium Chloride 10 ml 02/11/24 11:09 Sodium Chloride 0.9% 10ml Flush Syringe IV 03/12/24 11:08 NEEDED PRN Maintain IV Site Trazodone HCl 50 mg 02/11/24 20:35 02/12/24 00:46 Trazodone 50mg Tablet PO 03/12/24 20:34 50 mg HS BRIANNA Administration ORDERS Category Date Time Status CT angio chest PE protocol Stat Cat Scan 02/10/24 12:52 Completed Chest XR -- portable [XR chest portable] Stat Exams 02/10/24 15:26 Completed XR chest portable Stat Exams 02/10/24 15:35 Completed CBC w/Auto Diff [Complete Blood Count Auto Diff] Stat Lab 02/10/24 12:52 Completed CMP [Comprehensive Metabolic Panel] Stat Lab 02/10/24 12:52 Completed HIV Combo Stat Lab 02/10/24 12:52 Completed Hep C Ab with Reflex to RNA Stat Lab 02/10/24 12:52 Received Trop I [Troponin I] Stat Lab 02/10/24 12:52 Completed Troponin I Q3H Lab 02/10/24 19:00 Completed Troponin I Q3H Lab 02/10/24 22:[address] Scan: Chest Time Received: 12:[address] Reviewed: Yes I have reviewed the patient's CT results Preliminary Findings: Abnormal Findings Narrative: Pneumothorax, metastatic disease US Data ED US Reviewed: Yes I have reviewed the patient's US results MDM Narrative Medical Decision Narrative: In summary patient is a 68-year-old male who presents to the emergency department for evaluation of shortness of breath. Patient is hemodynamically stable upon arrival, afebrile. Diminished lung sounds on exam, O2 saturation decreased with movement or talking.. Differential diagnosis includes PE, pneumonia. Initial workup will be conducted with CT chest, EKG. Initial inventions include CT chest with contrast. Initial workup reviewed by nv CT shows pneumothorax and metastatic disease. Upon repeat evaluation chest tube placed at bedside with improvement. Given this patient will be admitted for chest tube management. Documented with senior asset manager normal sinus rhythm at 1609 <Travis Dodson MD - Last Filed: 02/13/24 21:36> Vital Signs Vital Signs: 02/10/24 12:43 02/10/24 12:56 02/10/24 13:31 Temperature 98.1 F Temperature Source Oral Pulse Rate 84 79 Pulse Rate [Left Radial] 82 Respiratory Rate 19 23 Blood Pressure 125/87 Blood Pressure [Right Arm] 130/94 H Blood Pressure Mean [Right Arm] 106 02 Sat by Pulse Oximetry 95 90 L Oxygen Delivery Method Room Air Nasal Cannula Oxygen Flow Rate (LPM) 2 02/10/24 14:00 02/10/24 14:30 02/10/24 15:04 Temperature Temperature Source Pulse Rate 64 70 75 Pulse Rate [Left Radial] Respiratory Rate 23 22 15 Blood Pressure 129/85 125/88 123/81 Blood Pressure [Right Arm] Blood Pressure Mean [Right Arm] 02 Sat by Pulse Oximetry 94 L 92 L 94 L Oxygen Delivery Method Nasal Cannula Nasal Cannula Oxygen Flow Rate (LPM) 2 2 02/10/24 15:15 02/10/24 15:30 02/10/24 15:40 Temperature Temperature Source Pulse Rate 74 71 69 Pulse Rate [Left Radial] Respiratory Rate 29 H 35 H 20 Blood Pressure 137/84 113/88 116/75 Blood Pressure [Right Arm] Blood Pressure Mean [Right Arm] 02 Sat by Pulse Oximetry 96 95 98 Oxygen Delivery Method Nasal Cannula Nasal Cannula Oxygen Flow Rate (LPM) 2 2 02/10/24 15:45 02/10/24 16:00 02/10/24 16:30 Temperature Temperature Source Pulse Rate 70 61 64 Pulse Rate [Left Radial] Respiratory Rate 24 15 26 H Blood Pressure 120/85 128/84 Blood Pressure [Right Arm] Blood Pressure Mean [Right Arm] 02 Sat by Pulse Oximetry 98 98 99 Oxygen Delivery Method Nasal Cannula Nasal Cannula Nasal Cannula Oxygen Flow Rate (LPM) 2 2 2 02/10/24 17:00 02/10/24 17:30 02/10/24 17:57 Temperature 97.9 F Temperature Source Pulse Rate 61 64 62 Pulse Rate [Left Radial] Respiratory Rate 22 27 H 17 Blood Pressure 121/78 141/96 H 141/56 H Blood Pressure [Right Arm] Blood Pressure Mean [Right Arm] 02 Sat by Pulse Oximetry 98 98 Oxygen Delivery Method Room Air Nasal Cannula Oxygen Flow Rate (LPM) 2 2 Lab Data Labs: Lab Results 02/10/24 12:52: WBC 9.2 D, RBC 4.23 L, Hgb 12.8 L, Hct 38.8 L, MCV 91.7, MCH 30.3, MCHC 33.0, RDW 15.8, Plt Count 320, MPV 9.8, Neut % (Auto) 83.1 H, Lymph % (Auto) 8.8 L, Wallace % (Auto) 6.0, Eos % (Auto) 1.4, Baso % (Auto) 0.3, Neut # (Auto) 7.6, Lymph # (Auto) 0.8, Wallace # (Auto) 0.6, Eos # (Auto) 0.1, Baso # (Auto) 0.0, Sodium 137, Potassium 4.0, Chloride 102, Carbon Dioxide 28, Anion Gap 11.0, BUN 15, Creatinine 0.90, Estimated Creat Clear 103, Estimated GFR 84, Est GFR ( Amer) 102, Glucose 133 H, Calcium 9.1, Total Bilirubin 0.5, AST 39, ALT 41, Alkaline Phosphatase 126, Troponin I < 0.01, Total Protein 8.6 H, Albumin 4.1, Globulin 4.5 H, Albumin/Globulin Ratio 0.9 L, HIV Ag/Ab Combo Qual Negative Response Orders (Tests/Meds): ED MEDICATIONS Discontinued Medications Generic Name Dose Route Start Last Admin Trade Name Freq PRN Reason Stop Dose Admin Acetaminophen 650 mg 02/10/24 19:48 Acetaminophen 325mg Tab PO 03/11/24 19:47 Q4HP PRN Fever or Mild Pain (1-3) Hydrocodone Bitart/Acetaminophen 1 tab 02/10/24 19:48 Hydrocodone/Apap 5/325 Mg Tablet PO 03/11/24 19:47 Q4HP PRN Mild to Moderate Pain (1-6) Fluticasone Propionate 2 spray 02/12/24 16:45 02/12/24 16:43 Fluticasone Prop 50mcg Nasal Raymond 16gm NS 03/13/24 16:44 2 sprays DAILY BRIANNA Administration Iopamidol 70 ml 02/10/24 13:50 02/10/24 13:52 Iopamidol-370 (76%);100ml Bottle IV 02/10/24 13:51 70 ml ONCE ONE Administration Morphine Sulfate 2 mg 02/10/24 19:48 Morphine 2mg/Ml Syringe IV 03/11/24 19:47 Q2HP PRN Severe Pain (7-10) Pt Own Med *Fruzaqla 5 mg 02/11/24 11:45 02/12/24 09:09 5 Mg Cap* PO 03/12/24 11:44 5 mg DAILY BRIANNA Administration Pt Own Med *Xarelto 1 each 02/11/24 17:30 02/11/24 17:08 15 Mg Tab* PO 03/12/24 17:29 1 each QPMWITHMEAL BRIANNA Administration Pt Own Med * 1 each 02/11/24 12:15 02/12/24 09:09 Diltiazem 180 Mg Er PO 03/12/24 12:14 1 each Cap* DAILY BRIANNA Administration Ondansetron HCl 4 mg 02/10/24 19:48 Ondansetron 4mg/2ml Vial IV 03/11/24 19:47 Q8HP PRN Nausea Sodium Chloride 50 ml 02/10/24 13:50 02/10/24 13:51 0.9 % Sodium Chloride 50 Ml Vial IV 02/10/24 13:51 50 ml ONCE ONE Administration Sodium Chloride 10 ml 02/10/24 13:50 02/10/24 13:52 Sodium Chloride 0.9% 10ml Syr (Rad Only) IV 03/11/24 13:49 10 ml NEEDED PRN Administration Maintain IV Site Sodium Chloride 10 ml 02/11/24 11:09 Sodium Chloride 0.9% 10ml Flush Syringe IV 03/12/24 11:08 NEEDED PRN Maintain IV Site Trazodone HCl 50 mg 02/11/24 20:35 02/12/24 00:46 Trazodone 50mg Tablet PO 03/12/24 20:34 50 mg HS BRIANNA Administration ORDERS Category Date Time Status CT angio chest PE protocol Stat Cat Scan 02/10/24 12:52 Completed Chest XR -- portable [XR chest portable] Stat Exams 02/10/24 15:26 Completed XR chest portable Stat Exams 02/10/24 15:35 Completed CBC w/Auto Diff [Complete Blood Count Auto Diff] Stat Lab 02/10/24 12:52 Completed CMP [Comprehensive Metabolic Panel] Stat Lab 02/10/24 12:52 Completed HIV Combo Stat Lab 02/10/24 12:52 Completed Hep C Ab with Reflex to RNA Stat Lab 02/10/24 12:52 Received Trop I [Troponin I] Stat Lab 02/10/24 12:52 Completed Troponin I Q3H Lab 02/10/24 19:00 Completed Troponin I Q3H Lab 02/10/24 22:15 Completed
[2024-02-10 13:00] LABS: Basophils % 0.3 % (0.1-2.0); Eosinophils # 0.1 K/mm3 (0.0-0.4); Eosinophils % 1.4 % (0.1-12.0); Hematocrit 38.8 % (42.0-52.0); Hemoglobin 12.8 g/dL (14.1-18.0); Lymphocytes # 0.8 K/mm3 (0.7-4.5); Lymphocytes % 8.8 % (10-50); Mean Corpuscular Hemoglobin 30.3 pg (27.0-31.2); Mean Corpuscular Volume 91.7 fl (80-94); Mean Platelet Volume 9.8 fl (7.4-10.4); Monocytes # 0.6 K/mm3 (0.1-1.0); Neutrophils # 7.6 K/mm3 (1.8-7.8); Neutrophils % 83.1 % (37.0-80.0); Platelet Count 320 K/mm3 (142-424); Red Blood Count 4.23 M/mm3 (4.60-6.20); Red Cell Distribution Width 15.8 % (11.5-17.5); White Blood Count 9.2 K/mm3 (4.8-10.8)
[2024-02-10 13:24] LABS: Alanine Aminotransferase 41 U/L (12-78); Albumin Level 4.1 g/dl (3.5-5.0); Albumin/Globulin Ratio 0.9 (1.1-1.8); Alkaline Phosphatase 126 U/L (38-126); Aspartate Amino Transferase 39 U/L (17-59); Bilirubin,Total 0.5 mg/dl (0.2-1.3); Blood Urea Nitrogen 15 mg/dl (9-20); Calcium 9.1 mg/dl (8.4-10.2); Carbon Dioxide 28 mmol/L (22.0-30.0); Chloride 102 mmol/L (98-107); Creatinine Clearance Estimated 103 mL/min (50-200); Estimated Glomerular Filt Rate 84 ml/min (>60); GFR (African American) 102 ML/MIN (>60); Globulin 4.5 g/dL (1.3-3.2); Glucose 133 mg/dl (74-100); Sodium 137 mmol/L (136-145); Total Protein,Serum 8.6 g/dl (6.3-8.2)
[2024-02-10 13:49] LABS: Troponin I < 0.01 ng/ml (0.00-0.034)
--- NOTE | 2024-02-10 13:50 | PC.NURSE ---
gone to CT
[2024-02-10] MEDS: 0.9 % SODIUM CHLORIDE 50 ML VIAL IV (13:51)
[2024-02-10] MEDS: IOPAMIDOL-370 (76%);100ML BOTTLE 70 ML IV (13:52)
[2024-02-10] MEDS: SODIUM CHLORIDE 0.9% 10ML SYR (RAD ONLY) 10 ML IV (13:52)
--- NOTE | 2024-02-10 13:52 | PC.NURSE ---
Patient back [facility] radiology
--- NOTE | 2024-02-10 15:10 | PC.NURSE ---
consent signed. time out performed. MD sepulveda placed left sided chest tube. confirmed with placement chest xray. vitals stable through out procedure.
--- NOTE | 2024-02-10 15:26 | XR_ITS ---
PROCEDURE INFORMATION: Exam: XR Chest Exam date and time: 02/10/2024 3:29 PM Age: 68 years old Clinical indication: Device placement; Chest tube; Additional info: Chest tube placement TECHNIQUE: Imaging protocol: Radiologic exam of the chest. Views: 1 view. COMPARISON: CT ANGIO CHEST PE PROTOCOL 02/10/2024 1:46 PM FINDINGS: Tubes, catheters and devices: Pigtail chest catheter terminates along the lateral left hemithorax. Repositioning necessary. Lungs: Extensive pulmonary nodules, some demonstrating cavitation, bilaterally compatible with known history of metastatic disease. Pleural spaces: Large left pneumothorax evident. No mediastinal shift. Heart/Mediastinum: No cardiomegaly. Vasculature: Left subclavian line terminates in the SVC. Bones/joints: Unremarkable. IMPRESSION: 1. Pigtail chest catheter terminates along the lateral left hemithorax. Repositioning necessary. 2. Large left pneumothorax evident. No mediastinal shift. 3. Extensive pulmonary nodules bilaterally, some demonstrating cavitation, compatible with known history of metastatic disease.
--- NOTE | 2024-02-10 15:35 | XR_ITS ---
PROCEDURE INFORMATION: Exam: XR Chest Exam date and time: 02/10/2024 3:36 PM Age: 68 years old Clinical indication: Device placement; Chest tube TECHNIQUE: Imaging protocol: Radiologic exam of the chest. Views: 1 view. COMPARISON: CR XR CHEST PORTABLE 02/10/2024 3:29 PM FINDINGS: Tubes, catheters and devices: Left pigtail chest catheter extends to the mid left hemithorax, in satisfactory position. Left subclavian catheter terminates in the SVC. Lungs: Extensive pulmonary nodules bilaterally, some demonstrating cavitation, compatible with known history of metastatic disease. Pleural spaces: Large left pneumothorax unchanged in size. No mediastinal shift. Heart/Mediastinum: No cardiomegaly. Bones/joints: Unremarkable. IMPRESSION: 1. Left pigtail chest catheter extends to the mid left hemithorax, in satisfactory position. 2. Large left pneumothorax unchanged in size. No mediastinal shift. 3. Extensive pulmonary nodules bilaterally, some demonstrating cavitation, compatible with known history of metastatic disease.
[2024-02-10 16:11] LABS: HIV Combo NEGATIVE (Negative)
--- NOTE | 2024-02-10 18:02 | PC.NURSE ---
arrived by w/c from ED
--- NOTE | 2024-02-10 18:42 | EXP.HP ---
History of Present Illness *Admission Date: 02/10/24 *Reason for visit:: Shortness of breath *History of present illness: This is a 68-year-old male who has a past medical history significant for colon cancer with mets to the lung (currently receiving oral chemotherapy), hernia, atrial fibrillation (Prescribe Xarelto), PE, colon perforation, and former smoker who presents with a chief complaint of increasing shortness of breath over the past 2 days. Due to patient's symptoms, he presented to the emergency room for evaluation. While in the emergency room, CTA of the chest revealed no pulmonary embolism, large left pneumothorax, extensive solid and cavitary nodules diffusely throughout both lungs, and stable large metastasis in the left hepatic lobe. Patient had chest tube placed while in the emergency room, and he has been admitted for further management. During my evaluation of the patient, patient states that shortness of breath was worse than normal. He presented because of his extreme shortness of breath. Patient was somewhat hypoxic while in the emergency room requiring supplemental oxygen. He is currently denying any chest pain, lightheadedness, dizziness, fever, chills, rigors, nausea, vomiting, or diarrhea. Additional pertinent labs obtained include a red blood cell count of 4.23, hemoglobin 12.8, hematocrit 38.8, neutrophils 83.1%, PTT of 77.8, blood glucose 133, and total protein 8.6. [facility] Disclaimer: The information contained in this section may have been updated after the patient was seen, as this information can be updated by other users. Medical History , [employer]) Multiple lung nodules on CT Stopped smoking with greater than 20 pack year history Cavitary lesion of lung Port-A-Cath in place History of chemotherapy Arthritis Cancer Arrhythmia Atrial fibrillation with RVR Surgical History , [employer]) Hx of colonoscopy History of colon resection Family History , [employer]) Cancer Social History , [employer]) Smoking Status: Former smoker alcohol intake: never substance use type: denies use current occupational status: retired Travel in the last 8 weeks: None household members: none housing: house current occupation: SELF EMPLOYED-[employer] current occupational exposures/hazards: No caffeine: Yes Have you lived/traveled outside US in past 30 days?: No Contact w/someone who lives/traveled outside US past 30 days?: No Exposure to someone with infectious disease in past 14 days?: No Do you have a fever (greater than 100.4 F or 38 C)?: No Have you tested positive for COVID-19: No Exposed to someone with COVID-19 in past 14 days?: No Do you have a sore throat?: No Do you have a cough?: No Do you have any weakness?: No Do you have any diarrhea?: No Are you experiencing any unusual bleeding?: No Do you have any muscle aches/pain?: Yes Do you have any abdominal pain?: No Are you experiencing loss of taste or smell?: No Other Medical History Have you received the Flu Vaccine for this season: Yes Have you received the Pneumonia Vaccine: Yes Review of Systems Constitutional Constitutional: Reports system reviewed and no additional complaints, except as documented Eyes Eyes: Reports system reviewed and no additional complaints, except as documented ENT Ears, Nose, Mouth, and Throat: Reports system reviewed and no additional complaints, except as documented *Cardiovascular Cardiovascular: Reports system reviewed and no additional complaints, except as documented *Respiratory Respiratory: Reports system reviewed and no additional complaints, except as documented *Gastrointestinal Gastrointestinal: Reports system reviewed and no additional complaints, except as documented *Genitourinary Genitourinary: Reports system reviewed and no additional complaints, except as documented *Musculoskeletal Musculoskeletal: Reports system reviewed and no additional complaints, except as documented Integumentary/Breasts Skin/Breast: Reports system reviewed and no additional complaints, except as documented *Neurologic Neurologic: Reports system reviewed and no additional complaints, except as documented Psychiatric Psychiatric: Reports system reviewed and no additional complaints, except as documented Endocrine Endocrine: Reports system reviewed and no additional complaints, except as documented Hematologic/Lymphatic Hematologic/Lymphatic: Reports system reviewed and no additional complaints, except as documented Allergic/Immunologic Comments: Current treatment for colon CA with met Meds Home Medications and Allergies Home Medications ?Medication ?Instructions ?Recorded ?Confirmed ?Type diltiazem HCl 180 mg capsule,24 180 mg PO DAILY blood pressure 06/09/22 02/10/24 History hr,extended release rivaroxaban 20 mg tablet (Xarelto) 20 mg PO DAILY #30 tabs 01/18/23 02/10/24 Rx albuterol sulfate 90 mcg/actuation 2 inh inhalation QID PRN shortness 11/22/23 02/10/24 Rx aerosol inhaler of breath or wheezing 90 days #8.5 grams New Prescriptions to Start Prescriptions: Allergies Allergy/AdvReac Type Severity Reaction Status Date / Time No Known Allergies Allergy Verified 01/10/24 11:45 Exam Data for Last 24 hours Vital signs and Labs for Last 24 Hours: Temp Pulse Resp BP Pulse Ox O2 Del Method O2 Flow Rate 97.9 F 62 17 141/56 H 98 Nasal Cannula 2 02/10/24 17:57 02/10/24 17:57 02/10/24 17:57 02/10/24 17:57 02/10/24 17:30 02/10/24 18:28 02/10/24 18:28 Laboratory Results - last 24 hr 02/10/24 12:52: WBC 9.2 D, RBC 4.23 L, Hgb 12.8 L, Hct 38.8 L, MCV 91.7, MCH 30.3, MCHC 33.0, RDW 15.8, Plt Count 320, MPV 9.8, Neut % (Auto) 83.1 H, Lymph % (Auto) 8.8 L, [place] % (Auto) 6.0, Eos % (Auto) 1.4, Baso % (Auto) 0.3, Neut # (Auto) 7.6, Lymph # (Auto) 0.8, [place] # (Auto) 0.6, Eos # (Auto) 0.1, Baso # (Auto) 0.0, Sodium 137, Potassium 4.0, Chloride 102, Carbon Dioxide 28, Anion Gap 11.0, BUN 15, Creatinine 0.90, Estimated Creat Clear 103, Estimated GFR 84, Est GFR ( Amer) 102, Glucose 133 H, Calcium 9.1, Total Bilirubin 0.5, AST 39, ALT 41, Alkaline Phosphatase 126, Troponin I < 0.01, Total Protein 8.6 H, Albumin 4.1, Globulin 4.5 H, Albumin/Globulin Ratio 0.9 L, HIV Ag/Ab Combo Qual Negative I & O for Last 24 hours: Intake & Output 02/07/24 02/08/24 02/09/24 02/10/24 23:59 23:59 23:59 23:59 Output Total 300 / 300 Balance -300 / -300 Weight 102.512 kg Constitutional Constitutional: no acute distress and cooperative *Routine HEENT Exam Head: Present normocephalic Eye: Present EOMI ENT: Present mucous membranes moist *Routine Neck Exam Neck: Present supple and full ROM Routine Chest/Breast/Axilla Exam Chest wall: Present tenderness and chest tube *Routine Respiratory Exam Respiratory: Present distant breath sounds Comments: Diminished breath sounds on the left *Routine Cardiovascular Exam Cardiovascular: Present Normal S1 and Normal S2 *Routine Abdominal Exam Abdominal: Present soft and normoactive bowel sounds *Routine Rectal Exam Rectal:: deferred *Routine Genitalia Exam Genitalia:: deferred *Routine Extremities Exam Extremities: Present full ROM and normal capillary refill Routine Back/Spine/Pelvis Exam Back/Spine: Present full ROM *Routine Skin Exam Skin: Present dry and warm Comments: Dressing to incision site for chest tube is clean dry and intact *Routine Neurological Exam Neurological: Present alert, oriented X3, CN II-XII intact and moving all extremities Routine Psychiatric Exam Psychiatric: Present normal affect, normal thought process, cooperative, good insight and good judgment H&P: Result Impressions 68-year-old male with known colon cancer with mets to the lungs presenting with a 2-day history of shortness of breath found to have a 60% left pneumothorax status post chest tube placement. Since placement of chest tube, shortness of breath has improved. Minimal output of serosanguineous drainage noted in atrium and chest tube. Assessment and Plan *Assessment and plan (1) Pneumothorax: Start date: 02/10/24 Start time: 20:36 Status: Acute Qualifiers: Pneumothorax type: other pneumothorax Qualified Code(s): J93.83 - Other pneumothorax Category: Medical Code(s): J93.9 - Pneumothorax, unspecified Plan: -continue chest tube to -20 cm of pressure -Two-view chest x-ray in the a.m. -Consult pulmonology -Continuous cardiac monitoring -Vital signs every 4 hours -Change dressing daily and as needed -Supplemental oxygen maintain oxygen saturation greater 94% (2) Colon cancer metastasized to lung: Start date: 02/10/24 Start time: 20:38 Status: Acute Category: Medical Code(s): C18.9 - Malignant neoplasm of colon, unspecified; C78.00 - Secondary malignant neoplasm of unspecified lung Plan: -Continue oral immunotherapy -Encourage follow-up with oncology team (3) Hyperglycemia: Start date: 02/10/24 Start time: 20:39 Status: Acute Category: Medical Code(s): R73.9 - Hyperglycemia, unspecified Plan: -Will monitor no known history of diabetes -If blood glucose remained greater than 200, will start sliding scale insulin Plan Admit patient to the [facility] unit in a inpatient status patient will require least 2 midnight stays Activity as tolerated SCDs to bilateral lower extremity Daily weight Vital signs every 4 hours Regular diet CBC/BMP daily 5 mg [place] p.o. every 4 hours as needed moderate pain 2 mg morphine IV push every 4 hours as needed severe pain 4 mg Zofran IV push every 8 hours. Nausea vomiting Full code I have discussed this case with attending physician Dr. hernandez and I look forward to more input
--- NOTE | 2024-02-10 19:10 | PC.NURSE ---
chest tube to Lt mid axillary on suction at this time at neg 120, okay per david. 2l nc tolerating well with sats at 99%. pt currently sitting on side of bed eating with friend at bs. no soa noted. pt states he does have the same discomfort as he did prior to coming to ed. urinal given to pt, urine dark with strong odor. made pt aware not to get up by himself to call for help, cb and personal items within reach. no needs at this time. 26ml sanguineous drainage from chest tube, marked on pleura vac.
[2024-02-10 19:35] LABS: Troponin I < 0.01 ng/ml (0.00-0.034)
[2024-02-10 22:49] LABS: Troponin I < 0.01 ng/ml (0.00-0.034)
[2024-02-11] VITALS (7 sets, daily range): BP systolic 129–149; BP diastolic 66–95; PULSE 60–90; RESP 16–20; TEMP 36.6–37.2; O2SAT 93–98; BMI 32.2
[2024-02-11 07:35] LABS: Basophils % 0.3 % (0.1-2.0); Eosinophils # 0.2 K/mm3 (0.0-0.4); Eosinophils % 2.2 % (0.1-12.0); Hematocrit 34.2 % (42.0-52.0); Lymphocytes # 0.8 K/mm3 (0.7-4.5); Lymphocytes % 10.9 % (10-50); Mean Corpuscular HGB Conc 32.2 g/dL (31.8-35.4); Mean Corpuscular Hemoglobin 30.1 pg (27.0-31.2); Mean Corpuscular Volume 93.4 fl (80-94); Mean Platelet Volume 9.9 fl (7.4-10.4); Monocytes # 0.6 K/mm3 (0.1-1.0); Monocytes % 8.6 % (1.7-9.3); Neutrophils # 5.3 K/mm3 (1.8-7.8); Neutrophils % 77.6 % (37.0-80.0); Platelet Count 282 K/mm3 (142-424); Red Blood Count 3.66 M/mm3 (4.60-6.20); Red Cell Distribution Width 15.8 % (11.5-17.5); White Blood Count 6.9 K/mm3 (4.8-10.8)
[2024-02-11 07:53] LABS: Anion Gap 7.8 mEq/L (5-15); Blood Urea Nitrogen 16 mg/dl (9-20); Calcium 8.8 mg/dl (8.4-10.2); Carbon Dioxide 31 mmol/L (22.0-30.0); Chloride 102 mmol/L (98-107); Creatinine Clearance Estimated 99 mL/min (50-200); Estimated Glomerular Filt Rate 74 ml/min (>60); GFR (African American) 90 ML/MIN (>60); Glucose 126 mg/dl (74-100); Potassium 4.8 mmoL/L (3.5-5.1); Sodium 136 mmol/L (136-145)
--- NOTE | 2024-02-11 09:00 | XR_ITS ---
PROCEDURE INFORMATION: Exam: XR Chest Exam date and time: 02/11/2024 9:53 AM Age: 68 years old Clinical indication: Other: Pneumothorax TECHNIQUE: Imaging protocol: Radiologic exam of the chest. Views: 2 views. COMPARISON: CR XR CHEST PORTABLE 02/10/2024 3:36 PM FINDINGS: Tubes, catheters and devices: There is a left central line catheter with its tip projected over the superior mediastinum likely right brachiocephalic/proximal superior vena cava. Left PICC thoracostomy catheter remains in place. Lungs: There is redemonstration of widespread pulmonary metastases. Pleural spaces: No detectable left pneumothorax. Heart/Mediastinum: Unremarkable. No cardiomegaly. Bones/joints: Unremarkable. IMPRESSION: 1. No detectable left pneumothorax. 2. There is redemonstration of widespread pulmonary metastases.
--- NOTE | 2024-02-11 09:16 | HMH.PHAINT1 ---
Pharmacy Intervention Comments: MEDICATION RECONCILIATION COMPLETE USING LIST FROM PULMONOLOGY OFFICE AND ONCOLOGY OFFICE VISITS, EXTERNAL PHARMACY FILL HISTORY.
[2024-02-11] MEDS: [UNRECOGNIZED DRUG - OTHER] 5 EACH PO (12:54)
[2024-02-11] MEDS: DILTIAZEM 180 MG 1 EACH PO (12:54)
--- NOTE | 2024-02-11 13:49 | EXP.PN ---
Subjective *Date: 02/11/24 *Time: 13:49 Interval history: Patient is feeling well today, no shortness of breath, chest pain, coughing. Exam Data for Last 24 hours Vital signs and Labs for Last 24 Hours: Temp Pulse Resp BP Pulse Ox O2 Del Method O2 Flow Rate 99 F 67 20 142/82 H 97 Room Air 2 02/11/24 11:40 02/11/24 11:40 02/11/24 11:40 02/11/24 11:40 02/11/24 11:40 02/11/24 13:00 02/11/24 11:40 Laboratory Results - last 24 hr 02/10/24 12:52: Potassium 4.0, Anion Gap 11.0, Troponin I < 0.01, HIV Ag/Ab Combo Qual Negative 02/10/24 19:00: Troponin I < 0.01 02/10/24 22:15: Troponin I < 0.01 02/11/24 07:20: WBC 6.9, RBC 3.66 L, Hgb 11.0 L D, Hct 34.2 L, MCV 93.4, MCH 30.1, MCHC 32.2, RDW 15.8, Plt Count 282, MPV 9.9, Neut % (Auto) 77.6, Lymph % (Auto) 10.9, [place] % (Auto) 8.6, Eos % (Auto) 2.2, Baso % (Auto) 0.3, Neut # (Auto) 5.3, Lymph # (Auto) 0.8, [place] # (Auto) 0.6, Eos # (Auto) 0.2, Baso # (Auto) 0.0, Sodium 136, Potassium 4.8, Chloride 102, Carbon Dioxide 31 H, Anion Gap 7.8, BUN 16, Creatinine 1.00, Estimated Creat Clear 99, Estimated GFR 74, Est GFR ( Amer) 90, Glucose 126 H, Calcium 8.8 I & O for Last 24 hours: Intake & Output 02/08/24 02/09/24 02/10/24 02/11/24 23:59 23:59 23:59 23:59 Intake Total 820 / 820 Output Total 326 / 526 625 / 625 Balance -326 / -526 195 / 195 Weight 97.522 kg 98.747 kg Constitutional Constitutional: no acute distress *Routine HEENT Exam Head: Present normocephalic Eye: Present EOMI and PERRL ENT: Present mucous membranes moist *Routine Neck Exam Neck: Present supple; Absent lymphadenopathy *Routine Respiratory Exam Respiratory: Present CTA bilaterally *Routine Cardiovascular Exam Cardiovascular: Present RRR *Routine Abdominal Exam Abdominal: Present soft and normoactive bowel sounds; Absent tenderness *Routine Extremities Exam Extremities: Absent cyanosis, clubbing or edema *Routine Skin Exam Skin: Present warm; Absent rash *Routine Neurological Exam Neurological: Present alert and oriented X3 Assessment and Plan *Assessment and plan (1) Colon cancer metastasized to lung: Status: Acute Category: Medical Code(s): C18.9 - Malignant neoplasm of colon, unspecified; C78.00 - Secondary malignant neoplasm of unspecified lung (2) Pneumothorax: Status: Acute Qualifiers: Pneumothorax type: other pneumothorax Qualified Code(s): J93.83 - Other pneumothorax Category: Medical Code(s): J93.9 - Pneumothorax, unspecified Plan Bari Neves is a 68-year-old male with a medical history of colon cancer with diffuse mets including to lungs who was admitted for large left-sided pneumothorax s/p chest tube. #Acute hypoxic respiratory failure, resolved #Left-sided pneumothorax - Patient states he has been coughing for the past few weeks which is not normal for him. Over the past few days, he has had increased shortness of breath. ? CTA of the chest revealed no pulmonary embolism, large left pneumothorax, extensive solid and cavitary nodules diffusely throughout both lungs, and stable large metastasis in the left hepatic lobe. ? S/p pigtail chest tube placement in the ED with significant improvement in symptoms. ? Today, patient continues to feel well, weaned to room air saturating 97%. ? Repeat CXR today demonstrates resolution of pneumothorax. ? Water-sealed chest tube. If continues to be stable, will clamp chest tube at 5 PM. ? Pulmonology consulted, appreciate recommendations. Recommend chest CT in the morning. #Stage IV colorectal carcinoma with diffuse mets ? Follows with Dr. Gonzalez and pulmonology. ? Continue for Fruzaqla 5 mg daily. #History of pulmonary emboli ? Continue Xarelto 15 mg. #A-fib ? Continue diltiazem, Xarelto. Currently rate controlled. Full code DVT prophylaxis: Home Xarelto
[2024-02-11] MEDS: XARELTO 15 MG 1 EACH PO (17:08)
--- NOTE | 2024-02-11 17:49 | PC.NURSE ---
pt a&ox4. uses urinal independently. pt often sits on the bedside. chest tube in place and dressing c/d/i. per MD orders, chest tube disconnected from suction (water seal) and pig tail clamped. home meds reordered. pt has not complained of pain this shift. pt has been weaned to room air and has tolerated well with sats 92-94%. no complaints or needs at this time. call light within reach.
[2024-02-12] VITALS: BP 132/91; PULSE 59; PULSE 60; RESP 18; TEMP 36.6; O2SAT 95
[2024-02-12] MEDS: TRAZODONE 50MG TABLET 50 MG PO (00:46)
[2024-02-12 04:00] VITALS: BP 110/64; PULSE 59; PULSE 60; RESP 20; TEMP 36.7; O2SAT 95; BMI 32.3
--- NOTE | 2024-02-12 04:54 | PC.NURSE ---
Pt A&OX4 and has tolerated room air. Chest tube has remained in place and clamped. Dressing c/d/i. He has used a urinal to void. He has not had any complaints this shift. Currently asleep with call light with reach.
--- NOTE | 2024-02-12 07:00 | XR_ITS ---
FINAL REPORT TECHNIQUE: Single view chest CLINICAL HISTORY: pneumopneumothorax COMPARISON: 02/11/2024 FINDINGS: A single view of the chest was obtained. The heart and mediastinum are within normal limits. There is a left upper chest port with the tip in the SVC. Pigtail chest tube has been removed. There are multiple bilateral pulmonary nodules which are unchanged from prior exam. No pneumothorax is identified. IMPRESSION: Multiple bilateral nodules, unchanged. No pneumothorax. Reviewed, Interpreted and Dictated by Aguilar Dunlap MD Transcribed by hSerin Cortez Authenticated and . [facility]
[2024-02-12 08:00] VITALS: BP 154/93; PULSE 80; RESP 20; TEMP 36.8; O2SAT 95
[2024-02-12 08:15] LABS: Basophils % 0.3 % (0.1-2.0); Eosinophils # 0.2 K/mm3 (0.0-0.4); Eosinophils % 2.1 % (0.1-12.0); Hemoglobin 10.8 g/dL (14.1-18.0); Lymphocytes # 0.6 K/mm3 (0.7-4.5); Lymphocytes % 9.1 % (10-50); Mean Corpuscular HGB Conc 32.7 g/dL (31.8-35.4); Mean Corpuscular Hemoglobin 30.2 pg (27.0-31.2); Mean Corpuscular Volume 92.2 fl (80-94); Mean Platelet Volume 10.6 fl (7.4-10.4); Monocytes # 0.6 K/mm3 (0.1-1.0); Monocytes % 7.9 % (1.7-9.3); Neutrophils # 5.7 K/mm3 (1.8-7.8); Neutrophils % 80.3 % (37.0-80.0); Platelet Count 297 K/mm3 (142-424); Red Blood Count 3.58 M/mm3 (4.60-6.20); Red Cell Distribution Width 15.7 % (11.5-17.5); White Blood Count 7.1 K/mm3 (4.8-10.8)
[2024-02-12 08:35] LABS: Chloride 102 mmol/L (98-107)
[2024-02-12 08:36] LABS: Albumin Level 3.3 g/dl (3.5-5.0); Potassium 4.3 mmoL/L (3.5-5.1); Sodium 137 mmol/L (136-145)
[2024-02-12 08:38] LABS: Alanine Aminotransferase 31 U/L (12-78); Albumin/Globulin Ratio 0.9 (1.1-1.8); Anion Gap 11.3 mEq/L (5-15); Aspartate Amino Transferase 38 U/L (17-59); Blood Urea Nitrogen 15 mg/dl (9-20); Carbon Dioxide 28 mmol/L (22.0-30.0); Creatinine Clearance Estimated 99 mL/min (50-200); Estimated Glomerular Filt Rate 96 ml/min (>60); GFR (African American) 116 ML/MIN (>60); Globulin 3.8 g/dL (1.3-3.2); Total Protein,Serum 7.1 g/dl (6.3-8.2)
[2024-02-12 08:39] LABS: Alkaline Phosphatase 109 U/L (38-126); Bilirubin,Total 0.5 mg/dl (0.2-1.3); Calcium 8.6 mg/dl (8.4-10.2); Glucose 115 mg/dl (74-100)
[2024-02-12] MEDS: [UNRECOGNIZED DRUG - OTHER] 5 EACH PO (09:09)
[2024-02-12] MEDS: DILTIAZEM 180 MG 1 EACH PO (09:09)
--- NOTE | 2024-02-12 10:29 | CT_ITS ---
FINAL REPORT TECHNIQUE: Axial images were obtained through the chest without contrast. This study was performed with techniques to keep radiation doses as low as reasonably achievable (ALARA). Individualized dose reduction techniques using automated exposure control or adjustment of mA and/or kV according to the patient's size were employed. CLINICAL HISTORY: eval for pneumothorax COMPARISON: CTA of the chest 02/10/2024 FINDINGS: CT CHEST: CT examination of the chest was performed without intravenous contrast and is compared to a prior CTA of the chest dated 02/10/2024. There is a left upper anterior portacatheter present with its tip in the superior vena cava. Calcified subcarinal nodes are once again identified. There are multiple cavitary nodules noted through the lung ravi bilaterally, consistent with metastases. In the interval since the prior exam, a large bore chest tube has been inserted in the left hemithorax, and the pneumothorax seen on the prior CT has resolved. Note is made of a 6.5 cm mass in the right lobe of the liver, lobular in appearance, likely a metastatic lesion as well. [place] hepatis adenopathy is again noted. IMPRESSION: In the interval since the prior CT of 02/10/2024 a large left chest tube has been placed, and no residual pneumothorax is identified. Multiple cavitary pulmonary nodules are again noted, consistent with metastatic disease. Lobular low-density in the right lobe of the liver, also likely metastatic, also seen on the prior CT. Enlarged [place] hepatis nodes are identified. Reviewed, Interpreted and Dictated by Aguilar Dunlap MD Transcribed by Rachael Pantoja Authenticated and [facility]
[2024-02-12 12:00] VITALS: BP 134/79; PULSE 76; RESP 20; TEMP 36.9; O2SAT 94
--- NOTE | 2024-02-12 14:04 | XR_ITS ---
FINAL REPORT CLINICAL HISTORY: f/u pneumothorax after pigtail was removed COMPARISON: 02/12/2024 FINDINGS: 2 views of the chest were obtained . There is a left port with the tip in the SVC. The heart is normal in size. The mediastinum is within normal limits. There are bilateral nodular opacities likely due to multiple lung masses. There is no pneumothorax. Osseous structures are unremarkable. IMPRESSION: Multiple probable lung masses. No pneumothorax. Reviewed, Interpreted and Dictated by Aguilar Dunlap MD Transcribed by Sherin Cortez Authenticated and [facility]
--- NOTE | 2024-02-12 14:20 | HMH.PTEV ---
Physical Therapy Evaluation Rehab PT IP Evaluation Start: 02/12/24 12:19 Freq: ONCE Status: Active Protocol: Document 02/12/24 14:17 KAMLA (Rec: 02/12/24 14:20 KAMLA [id number]) Subjective/History History History 68-year-old male who has a past medical history significant for colon cancer with mets to the lung ( currently receiving oral chemotherapy), hernia, atrial fibrillation (Prescribe Xarelto), PE, colon perforation, and former smoker who presents with a chief complaint of increasing shortness of breath. He did have a chest tube in place, which has now been removed. He reports he lives alone, 1-2 [address] the home, and he is generally independent with all mobility without an AD. Subjective Subjective Pt reports he feels much better and is agreeable to OOB mobility assessment. New diagnosis of cancer in past 12 Yes months? Rehab PT IP Eval Objective Appearance Patient Behavior Appropriate Patient Orientation Person,Place,Time Difficulty following instructions none Speech Pattern Clear Ambulation Patient Able to Ambulate Yes Ambulation Observation IP General Gait Pattern Observation No Deviations/Normal Ambulation Distance (feet) 60 Ambulation Assistive Device None Ambulation Ability Independent Balance Ability to Arise Able, w/o using arms Sitting Balance Steady, safe Standing Balance Narrow stance w/o support Dynamic Standing Balance Ability Normal Transfers Bed Transfer Ability Independent Chair Transfer Ability Independent Sit to Stand Bed Transfer Ability Independent Sit to Stand Chair Transfer Ability Independent ROM All Extremities PT ROM Status WFL MMT All Extremities PT MMT WFL Rehab PT IP prob,goals,plan Problems Date of Evaluation: 02/12/24 Discharge Plan PT Discharge Plan Pt presents at baseline for all mobility at this time and has no current need for skilled inpatient therapy services. He is appropriate to retunr kranthi once medically stable for d/c. Eval Complexity Eval Charge Codes 48591 - High Complexity PHYSICIAN CERTIFICATION: I certify the specified therapy services for Bari Neves are required, authorized, and reviewed every 30 days.
--- NOTE | 2024-02-12 15:40 | EXP.DC.SUM ---
General Admission date:: 02/10/24 HPI HPI HPI: This is a 68-year-old male who has a past medical history significant for colon cancer with mets to the lung (currently receiving oral chemotherapy), hernia, atrial fibrillation (Prescribe Xarelto), PE, colon perforation, and former smoker who presents with a chief complaint of increasing shortness of breath over the past 2 days. Due to patient's symptoms, he presented to the emergency room for evaluation. While in the emergency room, CTA of the chest revealed no pulmonary embolism, large left pneumothorax, extensive solid and cavitary nodules diffusely throughout both lungs, and stable large metastasis in the left hepatic lobe. Patient had chest tube placed while in the emergency room, and he has been admitted for further management. During my evaluation of the patient, patient states that shortness of breath was worse than normal. He presented because of his extreme shortness of breath. Patient was somewhat hypoxic while in the emergency room requiring supplemental oxygen. He is currently denying any chest pain, lightheadedness, dizziness, fever, chills, rigors, nausea, vomiting, or diarrhea. Additional pertinent labs obtained include a red blood cell count of 4.23, hemoglobin 12.8, hematocrit 38.8, neutrophils 83.1%, PTT of 77.8, blood glucose 133, and total protein 8.6. Hospital Course Hospital Course Hospital Course: Bari Neves is a 68-year-old male with a medical history of colon cancer with diffuse mets including to lungs who was admitted for large left-sided pneumothorax s/p chest tube. #Acute hypoxic respiratory failure, resolved #Left-sided pneumothorax - Patient states he has been coughing for the past few weeks which is not normal for him. Over the past few days, he has had increased shortness of breath. ? Initial CTA of the chest revealed large left pneumothorax, extensive solid and cavitary nodules diffusely throughout both lungs, and stable large metastasis in the left hepatic lobe, but no PE. ? S/p pigtail chest tube placement in the ED with significant improvement in symptoms. ? Repeat CXR, chest CT did not reveal recurrent pneumothorax. ? Pigtail chest tube was removed without complications and 1 suture applied at incision site. Repeat CXR did not show recurrent pneumothorax. ? Pulmonology consulted and assisted with care ? Medically stable for discharge. Saturating on room air at 94%. PT evaluated patient and did not recommend rehab needs. #Stage IV colorectal carcinoma with diffuse mets ? Follows with Dr. Gonzalez and pulmonology. ? Continue Fruzaqla 5 mg daily. #History of pulmonary emboli ? Continue Xarelto 15 mg. #A-fib ? Continue diltiazem, Xarelto. Currently rate controlled. Exam Data for Last 24 hours Vital signs and Labs for Last 24 Hours: Temp Pulse Resp BP Pulse Ox O2 Del Method O2 Flow Rate 98.5 F 76 20 134/79 94 L Room Air 2 02/12/24 12:00 02/12/24 12:00 02/12/24 12:00 02/12/24 12:00 02/12/24 12:00 02/12/24 15:00 02/11/24 11:40 Laboratory Results - last 24 hr 02/12/24 06:35: WBC 7.1, RBC 3.58 L, Hgb 10.8 L, Hct 33.0 L, MCV 92.2, MCH 30.2, MCHC 32.7, RDW 15.7, Plt Count 297, MPV 10.6 H, Neut % (Auto) 80.3 H, Lymph % (Auto) 9.1 L, [place] % (Auto) 7.9, Eos % (Auto) 2.1, Baso % (Auto) 0.3, Neut # (Auto) 5.7, Lymph # (Auto) 0.6 L, [place] # (Auto) 0.6, Eos # (Auto) 0.2, Baso # (Auto) 0.0, Sodium 137, Potassium 4.3, Chloride 102, Carbon Dioxide 28, Anion Gap 11.3, BUN 15, Creatinine 0.80, Estimated Creat Clear 99, Estimated GFR 96, Est GFR ( Amer) 116 D, Glucose 115 H, Calcium 8.6, Magnesium 2.0, Total Bilirubin 0.5, AST 38, ALT 31, Alkaline Phosphatase 109, Total Protein 7.1, Albumin 3.3 L, Globulin 3.8 H, Albumin/Globulin Ratio 0.9 L I & O for Last 24 hours: Intake & Output 02/09/24 02/10/24 02/11/24 02/12/24 23:59 23:59 23:59 23:59 Intake Total 1160 / 1360 840 / 840 Output Total 326 / 526 1025 / 1275 700 / 700 Balance -326 / -526 135 / 85 140 / 140 Weight 97.522 kg 98.747 kg 99.019 kg Constitutional Constitutional: no acute distress *Routine HEENT Exam Head: Present normocephalic Eye: Present EOMI and PERRL ENT: Present mucous membranes moist *Routine Neck Exam Neck: Present supple; Absent lymphadenopathy *Routine Respiratory Exam Respiratory: Present CTA bilaterally *Routine Cardiovascular Exam Cardiovascular: Present RRR *Routine Abdominal Exam Abdominal: Present soft and normoactive bowel sounds; Absent tenderness *Routine Extremities Exam Extremities: Absent cyanosis, clubbing or edema *Routine Skin Exam Skin: Present warm; Absent rash *Routine Neurological Exam Neurological: Present alert and oriented X3 Results Data Completed and Pending Labs on day of discharge: Labs from last 24 hours 02/12/24 06:35 WBC 7.1 RBC 3.58 L Hgb 10.8 L Hct 33.0 L MCV 92.2 MCH 30.2 MCHC 32.7 RDW 15.7 Plt Count 297 MPV 10.6 H Neut % (Auto) 80.3 H Lymph % (Auto) 9.[address] [place] % (Auto) 7.9 Eos % (Auto) 2.1 Baso % (Auto) 0.3 Neut # (Auto) 5.7 Lymph # (Auto) 0.[address] [place] # (Auto) 0.6 Eos # (Auto) 0.2 Baso # (Auto) 0.0 Sodium 137 Potassium 4.3 Chloride 102 Carbon Dioxide 28 Anion Gap 11.3 BUN 15 Creatinine 0.80 Estimated Creat Clear 99 Estimated GFR 96 Est GFR ( Amer) 116 D Glucose 115 H Calcium 8.6 Magnesium 2.0 Total Bilirubin 0.5 AST 38 ALT 31 Alkaline Phosphatase 109 Total Protein 7.1 Albumin 3.3 L Globulin 3.8 H Albumin/Globulin Ratio 0.9 L DS: Diagnosis Discharge Diagnosis (1) Colon cancer metastasized to lung: Status: Acute Code(s): C18.9 - Malignant neoplasm of colon, unspecified; C78.00 - Secondary malignant neoplasm of unspecified lung (2) Pneumothorax: Status: Acute Code(s): J93.9 - Pneumothorax, unspecified Qualifiers: Pneumothorax type: other pneumothorax Qualified Code(s): J93.83 - Other pneumothorax Meds Home Medications and Allergies Home Medications ?Medication ?Instructions ?Recorded ?Confirmed ?Type diltiazem HCl 180 mg capsule,24 180 mg PO DAILY blood pressure 06/09/22 02/10/24 History hr,extended release albuterol sulfate 90 mcg/actuation 2 inh inhalation QIDP PRN 02/11/24 02/11/24 History aerosol inhaler shortness of breath or wheezing fruquintinib 5 mg capsule 5 mg PO DAILY 02/11/24 02/11/24 History (Fruzaqla) rivaroxaban 15 mg tablet (Xarelto) 15 mg PO QPMWITHMEAL 02/11/24 02/11/24 History New Prescriptions to Start Prescriptions: Allergies Allergy/AdvReac Type Severity Reaction Status Date / Time No Known Allergies Allergy Verified 01/10/24 11:45 Discharge Plan Disposition Patient Disposition: Home, Self-Care Condition: Fair Discharge Order Discharge Orders: Discharge Order (Routine); Ordered 02/12/24 Ordered By: Ferdinand Curry Follow up Plan Follow up with: Kelsea Yi MD [Physician] - 02/14/24 (the office will call you in the morning 02/13/2024 to let you know your appointment date and time. Thank you ! ) Saad Barraza MD [Staff Physician] - 02/19/24 9:00 am Prescriptions/Medication Reconciliation: Continued diltiazem HCl 180 mg capsule,extended release 24 hr 180 mg PO DAILY Xarelto 15 mg tablet 15 mg PO QPMWITHMEAL Patient Comments: TAKE 1 TABLET BY MOUTH ONCE DAILY IN THE EVENING Fruzaqla 5 mg capsule 5 mg PO DAILY albuterol sulfate 90 mcg/actuation HFA aerosol inhaler 2 inh inhalation QIDP PRN (Reason: shortness of breath or wheezing) Problem Reconciliation Problems Reviewed?: Yes Patient Discharge Instructions Patient Instructions: Pneumothorax, DI for Pneumothorax, DI for Surgical Site Infection Print Language: Nauruan Providers Primary Care Provider: Provider,Referral Admit Provider: Ferdinand Curry Attending Provider: Ferdinand Curry
[2024-02-12] MEDS: FLUTICASONE PROP 50MCG NASAL SPRAY 16GM 2 SPRAY NS (16:43)
--- NOTE | 2024-02-13 11:08 | SW/DCPLANNER ---
Talked to patient on the phone. Patient stated that he is doing very well. Patient stated that he was unsure when his pulmonology appointmnet was and i called and its and a follow up on April 09. Patient stated that he has no concerns or questions at this time. Anna Montesinos
[2024-02-14 05:10] LABS: HCV Ab Non Reactive (Non Reactive)
== END 2024-02-12 16:55 | disposition home or self-care (01) | DRG 199 ==
LOC: ER 16:34 → 2ND 17:53
PROVIDERS: Nurse Practitioner Family; Admitting Provider Student in an Organized Health Care Education/Training Program; Emergency Provider Student in an Organized Health Care Education/Training Program; Visit Provider Student in an Organized Health Care Education/Training Program
DX: J93.83 Other pneumothorax (principal); J96.01 Acute respiratory failure with hypoxia; C18.9 Malignant neoplasm of colon, unspecified; C78.02 Secondary malignant neoplasm of left lung; C78.01 Secondary malignant neoplasm of right lung; I48.20 Chronic atrial fibrillation, unspecified; C78.7 Secondary malignant neoplasm of liver and intrahepatic bile duct; R73.9 Hyperglycemia, unspecified; Z79.01 Long term (current) use of anticoagulants; Z79.51 Long term (current) use of inhaled steroids; Z79.899 Other long term (current) drug therapy; Z87.891 Personal history of nicotine dependence; Z95.828 Presence of other vascular implants and grafts; Z86.711 Personal history of pulmonary embolism
CPT/HCPCS: 32551; 36415; 71045; 71046; 71250; 71275; 80048; 80053; 83735; 84484; 85025; 86803; 87389; 93005; 97163; 99221; 99291; Q9967

== ENCOUNTER 2024-02-23 09:36 | Outpatient (CLI) | payer MEDICARE, MEDICAID, SELFPAY ==
[2024-02-23 09:41] VITALS: BMI 33.2
[2024-02-23] MEDS: SODIUM CHLORIDE 0.9% 10ML FLUSH SYRINGE 10 ML IV (09:55)
[2024-02-23 10:14] LABS: Albumin Level 3.4 g/dl (3.5-5.0); Chloride 105 mmol/L (98-107)
[2024-02-23 10:15] LABS: Potassium 4.1 mmoL/L (3.5-5.1); Sodium 136 mmol/L (136-145)
[2024-02-23 10:17] LABS: Alanine Aminotransferase 35 U/L (12-78); Aspartate Amino Transferase 41 U/L (17-59); Blood Urea Nitrogen 12 mg/dl (9-20); Creatinine Clearance Estimated 102 mL/min (50-200); Estimated Glomerular Filt Rate 96 ml/min (>60); GFR (African American) 116 ML/MIN (>60)
[2024-02-23 10:18] LABS: Albumin/Globulin Ratio 0.9 (1.1-1.8); Alkaline Phosphatase 98 U/L (38-126); Anion Gap 9.1 mEq/L (5-15); Bilirubin,Total 0.5 mg/dl (0.2-1.3); Calcium 8.5 mg/dl (8.4-10.2); Carbon Dioxide 26 mmol/L (22.0-30.0); Globulin 3.7 g/dL (1.3-3.2); Glucose 211 mg/dl (74-100); Total Protein,Serum 7.1 g/dl (6.3-8.2)
[2024-02-23 10:28] LABS: Basophils % 0.4 % (0.1-2.0); Eosinophils # 0.2 K/mm3 (0.0-0.4); Eosinophils % 2.3 % (0.1-12.0); Lymphocytes # 0.6 K/mm3 (0.7-4.5); Lymphocytes % 7.5 % (10-50); Mean Corpuscular HGB Conc 31.4 g/dL (31.8-35.4); Mean Corpuscular Hemoglobin 29.7 pg (27.0-31.2); Mean Corpuscular Volume 94.6 fl (80-94); Mean Platelet Volume 10.9 fl (7.4-10.4); Monocytes # 0.4 K/mm3 (0.1-1.0); Monocytes % 5.9 % (1.7-9.3); Neutrophils # 6.1 K/mm3 (1.8-7.8); Neutrophils % 83.2 % (37.0-80.0); Platelet Count 249 K/mm3 (142-424); Red Cell Distribution Width 16.1 % (11.5-17.5); White Blood Count 7.4 K/mm3 (4.8-10.8)
== END 2024-02-23 10:00 | disposition home or self-care (01) ==
LOC: INF 09:37
PROVIDERS: PCP Internal Medicine Adolescent Medicine; Visit Provider Internal Medicine Medical Oncology
DX: C18.9 Malignant neoplasm of colon, unspecified (principal)
CPT/HCPCS: 36591; 80053; 85025; J1642

== ENCOUNTER 2024-03-14 08:55 | Outpatient (CLI) | payer MEDICARE, MEDICAID, SELFPAY ==
[2024-03-14 08:59] VITALS: BMI 32.5
[2024-03-14] MEDS: SODIUM CHLORIDE 0.9% 10ML FLUSH SYRINGE 10 ML IV (09:08)
[2024-03-14 09:21] LABS: Basophils % 0.3 % (0.1-2.0); Eosinophils # 0.1 K/mm3 (0.0-0.4); Eosinophils % 1.7 % (0.1-12.0); Hematocrit 37.1 % (42.0-52.0); Hemoglobin 11.9 g/dL (14.1-18.0); Lymphocytes # 0.6 K/mm3 (0.7-4.5); Lymphocytes % 7.4 % (10-50); Mean Corpuscular HGB Conc 32.1 g/dL (31.8-35.4); Mean Corpuscular Hemoglobin 29.4 pg (27.0-31.2); Mean Corpuscular Volume 91.6 fl (80-94); Mean Platelet Volume 10.1 fl (7.4-10.4); Monocytes # 0.5 K/mm3 (0.1-1.0); Neutrophils # 6.3 K/mm3 (1.8-7.8); Neutrophils % 84.2 % (37.0-80.0); Platelet Count 250 K/mm3 (142-424); Red Blood Count 4.05 M/mm3 (4.60-6.20); Red Cell Distribution Width 15.4 % (11.5-17.5); White Blood Count 7.5 K/mm3 (4.8-10.8)
[2024-03-14 09:23] LABS: Albumin Level 3.7 g/dl (3.5-5.0); Chloride 100 mmol/L (98-107); Sodium 138 mmol/L (136-145)
[2024-03-14 09:26] LABS: Alanine Aminotransferase 39 U/L (12-78); Alkaline Phosphatase 95 U/L (38-126); Aspartate Amino Transferase 45 U/L (17-59); Bilirubin,Total 0.7 mg/dl (0.2-1.3); Blood Urea Nitrogen 12 mg/dl (9-20); Carbon Dioxide 30 mmol/L (22.0-30.0); Creatinine Clearance Estimated 100 mL/min (50-200); Estimated Glomerular Filt Rate 74 ml/min (>60); GFR (African American) 90 ML/MIN (>60); Globulin 3.8 g/dL (1.3-3.2); Total Protein,Serum 7.5 g/dl (6.3-8.2)
[2024-03-14 09:27] LABS: Calcium 8.5 mg/dl (8.4-10.2); Glucose 218 mg/dl (74-100)
== END 2024-03-14 09:10 | disposition home or self-care (01) ==
LOC: INF 08:56
PROVIDERS: PCP Internal Medicine Adolescent Medicine; Visit Provider Internal Medicine Medical Oncology
DX: C18.9 Malignant neoplasm of colon, unspecified (principal); C78.00 Secondary malignant neoplasm of unspecified lung
CPT/HCPCS: 36591; 80053; 82378; 85025; J1642

== ENCOUNTER 2024-04-05 10:55 | Outpatient (CLI) | payer MEDICARE, MEDICAID, SELFPAY ==
--- NOTE | 2024-04-05 10:56 | CT_ITS ---
FINAL REPORT TECHNIQUE: Oral and IV contrast enhanced exam This study was performed with techniques to keep radiation doses as low as reasonably achievable, (ALARA). Individualized dose reduction techniques using automated exposure control or adjustment of mA and/or kV according to the patient's size were employed. CLINICAL HISTORY: Colon cancer COMPARISON: 01/05/2024 FINDINGS: CT ABDOMEN AND PELVIS Abdomen: There is a left hepatic lobe dominant lesion measuring 62 x 57 mm in size, was previously 65 x 62 mm in size, slightly smaller. There is an adjacent mass, slightly more lateral in the left hepatic lobe, which measures 25 mm, was previously 21 mm. There are innumerable new subcentimeter hypodense liver masses, consistent with progressive metastases. There is a subcapsular lateral splenic mass, 34 x 21 mm in size, was previously 30 x 16 mm in size. The left adrenal gland has enlarged since the prior exam, with a central nodular density measuring 19 mm, stable. There is new mild left hydronephrosis, suspicious for obstruction although no stone is identified. There is a subtle soft tissue density in the mid left ureter, that may represent tumor versus a subtle stone as a cause of obstruction. This is best seen on coronal image #58 of series 604. Extensive adenopathy is present in the upper abdomen. A retrocrural node on today's examination measures 27 mm in size, was previously 23 mm. Numerous enlarged celiac axis and luana hepatis nodes are noted, the largest measuring 32 x 20 mm in size, was previously 20 x 17 mm, and best seen on image #33. There is a central abdominal wall hernia that contains small bowel. There is mesenteric adenopathy, with a right central node measuring 20 mm in size, was previously 27 mm, slightly smaller. There are bilateral periabdominal wall hernias, which contained small bowel, mildly enlarged since the prior examination. Pelvis: There is trace free fluid in the pelvis. No significant adenopathy is identified. There are old right sided pelvic fractures noted. Surgical changes of the right colon are present. IMPRESSION: There are progressive liver metastases, based on increased number of lesions, although the dominant larger lesion has mildly improved. Worsening of upper abdominal metastatic adenopathy, although improved within the mesentery. Mild progression of splenic metastases. New left upper urinary tract obstruction, with a mid ureteral lesion suspected, possibly tumor, without evidence stone. Retrograde injection and/or stent placement may be considered. Reviewed, Interpreted and Dictated by Raghu Allen MD Transcribed by Rachael Pantoja Authenticated and [facility] [place]
[2024-04-05 11:23] LABS: Basophils % 0.5 % (0.1-2.0); Eosinophils # 0.1 K/mm3 (0.0-0.4); Eosinophils % 1.4 % (0.1-12.0); Hematocrit 37.6 % (42.0-52.0); Hemoglobin 12.3 g/dL (14.1-18.0); Lymphocytes # 0.8 K/mm3 (0.7-4.5); Lymphocytes % 10.1 % (10-50); Mean Corpuscular HGB Conc 32.7 g/dL (31.8-35.4); Mean Corpuscular Hemoglobin 29.6 pg (27.0-31.2); Mean Corpuscular Volume 90.4 fl (80-94); Mean Platelet Volume 10.2 fl (7.4-10.4); Monocytes # 0.6 K/mm3 (0.1-1.0); Monocytes % 7.2 % (1.7-9.3); Neutrophils # 6.5 K/mm3 (1.8-7.8); Neutrophils % 80.3 % (37.0-80.0); Platelet Count 305 K/mm3 (142-424); Red Blood Count 4.16 M/mm3 (4.60-6.20); Red Cell Distribution Width 15.5 % (11.5-17.5); White Blood Count 8.1 K/mm3 (4.8-10.8)
--- NOTE | 2024-04-05 11:26 | CT_ITS ---
FINAL REPORT CLINICAL HISTORY: colon cancer COMPARISON: 02/10/2024 FINDINGS: Axial CT images of the chest were obtained with contrast. Coronal and sagittal reformatted images were also obtained. This study was performed with techniques to keep radiation doses as low as reasonably achievable, (ALARA). Individualized dose reduction techniques using automated exposure control or adjustment of mA and/or KV according to the patient's size were employed. There are innumerable cavitary nodules present throughout the lungs bilaterally. The largest is in the right lower lobe, measuring 29 x 23 mm in size, was previously 30 x 25 mm in size. A second lesion in the posterior medial costophrenic angle of the left lower lobe measures 30 x 20 mm, stable. There is grossly no change in the number of cavitary nodules. There has been interval resolution of the left pneumothorax since the prior CT. There is an enlarged left prevascular node, 21 mm in size, stable. No pleural or pericardial effusions are noted. There is right hilar adenopathy measuring 25 x 21 mm in size, also stable. There are a few scattered bilateral nodes noted, stable. No obvious suspicious bony abnormalities are present. IMPRESSION: There is no significant change in number of the innumerable cavitary nodules/masses when compared to the prior exam of February 09. Stable adenopathy compatible with metastatic adenopathy. Resolved left-sided pneumothorax. Reviewed, Interpreted and Dictated by Raghu Allen MD Transcribed by Rachael Pantoja Authenticated and [facility]
[2024-04-05 11:40] LABS: Alanine Aminotransferase 59 U/L (12-78); Albumin Level 3.9 g/dl (3.5-5.0); Albumin/Globulin Ratio 0.9 (1.1-1.8); Alkaline Phosphatase 172 U/L (38-126); Anion Gap 9.4 mEq/L (5-15); Aspartate Amino Transferase 57 U/L (17-59); Bilirubin,Total 0.6 mg/dl (0.2-1.3); Blood Urea Nitrogen 18 mg/dl (9-20); Calcium 9.1 mg/dl (8.4-10.2); Carbon Dioxide 30 mmol/L (22.0-30.0); Chloride 102 mmol/L (98-107); Estimated Glomerular Filt Rate 60 ml/min (>60); GFR (African American) 73 ML/MIN (>60); Globulin 4.5 g/dL (1.3-3.2); Glucose 132 mg/dl (74-100); Potassium 4.4 mmoL/L (3.5-5.1); Sodium 137 mmol/L (136-145); Total Protein,Serum 8.4 g/dl (6.3-8.2)
[2024-04-05] MEDS: SODIUM CHLORIDE 0.9% 10ML SYR (RAD ONLY) 10 ML IV (11:47)
[2024-04-05] MEDS: IOPAMIDOL-370 (76%);100ML BOTTLE 75 ML IV (11:47)
[2024-04-05] MEDS: BARIUM SULFATE(READI-CAT2);450ML BOTTLE 450 ML PO (11:47)
[2024-04-05] MEDS: SODIUM CHLORIDE 0.9% 10ML FLUSH SYRINGE 10 ML IV (11:53)
== END 2024-04-05 11:49 | disposition home or self-care (01) ==
LOC: RAD 10:56 → INF 11:13
PROVIDERS: PCP Internal Medicine Adolescent Medicine; Visit Provider Internal Medicine Medical Oncology
DX: C18.9 Malignant neoplasm of colon, unspecified (principal); C78.00 Secondary malignant neoplasm of unspecified lung
CPT/HCPCS: 36591; 71260; 74177; 80053; 82378; 85025; J1642; Q9967

== ENCOUNTER 2024-05-04 04:33 | Emergency (ER) | payer MEDICARE, MEDICAID, SELFPAY ==
[2024-05-04] VITALS (8 sets, daily range): BP systolic 145–182; BP diastolic 101–129; PULSE 59–92; RESP 18–20; TEMP 36.6–36.9; O2SAT 87–96; BMI 31.1
--- NOTE | 2024-05-04 04:49 | CT_ITS ---
PROCEDURE INFORMATION: Exam: CT Abdomen And Pelvis With Contrast Exam date and time: 05/04/2024 6:09 AM Age: 68 years old Clinical indication: Abdominal pain; Additional info: Llq abd pain, HX colon CA w/ mets to liver/lung TECHNIQUE: Imaging protocol: Computed tomography of the abdomen and pelvis with contrast. Radiation optimization: All CT scans at this facility use at least one of these dose optimization techniques: automated exposure control; mA and/or kV adjustment per patient size (includes targeted exams where dose is matched to clinical indication); or iterative reconstruction. Contrast material: ISOVUE; Contrast volume: 75 ml; Contrast route: IV; COMPARISON: CT ABDOMEN PELVIS W CON 04/05/2024 11:31 AM FINDINGS: Lungs: Innumerable cavitated pulmonary nodules. Pleural spaces: No pneumothorax. No pleural effusion. Liver: There are innumerable hypodensities throughout the liver. A coalescent group of lesions measures 6.7 cm in the left hepatic lobe. Gallbladder and biliary ducts: Gallbladder is distended without radiopaque cholelithiasis. No biliary ductal dilation. Pancreas: Normal. No ductal dilation. Spleen: There is a 3.8 cm hypo dense lesion within the spleen.No splenomegaly. Adrenal glands: There is 2.4 cm left adrenal nodule Kidneys and ureters: There is [id number] bilateral hydroureteronephrosis without definitive obstructive calculus. Stomach and bowel: No bowel wall thickening or distention. Appendix: No evidence of appendicitis. Intraperitoneal space: Moderate amount of free fluid Vasculature: Aorta is nonaneurysmal. Lymph nodes: Multi station retroperitoneal and upper abdominal lymphadenopathy Urinary bladder: Unremarkable as visualized. Reproductive: Unremarkable as visualized. Bones/joints: No acute osseous abnormality. Soft tissues: Several ventral hernias containing fat. IMPRESSION: 1. No substantial change in widespread metastatic disease burden. 2. There is [id number] bilateral hydroureteronephrosis without definitive obstructive calculus.
--- NOTE | 2024-05-04 05:01 | HMH.EDGENADL ---
Discharge Plan Disposition Chief Complaint: Abdominal Pain Prescriptions Prescriptions: No Action budesonide-formoterol [Symbicort] 160-4.5 mcg/actuation HFA aerosol inhaler 2 puff inhalation BID 90 Days Qty: 10.2 2RF diltiazem HCl 180 mg capsule,extended release 24 hr 180 mg PO DAILY doxycycline hyclate 100 mg capsule 100 mg PO BID Patient Comments: TAKE 1 CAPSULE BY MOUTH TWICE DAILY levocetirizine 5 mg tablet 5 mg PO DAILY Patient Comments: TAKE 1 TABLET BY MOUTH IN THE EVENING Xarelto 15 mg tablet 15 mg PO QPMWITHMEAL Patient Comments: TAKE 1 TABLET BY MOUTH ONCE DAILY IN THE EVENING Fruzaqla 5 mg capsule 5 mg PO DAILY Referrals Follow up/Referrals: Saad Barraza MD [Primary Care Provider] - See instructions Instructions Patient Instructions: DI for Acute Abdominal Pain Print Language Print Language: Citizen Of [place] Discharge ED Provider: Sonny Arthur General Adult HPI General Chief complaint: Abdominal Pain Stated complaint: abd cramps Time Seen by Provider: 05/04/24 04:37 Mode of Arrival: Ambulatory Source of Information: Patient Description of Symptoms (Recalled from ER Triage Doc. by RN): PT HERE W/ C/O LLQ ABD CRAMPING FOR ABOUT A WEEK. PAIN 8/10 AT THIS TIME, DENEIS NVD OR FEVER. HX OF COLON CANCER History of Present Illness HPI narrative: This 68-year-old male with a history of colon cancer known to be metastatic to the liver and lungs currently on oral chemotherapy pill presents to the ER with complaints of left lower quadrant abdominal pain for the last week. He reports pain 8 out of 10 without radiation. He states his last bowel movement was yesterday and was normal in consistency, brown, not melanotic or bloody. He reports prior to this he had not had a bowel movement for the last week. He states this is abnormal for him. He states he does not have associated nausea, vomiting, dysuria, hematuria, he states he has chronic cough but no chest pain or difficulty breathing, he has had mild nasal congestion for the last 2 weeks but that is unchanged. He states when he was diagnosed with colon cancer he had colon rupture and cleanout in 2020. He has ventral wall abdominal hernias. He does have a port in the left upper chest. He reports he no longer smokes. No fevers or chills. No other associated symptoms at this time. Patient took his regular home prescriptions prior to arrival but has not taken anything for pain Related Data Home Medications ?Medication ?Instructions ?Recorded ?Confirmed diltiazem HCl 180 mg capsule,24 180 mg PO DAILY blood pressure 06/09/22 04/09/24 hr,extended release fruquintinib 5 mg capsule 5 mg PO DAILY 02/11/24 04/09/24 (Fruzaqla) rivaroxaban 15 mg tablet (Xarelto) 15 mg PO QPMWITHMEAL 02/11/24 04/09/24 doxycycline hyclate 100 mg capsule 100 mg PO BID 04/09/24 04/09/24 levocetirizine 5 mg tablet 5 mg PO DAILY 04/09/24 04/09/24 Previous Rx's ?Medication ?Instructions ?Recorded budesonide-formoterol HFA 160 2 puff inhalation BID 90 days 04/09/24 mcg-4.5 mcg/actuation aerosol #10.2 grams inhaler (Symbicort) Allergies Allergy/AdvReac Type Severity Reaction Status Date / Time No Known Allergies Allergy Verified 04/09/24 11:24 [facility] Disclaimer: The information contained in this section may have been updated after the patient was seen, as this information can be updated by other users. Medical History Colon perforation Multiple lung nodules on CT Stopped smoking with greater than 20 pack year history Cavitary lesion of lung Port-A-Cath in place History of chemotherapy Arthritis Cancer colon cancer Arrhythmia Atrial fibrillation with RVR Surgical History Hx of colonoscopy History of colon resection and anastamosis Family History Other Cancer Social History Smoking Status: Never smoker alcohol intake: never substance use type: denies use current occupational status: retired Travel in the last 8 weeks: None household members: none housing: house current occupation: SELF EMPLOYED[employer] current occupational exposures/hazards: No caffeine: Yes Have you lived/traveled outside [place] in past 30 days?: No Contact w/someone who lives/traveled outside US past 30 days?: No Exposure to someone with infectious disease in past 14 days?: No Do you have a fever (greater than 100.4 F or 38 C)?: No Have you tested positive for COVID-19: No Exposed to someone with COVID-19 in past 14 days?: No Do you have a sore throat?: No Do you have a cough?: No Do you have any weakness?: No Do you have any diarrhea?: No Are you experiencing any unusual bleeding?: No Do you have any muscle aches/pain?: No Do you have any abdominal pain?: Yes Are you experiencing loss of taste or smell?: No Other Medical History Have you received the Flu Vaccine for this season: No Have you received the Pneumonia Vaccine: Yes ROS Obtained: Yes Systems reviewed as appropriate & no additional complaints except as documented Per HPI Physical Exam General General appearance: alert and in no apparent distress Head Head exam: atraumatic and normocephalic Eye Eye exam: Present PERRL and EOMI ENT ENT exam: Present mucous membranes moist Neck Neck exam: Present normal inspection and full ROM Chest Chest inspection: Present symmetric chest wall rise and other (Port present left upper chest) Respiratory Respiratory exam: Present normal lung sounds bilaterally; Absent respiratory distress, wheezes or stridor Cardiovascular Cardiovascular exam: Present regular rate and normal rhythm Abdominal Exam Abdominal exam: Present soft and tenderness (Localized left lower quadrant tenderness to palpation); Absent distention, guarding, rebound or rigidity Comment: Soft ventral wall hernias with no overlying skin changes Extremities Exam Extremities exam: Present full ROM; Absent edema Neurological Exam Neurological exam: Present alert and oriented X3; Absent motor sensory deficit Psychiatric Psychiatric exam: Present normal affect and normal mood Skin Skin exam: Present warm and dry Medical Decision Making Medical Records Medical records reviewed: Yes I reviewed the patient's medical records. Screening: Per USPSTF and CDC recommendations, given the prevalence of disease in our region, it is our hospital?s policy to screen for HIV and viral Hepatitis for all patients aged 18 and over and those with ongoing risk factors. MR Comment: Most recent oncology note from Dr. Gonzalez from April 2024 demonstrates patient was started on fruquintinib in January 2024 and in March [address] chest abdomen pelvis with no changes of the masses in the lungs, stable adenopathy, multiple new lesions in the liver with new metastasis, worsening upper abdominal metastatic adenopathy, however the largest lesion in the right lobe of the liver is slightly smaller. CEA at that time 186. Because of these changes, patient was started on regorafenib. Rene Inquiry Pt receiving controlled substance: No Vital Signs: 05/04/24 04:40 05/04/24 05:30 Temperature 97.8 F Temperature Source Oral Pulse Rate 73 Pulse Rate [Apical] 92 H Respiratory Rate 20 Blood Pressure 145/101 H Blood Pressure [Right Arm] 148/129 H Blood Pressure Mean 112 Blood Pressure Mean [Right Arm] 135 02 Sat by Pulse Oximetry 94 L 94 L Oxygen Delivery Method Room Air Room Air Lab Data Lab Results 05/04/24 05:35: WBC 10.7, RBC 3.78 L, Hgb 11.2 L, Hct 34.8 L, MCV 92.1, MCH 29.6, MCHC 32.2, RDW 17.5, Plt Count 298, MPV 10.2, Neut % (Auto) 85.6 H, Lymph % (Auto) 4.9 L, [place] % (Auto) 6.9, Eos % (Auto) 1.8, Baso % (Auto) 0.2, Neut # (Auto) 9.2 H, Lymph # (Auto) 0.5 L, [place] # (Auto) 0.7, Eos # (Auto) 0.2, Baso # (Auto) 0.0, PT 12.4, INR 1.12 H, Sodium 137, Potassium 4.4, Chloride 102, Carbon Dioxide 27, Anion Gap 12.4, BUN 21 H, Creatinine 1.40 H, Estimated Creat Clear 68, Estimated GFR 50 L, Est GFR ( Amer) 61, Glucose 130 H, Lactate 1.3, Calcium 8.7, Total Bilirubin 1.0, AST 85 H, ALT 61, Alkaline Phosphatase 358 H, Total Protein 7.3, Albumin 3.1 L, Globulin 4.2 H, Albumin/Globulin Ratio 0.7 L 05/04/24 05:35 05/04/24 05:35 Orders (Tests/Meds): ED MEDICATIONS Generic Name Dose Route Start Last Admin Trade Name Freq PRN Reason Stop Dose Admin Lactated Ringer's 1,000 mls @ 999 mls/hr 05/04/24 06:03 05/04/24 06:21 Lactated Ringer's 1000 Ml Bag IV 05/04/24 07:03 999 mls/hr .Q1H1M ONE Administration Sodium Chloride 10 ml 05/04/24 06:10 05/04/24 06:11 Sodium Chloride 0.9% 10ml Syr (Rad Only) IV 06/03/24 06:09 10 ml NEEDED PRN Administration Maintain IV Site Discontinued Medications Generic Name Dose Route Start Last Admin Trade Name Freq PRN Reason Stop Dose Admin Acetaminophen 1,000 mg 05/04/24 04:49 05/04/24 05:07 Acetaminophen 1,000mg/100ml Vial IV 05/04/24 04:50 1,000 mg ONCE ONE Administration Iopamidol 75 ml 05/04/24 06:10 05/04/24 06:11 Iopamidol-370 (76%);100ml Bottle IV 05/04/24 06:11 75 ml ONCE ONE Administration Lidocaine HCl 1 ml 05/04/24 04:48 05/04/24 05:07 Lidocaine 2% Urojet 10ml TP 05/04/24 04:49 1 ml ONCE ONE Administration ORDERS Category Date Time Status CT abdomen pelvis w con Stat Cat Scan 05/04/24 04:49 Taken CBC w/Auto Diff [Complete Blood Count Auto Diff] Stat Lab 05/04/24 05:35 Completed CMP [Comprehensive Metabolic Panel] Stat Lab 05/04/24 05:35 Completed Lactic Acid Stat Lab 05/04/24 05:35 Completed PT INR [Prothrombin Time INR] Stat Lab 05/04/24 05:35 Completed Urinalysis and Microscopic Stat Lab 05/04/24 05:26 Ordered Medical Decision Narrative: In summary, this 68-year-old male with comorbidities described in the HPI not at goal therapy presents to the emergency department today with 1 week of left lower quadrant abdominal pain that has been progressively worsening as well as change in bowel habits. On initial evaluation patient is hemodynamically stable, afebrile, nontoxic-appearing, exam overall is reassuring however patient has localized tenderness in the left lower quadrant without rebound or guarding. Abdominal wall hernias do not appear strangulated. Differential diagnosis includes but is not limited to cancer/tumor burden, bowel obstruction, also considered mesenteric ischemia, electrolyte abnormality, diverticulosis or diverticulitis, constipation, colitis, urinary tract infection, among others. Based on these concerns, I ordered serum labs, lactic acid, CT imaging, urine studies. Patient reports port in left upper chest is frequently used for labs and imaging including CTs. Patient received IV acetaminophen for treatment. Viscous lidocaine applied over patient's port prior to it being accessed. Labs personally reviewed demonstrate anemia hemoglobin 11.2, slightly decreased and March, no leukocytosis, PT normal, INR slightly elevated but nonactionable, CMP mild kidney dysfunction. Patient is receiving IV fluids. Review of previous labs demonstrates creatinine has been on a gradual uptrend from 0.8 in February 2024 to most recently 1.2 at the end of March, today 1.4. Alkaline phosphatase and AST elevated compared to prior potentially related to patient's known metastatic disease. I personally interpreted CT abdomen pelvis and do not appreciate obvious bowel obstruction, patient has evidence of significant metastatic disease in the lungs and liver. Radiology read pending at the time of physician handoff. Patient handed off to Dr. Montiel in stable condition for further management and disposition. Critical Care Critical Care Time Critical Care Time: No
[2024-05-04] MEDS: ACETAMINOPHEN 1,000MG/100ML VIAL 1000 MG IV (05:07)
[2024-05-04] MEDS: LIDOCAINE 2% UROJET 10ML TP (05:07)
[2024-05-04 05:44] LABS: Basophils % 0.2 % (0.1-2.0); Eosinophils # 0.2 K/mm3 (0.0-0.4); Eosinophils % 1.8 % (0.1-12.0); Hematocrit 34.8 % (42.0-52.0); Hemoglobin 11.2 g/dL (14.1-18.0); Lymphocytes # 0.5 K/mm3 (0.7-4.5); Lymphocytes % 4.9 % (10-50); Mean Corpuscular HGB Conc 32.2 g/dL (31.8-35.4); Mean Corpuscular Hemoglobin 29.6 pg (27.0-31.2); Mean Corpuscular Volume 92.1 fl (80-94); Mean Platelet Volume 10.2 fl (7.4-10.4); Monocytes # 0.7 K/mm3 (0.1-1.0); Monocytes % 6.9 % (1.7-9.3); Neutrophils # 9.2 K/mm3 (1.8-7.8); Neutrophils % 85.6 % (37.0-80.0); Platelet Count 298 K/mm3 (142-424); Red Blood Count 3.78 M/mm3 (4.60-6.20); Red Cell Distribution Width 17.5 % (11.5-17.5); White Blood Count 10.7 K/mm3 (4.8-10.8)
[2024-05-04 05:49] LABS: Albumin Level 3.1 g/dl (3.5-5.0); Chloride 102 mmol/L (98-107); Potassium 4.4 mmoL/L (3.5-5.1); Sodium 137 mmol/L (136-145)
[2024-05-04 05:52] LABS: Alanine Aminotransferase 61 U/L (12-78); Albumin/Globulin Ratio 0.7 (1.1-1.8); Alkaline Phosphatase 358 U/L (38-126); Anion Gap 12.4 mEq/L (5-15); Aspartate Amino Transferase 85 U/L (17-59); Blood Urea Nitrogen 21 mg/dl (9-20); Carbon Dioxide 27 mmol/L (22.0-30.0); Creatinine Clearance Estimated 68 mL/min (50-200); Estimated Glomerular Filt Rate 50 ml/min (>60); GFR (African American) 61 ML/MIN (>60); Globulin 4.2 g/dL (1.3-3.2); Total Protein,Serum 7.3 g/dl (6.3-8.2)
[2024-05-04 05:53] LABS: Calcium 8.7 mg/dl (8.4-10.2); Glucose 130 mg/dl (74-100); INR 1.12 (0.9-1.1); Lactic Acid 1.3 mmol/L (0.7-2.1); Prothrombin Time 12.4 seconds (10.1-12.5)
[2024-05-04] MEDS: SODIUM CHLORIDE 0.9% 10ML SYR (RAD ONLY) 10 ML IV (06:11)
[2024-05-04] MEDS: IOPAMIDOL-370 (76%);100ML BOTTLE 75 ML IV (06:11)
[2024-05-04] MEDS: LACTATED RINGERS 1000ML 1,000 ML 999 ML IV (06:21)
[2024-05-04 07:16] LABS: Microscopic, Urine URINE MICROSCOPIC (MICROSCOPIC)
[2024-05-04 08:01] LABS: Appearance,Urine CLEAR (Clear); Bilirubin,Urine Negative (Negative); Blood, Urine Negative (Negative); Color,Urine YELLOW (Yellow); Glucose,Urine (UA) Negative (Negative); Ketones,Urine Negative (Negative); Leukocyte Esterase,Urine Negative (Negative); Nitrate,Urine Negative (Negative); PH,Urine 5.5 (5.0-8.5); Protein,Urine Negative (Negative); Specific Gravity, Urine 1.025 (1.005-1.030); Urobilinogen,Urine 0.2 EU/dl (0.2)
[2024-05-04 08:29] LABS: Bacteria,Urine Trace /lpf
--- NOTE | 2024-05-04 08:59 | PC.NURSE ---
dr isaacs at bedside
== END 2024-05-04 09:26 | disposition home or self-care (01) ==
PROVIDERS: Emergency Medicine; Emergency Provider Emergency Medicine; PCP Internal Medicine Adolescent Medicine
DX: N40.1 Benign prostatic hyperplasia with lower urinary tract symptoms (principal); K66.8 Other specified disorders of peritoneum; N13.8 Other obstructive and reflux uropathy; C18.9 Malignant neoplasm of colon, unspecified; C78.7 Secondary malignant neoplasm of liver and intrahepatic bile duct; C78.00 Secondary malignant neoplasm of unspecified lung; K72.10 Chronic hepatic failure without coma; N28.9 Disorder of kidney and ureter, unspecified; R39.11 Hesitancy of micturition; K43.9 Ventral hernia without obstruction or gangrene; K59.00 Constipation, unspecified; R18.0 Malignant ascites; R05.3 Chronic cough; I48.20 Chronic atrial fibrillation, unspecified; R09.81 Nasal congestion; M19.90 Unspecified osteoarthritis, unspecified site; Z79.69 Long term (current) use of other immunomodulators and immunosuppressants; Z95.828 Presence of other vascular implants and grafts
CPT/HCPCS: 74177; 80053; 81001; 83605; 85025; 85610; 96360; 96374; 99283; J0131; J7120; Q9967

== ENCOUNTER 2024-05-14 08:32 | Outpatient (CLI) | payer MEDICARE, MEDICAID, SELFPAY ==
[2024-05-14] MEDS: SODIUM CHLORIDE 0.9% 10ML FLUSH SYRINGE 10 ML IV (08:50)
[2024-05-14 09:11] LABS: Basophils # 0.1 K/mm3 (0-0.2); Basophils % 0.6 % (0.1-2.0); Eosinophils # 0.2 K/mm3 (0.0-0.4); Eosinophils % 1.5 % (0.1-12.0); Hematocrit 37.7 % (42.0-52.0); Hemoglobin 11.9 g/dL (14.1-18.0); Lymphocytes # 0.6 K/mm3 (0.7-4.5); Lymphocytes % 4.7 % (10-50); Mean Corpuscular HGB Conc 31.6 g/dL (31.8-35.4); Mean Corpuscular Hemoglobin 28.7 pg (27.0-31.2); Mean Corpuscular Volume 91.1 fl (80-94); Mean Platelet Volume 10.3 fl (7.4-10.4); Monocytes # 0.8 K/mm3 (0.1-1.0); Monocytes % 6.5 % (1.7-9.3); Neutrophils # 10.6 K/mm3 (1.8-7.8); Neutrophils % 86.3 % (37.0-80.0); Platelet Count 318 K/mm3 (142-424); Red Blood Count 4.14 M/mm3 (4.60-6.20); Red Cell Distribution Width 17.4 % (11.5-17.5); White Blood Count 12.2 K/mm3 (4.8-10.8)
[2024-05-14 09:24] LABS: Albumin Level 3.1 g/dl (3.5-5.0); Chloride 102 mmol/L (98-107); Sodium 135 mmol/L (136-145)
[2024-05-14 09:27] LABS: Alanine Aminotransferase 46 U/L (12-78); Albumin/Globulin Ratio 0.6 (1.1-1.8); Alkaline Phosphatase 327 U/L (38-126); Aspartate Amino Transferase 76 U/L (17-59); Bilirubin,Total 1.2 mg/dl (0.2-1.3); Blood Urea Nitrogen 22 mg/dl (9-20); Calcium 8.3 mg/dl (8.4-10.2); Carbon Dioxide 26 mmol/L (22.0-30.0); Estimated Glomerular Filt Rate 50 ml/min (>60); GFR (African American) 61 ML/MIN (>60); Glucose 115 mg/dl (74-100); Total Protein,Serum 8.1 g/dl (6.3-8.2)
[2024-05-14 10:56] LABS: Anion Gap 11.6 mEq/L (5-15); Potassium 4.6 mmoL/L (3.5-5.1)
== END 2024-05-14 08:58 | disposition home or self-care (01) ==
LOC: LAB 08:32 → INF 08:57
PROVIDERS: PCP Internal Medicine Adolescent Medicine; Visit Provider Internal Medicine Medical Oncology
DX: C18.9 Malignant neoplasm of colon, unspecified (principal); C78.00 Secondary malignant neoplasm of unspecified lung
CPT/HCPCS: 36591; 80053; 85025; J1642

== ENCOUNTER 2024-05-21 10:12 | Outpatient (CLI) | payer MEDICARE, MEDICAID, SELFPAY ==
--- NOTE | 2024-05-21 | XR_ITS ---
FINAL REPORT CLINICAL HISTORY: SOA HYPERTENSION states checking for pnuemonia, cough x1 week COMPARISON: 02/12/2024 FINDINGS: PA and lateral views of the chest were obtained. The cardiac and mediastinal silhouettes are within normal limits. There is no change in the left Port-A-Cath. Bilateral nodular opacities are similar to prior. No convincing new infiltrates are identified. There is no pleural effusion or pneumothorax. No acute osseous abnormality is identified. IMPRESSION: No significant change. Reviewed, Interpreted and Dictated by Nikole Santamaria MD Transcribed by Suki Butts Authenticated and . [facility]
[2024-05-21 10:55] VITALS: BMI 31.1
[2024-05-21 11:00] VITALS: BP 99/75; PULSE 66; RESP 18; TEMP 36.6; O2SAT 95
[2024-05-21] MEDS: 0.9 % SODIUM CHLORIDE 1000ML 500 ML 125 ML IV (11:00)
[2024-05-21 11:07] LABS: Basophils % 0.3 % (0.1-2.0); Eosinophils # 0.3 K/mm3 (0.0-0.4); Eosinophils % 2.4 % (0.1-12.0); Hematocrit 39.1 % (42.0-52.0); Hemoglobin 12.3 g/dL (14.1-18.0); Lymphocytes # 0.6 K/mm3 (0.7-4.5); Lymphocytes % 4.1 % (10-50); Mean Corpuscular HGB Conc 31.5 g/dL (31.8-35.4); Mean Corpuscular Hemoglobin 28.6 pg (27.0-31.2); Mean Corpuscular Volume 90.9 fl (80-94); Mean Platelet Volume 10.3 fl (7.4-10.4); Monocytes # 0.7 K/mm3 (0.1-1.0); Monocytes % 5.2 % (1.7-9.3); Neutrophils # 12.2 K/mm3 (1.8-7.8); Neutrophils % 87.5 % (37.0-80.0); Nucleated Red Blood Cells # 0 10^3/uL; Nucleated Red Blood Cells % 0 %; Platelet Count 291 K/mm3 (142-424); Red Cell Distribution Width 18.7 % (11.5-17.5); Red Cell Distribution Width-SD 61.5 fL
[2024-05-21 11:13] LABS: Albumin Level 2.8 g/dl (3.5-5.0); Chloride 101 mmol/L (98-107)
[2024-05-21 11:14] LABS: Potassium 3.9 mmoL/L (3.5-5.1); Sodium 135 mmol/L (136-145)
[2024-05-21 11:16] LABS: Blood Urea Nitrogen 22 mg/dl (9-20); Creatinine Clearance Estimated 74 mL/min (50-200); Estimated Glomerular Filt Rate 55 ml/min (>60); GFR (African American) 66 ML/MIN (>60)
[2024-05-21 11:17] LABS: Alanine Aminotransferase 36 U/L (12-78); Albumin/Globulin Ratio 0.6 (1.1-1.8); Alkaline Phosphatase 294 U/L (38-126); Anion Gap 13.9 mEq/L (5-15); Aspartate Amino Transferase 69 U/L (17-59); Bilirubin,Total 1.2 mg/dl (0.2-1.3); Calcium 7.6 mg/dl (8.4-10.2); Carbon Dioxide 24 mmol/L (22.0-30.0); Globulin 4.9 g/dL (1.3-3.2); Glucose 158 mg/dl (74-100); Total Protein,Serum 7.7 g/dl (6.3-8.2)
[2024-05-21 11:26] LABS: NT Pro Brain Natriuretic Pep. 632 pg/mL (0-125)
[2024-05-21 11:37] LABS: Adenovirus,PCR Not Detected (NotDetected); Bordetella Pertussis Not Detected (NotDetected); Chlamydophila Pneumoniae, PCR Not Detected (NotDetected); Coronavirus 19, PCR Not Detected (NotDetected); Coronavirus 229E Not Detected (NotDetected); Coronavirus NL63 Not Detected (NotDetected); Coronavirus OC43 Not Detected (NotDetected); Coronovirus HKU1,PCR Not Detected (NotDetected); Human Metapneumovirus Not Detected (NotDetected); Influenza A, PCR Not Detected (NotDetected); Influenza AH1, 2009 Not Detected (NotDetected); Influenza AH1, PCR Not Detected (NotDetected); Influenza AH3,PCR Not Detected (NotDetected); Influenza B, PCR Not Detected (NotDetected); Mycoplasma Pneumoniae, PCR Not Detected (NotDetected); Parainfluenza 1, PCR Not Detected (NotDetected); Parainfluenza 2, PCR Not Detected (NotDetected); Parainfluenza 3, PCR Not Detected (NotDetected); Parainfluenza 4, PCR Not Detected (NotDetected); Respiratory Syncytial Virus Not Detected (NotDetected); Rhinovirus/Enterovirus Not Detected (NotDetected)
[2024-05-21 11:45] VITALS: BP 103/68; PULSE 85; RESP 18; O2SAT 94
[2024-05-21 12:30] VITALS: BP 108/69; PULSE 88; RESP 16; O2SAT 92
[2024-05-21] MEDS: DEXAMETHASONE 4MG/ML 5ML MDV 10 MG IV (12:49)
[2024-05-21 13:30] VITALS: BP 98/68; PULSE 90; RESP 16; O2SAT 94
[2024-05-21] MEDS: APAP/HYDROCODONE 325MG/7.5MG TAB 1 TAB PO (14:02)
[2024-05-21 14:30] VITALS: BP 114/57; PULSE 84; RESP 18; O2SAT 93
[2024-05-21] MEDS: SODIUM CHLORIDE 0.9% 10ML FLUSH SYRINGE 10 ML IV (14:58)
[2024-05-21 15:00] VITALS: BP 108/64; PULSE 79; RESP 18; TEMP 36.7; O2SAT 94
== END 2024-05-21 15:00 ==
LOC: INF 10:14
PROVIDERS: Internal Medicine Medical Oncology; PCP Nurse Practitioner Family; Visit Provider Nurse Practitioner Family
DX: C18.9 Malignant neoplasm of colon, unspecified (principal); C78.00 Secondary malignant neoplasm of unspecified lung
CPT/HCPCS: 71046; 80053; 82378; 83880; 85025; 87633; 96360; 96361; 96375; J1100; J1642; J7030

== ENCOUNTER 2024-05-28 08:49 | Outpatient (CLI) | payer MEDICARE, MEDICAID, SELFPAY ==
[2024-05-28 09:19] LABS: Basophils # 0.1 K/mm3 (0-0.2); Basophils % 0.2 % (0.1-2.0); Eosinophils # 0.1 Kmm3 (0.0-0.4); Eosinophils % 0.6 % (0.1-12.0); Hematocrit 39.4 % (42.0-52.0); Hemoglobin 12.6 g/dL (14.1-18.0); Lymphocytes # 0.5 K/mm3 (0.7-4.5); Lymphocytes % 2.6 % (10-50); Mean Corpuscular Hemoglobin 29.3 pg (27.0-31.2); Mean Corpuscular Volume 91.6 fl (80-94); Mean Platelet Volume 10.3 fl (7.4-10.4); Monocytes # 1.4 K/mm3 (0.1-1.0); Monocytes % 6.4 % (1.7-9.3); Neutrophils # 18.7 K/mm3 (1.8-7.8); Neutrophils % 89.1 % (37.0-80.0); Nucleated Red Blood Cells # 0 10^3/uL; Nucleated Red Blood Cells % 0 %; Platelet Count 164 K/mm3 (142-424); Red Cell Distribution Width 19.8 % (11.5-17.5)
[2024-05-28 09:21] LABS: MANUAL DIFFERENTIAL MANUAL DIFFERENTIAL (MANUAL DIFF)
[2024-05-28 09:27] LABS: Alanine Aminotransferase 54 U/L (12-78); Albumin Level 2.6 g/dl (3.5-5.0); Albumin/Globulin Ratio 0.6 (1.1-1.8); Alkaline Phosphatase 331 U/L (38-126); Anion Gap 9.2 mEq/L (5-15); Aspartate Amino Transferase 86 U/L (17-59); Bilirubin,Total 1.3 mg/dl (0.2-1.3); Blood Urea Nitrogen 37 mg/dl (9-20); Calcium 8.6 mg/dl (8.4-10.2); Carbon Dioxide 27 mmol/L (22.0-30.0); Chloride 105 mmol/L (98-107); Estimated Glomerular Filt Rate 50 ml/min (>60); GFR (African American) 61 ML/MIN (>60); Globulin 4.3 g/dL (1.3-3.2); Glucose 102 mg/dl (74-100); Potassium 4.2 mmoL/L (3.5-5.1); Sodium 137 mmol/L (136-145); Total Protein,Serum 6.9 g/dl (6.3-8.2)
[2024-05-28 10:17] LABS: Anisocytosis 1+; Lymphocytes % 1 % (10-50); Monocytes % 3 % (2-9); Neutrophils % 96 % (42-76); Platelet Estimate Normal; Total Cells Counted 100
[2024-05-28] MEDS: SODIUM CHLORIDE 0.9% 10ML FLUSH SYRINGE 10 ML IV (11:12)
== END 2024-05-28 09:54 | disposition home or self-care (01) ==
LOC: INF 08:49
PROVIDERS: PCP Internal Medicine Adolescent Medicine; Visit Provider Internal Medicine Medical Oncology
DX: C18.9 Malignant neoplasm of colon, unspecified (principal); C78.00 Secondary malignant neoplasm of unspecified lung
CPT/HCPCS: 36591; 80053; 85007; 85025; J1642